=== PATIENT | male | born 1950 | race Caucasian/White ===

== ENCOUNTER 2018-02-10 17:05 | Emergency (ER) | payer OTHER ==
--- OUTSIDE RECORDS SUMMARY | 2018-02-10 17:08 | XMS REPORT | Clinical Summary ---
:1950 Author Organization [facility] Address [address] [place] [address] Care Team Providers Name Role Phone Asked, No Pcp Primary Care Provider Unavailable Allergies No Known Allergies Current Medications Prescription Sig. Disp. Refills Start Date End Date Status amlodipine-benazepr Take 1 capsule 07/19/2017 Discontinued il (LOTREL) 10-20 by mouth mg per capsule daily. aspirin 325 MG Take 325 mg by 07/19/2017 Discontinued tablet mouth daily. carvedilol (COREG) Take 6.25 mg 07/19/2017 Discontinued 6.25 MG tablet by mouth 2 (two) times a day. furosemide (LASIX) Take by mouth 07/19/2017 Discontinued 40 mg/4 mL solution 2 (two) times oral solution a day. atorvastatin Take 80 mg by 07/19/2017 Discontinued (LIPITOR) 80 MG mouth nightly. tablet sacubitril-valsarta Take 1 tablet 07/19/2017 Discontinued n (ENTRESTO) 24-26 by mouth 2 mg tablet per (two) times a tablet day. carvedilol (COREG) Take 1 tablet 60 tablet 1 07/18/2017 08/17/2017 12.5 MG tablet (12.5 mg total) by mouth 2 (two) times a day with meals for 30 days. amIODarone Take 1 tablet 30 tablet 1 07/18/2017 08/17/2017 (PACERONE) 400 MG (400 mg total) tablet by mouth daily for 30 days. furosemide (LASIX) Take 1 tablet 60 tablet 1 07/18/2017 08/17/2017 40 mg tablet (40 mg total) by mouth 2 (two) times a day for 30 days. aspirin (ECOTRIN) Take 1 tablet 30 tablet 0 07/18/2017 08/17/2017 81 MG enteric (81 mg total) coated tablet by mouth daily for 30 days. clopidogrel Take 1 tablet 30 tablet 1 07/18/2017 08/17/2017 (PLAVIX) 75 mg (75 mg total) tablet by mouth daily for 30 days. potassium chloride Take 1 tablet 30 tablet 1 07/18/2017 08/17/2017 (K-DUR) 20 MEQ CR (20 mEq total) tablet by mouth daily for 30 days. acetaminophen-codei Take 1 tablet 30 tablet 0 07/19/2017 08/19/2017 ne (TYLENOL WITH by mouth every CODEINE #3) 300-30 6 (six) hours mg per tablet as needed for moderate pain for up to 30 doses. Active Problems Problem Noted Date ANSHUL (acute kidney injury) 07/14/2017 Atrial fibrillation, currently in sinus rhythm 07/13/2017 Acute respiratory insufficiency 07/13/2017 Biventricular failure 07/13/2017 Pericardial effusion, acute 07/13/2017 S/P CABG x 4 (BONNER to LAD, SVG to OM, SVG TO Diag, SVG TO PDA) and SHAILESH 2016 ligation with clip SHERI (obstructive sleep apnea) 07/08/2017 Ischemic dilated cardiomyopathy, with reduced ejection fraction. 07/08/2017 Hypertensive cardiovascular disease 07/08/2017 Severe left internal carotid artery stenosis. (80-99%) 07/08/2017 Type 2 diabetes mellitus 07/08/2017 Obesity 07/08/2017 CAD (coronary artery disease) 07/07/2017 Coronary artery disease involving tanana coronary artery of tanana heart 07/07 without angina pectoris Overview: Added automatically from request for surgery [id number] Patient is Jainism GERD (gastroesophageal reflux disease) Resolved Problems Problem Noted Date Resolved Date Systolic heart failure 07/08/2017 07/08/2017 Encounters Date Type Specialty Care Team Description 10/28/2017 Telephone Quality Chandrika Gonsalves 07/11/2017 Anesthesia Event Cardiothoracic Surgery James Huynh 07/11/2017 Procedure Pass Cardiothoracic Surgery 07/11/2017 Surgery Cardiothoracic Surgery Autumn, CABG BONNER TO LAD, Nuno SVG TO DIAGONAL, MD Jack OM, PDA WITH EVH 07/10/2017 Orders Only Cardiovascular Richard, Coronary artery MAAME Brown disease involving tanana coronary artery of tanana heart without angina pectoris (Primary Dx) 07/10/2017 Procedure Pass Procedural Cardiology 07/10/2017 Surgery Procedural Cardiology Filippo Freeman Cv right heart MD Arvind cath [30764 (CPT)] 07/07/2017 - Hospital Encounter Cardiology Autumn, Coronary artery disease of tanana artery of tanana heart with stable angina pectoris (Primary Dx ); 07/19/2017 Nuno Ischemic dilated cardiomyopathy, with reduced ejection fraction. ; MD Jack Shortness of breath; S/P CABG x 4 (BONNER to LAD, SVG to OM, SVG TO Diag, SVG TO PDA) and SHAILESH ligation with clip after 02/09/2017 Family History Medical History Relation Name Comments Diabetes Mother Heart disease Mother Relation Name Status Comments Mother Social History Tobacco Use Types Packs/Day Years Used Date Never Smoker Smokeless Tobacco: Never Used Alcohol Use Drinks/Week oz/Week Comments No Sex Assigned at Date Recorded Not on file Last Filed Vital Signs Vital Sign Reading Time Taken Blood Pressure 113/65 07/19/2017 11:59 AM CDT Pulse 80 07/19/2017 2:01 PM CDT Temperature 36.9 C (98.4 F) 07/19/2017 11:59 AM CDT Respiratory Rate 14 07/19/2017 2:01 PM CDT Oxygen Saturation 95% 07/19/2017 1:47 PM CDT Inhaled Oxygen Concentration - - Weight 123 kg (272 lb 3.2 oz) 07/19/2017 5:00 AM CDT Height 182.9 cm (6') 07/11/2017 8:00 AM CDT Body Mass Index 36.92 07/19/2017 5:00 AM CDT Plan of Treatment Health Maintenance Due Date Last Done Comments FOOT EXAM 1960 OPHTHALMOLOGY EXAM 1960 URINE MICROALBUMIN 1960 COLONOSCOPY 2000 SHINGRIX VACCINE (#1) 2000 ZOSTER VACCINE 2010 PNEUMOCOCCAL POLYSACCHARIDE VACCINE AGE 65 AND OVER 2015 PNEUMOCOCCAL-13 2015 INFLUENZA VACCINE 05/06/2018 Implants Implanted Type Area Spring Maker Device Expiration Model / Identifier Date Serial / Lot Lead Pace Yazan Mycrdl Unipol Tmpry Streamline - [id number] Cardiovascular N/A : [employer] [facility] - 01/28/2019 [id number] / Implanted: Qty: 1 on 07/11/2017 by Nuno Lopez MD Implants N/A CARDIAC SRGRY / Lead Pace Yazan Mycrdl Unipol Tmpry Streamline - [id number] Cardiovascular N/A : [employer] [facility] - 01/28/2019 [id number] / Implanted: Qty: 1 on 07/11/2017 by Nuno Lopez MD Implants N/A CARDIAC SRGRY / Clip Ligtng Weck Hemoclip Plus W/ Tape Ti Med - [id number] Medical Clips for N /A: TELEFLEX 02/18/2022 [id number] / Implanted: Qty: 2 on 07/11/2017 by Nuno Lopez MD Internal Use N/A MEDICAL / Clip Ligtng Weck Hemoclip Plus W/ Tape Ti Sm Strngpnt - [id number] Medical Clips for N/A: WECK CLOSURE 03/25/2022 [id number] / Implanted: Qty: 3 on 07/11/2017 by Nuno Lopez MD Internal Use N/A SYSTEMS / Clip Ligtng Weck Hemoclip Plus W/ Tape Ti Med Lg - [id number] Medical Clips for N/A: WECK CLOSURE 03/25/2022 [id number] / Implanted: Qty: 1 on 07/11/2017 by Nuno Lopez MD Internal Use N/A SYSTEMS / Material Bone Hmsts Wtrsolbl 2.5g Ostene - [id number] Orthopedic Trauma N/A: CERA MED 08/05/2021 [id number] / Implanted: Qty: 1 on 07/11/2017 by Nuno Lopez MD Implants N/A / [id number] System Xclsn Lt Atrl Apndg 40mm - [id number] Surgical N/A: ATRICURE 2019 PRO 140 / Implanted: Qty: 1 on 07/11/2017 by Nuno Lopez MD Implants ; N/A / Expanders; [id number] Extenders; Surgical Wires [place] Perph Vasclr Ptfe 1.2x10cm 1.65mm - [id number] Vascular Graft N/A: BARD PERIPHERAL 05/02/2022 [id number] / Implanted: Qty: 1 on 07/11/2017 by Nuno Lopez MD N/A VASCULAR / [id number] Procedures Procedure Name Priority Date/Time Associated Comments Diagnosis ECHOCARDIOGRAM 2D Routine 07/15/2017 11:00 Results for this LIMITED AM CDT procedure are in the results section. ECHOCARDIOGRAM 2D Routine 07/13/2017 2:00 Results for this LIMITED PM CDT procedure are in the results section. LINE/DRAIN REMOVAL Routine 07/12/2017 12:49 S/P CABG x 4 (BONNER Results for this PM CDT to LAD, SVG to OM, procedure are in SVG TO Diag, SVG the results TO PDA) and SHAILESH section. ligation with clip ANESTHESIA DAYAMI Routine 07/11/2017 8:33 AM CDT Procedure Note - Rob Kenny MD - 07/11/2017 8:32 AM CDT Procedure Performed: DAYAMI Start Time: 07/11/2017 8:32 AM End Time: 07/11/2017 8:32 AM General Procedure Information Diagnostic Indications for Echo: assessment of surgical repair and hemodynamic monitoring Intubated Bite block placed Heart visualized Probe Insertion: Easy Probe Type: Multiplane Modalities: 2D only Echocardiographic and Doppler Measurements Ventricles Right Ventricle: Cavity size normal. Hypertrophy not present. Thrombus not present. Global function normal. Left Ventricle: Cavity size dilated. Hypertrophy present. Thrombus not present. Global Function moderately impaired. Ejection Fraction 30%. Valves Aortic Valve: Annulus normal. Stenosis not present. Regurgitation absent. Leaflets calcified. Leaflet motions normal. Mitral Valve: Annulus normal. Stenosis not present. Regurgitation +1. Leaflet motions normal. Tricuspid Valve: Annulus normal. Pulmonic Valve: Annulus normal. Atria Right Atrium: Size normal. Left Atrium: Size normal. Left atrial appendage normal. Septa Atrial Septum: Intra-atrial septal morphology normal. Ventricular Septum: Intra-ventricular septum morphology normal. Other Findings Pericardium: pericardial effusion Pleural Effusion: none Anesthesia Information Performed Personally Anesthesiologist: ROB KENNY PA CATHETER Routine 07/11/2017 8:04 AM CDT Procedure Note - Rob Kenny MD - 07/11/2017 8:04 AM CDT PA catheter Performed by: ROB KENNY Authorized by: ROB KENNY Patient Location: OR Start Time: 07/11/2017 8:04 AM End Time: 07/11/2017 8:04 AM Staff: Anesthesiologist: ROB KENNY Other Staff: JAMES HUYNH Performed by: Other staff MSBT: antiseptic used, all elements of maximal sterile barrier technique followed, hand hygiene performed, cap/gown used by other personnel and solutions labeled TIme Out Performed: 07/11/2017 8:04 AM Procedure details: PA Catheter Size: 8 PA Catheter Side: Right PA Catheter Site: Internal jugular PA Catheter secured at: 48 cm PA Catheter placed: PA Catheter placed without difficulty Waveform: PA Catheter wave confirmed Ports flushed: All ports flushed pre-procedure Balloon checked: Balloon checked prior to insertion Post-procedure: No arrhythmia: No arrhythmias noted Patient tolerance: Patient tolerated the procedure well with no immediate complications CENTRAL LINE Routine 07/11/2017 8:04 AM CDT Procedure Note - Rob Kenny MD - 07/11/2017 8:03 AM CDT Central line Performed by: ROB KENNY Authorized by: ROB KENNY Patient Location: OR Start Time: 07/11/2017 8:03 AM End Time: 07/11/2017 8:03 AM Staff: Anesthesiologist: ROB KENNY Other Staff: JAMES HUYNH Performed by: Other staff Preprocedure:patient identified, IV checked, site and side verified, risks and benefits discussed, procedure verified, surgical consent complete, patient position confirmed, monitors and equipment checked and pre-op evaluation complete MSBT: antiseptic used during central venous catheter insertion, all elements of maximal sterile barrier technique followed, hand hygiene performed prior to central venous catheter insertion, cap/gown used by other personnel during central venous catheter insertion, solutions labeled and all ports not used during insertion clamped TIme Out Performed: 07/11/2017 8:03 AM Indications: Indications: Central pressure monitoring and vascular access Anesthesia: Anesthesia: General Procedure details: Patient position: Trendelenburg Catheter Type: Double lumen Catheter Size: 9 Fr Catheter Site: internal jugular vein Catheter site laterality: Right Pre-procedure: Landmarks identified Ultrasound guidance used: Yes Ultrasound image saved: Yes Successful placement: Yes Guidewire removal: Guidewire removal is confirmed Guidewire removal witnessed by: ROB KENNY Post-procedure: Post-procedure: line sutured and ports flushed with saline Post-procedure: Blood cleaned with CHG and sterile caps on all hubs Assessment: Blood return through all ports and free fluid flow Patient tolerance: Patient tolerated the procedure well with no immediate complications WI AN ELECTIVE ENDOTRACHEAL AIRWAY Routine 07/11/2017 7:52 AM CDT Procedure Note - Rob Kenny MD - 07/11/2017 7:51 AM CDT Airway Date/Time: 07/11/2017 7:51 AM Performed by: ROB KENNY Authorized by: ROB KENNY Location: OR Urgency: Elective Difficult Airway: No Anesthesiologist: ROB KENNY Resident/PHD INTERN: ZION COOL Performed by: resident/PHD INTERN Preoxygenated with 100% O2: Yes C-spine Precautions Maintained Throughout: Yes Mask Ventilation: Easy mask Final Airway Type: Endotracheal airway Final Endotracheal Airway: ETT Technique Used: Direct laryngoscopy Insertion Site: Oral Blade Type: Hollis Laryngoscope Blade/Videolaryngoscope Blade Size: 2 ETT Size (mm): 8.5 Measured from: Lips ETT to Lips (cm): 21 Placement Verified by: CO2 detection, direct visualization and equal breath sounds Laryngoscopic view: Grade IIa - partial view of glottis Rapid Sequence Induction (RSI): No Modified RSI: No Number of Attempts at Approach: 1 ARTERIAL LINE Routine 07/11/2017 7:50 AM CDT CV RIGHT HEART CATH Routine 07/10/2017 3:47 PM CDT ECHOCARDIOGRAM 2D COMPLETE W Routine 07/08/2017 7:33 AM CDT Results for this MMODE SPECTRAL COLOR DOPPLER procedure are in the (37059) results section. after 02/09/2017 Results Hemochromatosis (HFE) 3 mutations (07/19/2017 2:45 PM) Component Value Ref Range HFE PCR specimen Whole Blood C282Y hemochromatosis mutation Heterozygous H63D hemochromatosis mutation Negative S65C hemochromatosis mutation Negative Hemochromatosis mutation See Note interpretation Comment: Indication for testing: Carrier screening or diagnostic testing for hereditary hemochromatosis. Hemochromatosis Interpretive Results: Heterozygous C282Y: C282Y: HeterozygousThe patient is heterozygous for the HFE C282Y mutation and the normal allele. H63D: NegativeThe patient is negative for the HFE H63D mutation. S65C: NegativeThe patient is negative for the HFE S65C mutation. Although this genotype may correlate with increased serum iron and transferrin saturation, it is rarely associated with symptoms of hereditary hemochromatosis. This result has been reviewed and approved by Shelby Linder M.D. BACKGROUND INFORMATION: Hemochromatosis (HFE) 3 Mutations CHARACTERISTICS: Disorder of iron metabolism resulting in excessive iron storage leading to increased skin pigmentation, arthritis, hypogonadism, diabetes mellitus, heart arrhythmias/failure, cirrhosis and liver carcinoma. INCIDENCE: One in 300 individuals of [place] descent; unknown in other ethnicities. INHERITANCE: Autosomal recessive. PENETRANCE: 5 percent of C282Y homozygotes, 1 percent of C282Y/H63D compound heterozygotes and rare H63D homozygotes develop clinical symptoms. CAUSE: Two pathogenic HFE gene mutations on opposite chromosomes. MUTATIONS TESTED: p.C282Y (c.845G>A), p.H63D (c.187C>G), and p.S65C (c.193A>T). CLINICAL SENSITIVITY: 85 percent of hereditary hemochromatosis in Northern Europeans is caused by C282Y homozygosity and 5 percent by C282Y/H63D compound heterozygosity. METHODOLOGY: PCR and fluorescence monitoring. ANALYTICAL SENSITIVTY AND SPECIFICITY: 99 percent. LIMITATIONS: HFE mutations, other than those targeted, will not be detected. Diagnostic errors can occur due to rare sequence variations. This test is performed pursuant to an agreement with[employer] Test developed and characteristics determined by [facility]. See Compliance Statement C: [employer]/ Performed by [facility], [address] [place] [id number] [email or web address], Leander Engel MD - Lab. Director Specimen Performing Laboratory [facility] [address] [place] [address] Blood culture, aerobic & anaerobic (07/19/2017 5:05 AM)Only the most recent of2 resultswithin the time period is included. Component Value Ref Range Blood culture isolate No growth after 5 days of incubation. Comment: Specimen Information Specimen Source: Blood Specimen Site: Peripheral Arm Right Specimen Performing Laboratory Blood [facility] DEPARTMENT OF PATHOLOGY AND GENOMIC MEDICINE [address] [place] [id number] Prothrombin time with INR (07/19/2017 5:05 AM)Only the most recent of6 resultswithin the time period is included. Component Value Ref Range Prothrombin time 16.6 (H) 12.0 - 15.0 sec INR 1.3 Comment: The International Normalized Ratio (INR) is a therapeutic monitoring tool for patients who are stable on oral anticoagulant therapy. An INR of 2.0-3.0 is suggested for deep vein thrombosis/pulmonary embolism. Specimen Performing Laboratory Blood [facility] DEPARTMENT OF PATHOLOGY AND [facility] [address] [place] [id number] Estimated GFR (07/19/2017 4:00 AM)Only the most recent of12 resultswithin the time period is included. Component Value Ref Range GFR Non Af Amer 43 (A) mL/min/1.73 m2 GFR Af Amer 53 (A) mL/min/1.73 m2 Comment: Chronic kidney disease: <60 mL/min/1.73m2 Kidney failure: <15 mL/min/1.73m2 The estimated GFR is calculated from the IDMS-traceable Modification of Diet in Renal Disease Equation. The accuracy of the calculation is poor when the creatinine is normal. Calculated values >90 mL/min/1.73m2 are not reported. This equation has not been validated in children (<18 years), women, the elderly (>70 years), or ethnic groups other than Caucasians and Americans. Specimen Performing Laboratory Plasma specimen [facility] DEPARTMENT OF PATHOLOGY AND [facility] [address] [place] [id number] Comprehensive metabolic panel (07/19/2017 4:00 AM)Only the most recent of4 resultswithin the time period is included. Component Value Ref Range Sodium 142 135 - 148 mEq/L Potassium 3.9 3.5 - 5.0 mEq/L Chloride 102 98 - 112 mEq/L CO2 23 (L) 24 - 31 mEq/L Anion gap 17 (H) 7 - 15 mEq/L Comment: Starting from January , anion gap calculation no longer incorporates potassium. Please note the change. BUN 31 (H) 8 - 23 mg/dL Creatinine 1.6 (H) 0.7 - 1.2 mg/dL Glucose 108 (H) 65 - 99 mg/dL Calcium 8.8 8.8 - 10.2 mg/dL Protein 6.3 6.3 - 8.3 g/dL Comment: 4.6-7.0 g/dL 1 week 4.4-7.6 g/dL 7 months-1year5.1-7.3 g/dL 1-2 years5.6-7.5 g/dL >3 years6.0-8.0 g/dL 18-150 6.3-8.3 g/dL Albumin 2.8 (L) 3.5 - 5.0 g/dL A/G ratio 0.8 0.7 - 3.8 Alkaline phosphatase 128 40 - 129 U/L AST 67 (H) 10 - 50 U/L ALT 209 (H) 5 - 50 U/L Total bilirubin 0.7 0.0 - 1.2 mg/dL Specimen Performing Laboratory Plasma specimen [facility] DEPARTMENT OF PATHOLOGY AND GENOMIC MEDICINE [address] [place] [id number] US Abdominal Doppler (07/18/2017 4:45 PM) Specimen Performing Laboratory [facility] [address] [place] [address] Narrative EXAMINATION:US ABDOMINAL DOPPLER CLINICAL HISTORY:Abnormal liver function test. COMPARISON:None available. TECHNIQUE: Ultrasound of the abdominal vessels with grayscale, color flow Doppler, spectral Doppler imaging obtained. IMPRESSION: 1.Main portal vein is normal in diameter measuring 0.8 cm and patent with normal hepatopetal flow and phasicity. Peak flow velocity measures 27 cm/s. 2.Left portal vein and anterior and posterior divisions of the right portal vein are patent with normal hepatopetal flow. 3.Middle, left, and right hepatic veins are patent with normal hepatofugal flow. 4.Hepatic arteries are patent with normal low resistance waveform morphologies and holodiastolic flow. 5.Splenic artery and vein are patent at the hilum and there are normal waveform morphologies and directional flow. Vessels could not be identified in the midline, obscured by shadowing. 6.IVC is patent. 7.SMV is obscured by shadowing. [facility]-[id number] Procedure Note Interface, Radiology Results Incoming - 07/18/2017 7:55 PM CDT EXAMINATION: US ABDOMINAL DOPPLER CLINICAL HISTORY: Abnormal liver function test. COMPARISON: None available. TECHNIQUE: Ultrasound of the abdominal vessels with grayscale, color flow Doppler, spectral Doppler imaging obtained. IMPRESSION: 1. Main portal vein is normal in diameter measuring 0.8 cm and patent with normal hepatopetal flow and phasicity. Peak flow velocity measures 27 cm/s. 2. Left portal vein and anterior and posterior divisions of the right portal vein are patent with normal hepatopetal flow. 3. Middle, left, and right hepatic veins are patent with normal hepatofugal flow. 4. Hepatic arteries are patent with normal low resistance waveform morphologies and holodiastolic flow. 5. Splenic artery and vein are patent at the hilum and there are normal waveform morphologies and directional flow. Vessels could not be identified in the midline, obscured by shadowing. 6. IVC is patent. 7. SMV is obscured by shadowing. [facility]-[id number] US Abdomen Complete (07/18/2017 4:12 PM) Specimen Performing Laboratory [facility] [address] [place] [address] Narrative EXAM: US ABDOMEN COMPLETE CLINICAL DATA:ABNORMAL LIVER FUNCTION TESTS COMPARISON: NONE. IMPRESSION: Mild fatty infiltration and enlargement of the liver. FINDINGS: LIVER:Mildly echogenic consistent with fatty infiltration. Mildly enlarged measuring 16.7 cm in length. No mass or ductal dilatation identified. GALLBLADDER:Normal without stones, sludge, wall thickening, or pericholecystic edema. COMMON DUCT:Normal within the shanna hepatis measuring, 3 mm. PANCREAS:Obscured by shadowing. SPLEEN: Normal in size measuring, 10.4 cm in length. KIDNEYS: Normal in position and echogenicity. Kidneys are mildly enlarged, the right measuring 14.3 cm in length, and the left measuring 13.2 cm in length. An 8 mm focus of cortical hyperechogenicity in the superior pole right kidney may represent an angiomyolipoma and is of doubtful significance. A similar 9 mm focus of cortical hyperechogenicity is located in the interpolar left kidney. 11 mm cyst also seen in the left kidney. No suspicious renal mass, calculus, or hydronephrosis identified. AORTA:Visualized aorta is nonaneurysmal. IVC:Visualized inferior vena cava is unremarkable. PORTAL VEIN: Normal in diameter measuring 8 mm and patent with normal hepatopetal flow. ASCITES: No free fluid or fluid collection. PLEURAL EFFUSION:No appreciable pleural effusion. Thank you for allowing us to participate in the care of your patient. [facility]-[id number] Procedure Note Hm Interface, Radiology Results Incoming - 07/18/2017 7:30 PM CDT EXAM: US ABDOMEN COMPLETE CLINICAL DATA: ABNORMAL LIVER FUNCTION TESTS COMPARISON: NONE. IMPRESSION: Mild fatty infiltration and enlargement of the liver. FINDINGS: LIVER: Mildly echogenic consistent with fatty infiltration. Mildly enlarged measuring 16.7 cm in length. No mass or ductal dilatation identified. GALLBLADDER: Normal without stones, sludge, wall thickening, or pericholecystic edema. COMMON DUCT: Normal within the shanna hepatis measuring, 3 mm. PANCREAS: Obscured by shadowing. SPLEEN: Normal in size measuring, 10.4 cm in length. KIDNEYS: Normal in position and echogenicity. Kidneys are mildly enlarged, the right measuring 14.3 cm in length, and the left measuring 13.2 cm in length. An 8 mm focus of cortical hyperechogenicity in the superior pole right kidney may represent an angiomyolipoma and is of doubtful significance. A similar 9 mm focus of cortical hyperechogenicity is located in the interpolar left kidney. 11 mm cyst also seen in the left kidney. No suspicious renal mass, calculus, or hydronephrosis identified. AORTA: Visualized aorta is nonaneurysmal. IVC: Visualized inferior vena cava is unremarkable. PORTAL VEIN: Normal in diameter measuring 8 mm and patent with normal hepatopetal flow. ASCITES: No free fluid or fluid collection. PLEURAL EFFUSION: No appreciable pleural effusion. Thank you for allowing us to participate in the care of your patient. [facility]-[id number] Urinalysis screen and microscopy, with reflex to culture (07/18/2017 1:59 PM) Only the most recent of2 resultswithin the time period is included. Component Value Ref Range Specimen site Clean catch Color, UA Yellow Appearance, UA Clear Specific gravity, UA 1.013 1.001 - 1.035 pH, UA 5.0 5.0 - 8.5 Protein, UA Negative Negative Glucose, UA Negative Negative Ketones, UA Negative Negative Bilirubin, UA Negative Negative Blood, UA Negative Negative Nitrite, UA Negative Negative Urobilinogen, UA <2.0 <2.0 Leukocyte esterase, UA Negative Negative Epithelial cells, UA <1 /HPF WBC, UA <1 0 - 1 /HPF RBC, UA 2 (H) 0 - 1 /HPF Bacteria, UA Few None seen Yeast, UA None seen Yeast with pseudohyphae, UA None seen Uric acid crystals, UA Few Hyaline casts, UA 1 /LPF Specimen Performing Laboratory Urine [facility] DEPARTMENT OF PATHOLOGY AND GENOMIC MEDICINE [address] [place] [address] Hepatitis E virus Ab, IgG by COLLIN (07/18/2017 1:59 PM) Component Value Ref Range Hepatitis E IgG Positive (A) Negative Comment: The positive anti-HEV IgG result is consistent with exposure to hepatitis E virus. INTERPRETIVE INFORMATION: Hepatitis E Virus Ab, IgG by COLLIN Refer to Statement D under Testing Information at [email or web address]. Performed by [facility], [address] [place] [address] www.[employer], Leander Engel MD - Lab. Director Specimen Performing Laboratory Serum [facility] [address] [place] [address] Anti smooth muscle Ab screen (07/18/2017 1:59 PM) Component Value Ref Range Anti smooth muscle Ab screen Not Detected Not-Detected Specimen Performing Laboratory Blood [facility] DEPARTMENT OF PATHOLOGY AND GENOMIC MEDICINE [address] [place] [address] Total iron binding capacity (07/18/2017 1:59 PM) Component Value Ref Range Iron level 43 (L) 59 - 158 ug/dL Iron binding capacity 171 (L) 200 - 400 ug/dL % Saturation 25.1 20.0 - 40.0 % Specimen Performing Laboratory Plasma specimen [facility] DEPARTMENT OF PATHOLOGY AND GENOMIC MEDICINE [address] [place] [address] Liver-kidney microsome Ab, IgG (07/18/2017 1:59 PM) Component Value Ref Range Liver-kidney microsome Ab, IgG <1:20 <1:20 Comment: INTERPRETIVE INFORMATION:Xvgyf-Luraff-Kydvepaxz Abs, IgG Liver-Kidney Microsome IgG antibody (anti-LKM), as detected by indirect immunofluorescent antibody (IFA) techniques, may be observed in patients with autoimmune hepatitis type 2 (AIH-2), AIH-2 associated with autoimmune svksyrsyoxcjeoczku-bhthavubjlo-mlfgjzgnmt dystrophy (APECED), viral hepatitis C or D, and some forms of drug-induced hepatitis. This IFA does not differentiate among the four types of LKM antibodies (LKM-1, LKM-2, LKM-3, and a fourth type that recognizes CY and CY antigens). Of these, anti-LKM-1 (cytochrome [id number]) IgG antibodies are considered specific for AIH-2. Test developed and characteristics determined by [facility]. See Compliance Statement D: [employer]/ Performed by [facility], [address] [place] [id number] www.[employer], Leander Engel MD - Lab. Director Specimen Performing Laboratory Serum [facility] [address] [place] [address] Hepatitis E virus Ab, IgM by COLLIN (07/18/2017 1:59 PM) Component Value Ref Range Hepatitis E IgM Negative Negative Comment: INTERPRETIVE INFORMATION: Hepatitis E Virus Ab, IgM by COLLIN Refer to Statement D under Testing Information at [email or web address]. Performed by [facility], [address] [place] [id number] www.[employer], Leander Engel MD - Lab. Director Specimen Performing Laboratory Serum [address] [address] Alpha-1 antitrypsin phenotype (07/18/2017 1:59 PM) Component Value Ref Range Alpha-1 antitrypsin 268 (H)Comment: To convert to umol/L, 90 - 200 mg/dL multiply mg/dL by 0.185 Alpha-1 antitrypsin phenotype M1M1 Comment: The patient appears to have a normal phenotype. All M alleles (including subtypes M1, M2, and M3) produce normal serum concentrations of owffk-7-xibpbkeu inhibitor and are not associated with clinical disease. Caution in interpretation is advised if the patient has been transfused within the previous 21 days. Performed by [facility], [address] [place] [id number] www.[employer], Leander Engel MD - Lab. Director Specimen Performing Laboratory Serum [facility] [address] [place] [address] Cancer antigen 19-9 (07/18/2017 1:59 PM) Component Value Ref Range CA 19-9 <1 0 - 35 U/mL Comment: The Cheri Kecia 8000 CA19-9 immunoassay was used. Results obtained with different assay methods or kits should not be used interchangeably and may be different. Specimen Performing Laboratory Plasma specimen [facility] DEPARTMENT OF PATHOLOGY AND GENOMIC MEDICINE [address] [place] [address] Anti mitochondria screen (07/18/2017 1:59 PM) Component Value Ref Range Anti mitochondria screen Not Detected Not-Detected Specimen Performing Laboratory Blood [facility] DEPARTMENT OF PATHOLOGY AND [address] [address] Ceruloplasmin level (07/18/2017 1:59 PM) Component Value Ref Range Ceruloplasmin 32 (H) 15 - 30 mg/dL Specimen Performing Laboratory Plasma specimen [facility] DEPARTMENT OF PATHOLOGY [address] [address] Alpha fetoprotein (07/18/2017 1:59 PM) Component Value Ref Range Alpha fetoprotein 0.9 0.0 - 8.3 ng/mL Comment: The Kecia 8000 AFP immunoassay was used. Results obtained with different assay methods or kits should not be used interchangeably and may be different. Specimen Performing Laboratory Serum [facility] [address] [address] Hepatitis acute panel (07/18/2017 1:59 PM) Component Value Ref Range Hepatitis A IgM Non-reactive Non-reactive Hepatitis B core IgM Non-reactive Non-reactive Hepatitis B surface Ag Non-reactive Non-reactive Hepatitis C Ab Non-reactive Non-reactive Specimen Performing Laboratory Serum [facility] DEPARTMENT OF PATHOLOGY [address] [address] Hepatitis C virus quantitative by PCR (07/18/2017 1:59 PM) Component Value Ref Range Hepatitis C quantitative, PCR Not-Detected Not-Detected IU/mL Hepatitis C quantitative, PCR See link below for PDF Lab ReportComment: Specimen Performing Laboratory Blood [facility] [address] [address] Urine culture (07/18/2017 1:59 PM)Only the most recent of2 resultswithin the time period is included. Component Value Ref Range Urine culture SEE COMMENTComment: Bacteriuria screen negative. Specimen Performing Laboratory [facility] DEPARTMENT OF PATHOLOGY AND [address] [address] RAUDEL (07/18/2017 1:59 PM) Component Value Ref Range RAUDEL screen Not Detected Not-Detected Specimen Performing Laboratory Blood [facility] [address] [address] Ferritin level (07/18/2017 1:59 PM) Component Value Ref Range Ferritin level 879 (H) 30 - 400 ng/mL Specimen Performing Laboratory Plasma specimen [facility] DEPARTMENT OF PATHOLOGY AND [address] [address] Carcinoembryonic antigen (CEA) (07/18/2017 1:59 PM) Component Value Ref Range CEA 1.7 0.0 - 3.8 ng/mL Comment: Reference range for heavy smokers:0.0 - 5.5 ng/mL The CHERI Kecia 8000 CEA immunoassay was used. Results obtained with different assay methods or kits should not be used interchangeably and may be different. Specimen Performing Laboratory Serum [facility] DEPARTMENT OF PATHOLOGY AND GENOMIC MEDICINE [address] [place], [place] [id number] POC glucose (07/17/2017 12:25 PM)Only the most recent of47 resultswithin the time period is included. Component Value Ref Range POC glucose 131 (H) 65 - 99 mg/dL Comment: [facility] Notified RN Meter ID: [id number] Pantograph Transferrer: Torrey Gandhi Specimen Performing Laboratory [facility] DEPARTMENT OF PATHOLOGY AND GENOMIC MEDICINE [address] [place] [address] XR Chest 1 Vw Portable (07/16/2017 11:45 AM)Only the most recent of11 resultswithin the time period is included. Specimen Performing Laboratory [facility] [address] [place] [address] Narrative Examination: XR CHEST 1 VW PORTABLE Clinical history: SHORTNESS OF BREATH Comparison: July 15 Impression: 1. The cardiac silhouette remains significantly enlarged. Consolidation within the left base is largely related to compressive atelectasis, though trace left pleural effusion is suspected. Underlying infiltrate cannot be excluded. 2. Pulmonary congestion is minimal and stable. 3. Appearance of the chest is otherwise unchanged. [facility]-[id number] Procedure Note Interface, Radiology Results Incoming - 07/16/2017 11:58 AM CDT Examination: XR CHEST 1 VW PORTABLE Clinical history: SHORTNESS OF BREATH Comparison: July 15 Impression: 1. The cardiac silhouette remains significantly enlarged. Consolidation within the left base is largely related to compressive atelectasis, though trace left pleural effusion is suspected. Underlying infiltrate cannot be excluded. 2. Pulmonary congestion is minimal and stable. 3. Appearance of the chest is otherwise unchanged. [facility]-[id number] Phosphorus level (07/16/2017 5:46 AM)Only the most recent of4 resultswithin the time period is included. Component Value Ref Range Phosphorus 3.7 2.4 - 4.5 mg/dL Specimen Performing Laboratory Plasma specimen [facility] DEPARTMENT OF PATHOLOGY AND GENOMIC MEDICINE [address] [place] [address] Magnesium level (07/16/2017 5:46 AM)Only the most recent of6 resultswithin the time period is included. Component Value Ref Range Magnesium 2.5 (H) 1.6 - 2.4 mg/dL Specimen Performing Laboratory Plasma specimen [facility] DEPARTMENT OF PATHOLOGY [address] [address] Ionized calcium (07/16/2017 5:46 AM)Only the most recent of2 resultswithin the time period is included. Component Value Ref Range pH 7.45 Ionized calcium 1.15 1.11 - 1.32 mmol/L Specimen Performing Laboratory Plasma specimen [facility] [address] [address] Basic metabolic panel (07/16/2017 5:46 AM)Only the most recent of8 resultswithin the time period is included. Component Value Ref Range Sodium 140 135 - 148 mEq/L Potassium 3.7 3.5 - 5.0 mEq/L Chloride 102 98 - 112 mEq/L CO2 24 24 - 31 mEq/L Anion gap 14 7 - 15 mEq/L Comment: Starting from January , anion gap calculation no longer incorporates potassium. Please note the change. BUN 50 (H) 8 - 23 mg/dL Creatinine 1.9 (H) 0.7 - 1.2 mg/dL Glucose 110 (H) 65 - 99 mg/dL Calcium 8.6 (L) 8.8 - 10.2 mg/dL Specimen Performing Laboratory Plasma specimen [facility] [address] [address] CBC hemogram (07/16/2017 5:10 AM)Only the most recent of2 resultswithin the time period is included. Component Value Ref Range WBC 14.35 (H) 4.50 - 11.00 k/uL RBC 3.41 (L) 4.40 - 6.00 m/uL HGB 10.5 (L) 14.0 - 18.0 g/dL HCT 31.5 (L) 41.0 - 51.0 % MCV 92.4 82.0 - 100.0 fL MCH 30.8 27.0 - 34.0 pg MCHC 33.3 31.0 - 37.0 g/dL RDW - SD 46.8 37.0 - 55.0 fL MPV 11.0 8.8 - 13.2 fL Platelet count 285 150 - 400 k/uL Nucleated RBC 0.00 /100 WBC Specimen Performing Laboratory Blood [facility] DEPARTMENT OF PATHOLOGY AND GENOMIC MEDICINE [address] [place] [address] Echocardiogram 2d limited (07/15/2017 11:00 AM) Specimen Performing Laboratory [facility] [address] [place] [address] Narrative Echocardiography Report [address] [facility] [address], [place] [address] Pat.Name:Kay GO.ID:[id number] .Date: 07/15/2017 Refer.MD:NUNO LOPEZ MD Exam Time: 10:25:00 AM Study Type:Routine Echo Height:70inWeight: 263lb BSA: 2.35 m2 DOBAge:1950,66Y Sex: MALEBP:135/74 HR:91 bpmSonogrphr: YAMILET Hanks Pat. Stat.:Inpatient Room:[facility] Study Status:Final Echo Event ID:[id number] Order ID:[id number] Reason for Study:Assessment of LV systolic function, patient in sinus rhythm History / Clinical:Congestive Heart Failure, Diabetes, Hypertension Procedures:2D Echo,Colorflow Doppler Limited Race:C SUMMARY: LV systolic function is severely depressed. RV systolic function is depressed. Small posterior pericardial effusion. FINDINGS: LV: LV size is moderately enlarged. There is severe eccentric LV hypertrophy.LV systolic function is severely depressed. Unableto assess regional wall motion. Estimated EF is 20-24%. RV: RV size is normal. RV systolic function is depressed. LA: LA volume is difficult to assess. RA: RA volume is difficult to assess. AO: Aortic root diameter is mildly enlarged. MARY: Small posterior pericardial effusion. AV: No structural AV abnormalities noted. MV: No structural MV abnormalities noted. PV: Pulmonic valve not well seen. TV: Tricuspid valve not well seen. MEASUREMENTS: 2D Parasternal Long Wallace LVOT 2.2 cmLA Ds4.3 cm LVIDd6.2 cmIndex 2.6 cm/m Ao Rtd 3.9 cm Index1.6 cm/m LVIDs4.9 cm LV Rlec581.3 g(122-174) LV%fs 20.7 % LVM Index 146.5 g/m2 IVSd 1.3 cmRWT0.4 LVPWd1.2 cm Signed 07/15/2017 03:14 PM Freddie Sanchez M.D. Procedure Note Interface, Radiology Results In - 07/15/2017 3:15 PM CDT Echocardiography Report [address]Name: ANDREA GO.ID: [id number] .Date: 07/15/2017 Refer.MD: NUNO LOPEZ MD Exam Time: 10:25:00 AM Study Type:Routine Echo Height: 70in Weight: 263lb BSA: 2.35 m2 Age: 11 1950,66Y Sex: MALE BP: 135/74 HR: 91 bpm Sonogrphr: YAMILET Hanks Pat. Stat.:Inpatient Room: [facility] Study Status:Final Echo Event ID:[id number] Order ID: [id number] Reason for Study:Assessment of LV systolic function, patient in sinus rhythm History / Clinical:Congestive Heart Failure, Diabetes, Hypertension Procedures:2D Echo,Colorflow Doppler Limited Race: C SUMMARY: LV systolic function is severely depressed. RV systolic function is depressed. Small posterior pericardial effusion. FINDINGS: LV: LV size is moderately enlarged. There is severe eccentric LV hypertrophy. LV systolic function is severely depressed. Unable to assess regional wall motion. Estimated EF is 20-24%. RV: RV size is normal. RV systolic function is depressed. LA: LA volume is difficult to assess. RA: RA volume is difficult to assess. AO: Aortic root diameter is mildly enlarged. MARY: Small posterior pericardial effusion. AV: No structural AV abnormalities noted. MV: No structural MV abnormalities noted. PV: Pulmonic valve not well seen. TV: Tricuspid valve not well seen. MEASUREMENTS: 2D Parasternal Long Wallace LVOT 2.2 cm LA Ds 4.3 cm LVIDd 6.2 cm Index 2.6 cm/m Ao Rtd 3.9 cm Index 1.6 cm/m LVIDs 4.9 cm LV Mass 344.3 g (122-174) LV%fs 20.7 % LVM Index 146.5 g/m2 IVSd 1.3 cm RWT 0.4 LVPWd 1.2 cm Signed 07/15/2017 03:14 PM Freddie Sanchez M.D. Hemoglobin & hematocrit (07/14/2017 12:05 PM) Component Value Ref Range HGB 10.4 (L) 14.0 - 18.0 g/dL HCT 31.8 (L) 41.0 - 51.0 % Specimen Performing Laboratory Blood [facility] DEPARTMENT OF PATHOLOGY AND GENOMIC MEDICINE [address] [place] [address] O2 saturation, venous (07/14/2017 12:05 PM) Component Value Ref Range Hemoglobin, venous, syringe 10.9 (L) 14.0 - 18.0 g/dL O2 saturation, venous 58 40 - 70 % Specimen Performing Laboratory Blood [facility] DEPARTMENT OF PATHOLOGY AND [facility]INE [address] [place] [address] Partial thromboplastin time, activated (07/14/2017 12:05 PM)Only the most recent of4 resultswithin the time period is included. Component Value Ref Range PTT 30.9 23.0 - 36.0 sec Comment: PTT therapeutic range for unfractionated heparin is 61.0-112.0 seconds which corresponds to Anti-Xa 0.3-0.7 U/ml. Specimen Performing Laboratory Blood [facility] DEPARTMENT OF PATHOLOGY AND [facility] MEDICINE [address] [place] [address] ECG 12 lead (07/14/2017 2:31 AM)Only the most recent of5 resultswithin the time period is included. Component Value Ref Range Ventricular rate 106 Atrial rate 107 QRSD interval 116 QT interval 322 QTC interval 427 QRS axis 1 -7 T wave axis 213 EKG impression Atrial fibrillation with rapid ventricular response-Left ventricular hypertrophy with QRS widening-Inferior infarct (cited on or before 08-JUL-2017)-Anterolateral injury pattern-^^ ^^ ACUTE [place] / STEMI ^ ^ ^^-Abnormal ECG- Specimen Performing Laboratory [facility] MUSE [address] [place] [address] Arterial blood gas (07/13/2017 5:03 PM)Only the most recent of3 resultswithin the time period is included. Component Value Ref Range pH, arterial 7.48 (H) 7.35 - 7.45 pCO2, arterial 29 (L) 35 - 45 mmHg pO2, arterial 58 (L) 80 - 90 mmHg Bicarbonate, arterial 21.3 21.0 - 28.0 mmol/L Base excess, arterial -1 -2 - 2 mEq/L O2 saturation, arterial 92 (L) 95 - 100 % Specimen Performing Laboratory Blood [facility] DEPARTMENT OF PATHOLOGY AND GENOMIC MEDICINE [address] [place] [address] US Renal (07/13/2017 4:51 PM) Specimen Performing Laboratory [facility] [address] [place] [address] Narrative EXAMINATION:US RENAL CLINICAL HISTORY:Elevated abnormal renal function tests COMPARISON:None. IMPRESSION: The right kidney zgzuaror90 cm in length. The left kidney jfeuppgo30.9 cm in length. A few small echogenic foci seen in the right kidney which may be related to small stones. This can be confirmed by CT scan. There is no mass, cyst, or hydronephrosis. Echogenicity is normal. [facility]-[id number] Procedure Note Interface, Radiology Results Incoming - 07/13/2017 5:58 PM CDT EXAMINATION: US RENAL CLINICAL HISTORY: Elevated abnormal renal function tests COMPARISON: None. IMPRESSION: The right kidney measures 14 cm in length. The left kidney measures 12.9 cm in length. A few small echogenic foci seen in the right kidney which may be related to small stones. This can be confirmed by CT scan. There is no mass, cyst, or hydronephrosis. Echogenicity is normal. [facility]-[id number] Protein, urine, random (07/13/2017 3:15 PM) Component Value Ref Range Protein, urine random 25 mg/dL Specimen Performing Laboratory Urine [facility] DEPARTMENT OF PATHOLOGY AND GENOMIC MEDICINE [address] [place] [address] Urinalysis, automated with microscopy (07/13/2017 3:15 PM) Component Value Ref Range Color, UA Yellow Appearance, UA Clear Specific gravity, UA 1.015 1.001 - 1.035 pH, UA 5.0 5.0 - 8.5 Protein, UA 1+ (A) Negative Glucose, UA Negative Negative Ketones, UA Negative Negative Bilirubin, UA Negative Negative Blood, UA Small (A) Negative Nitrite, UA Negative Negative Urobilinogen, UA <2.0 <2.0 Leukocyte esterase, UA Negative Negative Epithelial cells, UA <1 /HPF WBC, UA <1 0 - 1 /HPF RBC, UA 3 (H) 0 - 1 /HPF Bacteria, UA Few None seen Hyaline casts, UA 3 /LPF Yeast, UA None seen Yeast with pseudohyphae, UA None seen Specimen Performing Laboratory Urine [facility] DEPARTMENT OF PATHOLOGY AND GENOMIC MEDICINE [address] [place] [address] Echocardiogram 2d limited (07/13/2017 2:00 PM) Specimen Performing Laboratory [facility] [address] [place] [id number] Narrative Echocardiography Report [address] [facility], [place] [address] Pat.Name:Kay GO.ID:[id number] .Date: 07/13/2017 Refer.MD:NUNO LOPEZ MD Exam Time: 1:34:00 PMStudy Type:Routine Echo Height:70inWeight: 263lb BSA: 2.35 m2 DOBAge:1950,66Y Sex: MALEBP:123/63 HR:93 bpmSonogrphr: FELICIA García, RCS Pat. Stat.:Inpatient Room:[place] [address] Study Status:Final Echo Event ID:[id number] Order ID:[id number] Reason for Study:s/p CABG, Pericardial effusion Procedures:Portable, 2D Echo,Colorflow Doppler Limited Race:C SUMMARY: LV size is mildly enlarged. LV systolic function is severely depressed. Estimated EF is 20-24%. LA volume is moderately enlarged. Small to moderate posterolateral pericardial effusion. LV filling pressure is elevated. LV respiratory variation is consistent with high pericardial pressure. FINDINGS: LV: LV size is mildly enlarged. LV systolic function is severely depressed.Global hypokinesis. Estimated EF is 20-24%. RV: RV size is normal. RV systolic function is mild to moderatelydepressed. LA: LA volume is moderately enlarged. RA: RA size is normal. AO: Aortic root diameter is normal. MARY: Small to moderate posterolateral pericardial effusion. AV: No structural AV abnormalities noted. MV: No structural MV abnormalities noted. PV: No structural PV abnormalities noted. TV: No structural TV abnormalities noted. Amaral: LV filling pressure is elevated. LV respiratory variation is consistentwith high pericardial pressure. MEASUREMENTS: 2D Parasternal Long Wallace LA Ds4.1 cmLVPWd1.1 cm LVOT 2.6 cmAo An2.7 cm LVIDd6.3 cmIndex 2.7 cm/m Ao Rtd 3.5 cm Index1.5 cm/m LVIDs6 cm LV Pmoo189.7 g(122-174) LV%fs3.8 % LVM Vdfsp683.1 g/m2 IVSd 1.1 cmRWT0.4 LA Sng Plane LA Area 28 cm2(8.8-23.4) LA Vol 97.3 ml Index41.4 ml/m LA LngAx 6.9 cm Signed 07/13/2017 04:59 PM Chinmay Joshua M.D. Procedure Note Interface, Radiology Results In - 07/13/2017 4:59 PM CDT Echocardiography Report [address]Name: ANDREA GO.ID: [id number] .Date: 07/13/2017 Refer.MD: NUNO LOPEZ MD Exam Time: 1:34:00 PM Study Type:Routine Echo Height: 70in Weight: 263lb BSA: 2.35 m2 Age: 11 1950,66Y Sex: MALE BP: 123/63 HR: 93 bpm Sonogrphr: FELICIA García, [facility] Pat. Stat.:Inpatient Room: [place] [address] Study Status:Final Echo Event ID:[id number] Order ID: [id number] Reason for Study:s/p CABG, Pericardial effusion Procedures:Portable, 2D Echo,Colorflow Doppler Limited Race: C SUMMARY: LV size is mildly enlarged. LV systolic function is severely depressed. Estimated EF is 20-24%. LA volume is moderately enlarged. Small to moderate posterolateral pericardial effusion. LV filling pressure is elevated. LV respiratory variation is consistent with high pericardial pressure. FINDINGS: LV: LV size is mildly enlarged. LV systolic function is severely depressed. Global hypokinesis. Estimated EF is 20-24%. RV: RV size is normal. RV systolic function is mild to moderately depressed. LA: LA volume is moderately enlarged. RA: RA size is normal. AO: Aortic root diameter is normal. MARY: Small to moderate posterolateral pericardial effusion. AV: No structural AV abnormalities noted. MV: No structural MV abnormalities noted. PV: No structural PV abnormalities noted. TV: No structural TV abnormalities noted. Amaral: LV filling pressure is elevated. LV respiratory variation is consistent with high pericardial pressure. MEASUREMENTS: 2D Parasternal Long Wallace LA Ds 4.1 cm LVPWd 1.1 cm LVOT 2.6 cm Ao An 2.7 cm LVIDd 6.3 cm Index 2.7 cm/m Ao Rtd 3.5 cm Index 1.5 cm/m LVIDs 6 cm LV Mass 312.7 g (122-174) LV%fs 3.8 % LVM Index 133.1 g/m2 IVSd 1.1 cm RWT 0.4 LA Sng Plane LA Area 28 cm2 (8.8-23.4) LA Vol 97.3 ml Index 41.4 ml/m LA LngAx 6.9 cm Signed 07/13/2017 04:59 PM Chinmay Joshua M.D. CBC with platelet and differential (07/13/2017 5:00 AM)Only the most recent of3 resultswithin the time period is included. Component Value Ref Range WBC 20.57 (H) 4.50 - 11.00 k/uL RBC 3.28 (L) 4.40 - 6.00 m/uL HGB 10.0 (L) 14.0 - 18.0 g/dL HCT 30.4 (L) 41.0 - 51.0 % MCV 92.7 82.0 - 100.0 fL MCH 30.5 27.0 - 34.0 pg MCHC 32.9 31.0 - 37.0 g/dL RDW - SD 46.8 37.0 - 55.0 fL MPV 11.8 8.8 - 13.2 fL Platelet count 169 150 - 400 k/uL Nucleated RBC 0.00 /100 WBC Neutrophils 85.0 (H) 39.0 - 69.0 % Lymphocytes 4.6 (L) 25.0 - 45.0 % Monocytes 9.4 0.0 - 10.0 % Eosinophils 0.1 0.0 - 5.0 % Basophils 0.2 0.0 - 1.0 % Immature granulocytes 0.7Comment: "Immature granulocytes" 0.0 - 1.0 % (promyelocytes, myelocytes, metamyelocytes) Specimen Performing Laboratory [facility] DEPARTMENT OF PATHOLOGY AND GENOMIC MEDICINE [address] [place] [address] Line/Drain Removal (07/12/2017 12:49 PM) Elba Fields NP 07/12/2017 12:49 PM Line/Drain Removal Date/Time: 07/12/2017 12:48 PM Performed by: THOMAS FIELDS Authorized by: THMOAS FIELDS Pre-procedure details: Line or drain removed:Chest tube Chest Tube Removal: Chest tube removed from suction: Yes Sutures retied: Yes Removal procedure: Number of people performing procedure:1 Catheter intact?:Yes Insertion site:No redness Breath held: Yes Valsalva performed: not performed Pressure applied to site?: Yes Dressing applied::4x4 sterile gauze and occlusive Specimen(s):None Complications:Small right apical pneumothorax Attending physician:Dr Kendrick notified and repeat chest xray pending at 1600 Ionized calcium, arterial (07/11/2017 4:25 PM)Only the most recent of7 resultswithin the time period is included. Component Value Ref Range Ionized calcium, arterial 0.92 (L) 1.11 - 1.32 mmol/L Specimen Performing Laboratory Blood [facility] DEPARTMENT PATHOLOGY [address] [address] Fibrinogen (07/11/2017 4:25 PM)Only the most recent of2 resultswithin the time period is included. Component Value Ref Range Fibrinogen 338 200 - 450 mg/dL Specimen Performing Laboratory Blood [facility] DEPARTMENT PATHOLOGY [address] [address] Sodium level, syringe (07/11/2017 1:08 PM)Only the most recent of6 resultswithin the time period is included. Component Value Ref Range Sodium, syringe 137 135 - 148 mEq/L Specimen Performing Laboratory Blood [facility] PATHOLOGY [address] [address] Potassium, syringe (07/11/2017 1:08 PM)Only the most recent of6 resultswithin the time period is included. Component Value Ref Range Potassium, syringe 4.4 3.5 - 5.0 mEq/L Specimen Performing Laboratory Blood [facility] DEPARTMENT OF PATHOLOGY AND [address] [address] Hemoglobin, syringe (07/11/2017 1:08 PM)Only the most recent of6 resultswithin the time period is included. Component Value Ref Range Hemoglobin, syringe 10.9 (L) 14.0 - 18.0 g/dL Specimen Performing Laboratory Blood [facility] PATHOLOGY [address] [address] Glucose level, syringe (07/11/2017 1:08 PM)Only the most recent of6 resultswithin the time period is included. Component Value Ref Range Glucose, syringe 196 (H) 65 - 99 mg/dL Specimen Performing Laboratory Blood [facility] PATHOLOGY [address] [address] Arterial blood gas, corrected (07/11/2017 1:08 PM)Only the most recent of5 resultswithin the time period is included. Component Value Ref Range pH, arterial 7.37 7.35 - 7.45 pCO2, arterial 39 35 - 45 mmHg pO2, arterial 209 (H) 80 - 90 mmHg Temperature, Celsius 37.0 Degrees C O2 saturation, arterial 99 95 - 100 % pH, arterial corrected 7.37 pCO2, arterial corrected 39 mmHg pO2, arterial corrected 209 mmHg Base excess, arterial -2 -2 - 2 mEq/L Specimen Performing Laboratory Blood [facility] OF PATHOLOGY AND [address] [address] Platelet count (07/11/2017 12:30 PM) Component Value Ref Range Platelet count 207 150 - 400 k/uL Specimen Performing Laboratory [facility] OF PATHOLOGY AND [address] [address] Arterial line (07/11/2017 7:50 AM) Elba Cool MD 07/11/20177:13 AM Arterial line Performed by: ZION COOL Authorized by: ROB KENNY Patient Location:Pre-op Start Time:07/11/2017 7:06 AM End Time:07/11/2017 7:12 AM Staff: Anesthesiologist:ROB KENNY Resident/PHD INTERN:ZION COOL Performed by:Resident/PHD INTERN Pre-procedure: patient identified, IV checked, site and side verified, risks and benefits discussed, procedure verified, surgical consent complete, patient position confirmed, monitors and equipment checked and pre-op evaluation complete MSBT: antiseptic used, all elements of maximal sterile barrier technique followed, hand hygiene performed and solutions labeled TIme Out Performed:07/11/2017 7:00 AM Indications: Indications: multiple ABGs and hemodynamic monitoring Anesthesia: Anesthesia:General Procedure Details: Arterial Line placement:Placed pre-induction Line placement site:Radial Line placement side:Right Arterial line gauge:20 G Number of attempts:2 Ultrasound guidance used: Yes Post-procedure: Post-procedure:Sterile dressing applied Post procedure circulation, sensation, movement:Normal Patient tolerance:Patient tolerated the procedure well with no immediate complications 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 Pulmonary hypertension is absent. Wedge pressure is normal. Cardiac output is decreased. Normal filling pressures, cardiac output is decreased (BP 128/82). Cardiac mri function viability chf evaluation (07/09/2017 9:01 AM) Specimen Performing Laboratory [facility] [address] [place] [address] [facility] CMR Report Name: ANDREA GO :1950 Scan Date: 2017-07-09 07:55:38 Signed by Piotr Riojas M.D. (uid:203) 10:27:27. SUMMARY ====== 1.Moderate LV enlargement.Mild eccentric LVH.NO intracardiac thrombus or mass. 2.Severely depressed LV systolic function with regional wall motion abnormalities as described below (LVEF 28%).Normal RV systolic function (RVEF 65%). 3.All coronary territories have diffuse subendocardial AZ, but are all predominantly viable (<50% scar thickness).Total scar burden of 11%. 4.NO significant valvular abnormalities. 5.Dilated aortic root (SoV 4.3 cm) without effacement of the STJ.Mildly dilated ascending thoracic aorta (4.1 cm) and aortic arch (3.7 cm).The remainder of the thoracic aorta tapers to a normal caliber without stenosis, aneurysm, or dissection.Dilated PA (main PA 3.6 cm axial , right PA 2.6 cm axial, left PA 2.7 cm axial).Normal pulmonary venous anatomy. 6.Several bilateral non-enhancing renal cysts. FINAL IMPRESSION: ISCHEMIC CARDIOMYOPATHY WITH PREDOMINANTLY VIABLE MYOCARDIUM IN ALL CORONARY TERRITORIES CORE EXAM ====== MEASUREMENTS ------ ---- VOLUMETRIC ANALYSIS . . || | LV| Reference| RV| Reference | +------+-------+-------+ +-------+ + | EDV| ml| 296.1 |(144-228) | 130.1 |(134-242) | | ESV| ml| 213.5 |(33-86) |45 |(26-96) | | CO | L/min |7.02 ||7.23 || | MASS | g | 278.4 |(136-216) | | | | SV | ml|82.6 |(96-153)|85.1 |(88-165)| | EF | % |27.9 |(58-76) | 65.41 |(55-81) | '------+-------+-------+ +-------+ ' HEART RATE:85 LV DIMENSIONS WALL THICKNESS - ANTEROSEPTAL:1.3 cm WALL THICKNESS - INFEROLATERAL:1.1 cm LV TRAMAINE:6.1 cm LV ESD:5.1 cm LA DIMENSIONS (LV SYSTOLE) DIAMETER:3.1 cm AREA - 2 CHAMBER:22 cm^2 LENGTH - 2 CHAMBER:4.6 cm AREA - 4 CHAMBER:17 cm^2 LENGTH - 4 CHAMBER:4 cm VOLUME:79.47 ml AORTIC ROOT DIMENSIONS DIAMETER - ANNULUS:3 cm DIAMETER - SINUS OF VALSALVA:4.3 cm DIAMETER - SINOTUBULAR JUNCTION:3.3 cm AORTIC ROOT SIZE:MILDLY DILATED CONDENSED SUMMARY ------ ---- LV:MILD HYPERTROPHY. ECCENTRIC HYPERTROPHY. Cavity Size is Normal. No Mass/Thrombus. RV:Normal Wall Thickness. Contractility is Normal. Cavity Size is Normal. No Mass/Thrombus. No Pacemaker/Defibrillator Wire. IVS:Normal Interventricular Septum. LA:Cavity Size is Normal. No Mass/Thrombus. IAS:Normal Interatrial Septum. RA:Cavity Size is Normal. No Mass/Thrombus. No Additional Findings. No Pacemaker/Defibrillator Wire. PER:Normal Pericardium. No Effusion. No Diastolic Collapse. PE:No Pleural Effusion. AV:Trileaflet. No Aortic Regurgitation. No Aortic Stenosis. TV:Normal Leaflets. No Tricuspid Regurgitation. No Tricuspid Stenosis. MV:Normal Leaflets. No Mitral Regurgitation. No Mitral Stenosis. PV:Normal Leaflets. No Pulmonic Regurgitation. No Pulmonic Stenosis. 17 SEGMENT ------ ---- . ------ -------. | Segments | Wall Motion | Hyperenhancement | Stress Perfusion | Interpretation | + + + + +--- ------ -------+ | Base Anterior| Mild/Mod Hypo | None ||| | Base Anteroseptal| Mild/Mod Hypo | None ||| | Base Inferoseptal| Mild/Mod Hypo | 1-25%|| Sub-Endo AZ| | Base Inferior| Severe Hypo | 1-25%|| Sub-Endo AZ| | Base Inferolateral | Mild/Mod Hypo | 1-25%|| Sub-Endo AZ| | Base Anterolateral | Mild/Mod Hypo | 1-25%|| Sub-Endo [place]| | Mid Anterior | Severe Hypo | 1-25%|| Sub-Endo [place]| | Mid Anteroseptal | Severe Hypo | 1-25%|| Sub-Endo [place]| | Mid Inferoseptal | Mild/Mod Hypo | 1-25%|| Sub-Endo [place]| | Mid Inferior | Severe Hypo | 1-25%|| Sub-Endo [place]| | Mid Inferolateral| Severe Hypo | 1-25%|| Sub-Endo AZ| | Mid Anterolateral| Severe Hypo | 1-25%|| Sub-Endo AZ| | Apical Anterior| Severe Hypo | 1-25%|| Sub-Endo [place]| | Apical Septal| Severe Hypo | 1-25%|| Sub-Endo [place]| | Apical Inferior| Severe Hypo | 1-25%|| Sub-Endo [place]| | Apical Lateral | Severe Hypo | 1-25%|| Sub-Endo [place]| | [place] | Severe Hypo | 1-25%|| Sub-Endo [place]| + + + + +--- ------ -------+ | RV Segments| Wall Motion | Hyperenhancement | Stress Perfusion | Interpretation | + + + + +--- ------ -------+ | RV Basal Anterior| ||| | | RV Basal Inferior| ||| | | RV Mid | ||| | | RV Apical| ||| | ' + + + +--- ------ -------' FINDINGS INFARCT/SCAR SIZE:11 % VASCULAR ====== UPPER VASCULAR ------ ---- EVALUATION OF THE THORACIC AORTA COMMENTS (no comments) . ------ . | EVALUATION DETAILS (Thoracic Aorta) | | ------ | | ASCENDING AORTA | | Dimension A:4.1 cm | + ------ + | ARCH OF THE AORTA | | Dimension A:3.7 cm | + ------ + | ISTHMUS OF THE AORTA | | Dimension A:3.1 cm | + ------ + | MID-DESCENDING AORTA | | Dimension A:3 cm | + ------ + | DISTAL DESCENDING AORTA | | Dimension A:3 cm | . ------ . SCAN INFO ====== GENERAL ------ ---- SEDATION SEDATION USED?:No CONTRAST AGENT TYPE:Dotarem LOT NUMBER:[id number] EXPIRATION DATE:2019-03-06 00:00:00 VOLUME ADMINISTERED:37 ml DOSAGE FOR 0.5M:0.15 mmol/kg SERUM CREATININE:1.3 sCr GFR:58.7 ml/min/1.73m^2 FEMALE:No OR BLACK:No CREATININE DATE:2017-07-08 00:00:00 LAB RESULT HEMATOCRIT LEVEL:50.3 % HEMATOCRIT DATE:2017-07-08 00:00:00 VITALS HEIGHT:72 in HEIGHT:182.88 cm BODY WEIGHT:264 lbs BODY WEIGHT:119.75 kgs BSA::2.4 m^2 SYSTOLIC BP:149 mmHg DIASTOLIC BP:65 mmHg HEART RATE:81 BPM HEART RHYTHM:Sinus Rhythm PULSE SEQUENCE PULSE SEQUENCES:Single-Shot SSFP, IR GRE - Segmented, IR GRE - Single Shot, IR SSFP - Single Shot, Single Shot BB DIMITRIOS, SSFP Cine, Phase Contrast Velocity Mapping, 3D MRA w and w/o contrast SETUP TYPE:Clinical INPATIENT:Yes LOCATION:[facility] INCOMPLETE SCAN:No REASON(S) FOR SCAN:CHF, Pre-Op Evaluation, Viability Assessment REFERRING PHYSICIAN:Nuno Lopez MD ATTENDING PHYSICIAN:Piotr Riojas MD TECHNICIANS:Zayra WOODARD ASSISTANTS:1) Nando Kulkarni RN 2) Jose Manuel Mock 3) Tara Mcclellan ------ ---- Patient Account [id number] CPT Codes 75083, [ , ]67001, [ , ]33240 ICD10 Codes I25.5, [ , ]R93.1 Procedure Note Interface, Radiology Results In - 07/09/2017 10:27 AM CDT Patric Pascual CMR Report Name: ANDREA GO Ana Maria : 1950 Scan Date: 2017-07-09 07:55:38 Signed by Piotr Riojas M.D. (uid:203) 10:27:27. SUMMARY 1. Moderate LV enlargement. Mild eccentric LVH. NO intracardiac thrombus or mass. 2. Severely depressed LV systolic function with regional wall motion abnormalities as described below (LVEF 28%). Normal RV systolic function (RVEF 65%). 3. All coronary territories have diffuse subendocardial AZ, but are all predominantly viable (<50% scar thickness). Total scar burden of 11%. 4. NO significant valvular abnormalities. 5. Dilated aortic root (SoV 4.3 cm) without effacement of the STJ. Mildly dilated ascending thoracic aorta (4.1 cm) and aortic arch (3.7 cm). The remainder of the thoracic aorta tapers to a normal caliber without stenosis, aneurysm, or dissection. Dilated PA (main PA 3.6 cm axial, right PA 2.6 cm axial, left PA 2.7 cm axial). Normal pulmonary venous anatomy. 6. Several bilateral non-enhancing renal cysts. FINAL IMPRESSION: ISCHEMIC CARDIOMYOPATHY WITH PREDOMINANTLY VIABLE MYOCARDIUM IN ALL CORONARY TERRITORIES CORE EXAM MEASUREMENTS VOLUMETRIC ANALYSIS . . | | | LV | Reference | RV | Reference | +------+-------+-------+ +-------+ + | EDV | ml | 296.1 | (144-228) | 130.1 | (134-242) | | ESV | ml | 213.5 | (33-86) | 45 | (26-96) | | CO | L/min | 7.02 | | 7.23 | | | MASS | g | 278.4 | (136-216) | | | | SV | ml | 82.6 | (96-153) | 85.1 | (88-165) | | EF | % | 27.9 | (58-76) | 65.41 | (55-81) | '------+-------+-------+ +-------+ ' HEART RATE: 85 LV DIMENSIONS WALL THICKNESS - ANTEROSEPTAL: 1.3 cm WALL THICKNESS - INFEROLATERAL: 1.1 cm LV TRAMAINE: 6.1 cm LV ESD: 5.1 cm LA DIMENSIONS (LV SYSTOLE) DIAMETER: 3.1 cm AREA - 2 CHAMBER: 22 cm^2 LENGTH - 2 CHAMBER: 4.6 cm AREA - 4 CHAMBER: 17 cm^2 LENGTH - 4 CHAMBER: 4 cm VOLUME: 79.47 ml AORTIC ROOT DIMENSIONS DIAMETER - ANNULUS: 3 cm DIAMETER - SINUS OF VALSALVA: 4.3 cm DIAMETER - SINOTUBULAR JUNCTION: 3.3 cm AORTIC ROOT SIZE: MILDLY DILATED CONDENSED SUMMARY LV:MILD HYPERTROPHY. ECCENTRIC HYPERTROPHY. Cavity Size is Normal. No Mass/Thrombus. RV:Normal Wall Thickness. Contractility is Normal. Cavity Size is Normal. No Mass/Thrombus. No Pacemaker/Defibrillator Wire. IVS:Normal Interventricular Septum. LA:Cavity Size is Normal. No Mass/Thrombus. IAS:Normal Interatrial Septum. RA:Cavity Size is Normal. No Mass/Thrombus. No Additional Findings. No Pacemaker/Defibrillator Wire. PER:Normal Pericardium. No Effusion. No Diastolic Collapse. PE:No Pleural Effusion. AV:Trileaflet. No Aortic Regurgitation. No Aortic Stenosis. TV:Normal Leaflets. No Tricuspid Regurgitation. No Tricuspid Stenosis. MV:Normal Leaflets. No Mitral Regurgitation. No Mitral Stenosis. PV:Normal Leaflets. No Pulmonic Regurgitation. No Pulmonic Stenosis. 17 SEGMENT . . | Segments | Wall Motion | Hyperenhancement | Stress Perfusion | Interpretation | + + + + +--- + | Base Anterior | Mild/Mod Hypo | None | | | | Base Anteroseptal | Mild/Mod Hypo | None | | | | Base Inferoseptal | Mild/Mod Hypo | 1-25% | | Sub-Endo AZ | | Base Inferior | Severe Hypo | 1-25% | | Sub-Endo AZ | | Base Inferolateral | Mild/Mod Hypo | 1-25% | | Sub-Endo [place] | | Base Anterolateral | Mild/Mod Hypo | 1-25% | | Sub-Endo [place] | | Mid Anterior | Severe Hypo | 1-25% | | Sub-Endo [place] | | Mid Anteroseptal | Severe Hypo | 1-25% | | Sub-Endo [place] | | Mid Inferoseptal | Mild/Mod Hypo | 1-25% | | Sub-Endo [place] | | Mid Inferior | Severe Hypo | 1-25% | | Sub-Endo [place] | | Mid Inferolateral | Severe Hypo | 1-25% | | Sub-Endo [place] | | Mid Anterolateral | Severe Hypo | 1-25% | | Sub-Endo [place] | | Apical Anterior | Severe Hypo | 1-25% | | Sub-Endo [place] | | Apical Septal | Severe Hypo | 1-25% | | Sub-Endo [place] | | Apical Inferior | Severe Hypo | 1-25% | | Sub-Endo [place] | | Apical Lateral | Severe Hypo | 1-25% | | Sub-Endo [place] | | [place] | Severe Hypo | 1-25% | | Sub-Endo [place] | + + + + +--- + | RV Segments | Wall Motion | Hyperenhancement | Stress Perfusion | Interpretation | + + + + +--- + | RV Basal Anterior | | | | | | RV Basal Inferior | | | | | | RV Mid | | | | | | RV Apical | | | | | ' + + + +--- ' FINDINGS INFARCT/SCAR SIZE: 11 % VASCULAR UPPER VASCULAR EVALUATION OF THE THORACIC AORTA COMMENTS (no comments) . . | EVALUATION DETAILS (Thoracic Aorta) | | | | ASCENDING AORTA | | Dimension A: 4.1 cm | + + | ARCH OF THE AORTA | | Dimension A: 3.7 cm | + + | ISTHMUS OF THE AORTA | | Dimension A: 3.1 cm | + + | MID-DESCENDING AORTA | | Dimension A: 3 cm | + + | DISTAL DESCENDING AORTA | | Dimension A: 3 cm | . . SCAN INFO GENERAL SEDATION SEDATION USED?: No CONTRAST AGENT TYPE: Dotarem LOT NUMBER: [id number] EXPIRATION DATE: 2019-03-06 00:00:00 VOLUME ADMINISTERED: 37 ml DOSAGE FOR 0.5M: 0.15 mmol/kg SERUM CREATININE: 1.3 sCr GFR: 58.7 ml/min/1.73m^2 FEMALE: No OR BLACK: No CREATININE DATE: 2017-07-08 00:00:00 LAB RESULT HEMATOCRIT LEVEL: 50.3 % HEMATOCRIT DATE: 2017-07-08 00:00:00 VITALS HEIGHT: 72 in HEIGHT: 182.88 cm BODY WEIGHT: 264 lbs BODY WEIGHT: 119.75 kgs BSA:: 2.4 m^2 SYSTOLIC BP: 149 mmHg DIASTOLIC BP: 65 mmHg HEART RATE: 81 BPM HEART RHYTHM: Sinus Rhythm PULSE SEQUENCE PULSE SEQUENCES: Single-Shot SSFP, IR GRE - Segmented, IR GRE - Single Shot, IR SSFP - Single Shot, Single Shot BB DIMITRIOS, SSFP Cine, Phase Contrast Velocity Mapping, 3D MRA w and w/o contrast SETUP TYPE: Clinical INPATIENT: Yes [facility] INCOMPLETE SCAN: No REASON(S) FOR SCAN: CHF, Pre-Op Evaluation, Viability Assessment REFERRING PHYSICIAN: Nuno Lopez MD ATTENDING PHYSICIAN: Piotr Riojas MD TECHNICIANS: Zayra WOODARD ASSISTANTS: 1) Nando Kulkarni RN 2) Jose Manuel Mock 3) Tara Mcclellan Patient Account [id number] CPT Codes 99090, [ , ]25835, [ , ]53810 ICD10 Codes I25.5, [ , ]R93.1 Hemoglobin A1c (07/09/2017 4:30 AM) Component Value Ref Range Hemoglobin A1C 6.1 (H) 4.0 - 5.6 % Comment: HbA1c cutoffs for diagnosing diabetes: 4.0% - 5.6%=normal 5.7% - 6.4%=increased risk for diabetes (prediabetes) >=6.5%=diabetes Goals for glycemic control (ADA 2016) < 7.0%Target for non adults with diabetes. More or less stringent targets may be appropriate for individual patients. <7.5% Target for Children and adolescents with type 1 diabetes. Specimen Performing Laboratory Blood [facility] DEPARTMENT OF PATHOLOGY AND GENOMIC MEDICINE [address] [place] [address] Thyroid stimulating hormone (07/09/2017 4:00 AM) Component Value Ref Range TSH 1.72 0.27 - 4.20 uIU/mL Specimen Performing Laboratory Plasma specimen [facility] DEPARTMENT OF PATHOLOGY AND GENOMIC MEDICINE [address] [place] [id number] Pv carotid duplex (07/08/2017 3:30 PM) Specimen Performing Laboratory [facility] [address] [place] [address] Narrative Vascular Ultrasound Laboratory Carotid Artery Duplex Report [address] [place] [address] [address] [address] For corporate quality manager purposes, the categorization of the degree of the stenosis of this exam is based on criteria described in the IAC carotid stenosis grading white paper( www.intersocietal.org/Vascular) and Nida Katz, Gabi Nichole, et al. Carotid artery stenosis: jc-scale and Doppler US diagnosis--Society of Radiologists in Ultrasound Consensus Conference. Radiology. 2003 Aug; 229(2):340-6. Pat.Name:Kay GO.ID:[id number] .Date: 07/08/2017 Refer.MD:NUNO LOPEZ MD Exam Time: 2:47:00 PMStudy Type:Carotid Weight:264lb DOBAge:1950,66Y Sex: MALESonogrphr: Laura Meza RVT Pat. Stat.:Inpatient Room:[address] TapeVol: SD, CPT - 4: [address]484 Echo Event ID:[id number] Order ID:[id number] Reason for Study:Pre-operative CV exam for CABG, Hx of CAD, HTN, HLD. Race:C SUMMARY: PHYSICAL ASSESSMENT BloodPulsesCarotid Pressure Carotid TemporalBruit Right ___ ++0 Left 149/87 ++0 CAROTID ARTERY SCAN RIGHT:There is smooth intimal lining in the common carotid artery. There is hard and calcified plaque noted in the bulb extending into the proximal internal carotid artery.The external carotid artery is clear. Colorflow is normal. LEFT:There is smooth intimal lining in the common carotid artery. There is hard and calcified plaque noted in the bulb extending into the proximal internal carotid artery.The external carotid artery is clear. Colorflow is disturbed with elevated velocities noted.. PRELIMINARY FINDINGS 1. 80-99% stenosis in the left bulb/internal carotid artery. 2. <50% stenosis in the right bulb/internal carotid artery. PHYSICIAN INTERPRETATION 1.Right carotid artery examination demonstrates plaque in the bulb andinternal carotid artery without hemodynamically significant stenosis. (<50%) 2.Left carotid artery examination demonstrates plaque in the bulb and internal carotid artery with severe stenosis. (80-99%) Carotid Findings:RightLeft Verteb.Flw AntegradeAntegrade Subclavian TriphasicTriphasic MEASUREMENTS: DOPPLER Right CCA Dist CCA Dist PSV56.6 cm/sCCA Dist EDV13.7 cm/s Right CCA Mid CCA Mid PSV 70.5 cm/sCCA Mid EDV 15.4 cm/s Right CCA Prox CCA Prox PSV 101 cm/sCCA Prox EDV22.1 cm/s Right ECA ECA PSV 87.8 cm/sECA EDV 13.1 cm/s Right ICA Dist ICA Dist PSV65.8 cm/Adri Dist EDV26.3 cm/s Right ICA Mid ICA Mid PSV 56.4 cm/Adri Mid EDV 19.1 cm/s Right ICA Prox ICA Prox PSV64.7 cm/Adri Prox EDV24.1 cm/s Right Vertebral Vertebral PSV 22.6 cm/sVertebral EDV 6.69 cm/s Right Subclavian Subclavian PSV56.4 cm/s Left CCA Dist CCA Dist PSV60.6 cm/sCCA Dist EDV15.6 cm/s Left CCA Mid CCA Mid PSV 51.9 cm/sCCA Mid EDV 10.1 cm/s Left CCA Prox CCA Prox PSV58.1 cm/sCCA Prox EDV14.2 cm/s Left ECA ECA [id number] cm/sECA EDV 14.4 cm/s Left ICA Mid ICA Mid [id number] cm/Adri Mid EDV 70.7 cm /s Left Vertebral Vertebral PSV 37.8 cm/sVertebral EDV 15 cm/s Left Subclavian Subclavian PSV73.5 cm/s Left ICA Prox ICA Prox PSV 462 cm/Adri Prox EDV 202 cm/s Left ICA Dist ICA Dist PSV 110 cm/Adri Dist EDV65 cm /s Right ECA Prox ECA Prox PSV88 cm/sECA Prox EDV13 cm/s Left ECA Prox ECA Prox PSV 108 cm/sECA Prox EDV14 cm /s Right ICA/CCA Ratio ICA/CCA PSV0.918 Left ICA/CCA Ratio ICA/CCA PSV8.9 Signed 07/08/2017 04:36 PM Wilbert Myles MD Procedure Note Interface, Radiology Results In - 07/08/2017 4:38 PM CDT Vascular Ultrasound Laboratory Carotid Artery Duplex Report [address] [place] [address] For corporate quality manager purposes, the categorization of the degree of the stenosis of this exam is based on criteria described in the IAC carotid stenosis grading white paper( www.intersocietal.org/Vascular) and Giovana Katz., Marcelina Nichole., et al. Carotid artery stenosis: jc-scale and Doppler US diagnosis--Society of Radiologists in Ultrasound Consensus Conference. Radiology. 2003 Aug; 229(2):340-6. Pat.Name: ANDREA GO Pat.ID: [id number] .Date: 07/08/2017 Refer.MD: NUNO LOPEZ MD Exam Time: 2:47:00 PM Study Type:Carotid Weight: 264lb Age: 11 1950,66Y Sex: MALE Sonogrphr: Laura Meza RVT Pat. Stat.:Inpatient Room: [address] Tape Vol: SD, CPT - 4: 18799 Echo Event ID:[id number] Order ID: [id number] Reason for Study:Pre-operative CV exam for CABG, Hx of CAD, HTN, HLD. Race: C SUMMARY: PHYSICAL ASSESSMENT Blood Pulses Carotid Pressure Carotid Temporal Bruit Right ___ + + 0 Left 149/87 + + 0 CAROTID ARTERY SCAN RIGHT: There is smooth intimal lining in the common carotid artery. There is hard and calcified plaque noted in the bulb extending into the proximal internal carotid artery.The external carotid artery is clear. Colorflow is normal. LEFT: There is smooth intimal lining in the common carotid artery. There is hard and calcified plaque noted in the bulb extending into the proximal internal carotid artery.The external carotid artery is clear. Colorflow is disturbed with elevated velocities noted.. PRELIMINARY FINDINGS 1. 80-99% stenosis in the left bulb/internal carotid artery. 2. <50% stenosis in the right bulb/internal carotid artery. PHYSICIAN INTERPRETATION 1. Right carotid artery examination demonstrates plaque in the bulb and internal carotid artery without hemodynamically significant stenosis. (<50%) 2. Left carotid artery examination demonstrates plaque in the bulb and internal carotid artery with severe stenosis. (80-99%) Carotid Findings: Right Left Verteb.Flw Antegrade Antegrade Subclavian Triphasic Triphasic MEASUREMENTS: DOPPLER Right CCA Dist CCA Dist PSV 56.6 cm/s CCA Dist EDV 13.7 cm/s Right CCA Mid CCA Mid PSV 70.5 cm/s CCA Mid EDV 15.4 cm/s Right CCA Prox CCA Prox PSV 101 cm/s CCA Prox EDV 22.1 cm/s Right ECA ECA PSV 87.8 cm/s ECA EDV 13.1 cm/s Right ICA Dist ICA Dist PSV 65.8 cm/s ICA Dist EDV 26.3 cm/s Right ICA Mid ICA Mid PSV 56.4 cm/s ICA Mid EDV 19.1 cm/s Right ICA Prox ICA Prox PSV 64.7 cm/s ICA Prox EDV 24.1 cm/s Right Vertebral Vertebral PSV 22.6 cm/s Vertebral EDV 6.69 cm/s Right Subclavian Subclavian PSV 56.4 cm/s Left CCA Dist CCA Dist PSV 60.6 cm/s CCA Dist EDV 15.6 cm/s Left CCA Mid CCA Mid PSV 51.9 cm/s CCA Mid EDV 10.1 cm/s Left CCA Prox CCA Prox PSV 58.1 cm/s CCA Prox EDV 14.2 cm/s Left ECA ECA PSV 108 cm/s ECA EDV 14.4 cm/s Left ICA Mid ICA Mid PSV 135 cm/s ICA Mid EDV 70.7 cm/s Left Vertebral Vertebral PSV 37.8 cm/s Vertebral EDV 15 cm/s Left Subclavian Subclavian PSV 73.5 cm/s Left ICA Prox ICA Prox PSV 462 cm/s ICA Prox EDV 202 cm/s Left ICA Dist ICA Dist PSV 110 cm/s ICA Dist EDV 65 cm/s Right ECA Prox ECA Prox PSV 88 cm/s ECA Prox EDV 13 cm/s Left ECA Prox ECA Prox PSV 108 cm/s ECA Prox EDV 14 cm/s Right ICA/CCA Ratio ICA/CCA PSV 0.918 Left ICA/CCA Ratio ICA/CCA PSV 8.9 Signed 07/08/2017 04:36 PM Wilbert Myles MD Echocardiogram complete w contrast and 3D if needed (07/08/2017 7:33 AM) Specimen [facility] [address] [place] [address] Narrative Echocardiography Report [address] [place] [address] Pat.Name:Kay GO.ID:[id number] .Date: 07/08/2017 Refer.:NUNO LOPEZ MD Exam Time: 6:52:00 AMStudy Type:Routine Echo Height:72inWeight: 264lb BSA: 2.4 b2PVLVge:1950,66Y Sex: MALEBP:131/81 Sonogrphr: YAMILET Spence, QUINCY, FASE Pat. Stat.:Inpatient Room:[id number] Status:Final Echo Event ID:[id number] Order ID:[id number] Reason for Study:PRE OP EVALUATION Procedures:2D Echo, Colorflow Doppler, Intravenous Definity Contrast Race:C FINDINGS: LV: LV size is [id number] enlarged. There is severe eccentricLV hypertrophy. LV systolic function is moderatelyto severely depressed. Global hypokinesis. Distalseptum and mid and distal inferior wall appear akinetic. Septal motion is paradoxical secondary to LBBB orconduction abnormality. Estimated EF is 30-34%. RV: RV size is normal. RV systolic function is normal. LA: LA size is normal. RA: RA size is normal. AO: Aortic root diameter is normal. MARY: No pericardial effusion. IAS:Interatrial septum is thickened consistent with lipomatous hypertrophy. AV: No structural AV abnormalities noted. MV: No structural MV abnormalities noted. PV: No structural PV abnormalities noted. TV: No structural TV abnormalities noted. Amaral: Diastolic dysfunction Grade I (Mild): Impaired relaxation withnormal LV filling pressures. Other:Insufficient TR jet to estimate PA systolic pressure. MEASUREMENTS: 2D Parasternal Long Wallace LVOT 2 cmLVPWd0.9 cm Ao An2.2 cmLA Ds4.4 cm LVIDd6.9 cmIndex 2.9 cm/m Ao Rtd 3.7 cm Index1.5 cm/m LVIDs5.6 cm LV Ceni986.2 g(122-174) LV%fs 18.9 % LVM Index 147.2 g/m2 IVSd 1.4 cmRWT0.2 LA Sng Plane LA Area 17.7 cm2(8.8-23.4) LA Vol53.2 ml Index22.2 ml/m LA LngAx 4.9 cm Signed 07/08/2017 09:52 AM Freddie Sanchez M.D. Procedure Note Interface, Radiology Results In - 07/08/2017 9:53 AM CDT Echocardiography Report [id number] [place] [address] Pat.Name: ANDREA GO.ID: [id number] .Date: 07/08/2017 Refer.MD: NUNO LOPEZ MD Exam Time: 6:52:00 AM Study Type:Routine Echo Height: 72in Weight: 264lb BSA: 2.4 m2 Age: 11 1950,66Y Sex: MALE BP: 131/81 Sonogrphr: YAMILET Spence, GLENYS MATHEW. Stat.:Inpatient Room: [facility], [facility] Study Status:Final Echo Event ID:[id number] Order ID: [id number] Reason for Study:PRE OP EVALUATION Procedures:2D Echo, Colorflow Doppler, Intravenous Definity Contrast Race: C FINDINGS: LV: LV size is uutjylso-zy-bzdsfdnt enlarged. There is severe eccentric LV hypertrophy. LV systolic function is moderately to severely depressed. Global hypokinesis. Distal septum and mid and distal inferior wall appear akinetic. Septal motion is paradoxical secondary to LBBB or conduction abnormality. Estimated EF is 30-34%. RV: RV size is normal. RV systolic function is normal. LA: LA size is normal. RA: RA size is normal. AO: Aortic root diameter is normal. MARY: No pericardial effusion. IAS: Interatrial septum is thickened consistent with lipomatous hypertrophy. AV: No structural AV abnormalities noted. MV: No structural MV abnormalities noted. PV: No structural PV abnormalities noted. TV: No structural TV abnormalities noted. Amaral: Diastolic dysfunction Grade I (Mild): Impaired relaxation with normal LV filling pressures. Other: Insufficient TR jet to estimate PA systolic pressure. MEASUREMENTS: 2D Parasternal Long Wallace LVOT 2 cm LVPWd 0.9 cm Ao An 2.2 cm LA Ds 4.4 cm LVIDd 6.9 cm Index 2.9 cm/m Ao Rtd 3.7 cm Index 1.5 cm/m LVIDs 5.6 cm LV Mass 353.2 g (122-174) LV%fs 18.9 % LVM Index 147.2 g/m2 IVSd 1.4 cm RWT 0.2 LA Sng Plane LA Area 17.7 cm2 (8.8-23.4) LA Vol 53.2 ml Index 22.2 ml/m LA LngAx 4.9 cm Signed 07/08/2017 09:52 AM Freddie Sanchez M.D. B natriuretic peptide (07/08/2017 5:00 AM) Component Value Ref Range BNP 717 (H) 0 - 100 pg/mL Specimen Performing Laboratory Blood [facility] DEPARTMENT OF PATHOLOGY AND GENOMIC MEDICINE [address] [place] [id number] Gram stain (07/07/2017 11:10 PM) Component Value Ref Range Gram stain result Rare WBC's No organisms seen Comment: Specimen Information Specimen Source: Urine Specimen Site: See UA Specimen Performing Laboratory Urine [facility] DEPARTMENT OF PATHOLOGY AND GENOMIC MEDICINE [address] [place] [id number] after 02/09/2017 Insurance Payer Benefit Plan / Group Subscriber ID Type Phone Address AETNA AETNA HMO,POS,EPO, MC/EC xxxxxxxxx HMO MEDICARE MEDICARE PART A AND B xxxxxxxxxx Medicare [place], [place] Home: [id number] [phone] [place], [place] [address]
--- NOTE | 2018-02-10 18:56 | EDPHYS ---
Physician Documentation [facility] Name: Zeferino Nunez Age: 67 yrs Sex: Male : 1950 Arrival Date: 02/10/2018 Time: 17:06 Bed 24 Private MD: ED Physician Gulshan Kamara HPI: 02/10 18:49 This 67 yrs old Male presents to ER via Ambulatory with complaints of Blood gs Pressure Problem. 18:49 Onset: The symptoms/episode began/occurred this morning. Severity of symptoms: At their gs worst the symptoms were had low bp no reason to take bp just something he does noted in upper 70's systolic. completely asymptomatic. The patient has not experienced similar symptoms in the past. Historical: - Allergies: 17:13 NKA; hj - Home Meds: 17:13 aspirin 81 mg Oral chew 1 tab once daily [Active]; Coreg 25 mg oral tab 1 tab 2 times hj per day [Active]; Pacerone 200 mg Oral tab 1 tab once daily [Active]; - PMHx: 17:13 CHF; Hypertension; hj - PSHx: 17:13 CABG; hj - Immunization history:: Adult Immunizations up to date. - Social history:: The patient lives at home. ROS: 18:49 Cardiovascular: Negative for chest pain, orthopnea, palpitations, paroxysmal nocturnal gs dyspnea. 18:49 Respiratory: Negative for shortness of breath. 18:49 Neuro: Negative for dizziness, numbness, tingling. 18:49 All other systems are negative. Exam: 18:49 Head/Face: Normocephalic, atraumatic. Eyes: Pupils equal round and reactive to light, gs extra-ocular motions intact. Lids and lashes normal. Conjunctiva and sclera are non-icteric and not injected. Cornea within normal limits. Periorbital areas with no swelling, redness, or edema. ENT: Nares patent. No nasal discharge, no septal abnormalities noted. Tympanic membranes are normal and external auditory canals are clear. Oropharynx with no redness, swelling, or masses, exudates, or evidence of obstruction, uvula midline. Mucous membranes moist. Neck: Trachea midline, no thyromegaly or masses palpated, and no cervical lymphadenopathy. Supple, full range of motion without nuchal rigidity, or vertebral point tenderness. No Meningismus. Chest/axilla: Normal chest wall appearance and motion. Nontender with no deformity. No lesions are appreciated. Cardiovascular: Regular rate and rhythm with a normal S1 and S2. No gallops, murmurs, or rubs. Normal PMI, no JVD. No pulse deficits. Respiratory: Lungs have equal breath sounds bilaterally, clear to auscultation and percussion. No rales, rhonchi or wheezes noted. No increased work of breathing, no retractions or nasal flaring. Abdomen/GI: Soft, non-tender, with normal bowel sounds. No distension or tympany. No guarding or rebound. No evidence of tenderness throughout. Back: No spinal tenderness. No costovertebral tenderness. Full range of motion. Skin: Warm, dry with normal turgor. Normal color with no rashes, no lesions, and no evidence of cellulitis. MS/ Extremity: Pulses equal, no cyanosis. Neurovascular intact. Full, normal range of motion. Neuro: Awake and alert, GCS 15, oriented to person, place, time, and situation. Cranial nerves II-XII grossly intact. Motor strength 5/5 in all extremities. Sensory grossly intact. Cerebellar exam normal. Normal gait. 18:49 Constitutional: The patient appears alert, awake. Vital Signs: 17:13 BP 106 / 71; Pulse 66; Resp 18; Temp 98.9(TE); Pulse Ox 98% on R/A; Weight 97.52 kg; hj Height 5 ft. 11 in. (180.34 cm); Pain 0/10; 17:22 BP 119 / 75; Pulse 79; Resp 18; Pulse Ox 97% ; aj1 17:45 BP 117 / 70; Pulse 61; Resp 18; Pulse Ox 97% ; aj1 18:00 BP 113 / 70; Pulse 62; Resp 18; Pulse Ox 96% on R/A; aj1 18:45 BP 115 / 70; Pulse 91; Resp 18; Pulse Ox 95% on R/A; aj1 17:13 Body Mass Index 29.99 (97.52 kg, 180.34 cm) hj MDM: 17:36 Patient medically screened. gs 18:49 Data reviewed: vital signs, nurses notes. Response to treatment: the patient's symptoms gs have resolved after treatment, pt doesn't want anyblood work to evaluate kidneys, blood counts explained what we were looking for possible renal insufficiency, high white count says no thanks you. Administered Medications: No medications were administered Disposition: 02/10/18 18:55 Discharged to Home. Impression: Hypotension. - Condition is Stable. - Discharge Instructions: Hypotension. - Medication Reconciliation Form, Thank You Letter, Antibiotic Education, Prescription Opioid Use form. - Follow up: Private Physician; When: 1 - 2 days; Reason: Re-evaluation by your physician. Signatures: Dispatcher [employer] EDCinthya Sandoval RN RN aj1 Vince Abel RN RN Gulshan Kamara MD MD Corrections: (The following items were deleted from the chart) 19:13 18:55 02/10/2018 18:55 Discharged to Home. Impression: Hypotension. Condition is aj1 Stable. Forms are Medication Reconciliation Form, Thank You Letter, Antibiotic Education, Prescription Opioid Use. Follow up: Private Physician; When: 1 - 2 days; Reason: Re-evaluation by your physician. gs
--- NOTE | 2018-02-10 18:56 | ER ---
Nurse's Notes [facility] Name: Zeferino Nunez Age: 67 yrs Sex: Male : 1950 Arrival Date: 02/10/2018 Time: 17:06 Bed 24 Private MD: Diagnosis: Hypotension Presentation: 02/10 17:10 Presenting complaint: Patient states: my BP today, 80/50; denies dizziness and hj weakness; denies SOB; denies; chest pain;. Transition of care: patient was not received from another setting of care. Onset of symptoms was February 10, 2018. Initial Sepsis Screen: Does the patient meet any 2 criteria? No. Patient's initial sepsis screen is negative. Does the patient have a suspected source of infection? No. Patient's initial sepsis screen is negative. Care prior to arrival: None. 17:10 Method Of Arrival: Ambulatory hj 17:10 Acuity: VIBHA 3 hj Triage Assessment: 17:13 General: Appears in no apparent distress. uncomfortable, Behavior is calm, cooperative, hj appropriate for age. Pain: Denies pain. Historical: - Allergies: 17:13 NKA; hj - Home Meds: 17:13 aspirin 81 mg Oral chew 1 tab once daily [Active]; Coreg 25 mg oral tab 1 tab 2 times hj per day [Active]; Pacerone 200 mg Oral tab 1 tab once daily [Active]; - PMHx: 17:13 CHF; Hypertension; hj - PSHx: 17:13 CABG; hj - Immunization history:: Adult Immunizations up to date. - Social history:: The patient lives at home. Screenin:00 Abuse screen: Denies threats or abuse. Denies injuries from another. Nutritional aj1 screening: No deficits noted. Tuberculosis screening: No symptoms or risk factors identified. 19:12 Fall Risk None identified. aj1 Assessment: 18:00 General: Appears in no apparent distress. comfortable, Behavior is calm, cooperative, aj1 appropriate for age. Pain: Denies pain. Neuro: Level of Consciousness is awake, alert, obeys commands, Oriented to person, place, time, situation, Speech is normal, Facial symmetry appears normal. Cardiovascular: Denies chest pain, lightheadedness, palpitations, shortness of breath, Patient's skin is warm and dry. Respiratory: Airway is patent Respiratory effort is even, unlabored, Respiratory pattern is regular, symmetrical. GI: No signs and/or symptoms were reported involving the gastrointestinal system. : No signs and/or symptoms were reported regarding the genitourinary system. EENT: No signs and/or symptoms were reported regarding the EENT system. Derm: No signs and/or symptoms reported regarding the dermatologic system. Skin is pink, warm \T\ dry. normal. Musculoskeletal: No signs and/or symptoms reported regarding the musculoskeletal system. Circulation, motion, and sensation intact. 18:15 Reassessment: Patient states that he has been watching his blood pressure on the aj1 monitor since he arrived and it has been normal. States that he believes that his BP machine at home is inaccurate and since he isn't feeling dizzy or any other symptoms he would like to go home without having labs drawn. Notified Dr. Kamara of patient request, who will discharge the patient. Vital Signs: 17:13 BP 106 / 71; Pulse 66; Resp 18; Temp 98.9(TE); Pulse Ox 98% on R/A; Weight 97.52 kg; Height 5 ft. 11 in. (180.34 cm); Pain 0/10; 17:22 BP 119 / 75; Pulse 79; Resp 18; Pulse Ox 97% ; aj1 17:45 BP 117 / 70; Pulse 61; Resp 18; Pulse Ox 97% ; aj1 18:00 BP 113 / 70; Pulse 62; Resp 18; Pulse Ox 96% on R/A; aj1 18:45 BP 115 / 70; Pulse 91; Resp 18; Pulse Ox 95% on R/A; aj1 17:13 Body Mass Index 29.99 (97.52 kg, 180.34 cm) ED Course: 17:06 Patient arrived in ED. sb2 17:12 Triage completed. 17:13 Arm band placed on right wrist. 17:20 Gulshan Kamara MD is Attending Physician. 17:55 Cinthya Guerra, RN is Primary Nurse. aj1 18:00 Patient has correct armband on for positive identification. Bed in low position. Call aj1 light in reach. Side rails up X 1. 18:00 No provider procedures requiring assistance completed. aj1 19:12 Patient did not have IV access during this emergency room visit. aj1 Administered Medications: No medications were administered Outcome: 18:55 Discharge ordered by . gs 19:12 Discharged to home ambulatory. aj1 19:12 Condition: good 19:12 Discharge instructions given to patient, Instructed on discharge instructions, follow up and referral plans. Demonstrated understanding of instructions, follow-up care, Instructions were given by dr. Kamara and patient was told that they could leave at that time. Patient left prior to receiving or signing discharge paperwork 19:13 Patient left the ED. aj1 Signatures: Cinthya Guerra RN RN aj1 Vince Abel RN JENNIFER Gulshan Kamara MD MD gs Billeau, Sheri sb2 Corrections: (The following items were deleted from the chart) 17:16 17:13 Pulse 66bpm; Resp 18bpm; Pulse Ox 98% RA; Temp 98.9F Temporal; 97.52 kg; Height 5 hj ft. 11 in.; BMI: 29.9; Pain 0/10; hj
== END 2018-02-10 19:13 | disposition home or self-care (01) ==
LOC: ER 17:05
DX: I95.9 Hypotension, unspecified (principal); I50.9 Heart failure, unspecified; I10 Essential (primary) hypertension; Z95.1 Presence of aortocoronary bypass graft; Z79.82 Long term (current) use of aspirin
CPT/HCPCS: 99282

== ENCOUNTER 2019-01-04 16:28 | Emergency (ER) | payer OTHER ==
--- OUTSIDE RECORDS SUMMARY | 2019-01-04 16:30 | XMS REPORT | Clinical Summary ---
:1950 Author Organization [facility] Address [address] [place] [address] Care Team Providers Name Role Phone Asked, No Pcp Primary Care Provider Unavailable Allergies No Known Allergies Medications No known medications Active Problems Problem Noted Date ANSHUL (acute [...] artery disease) 07/07/2017 Coronary artery disease involving ione coronary artery of ione heart 07/07 without angina pectoris Overview: Added automatically from request for surgery [id number] Patient is [employer] GERD (gastroesophageal reflux disease) Family History Medical History Relation Name Comments Diabetes Mother Heart disease Mother Relation Name Status Comments Mother Social History Tobacco Use Types Packs/Day Years Used Date Never Smoker Smokeless Tobacco: Never Used Alcohol Use Drinks/Week oz/Week Comments No Sex Assigned at Date Recorded Not on file Job Start Date Occupation Industry Not on file Not on file Not on file Travel History Travel Start Travel End No recent travel history available. Last Filed Vital Signs Not on file Plan of Treatment Health Maintenance Due Date Last Done Comments DIABETIC RETINAL EYE EXAM 1950 DIABETIC FOOT EXAM 1960 URINE MICROALBUMIN 1960 COLON CANCER SCREENING 2000 SHINGLES VACCINES (#1) 2000 65+ PNEUMOCOCCAL VACCINE (1 of 2 - PCV13) 2015 PNEUMOCOCCAL POLYSACCHARIDE VACCINE AGE 65 AND OVER 2015 INFLUENZA VACCINE 05/06/2018 Implants Implanted Type Area Shear Grinder Operator Device Shelf Model / Identifier Expiration Serial / Date Lot Lead Pace Yazan Mycrdl Unipol Tmpry Streamline - [id number] Cardiovascular N/A : [employer] [facility] - 01/28/2019 [id number] / Implanted: Qty: 1 on 07/11/2017 by Nuno Leyva MD Implants N/A CARDIAC SRGRY / Lead Pace Yazan Mycrdl Unipol Tmpry Streamline - [id number] Cardiovascular N/A : [employer] [facility] - 01/28/2019 [id number] / Implanted: Qty: 1 on 07/11/2017 by Nuno Leyva MD Implants N/A CARDIAC SRGRY / Clip Ligtng Weck Hemoclip Plus W/ Tape Ti Med - [id number] Medical Clips for N /A: TELEFLEX 02/18/2022 [id number] / Implanted: Qty: 2 on 07/11/2017 by Nuno Leyva MD Internal Use N/A MEDICAL / Clip Ligtng Weck Hemoclip Plus W/ Tape Ti Sm Strngpnt - [id number] Medical Clips for N/A: WECK CLOSURE 03/25/2022 [id number] / Implanted: Qty: 3 on 07/11/2017 by Nuno Leyva MD Internal Use N/A SYSTEMS / Clip Ligtng Weck Hemoclip Plus W/ Tape Ti Med Lg - [id number] Medical Clips for N/A: WECK CLOSURE 03/25/2022 [id number] / Implanted: Qty: 1 on 07/11/2017 by Nuno Leyva MD Internal Use N/A SYSTEMS / Material Bone Hmsts Wtrsolbl 2.5g Ostene - [id number] Orthopedic Trauma N/A: CERA MED 08/05/2021 [id number] / Implanted: Qty: 1 on 07/11/2017 by Nuno Leyva MD Implants N/A / [id number] System Xclsn Lt Atrl Apndg 40mm - [id number] Surgical N/A: ATRICURE 2019 PRO 140 / Implanted: Qty: 1 on 07/11/2017 by Nuno Leyva MD Implants ; N/A / Expanders; [id number] Extenders; Surgical Wires Lincoln Perph Vasclr Ptfe 1.2x10cm 1.65mm - [id number] Vascular Graft N/A: BARD PERIPHERAL 05/02/2022 [id number] / Implanted: Qty: 1 on 07/11/2017 by Nuno Leyva MD N/A VASCULAR / [id number] Results Not on fileafter 01/03/2018 Insurance Payer Benefit Plan / Group Subscriber ID Type Phone Address AETNA AETNA HMO,POS,EPO, MC/EC xxxxxxxxx HMO MEDICARE MEDICARE PART A AND B xxxxxxxxxx Medicare [place], [place] Advance Directives Patient has advance care planning documents on file. For more information, please contact:Patric Pascual[address] [place] [address]
[2019-01-04 17:13] LABS: Absolute Lymphocytes (CBC) 0.9 K/uL (0.7-4.9); Absolute Monocytes 1.1 K/uL (0.1-1.3); Basophils % 0.5 % (0-1.3); Eosinophils % 0.5 % (0-4.4); Hematocrit 46.4 % (39.6-49.0); Lymphocytes % 5.9 % (15.3-44.8); MPV 9.1 fL (7.6-11.3); Monocytes % 7.2 % (3.3-12.3); RBC Red Blood Cell Count 5.37 M/uL (4.33-5.43)
[2019-01-04 17:15] LABS: Protime INR 1.15
[2019-01-04] MEDS ORDERED: NA CHLORIDE 0.9% 500 ML ONE (17:19)
[2019-01-04] MEDS ORDERED: NA CHLORIDE 0.9% 1,000 ML ONE (17:19)
--- NOTE | 2019-01-04 17:26 | RAD REPORT ---
EXAM DESCRIPTION: RAD - Chest Single View - 01/04/2019 5:09 pm CLINICAL HISTORY: ABDOMINAL DISTENTION Chest pain. COMPARISON: Chest Pa And Lat (2 Views) dated 09/18/2017; Chest Single View dated 09/17/2017; Chest S christiano View dated 08/07/2017; Chest Single View dated 08/06/2017 FINDINGS: Portable technique limits examination quality. Mild interstitial pulmonary edema. The heart is moderately enlarged in size. No displaced fractures.S ternotomy wires.
[2019-01-04 17:28] LABS: Albumin 3.4 g/dL (3.4-5.0); Bilirubin Direct 0.3 mg/dL (0-0.2); Bilirubin Total 0.8 mg/dL (0.2-1.0); Magnesium 2.6 mg/dL (1.8-2.4); Potassium 3.4 mmol/L (3.5-5.1); Protein, Total 8.1 g/dL (6.4-8.2); Troponin (Emerg Dept Use Only) 0.02 ng/mL (0.0-0.045)
[2019-01-04] MEDS ORDERED: CIPROFLOXACIN 400mg IV 400 MG/200 ML BAG IV ONE (17:51)
[2019-01-04] MEDS ORDERED: METRONIDAZOLE 500mg IVPB 500 MG/100 ML BAG IV ONE (17:51)
[2019-01-04] MEDS ORDERED: FUROSEMIDE 20 MG/ 2ML VIAL ONE (18:34)
[2019-01-04] MEDS ORDERED: NS KCL 20MEQ 1,000 ML IV ONE (18:47)
--- NOTE | 2019-01-04 18:51 | RAD REPORT ---
EXAM DESCRIPTION: CTAbdomen Pelvis W Contrast - 01/04/2019 6:34 pm CLINICAL HISTORY: Abdominal pain. ABD PAIN COMPARISON: No comparisons TECHNIQUE: Biphasic CT imaging of the abdomen and pelvis was performed with 100 ml non-ionic IV cont rast. All CT scans are performed using dose optimization technique as appropriate and may include automated exposure control or mA/KV adjustment according to patient size. FINDINGS: The lung bases are clear. No focal liver lesion or biliary dilatation. Cholelithiasis. The spleen and pancreas are normal. Nodu larity involving both adrenal glands noted. Multiple cortical cysts are present involving the cortice s of both kidneys. No hydronephrosis or aggressive renal mass. Large bowel obstruction is present. There is a prominent caliber change of the colon noted involving the distal descending colon (image 59/110). Diverticulosis is present in this region with mild inflam matory changes in the surrounding fat. The appendix contains an appendicolith but is otherwise not i nflamed. No evidence of significant lymphadenopathy. No suspicious bony findings. Fat containing right inguinal hernia is seen. IMPRESSION: Large bowel obstruction is noted within the abrupt caliber change seen in the distal luis cending colon. This may be due to a mass or diverticulitis. Advise followup colonoscopy assessment. Cholelithiasis.
--- NOTE | 2019-01-04 19:15 | EDPHYS ---
Physician Documentation [facility] Name: Zeferino Nunez Age: 68 yrs Sex: Male : 1950 Arrival Date: 01/04/2019 Time: 16:31 Bed 27 Private MD: Gautam Hardwick ED Physician Jairo Saab HPI: 01/04 17:16 This 68 yrs old Male presents to ER via Ambulatory with complaints of zuhair Abdominal Pain. 17:16 The patient presents with abdominal pain in the left upper quadrant, in the left lower zuhair quadrant, abdominal distention in the upper abdomen, in the lower abdomen. Onset: The symptoms/episode began/occurred 2 week(s) ago. The patient presents to the emergency department with nausea, vomiting, abdominal pain, of the left upper quadrant and left lower quadrant. Onset: The symptoms/episode began/occurred 2 day(s) ago. Possible causes: unknown. The symptoms are aggravated by. Associated signs and symptoms: The patient has no apparent associated signs or symptoms. The symptoms do not radiate. 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 - Social history:: Smoking status: Patient/guardian denies using tobacco. - Ebola Screening: : No symptoms or risks identified at this time. ROS: 17:16 Constitutional: Negative for fever, chills, and weight loss, Eyes: Negative for injury, zuhair pain, redness, and discharge, ENT: Negative for injury, pain, and discharge, Neck: Negative for injury, pain, and swelling, Cardiovascular: Negative for chest pain, palpitations, and edema, Respiratory: Negative for shortness of breath, cough, wheezing, and pleuritic chest pain, Back: Negative for injury and pain, : Negative for injury, bleeding, discharge, and swelling, MS/Extremity: Negative for injury and deformity, Skin: Negative for injury, rash, and discoloration, Neuro: Negative for headache, weakness, numbness, tingling, and seizure, Psych: Negative for depression, anxiety, suicide ideation, homicidal ideation, and hallucinations, Allergy/Immunology: Negative for hives, rash, and allergies, Endocrine: Negative for neck swelling, polydipsia, polyuria, polyphagia, and marked weight changes, Hematologic/Lymphatic: Negative for swollen nodes, abnormal bleeding, and unusual bruising. 17:16 Abdomen/GI: Positive for abdominal pain, of the left upper quadrant and left lower quadrant. Exam: 17:16 Constitutional: This is a well developed, well nourished patient who is awake, alert, zuhair and in no acute distress. Head/Face: Normocephalic, atraumatic. Eyes: Pupils equal round and reactive to light, extra-ocular motions intact. Lids and lashes normal. Conjunctiva and sclera are non-icteric and not injected. Cornea within normal limits. Periorbital areas with no swelling, redness, or edema. ENT: Nares patent. No nasal discharge, no septal abnormalities noted. Tympanic membranes are normal and external auditory canals are clear. Oropharynx with no redness, swelling, or masses, exudates, or evidence of obstruction, uvula midline. Mucous membranes moist. Neck: Trachea midline, no thyromegaly or masses palpated, and no cervical lymphadenopathy. Supple, full range of motion without nuchal rigidity, or vertebral point tenderness. No Meningismus. Chest/axilla: Normal chest wall appearance and motion. Nontender with no deformity. No lesions are appreciated. Cardiovascular: Regular rate and rhythm with a normal S1 and S2. No gallops, murmurs, or rubs. Normal PMI, no JVD. No pulse deficits. Respiratory: Lungs have equal breath sounds bilaterally, clear to auscultation and percussion. No rales, rhonchi or wheezes noted. No increased work of breathing, no retractions or nasal flaring. Back: No spinal tenderness. No costovertebral tenderness. Full range of motion. Male : Normal genitalia with no discharge or lesions. Skin: Warm, dry with normal turgor. Normal color with no rashes, no lesions, and no evidence of cellulitis. MS/ Extremity: Pulses equal, no cyanosis. Neurovascular intact. Full, normal range of motion. Neuro: Awake and alert, GCS 15, oriented to person, place, time, and situation. Cranial nerves II-XII grossly intact. Motor strength 5/5 in all extremities. Sensory grossly intact. Cerebellar exam normal. Normal gait. Psych: Awake, alert, with orientation to person, place and time. Behavior, mood, and affect are within normal limits. 17:16 Abdomen/GI: Inspection: abdomen appears normal, Bowel sounds: normal, Palpation: abdomen is soft and non-tender. Vital Signs: 16:34 BP 156 / 106; Pulse 83; Resp 20; Temp 98.9; Pulse Ox 98% ; Weight 116.57 kg; Height 6 sv ft. 0 in. (182.88 cm); Pain 2/10; 17:36 BP 153 / 93; Pulse 85; Resp 19; Pulse Ox 96% on R/A; ca1 18:40 BP 170 / 107; Pulse 94; Resp 19; Pulse Ox 96% on R/A; ca1 19:09 BP 165 / 97; Pulse 85; Resp 19; Pulse Ox 96% on R/A; ca1 19:54 BP 162 / 92; Pulse 78; Resp 19; Pulse Ox 96% on R/A; ca1 20:45 BP 149 / 98; Pulse 81; Resp 19; Pulse Ox 95% on R/A; ca1 21:14 BP 157 / 100; Pulse 81; Resp 19; Pulse Ox 95% on R/A; ca1 21:35 BP 154 / 93; Pulse 82; Resp 19; Pulse Ox 99% on R/A; ca1 16:34 Body Mass Index 34.85 (116.57 kg, 182.88 cm) sv MDM: 16:36 Patient medically screened. [facility] 17:18 Data reviewed: vital signs, nurses notes, lab test result(s), EKG, radiologic studies, [facility] CT scan, plain films. 01/04 16:38 Order name: Basic Metabolic Panel; Complete Time: 17:57 [facility] 01/04 16:38 Order name: CBC with Diff; Complete Time: 17:57 [facility] 01/04 16:38 Order name: LFT's; Complete Time: 17:57 [facility] 01/04 16:38 Order name: Magnesium; Complete Time: 17:57 [facility] 01/04 16:38 Order name: NT PRO-BNP; Complete Time: 17:57 [facility] 01/04 16:38 Order name: PT-INR; Complete Time: 17:57 [facility] 01/04 16:38 Order name: Troponin (emerg Dept Use Only); Complete Time: 17:57 [facility] 01/04 16:38 Order name: XRAY Chest (1 view); Complete Time: 17:57 [facility] 01/04 16:38 Order name: CT Abd/Pelvis - W/Contrast; Complete Time: 18:52 zuhair 01/04 16:38 Order name: Lipase; Complete Time: 17:57 zuhair 01/04 16:38 Order name: Urine Culture [facility] 01/04 17:15 Order name: Urine Dipstick--Ancillary (enter results); Complete Time: 20:20 01/04 16:38 Order name: EKG; Complete Time: 16:38 zuhair 01/04 16:38 Order name: Cardiac monitoring; Complete Time: 18:13 zuhair 01/04 16:38 Order name: EKG - Nurse/Tech; Complete Time: 17:07 zuhair 01/04 16:38 Order name: IV Saline Lock; Complete Time: 18:28 zuhair 01/04 16:38 Order name: Labs collected and sent; Complete Time: 18:28 [facility] 01/04 16:38 Order name: O2 Per Protocol; Complete Time: 18:28 [facility] 01/04 16:38 Order name: O2 Sat Monitoring; Complete Time: 18:28 [facility] 01/04 16:38 Order name: Urine Dipstick-Ancillary (obtain specimen); Complete Time: 17:07 [facility] Administered Medications: 17:23 Drug: Flagyl 500 mg Volume: 100 ml; Route: IVPB; Rate: 200 ml/hr; Infused Over: 30 ca1 mins; Site: right antecubital; 19:02 Follow up: Response: No adverse reaction; IV Status: Completed infusion ca1 17:58 Not Given (Duplicate Order): NS 0.9% 500 ml IV at bolus once zuhair 17:58 Not Given (Duplicate Order): NS 0.9% 1000 ml IV at 125 ml/hr continuous zuhair 18:25 Drug: Lasix 20 mg Route: IVP; Site: right antecubital; ca1 19:03 Follow up: Urine output 800 ml; Response: No adverse reaction ca1 18:50 Drug: NS 0.9% with KCl 20 mEq/L 1000 ml Route: IV; Rate: 75 ml/hr; Site: right ca1 antecubital; 21:40 Follow up: IV Status: AMA signed. DC IV ca1 22:41 Follow up: IV Status: AMA. DC IV ca1 18:52 Drug: Cipro 400 mg Volume: 200 ml; Route: IVPB; Infused Over: 60 mins; Site: right ca1 antecubital; 20:00 Follow up: Response: No adverse reaction; IV Status: Completed infusion ca1 Disposition: 01/04/19 21:40 Patient has left against medical advice. Impression: intestinal obstrutction. - Patients states they are going to Home. - Condition is Stable. - Discharge Instructions: Small Bowel Obstruction, Small Bowel Obstruction, [id number]. Follow up: Gautam Hardwick MD; When: Upon discharge from the Emergency Department; Reason: Recheck today's complaints, Continuance of care. - Problem is new. - Symptoms have improved. Signatures: Dispatcher [employer] EDKymberly Potter, RN RN Jairo Jc MD MD cha Starr, Gregory, MD MD gs Wadley, Terrence, MD MD tw4 Thoa Roman RN RN ca1 Corrections: (The following items were deleted from the chart) 21:39 19:14 01/04/2019 19:14 Transfer ordered to [facility]. Diagnosis is tw4 Abdominal tenderness; Other intestinal obstruction - MASS, DIVERTICULITIS; Unspecified combined systolic (congestive) and diastolic (congestive) heart failure; Hypokalemia. Reason for transfer: Higher level of care. Accepting physician is to [facility], surgery, LBO , CHF. Condition is Fair. Problem is new. Symptoms have improved. [facility] 21:48 21:40 01/04/2019 21:40 Patients has left against medical advice. Impression: intestinal ca1 obstrutction. Patient states they are going to Home. Condition is Stable. Follow up: Gautam Hardwick; When: Upon discharge from the Emergency Department; Reason: Recheck today's complaints, Continuance of care. Problem is new. Symptoms have improved. tw4
--- NOTE | 2019-01-04 19:15 | ER ---
Nurse's Notes [facility] Name: Zeferino Nunez Age: 68 yrs Sex: Male : 1950 Arrival Date: 01/04/2019 Time: 16:31 Bed 27 Private MD: Gautam Hardwick Diagnosis: intestinal obstrutction Presentation: 01/04 16:32 Presenting complaint: Patient states: abd pain/bloating/cramping started Friday. c/o sv nausea/diarrhea. Denies vomiting. Sent by Dr Hardwick to r/o bowel obstruction. Transition of care: patient was not received from another setting of care. Onset of symptoms was January 02, 2019. Care prior to arrival: None. 16:32 Method Of Arrival: Ambulatory sv 16:32 Acuity: VIBHA 2 sv 16:40 Risk Assessment: Do you want to hurt yourself or someone else? Patient reports no ca1 desire to harm self or others. Initial Sepsis Screen: Does the patient meet any 2 criteria? No. Patient's initial sepsis screen is negative. Does the patient have a suspected source of infection? No. Patient's initial sepsis screen is negative. Triage Assessment: 16:35 General: Appears in no apparent distress. uncomfortable, Behavior is calm, cooperative, sv appropriate for age. Pain: Complains of pain in left lower quadrant Pain currently is 3 out of 10 on a pain scale. Neuro: Level of Consciousness is awake, alert, obeys commands, Oriented to person, place, time, situation, Gait is steady. Respiratory: Respiratory effort is even, unlabored, Respiratory pattern is regular, symmetrical. GI: Reports bloating, diarrhea, nausea. 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 - Social history:: Smoking status: Patient/guardian denies using tobacco. - Ebola Screening: : No symptoms or risks identified at this time. Screenin:40 Abuse screen: Denies threats or abuse. Denies injuries from another. Nutritional ca1 screening: No deficits noted. Tuberculosis screening: No symptoms or risk factors identified. Fall Risk None identified. Assessment: 16:40 General: Appears in no apparent distress. comfortable, Behavior is calm, cooperative, ca1 appropriate for age. Pain: Denies pain. Complains of pain in abdomen Pain does not radiate. Pain at worst was 5 out of 10 on a pain scale. Quality of pain is described as crampy, Pain began right now there is no pain, but pain began last night. Is intermittent. Neuro: Level of Consciousness is awake, alert, obeys commands, Oriented to person, place, time, situation. Cardiovascular: Heart tones S1 S2 present Capillary refill < 3 seconds Patient's skin is warm and dry. Respiratory: Airway is patent Respiratory effort is even, unlabored, Respiratory pattern is regular, symmetrical, Breath sounds are clear bilaterally. GI: Abdomen is round non-distended, Bowel sounds present X 4 quads. Abd is soft and non tender X 4 quads. Reports diarrhea. : No deficits noted. No signs and/or symptoms were reported regarding the genitourinary system. EENT: No deficits noted. No signs and/or symptoms were reported regarding the EENT system. Derm: Skin is intact, is healthy with good turgor, Skin is pink, warm \T\ dry. Musculoskeletal: Circulation, motion, and sensation intact. Capillary refill < 3 seconds. 17:38 Reassessment: Patient appears in no apparent distress at this time. Patient and/or ca1 family updated on plan of care and expected duration. Pain level reassessed. Patient is alert, oriented x 3, equal unlabored respirations, skin warm/dry/pink. 18:40 Reassessment: Patient appears in no apparent distress at this time. Patient and/or ca1 family updated on plan of care and expected duration. Pain level reassessed. Patient is alert, oriented x 3, equal unlabored respirations, skin warm/dry/pink. Pt from CT scan. 19:35 Reassessment: Patient appears in no apparent distress at this time. Patient and/or ca1 family updated on plan of care and expected duration. Pain level reassessed. Patient is alert, oriented x 3, equal unlabored respirations, skin warm/dry/pink. 20:45 Reassessment: Patient appears in no apparent distress at this time. Patient is alert, ca1 oriented x 3, equal unlabored respirations, skin warm/dry/pink. Awaiting transfer. 21:14 Reassessment: Dr. Kamara at bedside explaining to pt and family that [place] [id number] does not have a bed. Family and pt requested to be sent to [facility] only. 21:40 Reassessment: Patient appears in no apparent distress at this time. Patient is alert, ca1 oriented x 3, equal unlabored respirations, skin warm/dry/pink. Pt refused to be transferred to [facility]. Decided to go on their own in the morning. Informed MELISA Goodrich signed. Pt A\T\Ox4, ambulatory. Vital Signs: 16:34 BP 156 / 106; Pulse 83; Resp 20; Temp 98.9; Pulse Ox 98% ; Weight 116.57 kg; Height 6 sv ft. 0 in. (182.88 cm); Pain 2/10; 17:36 BP 153 / 93; Pulse 85; Resp 19; Pulse Ox 96% on R/A; ca1 18:40 BP 170 / 107; Pulse 94; Resp 19; Pulse Ox 96% on R/A; ca1 19:09 BP 165 / 97; Pulse 85; Resp 19; Pulse Ox 96% on R/A; ca1 19:54 BP 162 / 92; Pulse 78; Resp 19; Pulse Ox 96% on R/A; ca1 20:45 BP 149 / 98; Pulse 81; Resp 19; Pulse Ox 95% on R/A; ca1 21:14 BP 157 / 100; Pulse 81; Resp 19; Pulse Ox 95% on R/A; ca1 21:35 BP 154 / 93; Pulse 82; Resp 19; Pulse Ox 99% on R/A; ca1 16:34 Body Mass Index 34.85 (116.57 kg, 182.88 cm) sv ED Course: 16:31 Patient arrived in ED. mr 16:31 Gautam Hardwick MD is Private Physician. mr 16:33 Triage completed. sv 16:35 Arm band placed on. sv 16:36 Jairo Saab MD is Attending Physician. zuhair 16:40 Patient has correct armband on for positive identification. Placed in gown. Bed in low ca1 position. Call light in reach. Side rails up X 1. patient monitor on. Pulse ox on. NIBP on. Warm blanket given. 16:46 Thao Roman, JENNIFER is Primary Nurse. ca1 16:55 Oral contrast given. vm2 16:58 No provider procedures requiring assistance completed. Inserted saline lock: 20 gauge ca1 in right antecubital area, using aseptic technique. Blood collected. 16:58 Urine collected: clean catch specimen, clear, Amount Voided: 260mL. ca1 17:08 X-ray completed. Portable x-ray completed in exam room. Patient tolerated procedure mh1 well. 17:11 XRAY Chest (1 view) In Process Unspecified. EDMS 18:[address] nj 18:33 CT completed. Patient tolerated procedure well. Patient moved back from CT. nj 18:34 CT Abd/Pelvis - W/Contrast In Process Unspecified. EDMS 21:39 Gautam Hardwick MD is Referral Physician. tw4 21:46 IV discontinued, intact, bleeding controlled, No redness/swelling at site. Pressure ca1 dressing applied. Administered Medications: 17:23 Drug: Flagyl 500 mg Volume: 100 ml; Route: IVPB; Rate: 200 ml/hr; Infused Over: 30 ca1 mins; Site: right antecubital; 19:02 Follow up: Response: No adverse reaction; IV Status: Completed infusion ca1 17:58 Not Given (Duplicate Order): NS 0.9% 500 ml IV at bolus once zuhair 17:58 Not Given (Duplicate Order): NS 0.9% 1000 ml IV at 125 ml/hr continuous zuahir 18:25 Drug: Lasix 20 mg Route: IVP; Site: right antecubital; ca1 19:03 Follow up: Urine output 800 ml; Response: No adverse reaction ca1 18:50 Drug: NS 0.9% with KCl 20 mEq/L 1000 ml Route: IV; Rate: 75 ml/hr; Site: right ca1 antecubital; 21:40 Follow up: IV Status: AMA signed. DC IV ca1 22:41 Follow up: IV Status: AMA. DC IV ca1 18:52 Drug: Cipro 400 mg Volume: 200 ml; Route: IVPB; Infused Over: 60 mins; Site: right ca1 antecubital; 20:00 Follow up: Response: No adverse reaction; IV Status: Completed infusion ca1 Output: 19:03 Urine: 800ml; Total: 800ml. ca1 Outcome: 19:14 ER care complete, transfer ordered by . zuhair 21:46 AMA AMA form signed ca1 21:46 Condition: stable 21:46 Discharge instructions given to patient, significant other, Instructed on the risk of going home and going to [facility] on their own and not in an ambulance with medical personnel and equipment Demonstrated understanding of instructions. 21:48 Patient left the ED. ca1 Signatures: Dispatcher [employer] Kymberly Matthews RN RN Jairo Saab MD MD cha Rivera, Mary Dickson [place] 1 Jonathan Pardo [place] 2 Woody Cassidy MD MD tw4 Thao Roman RN RN ca1 Corrections: (The following items were deleted from the chart) 16:36 16:32 Acuity: VIBHA 3 sv sv 16:36 16:34 Pulse 83bpm; Resp 20bpm; Pulse Ox 98%; Temp 98.9F; 116.57 kg; Height 6 ft. 0 in.; sv BMI: 34.8; Pain 2/10; sv 17:38 16:40 GI: Abdomen is round non-distended, Bowel sounds present X 4 quads. Abd is soft ca1 and non tender X 4 quads. ca1
[2019-01-04 20:17] LABS: Urine Blood NEGATIVE (NEG); Urine Glucose NEGATIVE (NEG); Urine Protein 2+ (NEG); Urine Specific Gravity 1.015 (1.005-1.030); Urine pH 6.5 (5.0-7.0)
== END 2019-01-04 21:48 | disposition left against medical advice (07) ==
LOC: ER 16:28
DX: K56.609 Unspecified intestinal obstruction, unspecified as to partial versus complete obstruction (principal); I10 Essential (primary) hypertension
CPT/HCPCS: 96365; 96361; 93005; 87088; 85025; 87086; 80048; 36415; 83735; 85610; 80076; 81003; 84484; 83690; 83880; 74177; 71045; 96375; 99285; 96366; Q9967; J1940; J7030; J0744

== ENCOUNTER 2019-10-20 12:16 | Emergency (ER) | payer OTHER ==
--- OUTSIDE RECORDS SUMMARY | 2019-10-20 12:22 | XMS REPORT ---
:1950 [facility] Deny Eric [address] [place] [id number] Care Team Providers Name Role Phone TREE RIZO Unavailable Unavailable LUTHER MONTEIRO Unavailable Unavailable Problems This patient has no known problems. Allergies, Adverse Reactions, Alerts This patient has no known allergies or adverse reactions. Medications This patient has no known medications. Results Test Description Test Time Test Comments Text Results Atomic Results Result Comments BASIC METABOLIC PANEL 2019-03-03 06:50:00 Test Item Value Reference Range Comments SODIUM (BEAKER) (test 137 meq/L 136-145 qfqi=094) POTASSIUM (BEAKER) (test 4.1 meq/L 3.5-5.1 Specimen slightly hemolyzed pfaw=170) CHLORIDE (BEAKER) (test 115 meq/L 98-107 lqou=333) CO2 (BEAKER) (test blnh=906) 15 meq/L 22-29 BLOOD UREA NITROGEN (BEAKER) 17 mg/dL 7-21 (test gvgn=433) CREATININE (BEAKER) (test 1.09 mg/dL 0.57-1.25 Specimen slightly hemolyzed fdhj=480) GLUCOSE RANDOM (BEAKER) 92 mg/dL 70-105 (test toxg=420) CALCIUM (BEAKER) (test 8.8 mg/dL 8.4-10.2 upng=759) EGFR (BEAKER) (test 67 mL/min/1.73 sq m ESTIMATED GFR IS NOT tenv=4936) ACCURATE CREATININE CLEARANCE IN PREDICTING GLOMERULAR FILTRATION RATE. ESTIMATED GFR IS NOT APPLICABLE FOR DIALYSIS PATIENTS. CBC (HEMOGRAM ONLY)2019-03-03 06:18:00 Test Item Value Reference Range Comments WHITE BLOOD CELL COUNT (BEAKER) (test ugjy=581) 11.0 K/ L 3.5-10.5 RED BLOOD CELL COUNT (BEAKER) (test nwpj=121) 5.04 M/ L 4.63-6.08 HEMOGLOBIN (BEAKER) (test dckn=929) 14.4 GM/DL 13.7-17.5 HEMATOCRIT (BEAKER) (test byew=917) 45.7 % 40.1-51.0 MEAN CORPUSCULAR VOLUME (BEAKER) (test ozmy=225) 90.7 fL 79.0-92.2 MEAN CORPUSCULAR HEMOGLOBIN (BEAKER) (test 28.6 pg 25.7-32.2 tvex=079) MEAN CORPUSCULAR HEMOGLOBIN CONC (BEAKER) (test 31.5 GM/DL 32.3-36.5 fhdi=603) RED CELL DISTRIBUTION WIDTH (BEAKER) (test 16.6 % 11.6-14.4 rdkd=723) PLATELET COUNT (BEAKER) (test vcxy=697) 176 K/CU MM 150-450 MEAN PLATELET VOLUME (BEAKER) (test mxhg=955) 11.0 fL 9.4-12.4 NUCLEATED RED BLOOD CELLS (BEAKER) (test 0 /100 WBC 0-0 uxhz=589) PLATELET AGGREGATION: FUNCTION [id number] 15:28:00 Test Item Value Reference Range Comments WEAK ADP RESULT(BEAKER) (test < % 60-91 vnqr=0604) PLATELET FUNCTION SCREEN 0-39% indicates marked platelet INTERP (BEAKER) (test dysfunction axhk=8741) [id number] Rosy Styles MD (electronic (BEAKER) (test lptl=5325) signature) PLATELET COUNT AGG (BEAKER) 180 K/CU MM 150-450 (test pavb=6192) Platelet Function Screen results may be falsely low with platelet counts<100, 000/cu mm.HEMOGLOBIN AND [id number] 14:07:00 Test Item Value Reference Range Comments HEMOGLOBIN (BEAKER) (test unex=280) 14.9 GM/DL 13.7-17.5 HEMATOCRIT (BEAKER) (test rkkk=091) 46.4 % 40.1-51.0 [id number] 11:05:00 Test Item Value Reference Range Comments ACTIVATED CLOTTING TIME 263 sec TESTED AT [facility] [address] (BEAKER) (test mijb=937) [facility] [address] [id number] 10:11:00 Test Item Value Reference Range Comments ACTIVATED CLOTTING TIME 373 sec TESTED AT [facility] [address] (BEAKER) (test strq=861) [place] [address] CBC W/PLT COUNT & AUTO [id number] 07:26:00 Test Item Value Reference Range Comments WHITE BLOOD CELL COUNT (BEAKER) (test oaaw=123) 10.3 K/ L 3.5-10.5 RED BLOOD CELL COUNT (BEAKER) (test adnx=304) 4.64 M/ L 4.63-6.08 HEMOGLOBIN (BEAKER) (test slys=543) 13.2 GM/DL 13.7-17.5 HEMATOCRIT (BEAKER) (test znuq=557) 42.2 % 40.1-51.0 MEAN CORPUSCULAR VOLUME (BEAKER) (test xqah=897) 90.9 fL 79.0-92.2 MEAN CORPUSCULAR HEMOGLOBIN (BEAKER) (test 28.4 pg 25.7-32.2 hszk=552) MEAN CORPUSCULAR HEMOGLOBIN CONC (BEAKER) (test 31.3 GM/DL 32.3-36.5 lkay=110) RED CELL DISTRIBUTION WIDTH (BEAKER) (test 15.8 % 11.6-14.4 njys=797) PLATELET COUNT (BEAKER) (test wnqu=731) 245 K/CU MM 150-450 MEAN PLATELET VOLUME (BEAKER) (test kmxf=055) 11.1 fL 9.4-12.4 NUCLEATED RED BLOOD CELLS (BEAKER) (test 0 /100 WBC 0-0 poaf=477) NEUTROPHILS RELATIVE PERCENT (BEAKER) (test 74 % ldfc=741) LYMPHOCYTES RELATIVE PERCENT (BEAKER) (test 10 % pxnu=816) MONOCYTES RELATIVE PERCENT (BEAKER) (test 10 % suel=155) EOSINOPHILS RELATIVE PERCENT (BEAKER) (test 4 % qpng=004) BASOPHILS RELATIVE PERCENT (BEAKER) (test 0 % jhya=970) NEUTROPHILS ABSOLUTE COUNT (BEAKER) (test 7.64 K/ L 1.78-5.38 pbty=269) LYMPHOCYTES ABSOLUTE COUNT (BEAKER) (test 1.02 K/ L 1.32-3.57 updp=599) MONOCYTES ABSOLUTE COUNT (BEAKER) (test 1.06 K/ L 0.30-0.82 eqkx=965) EOSINOPHILS ABSOLUTE COUNT (BEAKER) (test 0.40 K/ L 0.04-0.54 dblk=810) BASOPHILS ABSOLUTE COUNT (BEAKER) (test 0.04 K/ L 0.01-0.08 ygzz=310) IMMATURE GRANULOCYTES-RELATIVE PERCENT (BEAKER) 1 % 0-1 (test kloj=1968) [id number] 06:55:00 Test Item Value Reference Range Comments PHOSPHORUS (BEAKER) (test kwng=973) 2.6 mg/dL 2.3-4.7 [id number] 06:55:00 Test Item Value Reference Range Comments MAGNESIUM (BEAKER) (test yzyx=027) 1.9 mg/dL 1.6-2.6 BASIC METABOLIC [id number] 06:55:00 Test Item Value Reference Range Comments SODIUM (BEAKER) (test 138 meq/L 136-145 xnca=186) POTASSIUM (BEAKER) (test 4.3 meq/L 3.5-5.1 xpvs=752) CHLORIDE (BEAKER) (test 111 meq/L 98-107 hxpw=731) CO2 (BEAKER) (test 20 meq/L 22-29 tlcg=439) BLOOD UREA NITROGEN 11 mg/dL 7-21 (BEAKER) (test xacc=744) CREATININE (BEAKER) (test 1.12 mg/dL 0.57-1.25 mmdh=307) GLUCOSE RANDOM (BEAKER) 141 mg/dL 70-105 (test uuqv=688) CALCIUM (BEAKER) (test 8.7 mg/dL 8.4-10.2 gknd=096) EGFR (BEAKER) (test 65 mL/min/1.73 sq m ESTIMATED GFR IS NOT ygxy=4188) ACCURATE CREATININE CLEARANCE IN PREDICTING GLOMERULAR FILTRATION RATE. ESTIMATED GFR IS NOT APPLICABLE FOR DIALYSIS PATIENTS. LIPID [id number] 13:02:00 Test Item Value Reference Range Comments TRIGLYCERIDES (BEAKER) (test hvcz=948) 106 mg/dL CHOLESTEROL (BEAKER) (test chej=386) 151 mg/dL HDL CHOLESTEROL (BEAKER) (test xrjx=450) 27 mg/dL LDL CHOLESTEROL CALCULATED (BEAKER) (test 103 mg/dL tqzk=139) Triglyceride Reference Range: Low Risk <150 Borderline 150- 199 High Risk 200-499 Very High Risk >=500Cholesterol Reference Range: Low Risk <200 Borderline 200-239 High Risk > 240HDL Cholesterol Reference Range: Low Risk >=60 High Risk <40LDL Cholesterol Reference Range: Optimal <100 Near Optimal 100-129 Borderline 130-159 High 160-189 Very High >=190VITAMIN B12 AND [id number] 09:57:00 Test Item Value Reference Range Comments VITAMIN B12 (BEAKER) (test hzrw=915) 1522 pg/mL 213-816 FOLATE (BEAKER) (test gawp=854) 17.6 ng/mL >=7.0 [id number] 07:32:00 Test Item Value Reference Range Comments PHOSPHORUS (BEAKER) (test qprs=510) 2.9 mg/dL 2.3-4.7 [id number] 07:32:00 Test Item Value Reference Range Comments MAGNESIUM (BEAKER) (test cslf=747) 1.7 mg/dL 1.6-2.6 BASIC METABOLIC [id number] 07:32:00 Test Item Value Reference Range Comments SODIUM (BEAKER) (test 138 meq/L 136-145 kqbw=716) POTASSIUM (BEAKER) (test 3.8 meq/L 3.5-5.1 xdbt=102) CHLORIDE (BEAKER) (test 109 meq/L 98-107 spqu=741) CO2 (BEAKER) (test 23 meq/L 22-29 xsqn=744) BLOOD UREA NITROGEN 11 mg/dL 7-21 (BEAKER) (test buzx=115) CREATININE (BEAKER) (test 1.11 mg/dL 0.57-1.25 eqyq=831) GLUCOSE RANDOM (BEAKER) 107 mg/dL 70-105 (test hbbh=552) CALCIUM (BEAKER) (test 8.7 mg/dL 8.4-10.2 vgav=770) EGFR (BEAKER) (test 66 mL/min/1.73 sq m ESTIMATED GFR IS NOT zaxd=7263) ACCURATE CREATININE CLEARANCE IN PREDICTING GLOMERULAR FILTRATION RATE. ESTIMATED GFR IS NOT APPLICABLE FOR DIALYSIS PATIENTS. CBC W/PLT COUNT & AUTO [id number] 06:48:00 Test Item Value Reference Range Comments WHITE BLOOD CELL COUNT (BEAKER) (test vaoo=436) 8.3 K/ L 3.5-10.5 RED BLOOD CELL COUNT (BEAKER) (test opwg=496) 4.55 M/ L 4.63-6.08 HEMOGLOBIN (BEAKER) (test siak=149) 13.1 GM/DL 13.7-17.5 HEMATOCRIT (BEAKER) (test rymj=077) 40.6 % 40.1-51.0 MEAN CORPUSCULAR VOLUME (BEAKER) (test qtgq=894) 89.2 fL 79.0-92.2 MEAN CORPUSCULAR HEMOGLOBIN (BEAKER) (test 28.8 pg 25.7-32.2 bwwe=873) MEAN CORPUSCULAR HEMOGLOBIN CONC (BEAKER) (test 32.3 GM/DL 32.3-36.5 nxnv=851) RED CELL DISTRIBUTION WIDTH (BEAKER) (test 15.8 % 11.6-14.4 pyif=343) PLATELET COUNT (BEAKER) (test ldvu=245) 243 K/CU MM 150-450 MEAN PLATELET VOLUME (BEAKER) (test xwsc=745) 11.2 fL 9.4-12.4 NUCLEATED RED BLOOD CELLS (BEAKER) (test 0 /100 WBC 0-0 zwkf=448) NEUTROPHILS RELATIVE PERCENT (BEAKER) (test 70 % tujj=414) LYMPHOCYTES RELATIVE PERCENT (BEAKER) (test 12 % hcnz=723) MONOCYTES RELATIVE PERCENT (BEAKER) (test 12 % ilso=108) EOSINOPHILS RELATIVE PERCENT (BEAKER) (test 4 % cnjv=749) BASOPHILS RELATIVE PERCENT (BEAKER) (test 0 % pbnu=648) NEUTROPHILS ABSOLUTE COUNT (BEAKER) (test 5.84 K/ L 1.78-5.38 ialj=378) LYMPHOCYTES ABSOLUTE COUNT (BEAKER) (test 0.96 K/ L 1.32-3.57 omfn=762) MONOCYTES ABSOLUTE COUNT (BEAKER) (test 1.01 K/ L 0.30-0.82 icfn=231) EOSINOPHILS ABSOLUTE COUNT (BEAKER) (test 0.35 K/ L 0.04-0.54 eauy=852) BASOPHILS ABSOLUTE COUNT (BEAKER) (test 0.03 K/ L 0.01-0.08 fukd=329) IMMATURE GRANULOCYTES-RELATIVE PERCENT (BEAKER) 1 % 0-1 (test jgne=9653) MR, MRA, BRAIN, WITHOUT [id number] 04:47:00Reason for exam:-> Ischemic Stroke EvaluationFINAL REPORT MR, MRA, BRAIN, WITHOUT CONTRAST, MR, BRAIN, WITHOUT CONTRAST, MR, MRA, NECK, WITHOUT IV CONTRAST INDICATION: Ischemic Stroke EvaluationRight arm dysmetria and driftTECHNIQUE: Multiplanar, multisequence MR images of the brain. 3-D time of flight MRA of the cranialand cervical circulation. 2-D time of flight MRA of the neck. 3D MIP angiographic post-processing was performed. Stenosis evaluation utilized NASCET criteria. COMPARISON: Noncontrast brain CT of the same date FINDINGS: MRI BRAIN: Multiple acute infarcts throughout the left supratentorial parenchyma,the majority of which are subcentimeter. No significant mass effect. No hemorrhagic conversion. Brain parenchyma is normal in morphology. Midline structures are normally developed. Scattered T2/ FLAIRhyperintense foci within the periventricular and subcortical white matter are nonspecific, however, statistically represent chronic microvascular ischemic changes. No hydrocephalus. Orbits are within normal limits. No obstructive paranasal sinus disease. Calvarium and skull base demonstrate marrow signal within normal limits for age without focal lesion. Additional findings: None. MRA BRAIN:Internal carotid arteries: Normal flow related enhancement . No flow-limiting stenosis of the right intracranial internal carotid artery. There is focal severe stenosis of the left vertical petrous ICAMiddle cerebral arteries: Normal flow related enhancement within the bilateral MCA M1-M2 segments without flow limiting stenosis Anterior cerebral arteries: Normal flow-related enhancement within the bilateral MIKE A1-A2 segments. A1 and proximal A2 segments are poorly evaluated due to noncontrast technique. There is apparent stenosis of the left A1 segment with poststenotic dilatation of the proximal left A2 segment. It is unclear if this is artifactual.Basilar system: Normal flow-related enhancement within the bilateral V4 segments and the basilar artery without flow-limiting stenosis Left vertebral artery is dominant. Right vertebral artery terminates as PICA. There is left vertebral dolichoectasia and the left vertebral artery contours the brain stem.Posterior cerebral arteries: Normal flow-related enhancement within the bilateral ONLINE FACILITATOR P1-P2 segments without flow-limiting stenosis. Functional -type left PCAAdditional findings: None. MRA NECK:Common carotid arteries: Unremarkable. Bifurcations: Noflow-limiting stenosis. Cervical internal carotid arteries: Focal severe stenosis of the proximal left ICA, difficult to further quantify due to noncontrast technique.Vertebral arteries: Left vertebralartery is dominant. Right vertebral artery terminates as PICA. There is left vertebral dolichoectasia and the left vertebral artery contours the brain stem. IMPRESSION: Multiple acute infarcts, majority of which are subcentimeter, throughout the left supratentorial parenchyma Severe focal stenosis ofthe left proximal cervical ICA and left vertical petrous ICA, difficult to further quantify due to noncontrast technique. When clinically feasible, CT angiogram head and neck with contrast is recommended. Dolichoectasia of the left vertebral artery, which contours the brain stem Signed: Chanda Casas MDReport Verified Date/Time: 01/15/2019 04:47:07 Reading Location: [address] Neuro Reading Room MR, MRA, NECK, WITHOUT IV [id number] 04:47:00Reason for exam:->Ischemic Stroke EvaluationFINAL REPORT MR, MRA, BRAIN, WITHOUT CONTRAST, MR, BRAIN, WITHOUT CONTRAST, MR, MRA, NECK, WITHOUT IV CONTRAST INDICATION: Ischemic Stroke EvaluationRight arm dysmetria and driftTECHNIQUE: Multiplanar, multisequence MR images of the brain. 3-D time of flight MRA of the cranialand cervical circulation. 2-D time of flight MRA of the neck. 3D MIP angiographic post-processing was performed. Stenosis evaluation utilized NASCET criteria. COMPARISON: Noncontrast brain CT of the same date FINDINGS: MRI BRAIN: Multiple acute infarcts throughout the left supratentorial parenchyma,the majority of which are subcentimeter. No significant mass effect. No hemorrhagic conversion. Brain parenchyma is normal in morphology. Midline structures are normally developed. Scattered T2/FLAIRhyperintense foci within the periventricular and subcortical white matter are nonspecific, however, statistically represent chronic microvascular ischemic changes. No hydrocephalus. Orbits are within normal limits. No obstructive paranasal sinus disease. Calvarium and skull base demonstrate marrow signal within normal limits for age without focal lesion. Additional findings: None. MRA BRAIN: Internal carotid arteries: Normal flow related enhancement . No flow-limiting stenosis of the right intracranial internal carotid artery. There is focal severe stenosis of the left vertical petrous ICAMiddle cerebral arteries: Normal flow related enhancement within the bilateral MCA M1-M2 segments without flow limiting stenosis Anterior cerebral arteries: Normal flow-related enhancement within the bilateral MIKE A1-A2 segments. A1 and proximal A2 segments are poorly evaluated due to noncontrast technique. There is apparent stenosis of the left A1 segment with poststenotic dilatation of the proximal left A2 segment. It is unclear if this is artifactual.Basilar system: Normal flow-related enhancement within the bilateral V4 segments and the basilar artery without flow-limiting stenosis Left vertebral artery is dominant. Right vertebral artery terminates as PICA. There is left vertebral dolichoectasia and the left vertebral artery contours the brain stem.Posterior cerebral arteries: Normal flow-related enhancement within the bilateral ONLINE FACILITATOR P1-P2 segments without flow-limiting stenosis. Functional -type left PCAAdditional findings: None. MRA NECK:Common carotid arteries: Unremarkable. Bifurcations: Noflow-limiting stenosis. Cervical internal carotid arteries: Focal severe stenosis of the proximal left ICA, difficult to further quantify due to noncontrast technique.Vertebral arteries: Left vertebralartery is dominant. Right vertebral artery terminates as PICA. There is left vertebral dolichoectasia and the left vertebral artery contours the brain stem. IMPRESSION: Multiple acute infarcts, majority of which are subcentimeter, throughout the left supratentorial parenchyma Severe focal stenosis ofthe left proximal cervical ICA and left vertical petrous ICA, difficult to further quantify due to noncontrast technique. When clinically feasible, CT angiogram head and neck with contrast is recommended. Dolichoectasia of the left vertebral artery, which contours the brain stem Signed: Chanda Casas MDReport Verified Date/Time: 01/15/2019 04:47:07 Reading Location: [address] Neuro Reading Room MR, BRAIN, WITHOUT [id number] 04:47:00Reason for exam:->Ischemic Stroke EvaluationFINAL REPORT MR, MRA , BRAIN, WITHOUT CONTRAST, MR, BRAIN, WITHOUT CONTRAST, MR, MRA, NECK, WITHOUT IV CONTRAST INDICATION: Ischemic Stroke EvaluationRight arm dysmetria and driftTECHNIQUE: Multiplanar, multisequence MR images of the brain. 3-D time of flight MRA of the cranialand cervical circulation. 2-D time of flight MRA of the neck. 3D MIP angiographic post-processing was performed. Stenosis evaluation utilized NASCET criteria. COMPARISON: Noncontrast brain CT of the same date FINDINGS: MRI BRAIN: Multiple acute infarcts throughout the left supratentorial parenchyma,the majority of which are subcentimeter. No significant mass effect. No hemorrhagic conversion. Brain parenchyma is normal in morphology. Midline structures are normally developed. Scattered T2/ FLAIRhyperintense foci within the periventricular and subcortical white matter are nonspecific, however, statistically represent chronic microvascular ischemic changes. No hydrocephalus. Orbits are within normal limits. No obstructive paranasal sinus disease. Calvarium and skull base demonstrate marrow signal within normal limits for age without focal lesion. Additional findings: None. MRA BRAIN:Internal carotid arteries: Normal flow related enhancement . No flow-limiting stenosis of the right intracranial internal carotid artery. There is focal severe stenosis of the left vertical petrous ICAMiddle cerebral arteries: Normal flow related enhancement within the bilateral MCA M1-M2 segments without flow limiting stenosis Anterior cerebral arteries: Normal flow-related enhancement within the bilateral MIKE A1-A2 segments. A1 and proximal A2 segments are poorly evaluated due to noncontrast technique. There is apparent stenosis of the left A1 segment with poststenotic dilatation of the proximal left A2 segment. It is unclear if this is artifactual.Basilar system: Normal flow-related enhancement within the bilateral V4 segments and the basilar artery without flow-limiting stenosis Left vertebral artery is dominant. Right vertebral artery terminates as PICA. There is left vertebral dolichoectasia and the left vertebral artery contours the brain stem.Posterior cerebral arteries: Normal flow-related enhancement within the bilateral ONLINE FACILITATOR P1-P2 segments without flow-limiting stenosis. Functional -type left PCAAdditional findings: None. MRA NECK:Common carotid arteries: Unremarkable. Bifurcations: Noflow-limiting stenosis. Cervical internal carotid arteries: Focal severe stenosis of the proximal left ICA, difficult to further quantify due to noncontrast technique.Vertebral arteries: Left vertebralartery is dominant. Right vertebral artery terminates as PICA. There is left vertebral dolichoectasia and the left vertebral artery contours the brain stem. IMPRESSION: Multiple acute infarcts, majority of which are subcentimeter, throughout the left supratentorial parenchyma Severe focal stenosis ofthe left proximal cervical ICA and left vertical petrous ICA, difficult to further quantify due to noncontrast technique. When clinically feasible, CT angiogram head and neck with contrast is recommended. Dolichoectasia of the left vertebral artery, which contours the brain stem Signed: Chanda Casas Verified Date/Time: 01/15/2019 04:47:07 Reading Location: [address] Neuro Reading Room CT, BRAIN, WITHOUT [id number] 12:46:00Reason for exam:->dysmetria, RUE weaknessWhat is the patient's sedation requirement?->No SedationFINAL REPORT CT, BRAIN, WITHOUT CONTRAST INDICATION: Focal neuro deficit, new, fixed or worsening, >6 hoursdysmetria, RUE weakness TECHNIQUE: Noncontrast axial imaging was obtained from the vertex to the skull base. Axial images were reconstructed using a bone algorithm. DOSEREDUCTION: Dose modulation, iterative reconstruction, and/or weight-based adjustment of the mA/kV was utilized to reduce the radiation dose to as low as reasonably achievable. COMPARISON: None. FINDINGS: Cerebral parenchyma: Diffuse parenchymal volume loss. Appearance of the white matter suggests chronic microvascular disease.Midline structures: Normally positioned.Cerebellum and brainstem: Commensurate volume loss.Ventricles: Normal volume.Extra-axial spaces: Unremarkable. Calvarium and skull base:Intact.Paranasal sinuses and mastoid air cells: Visible chambers are clear.Orbital contents: Included portions unremarkable. Additional findings: None. IMPRESSION: Chronic involutional changes without acute intracranial abnormality. If there is persistent clinical concern for intracranial pathology, MR examination is recommended for further characterization. Signed: JR Saez Robert MDReport Verified Date/Time: 01/14/2019 12:46:11 Reading Location : [address] Neuro Reading Room [id number] 06:40:00 Test Item Value Reference Range Comments MAGNESIUM (BEAKER) (test obiv=755) 2.0 mg/dL 1.6-2.6 [id number] 06:40:00 Test Item Value Reference Range Comments PHOSPHORUS (BEAKER) (test omqz=008) 3.1 mg/dL 2.3-4.7 BASIC METABOLIC [id number] 06:39:00 Test Item Value Reference Range Comments SODIUM (BEAKER) (test 137 meq/L 136-145 jthf=976) POTASSIUM (BEAKER) (test 3.6 meq/L 3.5-5.1 azrw=428) CHLORIDE (BEAKER) (test 106 meq/L 98-107 mwga=903) CO2 (BEAKER) (test 22 meq/L 22-29 vdfb=975) BLOOD UREA NITROGEN 15 mg/dL 7-21 (BEAKER) (test adkf=295) CREATININE (BEAKER) (test 1.06 mg/dL 0.57-1.25 xpcr=348) GLUCOSE RANDOM (BEAKER) 112 mg/dL 70-105 (test gwgk=454) CALCIUM (BEAKER) (test 8.7 mg/dL 8.4-10.2 hpdk=376) EGFR (BEAKER) (test 69 mL/min/1.73 sq m ESTIMATED GFR IS NOT jokm=3479) ACCURATE CREATININE CLEARANCE IN PREDICTING GLOMERULAR FILTRATION RATE. ESTIMATED GFR IS NOT APPLICABLE FOR DIALYSIS PATIENTS. CBC W/PLT COUNT & AUTO [id number] 05:17:00 Test Item Value Reference Range Comments WHITE BLOOD CELL COUNT (BEAKER) (test htky=517) 8.4 K/ L 3.5-10.5 RED BLOOD CELL COUNT (BEAKER) (test hpqp=049) 4.68 M/ L 4.63-6.08 HEMOGLOBIN (BEAKER) (test cfgz=409) 13.3 GM/DL 13.7-17.5 HEMATOCRIT (BEAKER) (test gesn=630) 42.0 % 40.1-51.0 MEAN CORPUSCULAR VOLUME (BEAKER) (test ehuy=835) 89.7 fL 79.0-92.2 MEAN CORPUSCULAR HEMOGLOBIN (BEAKER) (test 28.4 pg 25.7-32.2 hses=767) MEAN CORPUSCULAR HEMOGLOBIN CONC (BEAKER) (test 31.7 GM/DL 32.3-36.5 lqso=847) RED CELL DISTRIBUTION WIDTH (BEAKER) (test 15.6 % 11.6-14.4 vvjr=000) PLATELET COUNT (BEAKER) (test ktwg=497) 246 K/CU MM 150-450 MEAN PLATELET VOLUME (BEAKER) (test muad=247) 11.3 fL 9.4-12.4 NUCLEATED RED BLOOD CELLS (BEAKER) (test 0 /100 WBC 0-0 yebn=895) NEUTROPHILS RELATIVE PERCENT (BEAKER) (test 70 % ijed=708) LYMPHOCYTES RELATIVE PERCENT (BEAKER) (test 11 % sdgt=235) MONOCYTES RELATIVE PERCENT (BEAKER) (test 13 % xjna=065) EOSINOPHILS RELATIVE PERCENT (BEAKER) (test 4 % bubt=464) BASOPHILS RELATIVE PERCENT (BEAKER) (test 0 % dgxb=089) NEUTROPHILS ABSOLUTE COUNT (BEAKER) (test 5.91 K/ L 1.78-5.38 bbnf=641) LYMPHOCYTES ABSOLUTE COUNT (BEAKER) (test 0.95 K/ L 1.32-3.57 ulfc=340) MONOCYTES ABSOLUTE COUNT (BEAKER) (test 1.10 K/ L 0.30-0.82 gxsw=845) EOSINOPHILS ABSOLUTE COUNT (BEAKER) (test 0.35 K/ L 0.04-0.54 cagu=139) BASOPHILS ABSOLUTE COUNT (BEAKER) (test 0.02 K/ L 0.01-0.08 pqxr=242) IMMATURE GRANULOCYTES-RELATIVE PERCENT (BEAKER) 1 % 0-1 (test jhfs=0183) [id number] 06:13:00 Test Item Value Reference Range Comments MAGNESIUM (BEAKER) (test 2.0 mg/dL 1.6-2.6 Specimen slightly hemolyzed wuai=938) [id number] 06:13:00 Test Item Value Reference Range Comments PHOSPHORUS (BEAKER) (test 2.9 mg/dL 2.3-4.7 Specimen slightly hemolyzed zdok=024) BASIC METABOLIC [id number] 06:13:00 Test Item Value Reference Range Comments SODIUM (BEAKER) (test 140 meq/L 136-145 gtbv=622) POTASSIUM (BEAKER) (test 3.9 meq/L 3.5-5.1 Specimen slightly hteb=555) hemolyzed CHLORIDE (BEAKER) (test 107 meq/L 98-107 tjll=538) CO2 (BEAKER) (test 23 meq/L 22-29 zlou=969) BLOOD UREA NITROGEN 16 mg/dL 7-21 (BEAKER) (test rgms=667) CREATININE (BEAKER) (test 1.08 mg/dL 0.57-1.25 Specimen slightly kwrv=183) hemolyzed GLUCOSE RANDOM (BEAKER) 99 mg/dL 70-105 (test sbfc=568) CALCIUM (BEAKER) (test 9.1 mg/dL 8.4-10.2 mmhr=905) EGFR (BEAKER) (test 68 mL/min/1.73 sq m ESTIMATED GFR IS NOT mojk=0203) ACCURATE CREATININE CLEARANCE IN PREDICTING GLOMERULAR FILTRATION RATE. ESTIMATED GFR IS NOT APPLICABLE FOR DIALYSIS PATIENTS. CBC W/PLT COUNT & AUTO [id number] 06:05:00 Test Item Value Reference Range Comments WHITE BLOOD CELL COUNT (BEAKER) (test uald=439) 10.8 K/ L 3.5-10.5 RED BLOOD CELL COUNT (BEAKER) (test vjba=085) 4.61 M/ L 4.63-6.08 HEMOGLOBIN (BEAKER) (test svld=165) 13.1 GM/DL 13.7-17.5 HEMATOCRIT (BEAKER) (test fuhl=621) 41.1 % 40.1-51.0 MEAN CORPUSCULAR VOLUME (BEAKER) (test kvem=603) 89.2 fL 79.0-92.2 MEAN CORPUSCULAR HEMOGLOBIN (BEAKER) (test 28.4 pg 25.7-32.2 ckth=440) MEAN CORPUSCULAR HEMOGLOBIN CONC (BEAKER) (test 31.9 GM/DL 32.3-36.5 odia=445) RED CELL DISTRIBUTION WIDTH (BEAKER) (test 15.6 % 11.6-14.4 moho=924) PLATELET COUNT (BEAKER) (test dsay=187) 254 K/CU MM 150-450 MEAN PLATELET VOLUME (BEAKER) (test yumf=614) 11.6 fL 9.4-12.4 NUCLEATED RED BLOOD CELLS (BEAKER) (test 0 /100 WBC 0-0 mmbf=478) NEUTROPHILS RELATIVE PERCENT (BEAKER) (test 76 % pcsh=408) LYMPHOCYTES RELATIVE PERCENT (BEAKER) (test 8 % bqqb=434) MONOCYTES RELATIVE PERCENT (BEAKER) (test 11 % nhbz=275) EOSINOPHILS RELATIVE PERCENT (BEAKER) (test 4 % ovnd=926) BASOPHILS RELATIVE PERCENT (BEAKER) (test 0 % qmzm=457) NEUTROPHILS ABSOLUTE COUNT (BEAKER) (test 8.19 K/ L 1.78-5.38 epdf=768) LYMPHOCYTES ABSOLUTE COUNT (BEAKER) (test 0.88 K/ L 1.32-3.57 kznl=736) MONOCYTES ABSOLUTE COUNT (BEAKER) (test 1.23 K/ L 0.30-0.82 pjud=117) EOSINOPHILS ABSOLUTE COUNT (BEAKER) (test 0.46 K/ L 0.04-0.54 reei=308) BASOPHILS ABSOLUTE COUNT (BEAKER) (test 0.03 K/ L 0.01-0.08 ohxr=956) IMMATURE GRANULOCYTES-RELATIVE PERCENT (BEAKER) 1 % 0-1 (test hbju=5627) TISSUE [id number] 14:46:00Surgical Pathology Report Case: [id number] Authorizing Provider: Luther Monteiro, Collected: 01/08/20192026 [facility]ing[facility] Received: 2018 1010 SERVICES Pathologist: Idalmis David MD Specimen: Large Intestine, Colon - Rectosigmoid, LEFT RECTOSIGMOID COLON, PERFORATED DIVERTICULITIS COLON, RECTOSIGMOID, RESECTION - DIVERTICULOSIS WITH ACUTE AND CHRONIC DIVERTICULITIS - WITH AN AREA OF ACUTE INFLAMMATION, ABSCESS, FOREIGN BODY GIANT CELLS - CONSISTENT WITH PERFORATION - ACUTE AND CHRONIC SEROSITIS - UNREMARKABLE COLONIC DONUTS - THREE BENIGN LYMPH NODES (0/3) Signing Pathologist Direct Phone Line: [phone] signed by Idalmis David MD on 01/12/2019 at 2:46 [id number] X 1Mass of colon Left rectosigmoid colon perforated diverticulitis The specimen is received in a formalin-filled container labeled with the patient's information and labeled "left rectosigmoid colon perforated diverticulitis" consists of a colon in several fragments consisting of a distinct segment of colon that measures 15 cm inlength x 1 cm in diameter. There are multiple fragments of colon ranging in length from 1 to 7 cm. There are two distinct sandoval hemorrhagic colon donuts measuring 1 and 1.8 cm. There are numerous fragments of adipose tissue in the container measuring 15 x 15 x 6 cm in aggregate. The longest segment of colon is sectioned showing multiple diverticula and an area of abscess centrally located measuring 0.5cm located at least 5.5 cm from its nearest resection margin. The smaller ragged fragments of colon also have diverticula and subserosal abscess formation, the largest measuring up to 2 cm in greatest dimension. The adipose tissue yields three sandoval-pink lymph nodes measuring up to 0.5 cm.Section code: A1, A2, resection margins of longer distinct segment of colon en face resection; A3-A7, diverticula of colon; A9-A10, diverticula of fragmented pieces of colon and abscess; A11, A12, colon donuts small to large; A13, three lymph nodes. CG/ew Performed.[facility], Department of Pathology, [address] [place] [address], [place] [address], Tel TSH/FREE T4 IF [id number] 06:20:00 Test Item Value Reference Range Comments THYROID STIMULATING HORMONE (BEAKER) (test 1.23 uIU/mL 0.35-4.94 loju=237) [id number] 06:09:00 Test Item Value Reference Range Comments PHOSPHORUS (BEAKER) (test jkmx=276) 2.7 mg/dL 2.3-4.7 [id number] 06:09:00 Test Item Value Reference Range Comments MAGNESIUM (BEAKER) (test grvu=279) 1.7 mg/dL 1.6-2.6 BASIC METABOLIC [id number] 06:09:00 Test Item Value Reference Range Comments SODIUM (BEAKER) (test 140 meq/L 136-145 iozs=593) POTASSIUM (BEAKER) (test 3.6 meq/L 3.5-5.1 jcgk=412) CHLORIDE (BEAKER) (test 106 meq/L 98-107 kftr=605) CO2 (BEAKER) (test 24 meq/L 22-29 nyyd=259) BLOOD UREA NITROGEN 19 mg/dL 7-21 (BEAKER) (test rxhp=174) CREATININE (BEAKER) (test 1.04 mg/dL 0.57-1.25 huiv=200) GLUCOSE RANDOM (BEAKER) 114 mg/dL 70-105 (test jrji=795) CALCIUM (BEAKER) (test 9.0 mg/dL 8.4-10.2 fgdy=760) EGFR (BEAKER) (test 71 mL/min/1.73 sq m ESTIMATED GFR IS NOT qmiq=7201) ACCURATE CREATININE CLEARANCE IN PREDICTING GLOMERULAR FILTRATION RATE. ESTIMATED GFR IS NOT APPLICABLE FOR DIALYSIS PATIENTS. CBC W/PLT COUNT & AUTO [id number] 05:36:00 Test Item Value Reference Range Comments WHITE BLOOD CELL COUNT (BEAKER) (test qxzg=543) 12.9 K/ L 3.5-10.5 RED BLOOD CELL COUNT (BEAKER) (test jwmu=596) 4.54 M/ L 4.63-6.08 HEMOGLOBIN (BEAKER) (test xvsq=970) 13.1 GM/DL 13.7-17.5 HEMATOCRIT (BEAKER) (test xfma=632) 40.5 % 40.1-51.0 MEAN CORPUSCULAR VOLUME (BEAKER) (test kubz=743) 89.2 fL 79.0-92.2 MEAN CORPUSCULAR HEMOGLOBIN (BEAKER) (test 28.9 pg 25.7-32.2 rzuc=704) MEAN CORPUSCULAR HEMOGLOBIN CONC (BEAKER) (test 32.3 GM/DL 32.3-36.5 ceob=696) RED CELL DISTRIBUTION WIDTH (BEAKER) (test 15.6 % 11.6-14.4 tivz=749) PLATELET COUNT (BEAKER) (test dofd=157) 244 K/CU MM 150-450 MEAN PLATELET VOLUME (BEAKER) (test djkn=156) 11.2 fL 9.4-12.4 NUCLEATED RED BLOOD CELLS (BEAKER) (test 0 /100 WBC 0-0 bsxn=818) NEUTROPHILS RELATIVE PERCENT (BEAKER) (test 77 % tydu=153) LYMPHOCYTES RELATIVE PERCENT (BEAKER) (test 8 % zczb=143) MONOCYTES RELATIVE PERCENT (BEAKER) (test 10 % kqlr=314) EOSINOPHILS RELATIVE PERCENT (BEAKER) (test 4 % ojwg=189) BASOPHILS RELATIVE PERCENT (BEAKER) (test 0 % ttsk=466) NEUTROPHILS ABSOLUTE COUNT (BEAKER) (test 9.93 K/ L 1.78-5.38 ofic=818) LYMPHOCYTES ABSOLUTE COUNT (BEAKER) (test 1.03 K/ L 1.32-3.57 hwwp=084) MONOCYTES ABSOLUTE COUNT (BEAKER) (test 1.26 K/ L 0.30-0.82 hrvt=673) EOSINOPHILS ABSOLUTE COUNT (BEAKER) (test 0.57 K/ L 0.04-0.54 hoxf=146) BASOPHILS ABSOLUTE COUNT (BEAKER) (test 0.03 K/ L 0.01-0.08 kulv=654) IMMATURE GRANULOCYTES-RELATIVE PERCENT (BEAKER) 1 % 0-1 (test xmwt=4990) [id number] 05:51:00 Test Item Value Reference Range Comments PHOSPHORUS (BEAKER) (test iqil=167) 2.3 mg/dL 2.3-4.7 [id number] 05:51:00 Test Item Value Reference Range Comments MAGNESIUM (BEAKER) (test zael=872) 1.8 mg/dL 1.6-2.6 BASIC METABOLIC [id number] 05:51:00 Test Item Value Reference Range Comments SODIUM (BEAKER) (test 139 meq/L 136-145 ofms=769) POTASSIUM (BEAKER) (test 3.5 meq/L 3.5-5.1 ymtn=243) CHLORIDE (BEAKER) (test 104 meq/L 98-107 fqzh=226) CO2 (BEAKER) (test 23 meq/L 22-29 zuhl=986) BLOOD UREA NITROGEN 18 mg/dL 7-21 (BEAKER) (test hfap=934) CREATININE (BEAKER) (test 1.17 mg/dL 0.57-1.25 htzv=521) GLUCOSE RANDOM (BEAKER) 134 mg/dL 70-105 (test owkm=120) CALCIUM (BEAKER) (test 9.7 mg/dL 8.4-10.2 lvki=032) EGFR (BEAKER) (test 62 mL/min/1.73 sq m ESTIMATED GFR IS NOT nouj=0174) ACCURATE CREATININE CLEARANCE IN PREDICTING GLOMERULAR FILTRATION RATE. ESTIMATED GFR IS NOT APPLICABLE FOR DIALYSIS PATIENTS. CBC W/PLT COUNT & AUTO [id number] 05:32:00 Test Item Value Reference Range Comments WHITE BLOOD CELL COUNT (BEAKER) (test qllt=329) 16.7 K/ L 3.5-10.5 RED BLOOD CELL COUNT (BEAKER) (test vndu=230) 4.87 M/ L 4.63-6.08 HEMOGLOBIN (BEAKER) (test rioy=827) 14.0 GM/DL 13.7-17.5 HEMATOCRIT (BEAKER) (test qaht=840) 43.0 % 40.1-51.0 MEAN CORPUSCULAR VOLUME (BEAKER) (test xnpn=432) 88.3 fL 79.0-92.2 MEAN CORPUSCULAR HEMOGLOBIN (BEAKER) (test 28.7 pg 25.7-32.2 wwzd=117) MEAN CORPUSCULAR HEMOGLOBIN CONC (BEAKER) (test 32.6 GM/DL 32.3-36.5 ekve=085) RED CELL DISTRIBUTION WIDTH (BEAKER) (test 15.7 % 11.6-14.4 jbym=394) PLATELET COUNT (BEAKER) (test hkub=228) 239 K/CU MM 150-450 MEAN PLATELET VOLUME (BEAKER) (test etvr=157) 10.8 fL 9.4-12.4 NUCLEATED RED BLOOD CELLS (BEAKER) (test 0 /100 WBC 0-0 vtfm=110) NEUTROPHILS RELATIVE PERCENT (BEAKER) (test 85 % bmjo=692) LYMPHOCYTES RELATIVE PERCENT (BEAKER) (test 4 % thcn=141) MONOCYTES RELATIVE PERCENT (BEAKER) (test 9 % zhqz=905) EOSINOPHILS RELATIVE PERCENT (BEAKER) (test 2 % csda=253) BASOPHILS RELATIVE PERCENT (BEAKER) (test 0 % pfhp=498) NEUTROPHILS ABSOLUTE COUNT (BEAKER) (test 14.15 K/ L 1.78-5.38 uhwj=772) LYMPHOCYTES ABSOLUTE COUNT (BEAKER) (test 0.68 K/ L 1.32-3.57 twnx=492) MONOCYTES ABSOLUTE COUNT (BEAKER) (test 1.46 K/ L 0.30-0.82 rwng=600) EOSINOPHILS ABSOLUTE COUNT (BEAKER) (test 0.26 K/ L 0.04-0.54 aabh=600) BASOPHILS ABSOLUTE COUNT (BEAKER) (test 0.04 K/ L 0.01-0.08 pkpl=191) IMMATURE GRANULOCYTES-RELATIVE PERCENT (BEAKER) 1 % 0-1 (test wgyp=1570) [id number] 07:44:00 Test Item Value Reference Range Comments PHOSPHORUS (BEAKER) (test nbql=506) 2.6 mg/dL 2.3-4.7 [id number] 07:44:00 Test Item Value Reference Range Comments MAGNESIUM (BEAKER) (test xwte=534) 1.8 mg/dL 1.6-2.6 BASIC METABOLIC [id number] 07:44:00 Test Item Value Reference Range Comments SODIUM (BEAKER) (test 138 meq/L 136-145 pqqx=622) POTASSIUM (BEAKER) (test 3.8 meq/L 3.5-5.1 lrag=232) CHLORIDE (BEAKER) (test 105 meq/L 98-107 ngma=516) CO2 (BEAKER) (test 24 meq/L 22-29 lhvu=565) BLOOD UREA NITROGEN 20 mg/dL 7-21 (BEAKER) (test udvb=002) CREATININE (BEAKER) (test 1.38 mg/dL 0.57-1.25 zxur=677) GLUCOSE RANDOM (BEAKER) 114 mg/dL 70-105 (test asay=755) CALCIUM (BEAKER) (test 9.1 mg/dL 8.4-10.2 cqnc=805) EGFR (BEAKER) (test 51 mL/min/1.73 sq m ESTIMATED GFR IS NOT abiy=5152) ACCURATE CREATININE CLEARANCE IN PREDICTING GLOMERULAR FILTRATION RATE. ESTIMATED GFR IS NOT APPLICABLE FOR DIALYSIS PATIENTS. CBC W/PLT COUNT & AUTO [id number] 04:32:00 Test Item Value Reference Range Comments WHITE BLOOD CELL COUNT (BEAKER) (test yolj=816) 20.9 K/ L 3.5-10.5 RED BLOOD CELL COUNT (BEAKER) (test cnik=579) 4.65 M/ L 4.63-6.08 HEMOGLOBIN (BEAKER) (test zjhu=838) 13.3 GM/DL 13.7-17.5 HEMATOCRIT (BEAKER) (test flrf=819) 42.1 % 40.1-51.0 MEAN CORPUSCULAR VOLUME (BEAKER) (test gjoc=018) 90.5 fL 79.0-92.2 MEAN CORPUSCULAR HEMOGLOBIN (BEAKER) (test 28.6 pg 25.7-32.2 rrgl=575) MEAN CORPUSCULAR HEMOGLOBIN CONC (BEAKER) (test 31.6 GM/DL 32.3-36.5 clii=504) RED CELL DISTRIBUTION WIDTH (BEAKER) (test 15.9 % 11.6-14.4 klty=130) PLATELET COUNT (BEAKER) (test ktuw=312) 247 K/CU MM 150-450 MEAN PLATELET VOLUME (BEAKER) (test ullj=973) 11.0 fL 9.4-12.4 NUCLEATED RED BLOOD CELLS (BEAKER) (test 0 /100 WBC 0-0 lodw=422) NEUTROPHILS RELATIVE PERCENT (BEAKER) (test 88 % ncft=460) LYMPHOCYTES RELATIVE PERCENT (BEAKER) (test 5 % lucv=522) MONOCYTES RELATIVE PERCENT (BEAKER) (test 6 % ufcr=925) EOSINOPHILS RELATIVE PERCENT (BEAKER) (test 0 % bpmo=019) BASOPHILS RELATIVE PERCENT (BEAKER) (test 0 % yiko=300) NEUTROPHILS ABSOLUTE COUNT (BEAKER) (test 18.29 K/ L 1.78-5.38 oesf=580) LYMPHOCYTES ABSOLUTE COUNT (BEAKER) (test 1.06 K/ L 1.32-3.57 jgzr=472) MONOCYTES ABSOLUTE COUNT (BEAKER) (test 1.32 K/ L 0.30-0.82 bzto=868) EOSINOPHILS ABSOLUTE COUNT (BEAKER) (test 0.05 K/ L 0.04-0.54 huzf=896) BASOPHILS ABSOLUTE COUNT (BEAKER) (test 0.04 K/ L 0.01-0.08 hmkj=833) IMMATURE GRANULOCYTES-RELATIVE PERCENT (BEAKER) 1 % 0-1 (test yjaq=4759) [id number] 09:38:00 Test Item Value Reference Range Comments MAGNESIUM (BEAKER) (test ocpz=333) 2.0 mg/dL 1.6-2.6 BASIC METABOLIC [id number] 09:38:00 Test Item Value Reference Range Comments SODIUM (BEAKER) (test 140 meq/L 136-145 ahar=126) POTASSIUM (BEAKER) (test 3.9 meq/L 3.5-5.1 nvoe=438) CHLORIDE (BEAKER) (test 110 meq/L 98-107 uhwo=635) CO2 (BEAKER) (test 22 meq/L 22-29 uvpb=116) BLOOD UREA NITROGEN 21 mg/dL 7-21 (BEAKER) (test vbgn=871) CREATININE (BEAKER) (test 1.18 mg/dL 0.57-1.25 dzqu=324) GLUCOSE RANDOM (BEAKER) 134 mg/dL 70-105 (test pjle=347) CALCIUM (BEAKER) (test 8.8 mg/dL 8.4-10.2 rgjs=283) EGFR (BEAKER) (test 61 mL/min/1.73 sq m ESTIMATED GFR IS NOT twck=6711) ACCURATE CREATININE CLEARANCE IN PREDICTING GLOMERULAR FILTRATION RATE. ESTIMATED GFR IS NOT APPLICABLE FOR DIALYSIS PATIENTS. [id number] 09:37:00 Test Item Value Reference Range Comments PHOSPHORUS (BEAKER) (test bjeq=792) 4.1 mg/dL 2.3-4.7 CBC W/PLT COUNT & AUTO [id number] 07:10:00 Test Item Value Reference Range Comments WHITE BLOOD CELL COUNT (BEAKER) (test hbqh=810) 22.8 K/ L 3.5-10.5 RED BLOOD CELL COUNT (BEAKER) (test txax=487) 4.81 M/ L 4.63-6.08 HEMOGLOBIN (BEAKER) (test mydq=665) 13.9 GM/DL 13.7-17.5 HEMATOCRIT (BEAKER) (test nwor=805) 44.6 % 40.1-51.0 MEAN CORPUSCULAR VOLUME (BEAKER) (test algp=782) 92.7 fL 79.0-92.2 MEAN CORPUSCULAR HEMOGLOBIN (BEAKER) (test 28.9 pg 25.7-32.2 ahsi=659) MEAN CORPUSCULAR HEMOGLOBIN CONC (BEAKER) (test 31.2 GM/DL 32.3-36.5 lzhu=788) RED CELL DISTRIBUTION WIDTH (BEAKER) (test 15.6 % 11.6-14.4 etsh=982) PLATELET COUNT (BEAKER) (test kqvp=212) 216 K/CU MM 150-450 MEAN PLATELET VOLUME (BEAKER) (test awgl=409) 10.9 fL 9.4-12.4 NUCLEATED RED BLOOD CELLS (BEAKER) (test 0 /100 WBC 0-0 intp=953) NEUTROPHILS RELATIVE PERCENT (BEAKER) (test 90 % pilz=697) LYMPHOCYTES RELATIVE PERCENT (BEAKER) (test 3 % vdfy=034) MONOCYTES RELATIVE PERCENT (BEAKER) (test 6 % sess=573) EOSINOPHILS RELATIVE PERCENT (BEAKER) (test 0 % pvbp=164) BASOPHILS RELATIVE PERCENT (BEAKER) (test 0 % nqaj=684) NEUTROPHILS ABSOLUTE COUNT (BEAKER) (test 20.52 K/ L 1.78-5.38 wqon=620) LYMPHOCYTES ABSOLUTE COUNT (BEAKER) (test 0.63 K/ L 1.32-3.57 uhit=857) MONOCYTES ABSOLUTE COUNT (BEAKER) (test 1.45 K/ L 0.30-0.82 ieka=142) EOSINOPHILS ABSOLUTE COUNT (BEAKER) (test 0.00 K/ L 0.04-0.54 rzdh=408) BASOPHILS ABSOLUTE COUNT (BEAKER) (test 0.03 K/ L 0.01-0.08 hvme=112) IMMATURE GRANULOCYTES-RELATIVE PERCENT (BEAKER) 1 % 0-1 (test owrg=6438) B-TYPE NATRIURETIC FACTOR (BNP)2019-01-09 05:42:00 Test Item Value Reference Range Comments B-TYPE NATRIURETIC PEPTIDE (BEAKER) (test 1952 pg/mL 0-100 xxfr=918) BLOOD GAS, [id number] 20:17:00 Test Item Value Reference Range Comments PH ARTERIAL (BEAKER) (test hrom=260) 7.40 7.35-7.45 PCO2 ARTERIAL (BEAKER) (test xisv=774) 36 mmHg 35-45 PO2 ARTERIAL (BEAKER) (test hwyw=335) 86 mmHg 80-90 O2 SATURATION ARTERIAL (BEAKER) (test rqug=284) 97.1 % 96.0-97.0 HCO3 ARTERIAL (BEAKER) (test oznf=721) 22 mmol/L 21-29 BASE EXCESS ARTERIAL (BEAKER) (test ripi=661) -2.6 mmol/L -2.0-3.0 PATIENT TEMPERATURE (BEAKER) (test wuby=1693) 35.5 C FIO2 (BEAKER) (test tjkv=4275) 90.0 % T- 35.5BLOOD GAS, [id number] 17:24:00 Test Item Value Reference Range Comments PH ARTERIAL (BEAKER) (test unsu=766) 7.33 7.35-7.45 PCO2 ARTERIAL (BEAKER) (test fims=556) 47 mmHg 35-45 PO2 ARTERIAL (BEAKER) (test fizu=780) 94 mmHg 80-90 O2 SATURATION ARTERIAL (BEAKER) (test eczo=360) 96.6 % 96.0-97.0 HCO3 ARTERIAL (BEAKER) (test wdjw=031) 24 mmol/L 21-29 BASE EXCESS ARTERIAL (BEAKER) (test zjkh=428) -2.0 mmol/L -2.0-3.0 PATIENT TEMPERATURE (BEAKER) (test aixz=1634) 37.0 C GLUCOSE-STAT [id number] 17:24:00 Test Item Value Reference Range Comments GLUCOSE RANDOM (BEAKER) (test jwhx=172) 142 mg/dL 70-110 CALCIUM, [id number] 17:24:00 Test Item Value Reference Range Comments CALCIUM IONIZED (BEAKER) (test gxgg=441) 1.06 mmol/L 1.12-1.27 PH, BLOOD (BEAKER) (test tvym=0075) 7.33 SODIUM NA-STAT [id number] 17:23:00 Test Item Value Reference Range Comments SODIUM (BEAKER) (test sitx=286) 139 meq/L 135-148 POTASSIUM-STAT [id number] 17:23:00 Test Item Value Reference Range Comments POTASSIUM (BEAKER) (test ellm=892) 3.8 meq/L 3.6-5.5 HGB/HCT (H&H) - STAT [id number] 17:23:00 Test Item Value Reference Range Comments HEMOGLOBIN (BEAKER) (test jxus=633) 14.1 g/dL 13.0-16.8 HEMATOCRIT (BEAKER) (test eujn=438) 41.0 % 40.0-50.0 BASIC METABOLIC [id number] 11:48:00 Test Item Value Reference Range Comments SODIUM (BEAKER) (test 140 meq/L 136-145 iezw=865) POTASSIUM (BEAKER) (test 4.2 meq/L 3.5-5.1 Specimen slightly qcfd=006) hemolyzed CHLORIDE (BEAKER) (test 107 meq/L 98-107 chgy=058) CO2 (BEAKER) (test 21 meq/L 22-29 qbxa=839) BLOOD UREA NITROGEN 18 mg/dL 7-21 (BEAKER) (test bbnz=293) CREATININE (BEAKER) (test 1.32 mg/dL 0.57-1.25 Specimen slightly dnmi=767) hemolyzed GLUCOSE RANDOM (BEAKER) 138 mg/dL 70-105 (test vazu=396) CALCIUM (BEAKER) (test 9.6 mg/dL 8.4-10.2 gxar=418) EGFR (BEAKER) (test 54 mL/min/1.73 sq m ESTIMATED GFR IS NOT tcpu=7145) ACCURATE CREATININE CLEARANCE IN PREDICTING GLOMERULAR FILTRATION RATE. ESTIMATED GFR IS NOT APPLICABLE FOR DIALYSIS PATIENTS. Specimen slightly ictericCBC (HEMOGRAM ONLY)2019-01-08 11:32:00 Test Item Value Reference Range Comments WHITE BLOOD CELL COUNT (BEAKER) (test ulyx=297) 11.8 K/ L 3.5-10.5 RED BLOOD CELL COUNT (BEAKER) (test srha=037) 5.00 M/ L 4.63-6.08 HEMOGLOBIN (BEAKER) (test rjlw=087) 14.3 GM/DL 13.7-17.5 HEMATOCRIT (BEAKER) (test prlh=840) 44.4 % 40.1-51.0 MEAN CORPUSCULAR VOLUME (BEAKER) (test qujn=952) 88.8 fL 79.0-92.2 MEAN CORPUSCULAR HEMOGLOBIN (BEAKER) (test 28.6 pg 25.7-32.2 zrec=576) MEAN CORPUSCULAR HEMOGLOBIN CONC (BEAKER) (test 32.2 GM/DL 32.3-36.5 logd=246) RED CELL DISTRIBUTION WIDTH (BEAKER) (test 15.4 % 11.6-14.4 ivwm=719) PLATELET COUNT (BEAKER) (test oyor=754) 273 K/CU MM 150-450 MEAN PLATELET VOLUME (BEAKER) (test cotc=557) 10.9 fL 9.4-12.4 NUCLEATED RED BLOOD CELLS (BEAKER) (test 0 /100 WBC 0-0 zwhz=296) POCT-GLUCOSE [id number] 11:22:00 Test Item Value Reference Range Comments POC-GLUCOSE METER (BEAKER) 164 mg/dL 70-110 [facility] [address] [facility] (test idpo=1247[facility] [address]
--- OUTSIDE RECORDS SUMMARY | 2019-10-20 12:22 | XMS REPORT | Summary of Care ---
:1950 Author Organization [facility] [place] [address] Care Team Providers Name Role Phone Gautam Hardwick MD Primary Care Provider Reason for Visit Reason Comments Congestive Heart Failure surgical clearance Encounter Details Date Type Department Care Team Description 05/13/2019 Office Visit Rodrigue Cameron Cardiology Michael Fenton [facility] MD Eldon Failure ([facility] [address] LORE clearance) [address] [facility] [address] [place] [address] [phone] Allergies No Known Allergiesdocumented as of this encounter (statuses as of 05/14/2019) Medications Medication Sig Dispensed Refills Start Date End Date Status carvedilol (COREG) 25 Take 25 mg by 0 Active MG tablet mouth 2 times daily (with meals). Sacubitril-Valsartan Take by mouth 0 Active (ENTRESTO) 49-51 MG two times daily. TABS POTASSIUM OR Take by mouth 0 Active two times daily. aspirin 81 MG tablet Take 81 mg by 0 Active mouth daily. VITAMIN E OR Take by mouth. 0 Active Take every other day Ascorbic Acid (VITAMIN Take by mouth 0 Active C OR) daily. clopidogrel (PLAVIX) 75 Take 1 Tab by 30 Tab 3 02/22/2019 Active MG tablet mouth daily. documented as of this encounter (statuses as of 05/14/2019) Active Problems Problem Noted Date Coronary artery disease involving chalkyitsik coronary artery 02/20/2019 Cardiomyopathy, ischemic 02/20/2019 Colonic mass 02/18/2019 TIA (transient ischemic attack)-left brain 02/18/2019 LICA stent 03/02/19 02/18/2019 Chronic combined systolic and diastolic CHF, NYHA class 2 and MIKE/AHA 2018 stage C Colostomy care 02/18/2019 S/P left atrial appendage ligation 02/18/2019 Patient is Hinduism 02/18/2019 documented as of this encounter (statuses as of 05/14/2019) Social History Tobacco Use Types Packs/Day Years Used Date Never Smoker Smokeless Tobacco: Never Used Alcohol Use Drinks/Week oz/Week Comments Not Currently Sex Assigned at Date Recorded Not on file Job Start Date Occupation Industry Not on file Not on file Not on file Travel History Travel Start Travel End No recent travel history available. documented as of this encounter Last Filed Vital Signs Vital Sign Reading Time Taken Comments Blood Pressure 150/100 05/13/2019 2:49 PM CDT Pulse 60 05/13/2019 2:38 PM CDT Temperature - - Respiratory Rate - - Oxygen Saturation - - Inhaled Oxygen Concentration - - Weight 109.8 kg (242 lb) 05/13/2019 2:38 PM CDT Height 182.9 cm (6') 05/13/2019 2:38 PM CDT Body Mass Index 32.82 05/13/2019 2:38 PM CDT documented in this encounter Progress Notes Michael Fenton MD - 05/13/2019 2:00 PM CDT Michael Fenton MD Office HP/Followup Today's Date: 05/13/2019 3:27 PM Zeferino Nunez is a 68 y.o. male patient. Date of : 1950 Referring MD: Richard Gordillo MD Address: [address] [place] [address] Emmanuel Barbour MD [address] [place] [address] [address] [address] [facility]- Estimated body mass index is 32.82 kg/m as calculated from the following: Height as of this encounter: 6' (1.829 m). Weight as of this encounter: 242 lb (109.8 kg). Body surface area is 2.36 meters squared. Chief Complaint Patient presents with Congestive Heart Failure surgical clearance Present HPI including all pertinent facts: 05/13/2019 SInce Last Visit the following is noted: 03/02/19 JHONATAN 10x31 Zoila Has regained full use of his right side Less numbness as well Planning for re hook-up of his ileostomy on 05/26/19 Only took plavix for a month No defibrillator with known Low LVEF No statin OPV 02/18/19 SInce Last Visit the following is noted: During [facility] admit for colostomy ( Descending colon mass / sigmoid infection ) he suffered post opLeft hemispheric event. Dr Gordillo was consulted-> critical LICA stensosis. Pt is JHW and S/P CABG x 4 (BONNER to LAD, SVG to OM, SVG TO Diag, SVG TO PDA) and SHAILESH ligation with clip at [facility] ([facility]) His symptoms were clearly related to left hemisphere ischemia including word finding and parasthesia. These have all abated Patient had a rash with Plavix (never took effient) IPV dated: 01/15/19 Reason for Consult-HPI Mr. Nunez is a 68 y/o man with CAD s/p ACB in 2017 with unknown grafts, HFrEF 45 % (by report), Lt carotid stenosis, HTN, HLD, admitted with diverticulitis who suffered an acute Lt cerebral stroke.He reports that he did not have significant issues with heart disease until presenting to [facility], and being told that he required bypass surgery. Since surgical specialty center, his heart has recovered EF from 20-25% to 45% by his report. He denies having issues with dyspnea on exertion, orthopnea, PND chest painor pressure prior to admission. He sought care for diverticulitis 1 week ago and underwent surgery with colon resection. Yesterday, after surgery, he experienced difficulty pushing the call button on his hospital bed with his Rt hand due to poor coordination and weakness. Neurology was consulted and found dysmetria and Rt arm drift. CTH was negative and MRI brain positive for Lt cerebral hemisphere ischemic stroke. Plavix was started. Cardiac Risk assessment: Hypertension- Yes Hypercholesterol- Yes Obesity- Yes Postive Family History- Yes Diabetes Mellitus- No RECURRENT DATABASE ANGIOGRAMS- DATES: [place] 07/07/17 ECHO TTE-DATE Jul 2017 outside 02/22/19 LVEF 20-24 25-29 DI CAROTID DOPPLERs SUPERVISOR MIXING-DATE Jul 2017 outside 01/15/19 05/13/19 Right <50% 61/23 60/14 Left 80-99% 317/166 84/16 Cardiac MRI Jul 2017 OSH: SUMMARY 1.Moderate LV enlargement.Mild eccentric LVH.NO intracardiac thrombus or mass. 2.Severely depressed LV systolic function with regional wall motion abnormalities as described below (LVEF 28%).Normal RV systolic function (RVEF 65%). 3.All coronary territories have diffuse subendocardial VA, but are all predominantly viable (<50% scar thickness).Total scar burden of 11%. 4.NO significant valvular abnormalities. 5.Dilated aortic root (SoV 4.3 cm) without effacement of the STJ.Mildly dilated ascending thoracic aorta (4.1 cm) and aortic arch (3.7 cm).The remainder of the thoracic aorta tapers to a normal caliber without stenosis, aneurysm, or dissection.Dilated PA (main PA 3.6 cm axial, right PA 2.6 cm axial, left PA 2.7 cm axial).Normal pulmonary venous anatomy. 6.Several bilateral non-enhancing renal cysts. FINAL IMPRESSION: ISCHEMIC CARDIOMYOPATHY WITH PREDOMINANTLY VIABLE MYOCARDIUM IN ALL CORONARY TERRITORIES CORE EXAM MRI/MRA 01/15/19 Head & Neck Multiple acute infarcts, majority of which are subcentimeter, throughout the left supratentorial parenchyma Severe focal stenosis of the left proximal cervical ICA and left vertical petrous ICA, difficult to further quantify due to noncontrast technique. When clinically feasible, CT angiogram head and neck with contrast is recommended.Dolichoectasia of the left vertebral artery, which contours the brain stem Signed: Chanda Casas MD Report Verified Date/Time: 01/15/2019 04:47:07 Allergies: No Known Allergies Past Medical History Past Medical History: Diagnosis Date Cardiomyopathy, ischemic 02/20/2019 Chronic combined systolic and diastolic CHF, NYHA class 2 and MIKE/AHA stage C 02/18/2019 Colonic mass 02/18/2019 Colostomy care 02/18/2019 Congestive heart failure Coronary artery disease involving chalkyitsik coronary artery 02/20/2019 S/P CABG x 4 02/18/2019 Stenosis of left internal carotid artery 02/18/2019 TIA (transient ischemic attack)-left brain 02/18/2019 Past Medical History Past Medical History: Diagnosis Date Carotid artery stenosis, asymptomatic, left medical management Carotid artery stenosis, asymptomatic, right 01/15/2019 Carotid artery stenosis, symptomatic, left 01/15/2019 CHF (congestive heart failure) ([facility]) echo 07/28/2018 EF 30-35% Chronic combined systolic and diastolic CHF, NYHA class 3 ([facility]) 01/15/2019 Coronary artery disease Dyspnea Hx of CABG 01/15/2019 Hypertension SHERI on CPAP Stroke due to stenosis of left carotid artery ([facility]) 01/15/2019 Surgical History: Past Surgical History: Procedure Laterality Date HX COLON SURGERY HX CORONARY ARTERY BYPASS HX HERNIA REPAIR Social History: Social History Socioeconomic History Marital status: Spouse name: Not on file Number of children: Not on file Years of education: Not on file Highest education level: Not on file Occupational History Not on file Social Needs Financial resource strain: Not on file Food insecurity: Worry: Not on file Inability: Not on file Transportation needs: Medical: Not on file Non-medical: Not on file Tobacco Use Smoking status: Never Smoker Smokeless tobacco: Never Used Substance and Sexual Activity Alcohol use: Not Currently Drug use: Never Sexual activity: Not on file Lifestyle Physical activity: Days per week: Not on file Minutes per session: Not on file Stress: Not on file Relationships Social connections: Talks on phone: Not on file Gets together: Not on file Attends jewish service: Not on file Active member of club or organization: Not on file Attends meetings of clubs or organizations: Not on file Relationship status: Not on file Intimate partner violence: Fear of current or ex partner: Not on file Emotionally abused: Not on file Physically abused: Not on file Forced sexual activity: Not on file Other Topics Concerns: Not on file Social History Narrative Not on file Family History: No family history on file. Medications: Prior to Encounter Medication List (as reviewed in [facility]) Medications ascorbic acid, vitamin C, (VITAMIN C) 1000 MG tablet Sig: Take 1,000 mg by mouth daily. b complex vitamins tablet Sig: Take 1 tablet by mouth daily. calcium carbonate (OS-JESS) 600 mg calcium (1,500 mg) Tab Sig: Take 600 mg by mouth 2 (two) times daily with breakfast and dinner. carvedilol (COREG) 25 MG tablet Sig: Take 25 mg by mouth 2 (two) times daily with breakfast and dinner. furosemide (LASIX) 40 MG tablet Sig: Take 40 mg by mouth 2 (two) times daily. potassium chloride (KLOR-CON) 20 mEq packet Sig: Take 20 mEq by mouth 2 (two) times daily. Medications: Ascorbic Acid (VITAMIN C OR) Take by mouth daily. aspirin 81 MG tablet Take 81 mg by mouth daily. carvedilol (COREG) 25 MG tablet Take 25 mg by mouth 2 times daily (with meals). POTASSIUM OR Take by mouth two times daily. Sacubitril-Valsartan (ENTRESTO) 49-51 MG TABS Take by mouth two times daily. VITAMIN E OR Take by mouth. Take every other day 12 Point ROS: all others are negative-2 ROS: ENT: hoarseness Musculoskeletal: arthritis I have reviewed: ALLERGIES, PMH, PSH, SOC HX FHX,MEDS, 12 PT- ROS, As well as having updated the computerized patient record appropriately. LAB RESULTS: Recent Labs Lab(s) Units 01/15/19 1227 01/15/19 0606 01/14/19 0409 01/13/19 0511 01/09/19 0443 WBC K/L -- 8.3 8.4 10.8* < > 22.8* HGB GM/DL -- 13.1* 13.3* 13.1* < > 13.9 HCT % -- 40.6 42.0 41.1 < > 44.6 PLT K/CU MM -- 243 246 254 < > 216 MG mg/dL -- 1.7 2.0 2.0 < > 2.0 NA meq/L -- 138 137 140 < > 140 K meq/L -- 3.8 3.6 3.9 < > 3.9 CL meq/L -- 109* 106 107 < > 110* CO2 meq/L -- 23 22 23 < > 22 BUN mg/dL -- 11 15 16 < > 21 CREATININE mg/dL -- 1.11 1.06 1.08 < > 1.18 EGFR mL/min/1.73 sq m -- 66 69 68 < > 61 GLUCOSE mg/dL -- 107* 112* 99 < > 134* BNP pg/mL -- -- -- -- -- 1,952* CALCIUM mg/dL -- 8.7 8.7 9.1 < > 8.8 PHOS mg/dL -- 2.9 3.1 2.9 < > 4.1 CHOL mg/dL 151 -- -- -- -- -- HDL mg/dL 27 -- -- -- -- -- < >=values in this interval not displayed. Lab Results Component Value Date CHOL 151 01/15/2019 Lab Results Component Value Date HDL 27 01/15/2019 Lab Results Component Value Date LDLCALC 103 01/15/2019 Lab Results Component Value Date TRIG 106 01/15/2019 Physical Exam HG CARDI VITALS 05/13/2019 05/13/2019 Height 6' 0" - Weight 242 lb - BP 150/100 150/100 BP Location right arm left arm Patient Position Sitting Sitting Pulse 60 - General Appearance: Alert, cooperative, no distress, appears stated age Head: Normocephalic, without obvious abnormality, atraumatic Eyes: Conjunctivae anicteric, without injection Ears: Normal pinnae Nose: Nares normal, septum midline, mucosa normal, no drainage or sinus tenderness Throat: Lips, mucosa, and tongue normal; teeth and gums normal Neck: Supple, symmetrical, trachea midline no carotid bruit or JVD Lungs: Clear to auscultation bilaterally, respirations unlabored Chest wall: No tenderness or deformity Heart: Regular rate and rhythm, S1 S2 Murmur: none Abdomen: Soft, non-tender, bowel sounds active all four quadrants, no masses, no organomegaly Extremities: Extremities normal, atraumatic, no cyanosis or edema Skin: Skin color, texture, turgor normal, no rashes or lesions Pulses: all normal by examination; No carotid bruits Vascular Physical Examination- all pulses were normal EK05/13/2019 ASSESSMENT & CARDIOVASCULAR PLAN:Medical Decision Making Patient Active Problem List Diagnosis Colonic mass TIA (transient ischemic attack)-left brain LICA stent 03/02/19 Chronic combined systolic and diastolic CHF, NYHA class 2 and MIKE/AHA stage C Colostomy care S/P left atrial appendage ligation Patient is Hinduism Coronary artery disease involving chalkyitsik coronary artery Cardiomyopathy, ischemic TODAY'S PLAN-all old records reviewed today 1-Fax appropriate records to LMD and Referring Physicians 2-FC1, OK for colon surgery 3- will need to add Statin after colon repair 4- need to address primary VF prevention (ICD) LVEF < 30% Michael Fenton MD FACC FACP [facility] INTEGRATED LOGISTICS SUPPORT MANAGER and Chief of Peripheral Vascular [employer] Full Clinical Professor at [facility] Strap Buckler of Endovascular PV Department at the [facility] /[place], [place] [address] Office: [email or web address] documented in this encounter Plan of Treatment Health Maintenance Due Date Last Done Comments COLON CANCER SCREENING: COLONOSCOPY 1950 MEDICARE AWV 1950 TETANUS SHOT (ADULT) 1965 BMI FOLLOW UP PLAN 1968 HEPATITIS C SCREENING 1968 FALL SCREEN 2015 PNEUMOVAX >=65 (PPSV23) 2015 PREVNAR >=65 (PCV13) 2015 FLU VACCINE > 6 MONTHS 05/06/2019 documented as of this encounter Procedures Procedure Name Priority Date/Time Associated Comments Diagnosis ELECTROCARDIOGRAM Routine 05/13/2019 3:14 Cardiomyopathy, Results for this COMPLETE PM CDT ischemic procedure are in the results section. documented in this encounter Results ELECTROCARDIOGRAM COMPLETE (05/13/2019 3:14 PM CDT) Narrative Performed At Result approved by Michael Fenton MD on 05/13/19 documented in this encounter Visit Diagnoses Diagnosis Cardiomyopathy, ischemic - Primary Other specified forms of chronic ischemic heart disease documented in this encounter Insurance Payer Benefit Plan / Subscriber ID Effective Dates Phone Address Type Group MEDICARE MEDICARE PART A xxxxxxxxxxx 2015-Presen [address] Medicare & [place] [address] [employer] INDEMNITY/TRADIT xxxxxxxxx 2015-Cookie [address] Indemnity IONAL CHOICE - t [place], [place] [id number] ([place]) [place] [address] documented as of this encounter
[2019-10-20] MEDS ORDERED: COLCHICINE 0.6 MG TAB ONE (13:29)
--- NOTE | 2019-10-20 13:29 | RAD REPORT ---
EXAM DESCRIPTION: RAD - Ankle Left 3 View - 10/20/2019 1:19 pm CLINICAL HISTORY: PAIN Pain and swelling COMPARISON: None FINDINGS: Left ankle and left foot- multiple projections are submitted Soft tissue swelling is present along the dorsum of the foot. No acute fracture or dislocation seen. Small calcaneal spurs are evident.
--- NOTE | 2019-10-20 14:14 | EDPHYS ---
Physician Documentation [facility] Name: Zeferino Nunez Age: 69 yrs Sex: Male : 1950 Arrival Date: 10/20/2019 Time: 12:20 Bed 19 Private MD: ED Physician Jairo Saab HPI: 10/20 14:00 This 69 yrs old Male presents to ER via Wheelchair with complaints of Foot la1 Pain. 14:00 The patient presents with pain, that is acute. The complaints affect the left medial la1 ankle and dorsum of left foot. Context: the patient can partially bear weight, must have assistance. Onset: The symptoms/episode began/occurred 3 day(s) ago. Modifying factors: The symptoms are alleviated by nothing. the symptoms are aggravated by movement, weight bearing. Associated signs and symptoms: Pertinent positives: swelling, Pertinent negatives fever, nausea, numbness, rash, tingling, vomiting. Treatment prior to arrival includes: no previous treatment. Severity of symptoms: At their worst the symptoms were moderate, in the emergency department the symptoms have improved. The patient has not experienced similar symptoms in the past. Pt states he has had left foot/ankle pain that is worsening since Friday. Mild swelling noted. No known mechanism. . 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 - Social history:: Smoking status: Patient/guardian denies using tobacco. - Ebola Screening: : Patient negative for fever greater than or equal to 101.5 degrees Fahrenheit, and additional compatible Ebola Virus Disease symptoms Patient denies exposure to infectious person Patient denies travel to an Ebola-affected area in the 21 days before illness onset No symptoms or risks identified at this time. ROS: 14:01 Constitutional: Negative for fever, chills, and weight loss, Eyes: Negative for injury, la1 pain, redness, and discharge, ENT: Negative for injury, pain, and discharge, Neck: Negative for injury, pain, and swelling, Cardiovascular: Negative for chest pain, palpitations, and edema, Respiratory: Negative for shortness of breath, cough, wheezing, and pleuritic chest pain, Abdomen/GI: Negative for abdominal pain, nausea, vomiting, diarrhea, and constipation, Back: Negative for injury and pain, : Negative for injury, bleeding, discharge, and swelling. 14:01 Skin: Negative for injury, rash, and discoloration, Psych: Negative for depression, anxiety, suicide ideation, homicidal ideation, and hallucinations. 14:01 MS/extremity: Positive for pain, swelling, of the dorsum of left foot and left medial ankle and left ankle and left foot. Exam: 14:02 Constitutional: This is a well developed, well nourished patient who is awake, alert, la1 and in no acute distress. Head/Face: Normocephalic, atraumatic. Eyes: Pupils equal round and reactive to light, extra-ocular motions intact. Periorbital areas with no swelling, redness, or edema. ENT: Mucous membranes moist. Neck: Trachea midline, no thyromegaly or masses palpated, and no cervical lymphadenopathy. Supple, full range of motion without nuchal rigidity, or vertebral point tenderness. No Meningismus. Chest/axilla: Normal chest wall appearance and motion. Nontender with no deformity. No lesions are appreciated. Cardiovascular: Regular rate and rhythm with a normal S1 and S2. No gallops, murmurs, or rubs. Normal PMI, no JVD. No pulse deficits. Respiratory: Lungs have equal breath sounds bilaterally, clear to auscultation No rales, rhonchi or wheezes noted. No increased work of breathing, no retractions or nasal flaring. Abdomen/GI: Soft, non-tender, with normal bowel sounds. No distension or tympany. No guarding or rebound. No evidence of tenderness throughout. Back: No spinal tenderness. No costovertebral tenderness. Full range of motion. 14:02 Neuro: Awake and alert, GCS 15, oriented to person, place, time, and situation. 14:02 Musculoskeletal/extremity: ROM: limited active range of motion due to pain, limited passive range of motion due to pain, in the left lateral malleolus and left medial malleolus, Pulses: noted to be 3+ in the right posterior tibial artery, right dorsalis pedis artery, left posterior tibial artery and left dorsalis pedis artery, Sensation intact. Joints: the left ankle displays painful range of motion, swelling, Weight bearing: can bear weight with assistance only. Vital Signs: 12:25 BP 140 / 81; Pulse 78; Resp 16; Pulse Ox 98% ; Weight 116.12 kg; Height 6 ft. 0 in. sv (182.88 cm); 14:25 BP 149 / 92; Pulse 81; Resp 17 S; Pulse Ox 99% on R/A; ca1 12:25 Body Mass Index 34.72 (116.12 kg, 182.88 cm) sv MDM: 12:28 Patient medically screened. la1 14:11 Differential diagnosis: septic arthritis, gout, fracture. Data reviewed: vital signs, la1 nurses notes, radiologic studies, and as a result, I will discharge patient. Data interpreted: Pulse oximetry: on room air is 98 %. Interpretation: normal. Test interpretation: by ED physician or midlevel provider: plain radiologic studies. Counseling: I had a detailed discussion with the patient and/or guardian regarding: the historical points, exam findings, and any diagnostic results supporting the discharge/admit diagnosis, radiology results, the need for outpatient follow up, a orthopedic surgeon, to return to the emergency department if symptoms worsen or persist or if there are any questions or concerns that arise at home. Medication response: colchicine. Response to treatment: the patient's symptoms have mildly improved after treatment. Special discussion: Based on the history and exam findings, there is no indication for further emergent testing or inpatient evaluation. I discussed with the patient/guardian the need to see the orthopedic surgeon for further evaluation of the symptoms. ED course: No signs of septic joint, site without overlying cellulitis, no fever, no systemic signs of illness. Will have pt fu with ortho and PCP, strict return precautions given. 10/20 12:51 Order name: Ankle Left 3 View XRAY; Complete Time: 13:54 la1 10/20 12:51 Order name: Foot Left 3 View XRAY la1 Administered Medications: 13:33 Drug: Colcrys 1.2 mg Route: PO; ca1 Disposition: 16:43 Co-signature as Attending Physician, Jairo Saab MD I agree with the assessment and zuhair plan of care. Disposition: 10/20/19 14:14 Discharged to Home. Impression: Gout, Pain in ankle and joints of foot. - Condition is Stable. - Discharge Instructions: Gout, Gout, [id number], Ankle Pain. - Prescriptions for Medrol (Rickie) 4 mg Oral Tablets, Dose Pack - take 1 tablet by ORAL route as directed - follow package instructions; 1 packet. Tylenol- Codeine #3 300-30 mg Oral Tablet - take 2 tablets by ORAL route every 6 hours As needed; 20 tablet. - Medication Reconciliation Form, Thank You Letter form. - Follow up: Private Physician; When: 2 - 3 days; Reason: Recheck today's complaints, Re-evaluation by your physician. Follow up: Emergency Department; When: As needed; Reason: Worsening of condition, fever, new rash/cellulitis. Signatures: Dispatcher [employer] Kymberly Matthews, RN RN Jairo Jc MD MD cha Attema, Lee, ENVIRONMENTAL TEST TECHNICIAN-C ENVIRONMENTAL TEST TECHNICIAN-Cla1 Thao Roman RN RN ca1 Corrections: (The following items were deleted from the chart) 14:26 14:14 10/20/2019 14:14 Discharged to Home. Impression: Gout; Pain in ankle and joints ca1 of foot. Condition is Stable. Forms are Medication Reconciliation Form, Thank You Letter, Antibiotic Education, Prescription Opioid Use. Follow up: Private Physician; When: 2 - 3 days; Reason: Recheck today's complaints, Re-evaluation by your physician. Follow up: Emergency Department; When: As needed; Reason: Worsening of condition, fever, new rash/cellulitis. la1
--- NOTE | 2019-10-20 14:14 | ER ---
Nurse's Notes [facility] Name: Zeferino Nunez Age: 69 yrs Sex: Male : 1950 Arrival Date: 10/20/2019 Time: 12:20 Bed 19 Private MD: Diagnosis: Gout;Pain in ankle and joints of foot Presentation: 10/20 12:25 Presenting complaint: Patient states: left foot pain since Friday, reports he may have sv injured it. Transition of care: patient was not received from another setting of care. Onset of symptoms was October 18, 2019. Risk Assessment: Do you want to hurt yourself or someone else? Patient reports no desire to harm self or others. Care prior to arrival: None. 12:25 Method Of Arrival: Wheelchair sv 12:25 Acuity: VIBHA 4 sv 13:36 Initial Sepsis Screen: Does the patient meet any 2 criteria? No. Patient's initial ca1 sepsis screen is negative. Does the patient have a suspected source of infection? No. Patient's initial sepsis screen is negative. 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 - Social history:: Smoking status: Patient/guardian denies using tobacco. - Ebola Screening: : Patient negative for fever greater than or equal to 101.5 degrees Fahrenheit, and additional compatible Ebola Virus Disease symptoms Patient denies exposure to infectious person Patient denies travel to an Ebola-affected area in the 21 days before illness onset No symptoms or risks identified at this time. Screenin:45 Abuse screen: Denies threats or abuse. Denies injuries from another. Nutritional ca1 screening: No deficits noted. Tuberculosis screening: No symptoms or risk factors identified. Fall Risk Ambulatory Aid- Crutches/Cane/Walker (15 pts). Assessment: 12:45 General: Appears in no apparent distress. comfortable, Behavior is calm, cooperative, ca1 appropriate for age. Pain: Complains of pain in left foot Pain currently is 8 out of 10 on a pain scale. Pain began 2-3 days ago. Pain: Aggravated by weight bearing. Neuro: Level of Consciousness is awake, alert, obeys commands, Oriented to person, place, time, situation, Appropriate for age. Cardiovascular: Heart tones S1 S2 present Capillary refill < 3 seconds Patient's skin is warm and dry. Respiratory: Airway is patent Respiratory effort is even, unlabored, Respiratory pattern is regular, symmetrical, Breath sounds are clear bilaterally. GI: Abdomen is round non-distended, Bowel sounds present X 4 quads. Abd is soft and non tender X 4 quads. : No signs and/or symptoms were reported regarding the genitourinary system. EENT: No signs and/or symptoms were reported regarding the EENT system. Derm: Skin is intact, is healthy with good turgor, Skin is pink, warm \T\ dry. Musculoskeletal: Circulation, motion, and sensation intact. Capillary refill < 3 seconds, Range of motion: limited in left ankle Swelling present in left foot. 14:25 Reassessment: Patient appears in no apparent distress at this time. Patient and/or ca1 family updated on plan of care and expected duration. Pain level reassessed. Patient is alert, oriented x 3, equal unlabored respirations, skin warm/dry/pink. Vital Signs: 12:25 BP 140 / 81; Pulse 78; Resp 16; Pulse Ox 98% ; Weight 116.12 kg; Height 6 ft. 0 in. sv (182.88 cm); 14:25 BP 149 / 92; Pulse 81; Resp 17 S; Pulse Ox 99% on R/A; ca1 12:25 Body Mass Index 34.72 (116.12 kg, 182.88 cm) sv ED Course: 12:20 Patient arrived in ED. as 12:25 Triage completed. sv 12:28 [facility] la1 12:28 Jairo Saab MD is Attending Physician. la1 12:28 Arm band placed on. sv 12:45 Thao Roman, JENNIFER is Primary Nurse. ca1 12:45 Patient has correct armband on for positive identification. Bed in low position. Call ca1 light in reach. Side rails up X 1. Pulse ox on. NIBP on. 12:45 No provider procedures requiring assistance completed. Patient did not have IV access ca1 during this emergency room visit. 13:19 Ankle Left 3 View XRAY In Process Unspecified. EDMS 13:19 Foot Left 3 View XRAY In Process Unspecified. EDMS Administered Medications: 13:33 Drug: Colcrys 1.2 mg Route: PO; ca1 Outcome: 14:14 Discharge ordered by MD. avendaño 14:26 Discharged to home ambulatory, with significant other. ca1 14:26 Condition: stable 14:26 Discharge instructions given to patient, Instructed on discharge instructions, follow up and referral plans. no drinking with medication, no driving heavy equipment, Demonstrated understanding of instructions, follow-up care, medications, Prescriptions given X 2. 14:26 Patient left the ED. ca1 Signatures: Dispatcher [employer] Kymberly Matthews RN RN sv Martinez, Amelia as Attema, Lee, [employer] ATTENDANT-C [employer] ATTENDANT-Cla1 Thao Roman RN RN ca1 Corrections: (The following items were deleted from the chart) 12:28 12:25 Pulse 78bpm; Resp 16bpm; Pulse Ox 98%; 116.12 kg; Height 6 ft. 0 in.; BMI: 34.7; sv sv
[2019-10-20 15:08] VITALS: BP 149/92; O2SAT 99
== END 2019-10-20 14:26 | disposition home or self-care (01) ==
LOC: ER 12:16
DX: M25.572 Pain in left ankle and joints of left foot (principal); M10.9 Gout, unspecified
CPT/HCPCS: 99284

== ENCOUNTER 2022-08-31 00:35 | Inpatient (IN) | payer OTHER ==
[2022-08-31 00:53] LABS: Absolute Lymphocytes (CBC) 2.4 K/uL (0.7-4.9); Hematocrit 53.9 % (39.6-49.0); Lymphocytes % 20.6 % (15.3-44.8); MPV 9.1 fL (7.6-11.3); RBC Red Blood Cell Count 5.92 M/uL (4.33-5.43)
[2022-08-31 00:56] LABS: Blood O2 Saturation 96.1 % (92-98.5)
[2022-08-31 00:57] LABS: Arterial Blood Carboxyhemoglob 0.4 % (0-1.5); Blood Gas Oxyhemoglobin 94.7 % (94-97)
[2022-08-31] MEDS ORDERED: MAGNESIUM SULFATE 1 gm IVPB 1 GM/100 ML BAG IV ONE (00:57)
[2022-08-31] MEDS ORDERED: NITROGLYCERIN 1 GM PKT TD ONE (00:57)
[2022-08-31 01:00] LABS: Protime INR 1.09
--- OUTSIDE RECORDS SUMMARY | 2022-08-31 01:00 | XMS REPORT | Continuity of Care Document ---
:1950 Author Organization [facility] t Address [address] [place] [address] Care Team Providers Name Role Phone Gautam Hardwick MD Primary Care Physician Sergio Cook Attending Clinician Unavailable UNKNOWN Attending Clinician Unavailable SERGIO COOK Attending Clinician Unavailable Tree Fenton MD Attending Clinician TREE FENTON Attending Clinician Unavailable BRYAN COOK Attending Clinician Unavailable Sergio Cook Admitting Clinician Unavailable TREE FENTON Admitting Clinician Unavailable BRYAN COOK Admitting Clinician Unavailable Payers Payer Name Policy Type Policy Number Effective Date Expiration Date S ource Problems Condition Condition Condition Status Onset Resolution Last Treating Co mments Source Name Details Category Date Date Treatment Clinician Date Diverticul Diverticul Disease Active M ethodi itis of itis of 8-[facility] large large 00:00: Hospita intestine intestine 00 l with with abscess abscess without without bleeding bleeding LBBB (left LBBB (left Disease Active [facility] bundle bundle 5-24 [facility] branch 00:00: Medical block) block) Center Coronary Coronary Disease Active [facility] artery artery 5-18 [place] disease disease 00:00: of involving involving 00 [facility] cortney [place] e coronary coronary artery artery Cardiomyop Cardiomyop Disease Active B [facility] athy, athy, 18 [place] ischemic ischemic 00:00: of 00 Medicin e S/P left S/P left Disease Active [facility] r atrial atrial 16 [place] appendage appendage 00:00: of ligation ligation 00 Medici n e Colonic Colonic Disease Active [facility] mass mass 16 College 00:00: of 00 Medicin e TIA TIA Disease Active [facility] (transient (transient 16 Co llege ischemic ischemic 00:00: of attack)-le attack)-le 00 Me dicin ft brain ft brain e LICA stent LICA stent [facility] 03[facility]19 03/02/19-16 [place] 00:00: of 00 Medicin e 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 combined -16 Colleg e systolic systolic 00:00: of and and 00 Medicin diastolic diastolic e CHF, NYHA CHF, NYHA class 2 class 2 and and MKIE/AHA MIKE/AHA stage C stage C Colostomy Colostomy Disease Active [facility] care care 16 [place] 00:00: of 00 Medicin e Hx of CABG Hx of CABG Disease [facility] Center Carotid Carotid Disease Active [facility] artery artery 4-12 [facility] stenosis, stenosis, 00:00: [facility] jess asymptomat asymptomat 00 Ce nter ic, right ic, right Carotid Carotid Disease Active Overview: [facility] artery artery 4-12 [facility] stenosis, stenosis, 00:00: g of this M edical symptomati symptomati 00 note Ce nter c, left c, left might be different from the original. 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 4-12 [facility] systolic systolic 00:00: Medica l and and 00 Center diastolic diastolic CHF, NYHA CHF, NYHA class 3 class 3 Stroke due Stroke due Disease Active [facility] to to 4-12 [facility] stenosis stenosis 00:00: Medica l of left of left 00 Center carotid carotid artery artery Mass of Mass of Disease Active [facility] colon colon 4-05 [facility] 00:[facility] Medical 00 Center ANSHUL (acute ANSHUL (acute Disease Active 2016-10 M ethodi kidney kidney 0-09 st injury) injury) 00:00: Hospita 00 l Atrial Atrial Disease Active 2016-10 [facility] fibrillati fibrillati 0-08 st on, on, 00:00: Hospita currently currently 00 l in sinus in sinus rhythm rhythm Acute Acute Disease Active 2016-10 [facility] respirator respirator 0-08 st y y 00:00: Hospita insufficie insufficie 00 l ncy ncy 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 fraction. Hypertensi Hypertensi Disease Active 2016-10 M ethodi ve ve 0-03 st cardiovasc cardiovasc 00:00: Ho spita ular ular 00 l disease disease Severe Severe Disease Active 2016-10 [facility] left left 0-03 st internal internal 00:00: Hospit a carotid carotid 00 l artery artery stenosis. stenosis. (80-99%) (80-99%) Type 2 Type 2 Disease Active 2016-10 [facility] diabetes diabetes 0-03 st mellitus mellitus 00:00: Hospit a 00 l Obesity Obesity Disease Active 2016-10 [facility] 0-03 st 00:00: Hospita 00 l SHERI SHERI Disease Active 2016-10 [facility] (obstructi (obstructi 0-03 st ve sleep ve sleep 00:00: Hospit a apnea) apnea) 00 l Coronary Coronary Disease Active 2016-10 Overview: Me thodi artery artery 0-[address] disease disease 00:00: g of this Hospi ta involving involving 00 note l [place] might be coronary coronary different artery of artery of from the [place] original. heart heart Added without without automatic angina angina ally from pectoris pectoris request for surgery [id number] CAD CAD Disease Active 2016-10 [facility] (coronary (coronary 0-02 st artery artery 00:00: Hospita disease) disease) 00 l Patient is Patient is Disease Active M ethodi Jehovah's Jehovah's [facility] Witness Witness Hospita l GERD GERD Disease Active [facility] (gastroeso (gastroeso st phageal phageal Hospita reflux reflux l disease) disease) Allergies, Adverse Reactions, Alerts Allergy Allergy Status Severity Reaction(s) Onset Inactive Treating Comm ents Source Name Type Date Date Clinician No Known DA Active [facility]ie 04-10 [facility] 00:00: [facility] 00 are [facility] No Known DA Active [facility] Allergie 04-10 [facility] 00:00: Health 00 are [facility] Family History Family Member Diagnosis Comments Start Date Stop Date Source Natural mother Diabetes [facility] Natural mother Heart disease [facility] Social History Social Habit Start Date Stop Date Quantity Comments Source History SDOH [facility] Alcohol Std Drinks Medica l Center History SDOH [facility] Alcohol Binge Medical [facility] History SDOH [facility] Alcohol Comment Medical C enter Alcohol intake 2019-05-28 2019-05-28 Current [place] 00:00:00 00:00:00 non-drinker of Hospital alcohol (finding) Tobacco use and 2019-01-05 2019-01-[address] [facility] Natalie kes exposure 00:00:00 00:00:00 Medical Center History SDOH 2019-01-05 2019-01-[address] [facility] Alcohol Frequency 00:00:00 00:00:00 Medical Center Sex Ass[birth year] At [birth year] [place] 00:00:00 00:00:00 Hospital Smoking Status Start Date Stop Date Source Never smoker [facility] o Medicine Medications Ordered Filled Start Stop Current Ordering Indication Dosage Frequency Signature Comments Components Source Medication Medication Date Date Medication? Clinician (SIG) Name Name carvedilol Yes 25mg Q.5D Take 25 mg M ethodi (COREG) 25 8-[address] MG tablet 15:24: (two) Hospita 31 times a l day with meals. sacubitril- 2019-0 Yes 1{tbl} Q.5D Take 1 Me thodi valsartan 8-[address] (ENTRESTO) 15:24: mouth 2 [facility]osp [facility] 49-51 mg 31 (two) l tablet per times a tablet day. aspirin 2019-0 Yes 81mg QD Take 81 mg Meth asmita (ECOTRIN) 8-[address] 81 MG 15:24: daily. Hospita enteric 31 l coated tablet potassium 2019-0 Yes 20meq Q.5D Take 20 Meth asmita chloride 8-[address] (KLOR-CON) 15:24: mouth 2 Hosp harmony 10 MEQ CR 31 (two) l tablet times a day. ascorbic 2019-0 Yes Take by Method i acid 8-[address] (VITAMIN C 15:24: Hospita ORAL) 31 l CALCIUM-MAG 2019-0 Yes 1{tbl} Q.5D Take 1 Me thodi NESIUM ORAL 8-[address] 15:24: mouth 2 Hospita 31 (two) l times a day. ALPRAZolam 2019-0 Yes .25mg QD Take 0.25 M ethodi (XANAX) 8-[address] 0.25 MG 15:24: mouth Hospita tablet 31 nightly as l needed for anxiety. carvedilol 2019-0 Yes 25mg Take 25 mg B aylor (COREG) 25 8-08 by mouth 2 Col lege MG tablet 19:40: times of 53 daily Medicin (with e meals). Sacubitril- 2019-0 Yes Take by Coh[place] rio Valsartan 8-08 mouth two Colle ge (ENTRESTO) 19:40: times of 49-51 MG 53 daily. Medicin TABS e POTASSIUM 2019-0 Yes Take by [facility] OR 8-08 mouth two College 19:40: times of 53 daily. Medicin e aspirin 81 2019-0 Yes 81mg Take 81 mg B aylor MG tablet 8-08 by mouth Colleg e 19:40: daily. of 53 Medicin e VITAMIN E 2019-0 Yes Take by [facility] OR 8-08 mouth. College 19:40: Take every of 53 other day Medicin e Ascorbic 2019-0 Yes Take by Alcides Acid 8-08 mouth College (VITAMIN C 19:40: daily. of OR) 53 Medicin e carvedilol 2018-0 Yes 25mg Take [address] (COREG) 25 5-29 by mouth 2 Gurdeep es MG tablet 10:57: (two) Medical 16 times Center daily with breakfast and dinner. potassium 2019-0 Yes 20meq Q.5D Take [address] chloride 5-29 mEq by [employer] (KLOR-CON) 10:57: mouth 2 Medi jess 20 mEq 16 (two) Center packet times daily. calcium 2019-0 Yes 600mg Take [address] [facility] carbonate 5-29 mg by [facility] (OS-JESS) 10:57: mouth 2 Medica l 600 mg 16 (two) Center calcium times (1,500 mg) daily with Tab breakfast and dinner. ascorbic 2019-0 Yes 1000mg QD Take 1,[address] acid, 5-29 mg by [employer] vitamin C, 10:57: mouth Medica l (VITAMIN C) 16 daily. Center 1000 MG tablet b complex 2018-0 Yes 1{tbl} QD Take [address] vitamins 5-29 tablet by [employer] tablet 10:57: mouth Medical 16 daily. Center sacubitril- 2019-0 Yes 1{tbl} Q.5D Take [address] valsartan 5-29 tablet by [employer] (ENTRESTO) 10:57: mouth 2 Medi jess 49-51 mg 16 (two) Center Tab times daily. furosemide 2019-[address] (LASIX) 40 5-29 recommende Gurdeep es MG tablet 00:00: d by your Med ical [address] clopidogrel 2019-0 Yes 75mg Take 1 Tab [facility] (PLAVIX) 75 5-20 by mouth Tim ege MG tablet 00:00: daily. of 00 Medicin e aspirin 81 2019-0 Yes 81mg QD Take 1 [facility] MG EC 4-14 tablet (81 [facility] tablet 00:00: mg total) Medica l 00 by mouth Center daily. atorvastati 2018-0 Yes 80mg QD Take [address] n (LIPITOR) 4-14 tablet (80 Natalie kes 80 MG 00:00: mg total) Medical tablet 00 by mouth Center daily. clopidogrel 2019-0 Yes 75mg QD Take [address] (PLAVIX) 75 4-14 tablet (75 Natalie kes mg tablet 00:00: mg total) Med ical 00 by mouth Center daily. Vital Signs Vital Name Observation Time Observation Value Comments Source Systolic blood 2019-05-13 19:49:00 150 mm[Hg] [facility] Medicine Diastolic blood 2019-05-13 19:49:00 100 mm[Hg] [facility] Heart rate 2019-05-13 19:38:00 60 /min [facility] ollege [facility] Body height 2019-05-13 19:38:00 182.9 cm [facility] Body weight 2019-05-13 19:38:00 109.77 kg [facility] BMI 2019-05-13 19:38:00 32.82 kg/m2 [facility] Systolic blood 2019-05-13 19:49:00 150 mm[Hg] [facility] Diastolic blood 2019-05-13 19:49:00 100 mm[Hg] [facility] Heart rate 2019-05-13 19:38:00 60 /min [facility] Body height 2019-05-13 19:38:00 182.9 cm [facility] Body weight 2019-05-13 19:38:00 109.77 kg [facility] BMI 2019-05-13 19:38:00 32.82 kg/m2 [facility] Procedures Procedure Date / Time Performing Clinician Source Performed [id number] 2020-04-25 00:00:[address] [facility] [id number] 2020-04-25 00:00:[address] [facility] [id number] 2020-04-25 00:00:[address] [facility] ELECTROCARDIOGRAM COMPLETE 2019-05-13 20:14:41 Tree Fenton [facility] Plan of Care Planned Activity Planned Date Details Comments Source Future Scheduled 2022-08-08 HEPATITIS B VACCINES [facility] Test 14:32:56 (1 of 3 - 3-dose series) [code = HEPATITIS B VACCINES (1 of 3 - 3-dose series)] Future Scheduled 2022-08-08 COVID-19 [facility] (#[facility] 14:32:56 [code = COVID-19 VACCINE (#1)] Future Scheduled 2022-08-08 65+ P[facility]UMOCOCCAL [facility] Test 14:32:56 VACCINE (1 - PCV) [code = 65+ PNEUMOCOCCAL VACCINE (1 - PCV)] Future Scheduled 2022-08-08 DIABETES: RETINAL EYE [facility] Test 14:32:56 EXAM [code = DIABETES: RETINAL EYE EXAM] Future Scheduled 2022-08-08 [facility]ABETIC [facility]OT [facility] Test 14:32:56 [code = DIABETIC FOOT EXAM] Future Scheduled 2022-08-08 URINE MICROALBUMIN [facility] Hospital Test 14:32:56 [code = URINE MICROALBUMIN] Future Scheduled 2022-08-08 COLONOSCOPY SCREENING [facility] Test 14:32:56 [code = COLONOSCOPY SCREENING] Future Scheduled 2022-08-08 SHINGLES VACCINES (1 [facility] Test 14:32:56 of 2) [code = SHINGLES VACCINES (1 of 2)] Future Scheduled 2022-08-08 INFLUENZA VACCINE [facility] Hospital Test 14:32:56 [code = INFLUENZA VACCINE] Future Scheduled COLON CANCER [facility] ege of Test SCREENING: COLONOSCOPY Medic ine [code = COLON CANCER SCREENING: COLONOSCOPY] Future Scheduled MEDICARE AWV [code = [facility] College of Test MEDICARE AWV] Medicine Future Scheduled TETANUS SHOT (ADULT) [facility] of Test [code = TETANUS SHOT Medicin e (ADULT)] Future Scheduled BMI FOLLOW UP PLAN [facility] of Test [code = BMI FOLLOW UP Medici ne PLAN] Future Scheduled HEPATITIS C SCREENING [facility] of Test [code = HEPATITIS C Medicine SCREENING] Future Scheduled FALL SCREEN [code = [facility] of Test FALL SCREEN] Medicine Future Scheduled PNEUMOVAX >=65 [facility] llege of Test (PPSV23) [code = Medicine PNEUMOVAX >=65 (PPSV23)] Future Scheduled PREVNAR >= 65 (PCV13) Ba [facility] of Test [code = PREVNAR >= 65 Medici ne (PCV13)] Future Scheduled FLU VACCINE > 6 MONTHS B [facility] of Test [code = FLU VACCINE > Medici ne 6 MONTHS] Encounters Start End Encounter Admission Attending Care Care Encounter Source Date/Time Date/Time Type Type Clinicians Facility Department ID 2020-04-13 Inpatient Rosalba, [facility] ENDO [id number] [facility] 09:30:00 Sergio 36 [facility] are [facility] 2020-04-25 2020-04-26 Outpatient EL Rosalba, [facility] DAYS [id number] [facility] 04:28:00 09:00:00 Sergio 80 [facility] 2020-04-25 2020-04-25 Outpatient Rosalba, HCANW REF [id number] [facility] 14:02:00 14:02:00 Sergio 21 [facility] 2020-04-10 2020-04-10 Outpatient UNKNOWN HCACL LABO [id number] [facility] 18:10:00 18:10:00 64 [facility] 2020-04-10 2020-04-10 Outpatient ESTEPHANIA Cook, [facility] 3DAY [id number] [facility] 09:00:00 09:00:00 Sergio 92 [facility] 2020-01-05 2020-01-05 Outpatient ROSALBA, [facility] [id number] [place] 00:00:00 00:00:00 SERGIO [address] 2019-05-13 2019-05-13 Office HOWIE Fenton [id number] [facility] 12:56:01 15:22:30 Visit Tree E AMBULATOR 350.1.13.21 College Y 0.2.7.2.686 [id number] [facility] 700 e 2019-05-13 2019-05-13 Office HOWIE Fenton [id number] 12:56:01 15:22:30 Visit Tree E AMBULATOR 350.1.13.21 Y 0.2.7.2.686 [id number] Results Test Description Test Time Test Comments Results Result Comments Source SURGICAL SPECIMENS 2020-04-26 13:49:00 RUN DATE: 04/26/20 [facility] - LAB PAGE 1 RUN TIME: 1350 Specimen Inquiry RUN USER: INTERFACE PATIENT: ANDREA GO LOC: PErin5N POD B U #: [id number] AGE/SX: 69/M ROOM: [facility] RE04/25/20[facility] DR: Sergio Cook MD : 50 BED: 1 DIS: STATUS: ADM IN TLOC: SPEC #: [id number] RECD: 04/25/20 STATUS: SHAKILA LINDA #: [id number] TIM: 04/25/20-6 [facility] DR: Sergio Cook MD ENTERED: 04/25/20-114 SP TYPE: SURG OTHR DR: ORDERED: LEVEL II, PATH SPEC, H E STAIN HISTOLOGY: TISSUE ID BLK PCS DAYNA LEV / PROCEDURE DISPOSITION ____ ___ ___ ___ ___ HERNIA SAC A 1 1 TISSUES: A. HERNIA SAC - Incisional Hernia Sac CLINICAL HISTORY Incisional Hernia Sac FINAL DIAGNOSIS HERNIA SAC, REPAIR: - BENIGN FIBROVASCULAR ADIPOSE TISSUE CPT 75225 GROSS DESCRIPTION Specimen is received in formalin labeled with patient's name, medical record number and designated "incisional hernia sac" and consists of a 0.9 x 1.1 x 0.3 cm fragment of sandoval-yellow fibroadipose tissue. The specimen is sectioned and submitted in one cassette. / Signed SIGNATURE ON FILE Merced Aparicio MD 04/26/20 [id number] END OF REPORT BASIC METABOLIC PANEL 2020-04-26 06:20:00 Test Item Value Reference Range Interpretation Comme nts SODIUM (test code = NA) 144 MMOL/L 136-143 H POTASSIUM (test code = K) 4.0 MMOL/L 3.5-5.1 N CHLORIDE (test code = CL) 106 MMOL/L 98-107 N CARBON DIOXIDE (test code = 23 mmol/L 24-31 L CO2) GLUCOSE (test code = GLU) 142 mg/dL 70-104 H BLOOD UREA NITROGEN (test code 20.5 MG/DL 7.0-21.0 N = BUN) GLOMERULAR FILTRATION RATE 53 >60 L T he estimated glomerular (test code = GFR) filtration rate is computed usingpatient ra ce, age (>18), sex, and serum creatinine. If anyof the neede d data elements are missing the Laboratory cannot compute an estimation of the glomerular filtration rate. CREATININE (test code = CREAT) 1.4 mg/dL 0.8-1.5 N CALCIUM (test code = CA) 8.4 mg/dL 8.8-10.2 L [id number] 06:20:00 Test Item Value Reference Range Interpretation Comments MAGNESIUM (test code = MAG) 1.8 mg/dL 1.4-2.6 N CBC W/AUTO [id number] 05:46:00 Test Item Value Reference Range Interpretation Comments WHITE BLOOD CELL (test code = 13.6 x10 3/uL 4.8-10.8 H WBC) RED BLOOD CELL (test code = 5.59 x10 6/uL 4.70-6.10 N RBC) HEMOGLOBIN (test code = HGB) 17.3 g/dL 14.5-20 N HEMATOCRIT (test code = HCT) 51.4 % 42.0-52.0 N MEAN CELL VOLUME (test code = 91.9 fL 80.0-94.0 N MCV) MEAN CELL HGB (test code = 30.9 pg 27-31 N MCH) MEAN CELL HGB CONCENTRATION 33.7 G/DL 33-36.5 N (test code = MCHC) RED CELL DISTRIBUTION WIDTH 14.5 % 12.9-16.9 N (test code = RDW) PLATELET COUNT (test code = 179 150-440 N PLT) MEAN PLATELET VOLUME (test 10.6 fL 8.9-12.4 N code = MPV) NEUTROPHIL % (test code = NT%) 80.3 % 42.2-75.2 H LYMPHOCYTE % (test code = LY%) 8.5 % 20.5-51.1 L MONOCYTE % (test code = MO%) 9.3 % 1.7-9.3 N EOSINOPHIL % (test code = EO%) 1.3 % 0.0-7.0 N BASOPHIL % (test code = BA%) 0.2 % 0-2.5 N NEUTROPHIL # (test code = NT#) 10.93 x10 3/uL 1.80-7.70 H LYMPHOCYTE # (test code = LY#) 1.16 x10 3/uL 1.00-4.80 N MONOCYTE # (test code = MO#) 1.27 x10 3/uL 0.00-0.80 H EOSINOPHIL # (test code = EO#) 0.18 x10 3/uL 0.00-0.45 N BASOPHIL # (test code = BA#) 0.03 x10 3/uL 0.0-0.20 N [id number] 15:42:00 Test Item Value Reference Range Interpretation Comments GLUBED (test code = GLUBED) 159 MG/DL 70-105 H - XR CHEST 1 [id number] 12:33:00Patient Name: ANDREA GO Unit No: [id number] EXAMS: CPT CODE: [id number] XR CHEST 1 V 90650 EXAM: - XR CHEST 1 V Location code: W1 HISTORY: Shortness of breath COMPARISON: None available time of interpretation. FINDINGS: Frontal view of the chest is submitted. Enlarged cardiomediastinal silhouette with post median sternotomy changes noted and left atrial appendage occlusion device demonstrated. Mild pulmonary vascular congestive changes are seen. There are bilateral interstitial opacities noted throughout both lung sanders. No large effusion or appreciable pneumothorax. No acute osseous pathology. IMPRESSION Nonspecific bilateral interstitial opacities are noted throughout both lung sanders.The differential diagnosis includes mild interstitial pulmonary edema or atypical viral pneumonia. No effusion. Cardiomegaly and post median sternotomy changes are present. at 1233 Reported and signed by: KHADIJAH BARTON M.D. CC: Sergio Cook MD Technologist: Weston Mejia Time: DAP (Gy m2): Air Kerma (mGy): Trscr Dt/Tm: 04/25/2020 (1233) by:[email or web address] Printed Date/Time: 04/25/2020 (1236) Name: ANDREA GO [facility] Phys: Sergio Zarate MD [address] : 1950 Age: 69[place]: [place] [address] Loc: P.SRG Exam Date: 04/25/2020 Status: REG [facility] PH:FAX: PAGE 1 Signed ReportCOVID 19 INHOUSE [id number] 07:44:00 Test Item Value Reference Range Interpretation Comments COVID 19 INHOUSE AG (test code = NEGATIVE NEGATIVE [id number]) SURGICAL [id number] 13:29:00 RUN DATE: 04/17/20 [facility] - LAB PAGE 1 RUN TIME: 1330 Specimen Inquiry RUN USER: INTERFACE ------- -----PATIENT: ANDREA GO LOC: LANNY U #: [id number] AGE/SX: 69/M ROOM: RE04/13/20[facility] DR: Sergio Cook MD : 50 BED: DIS: STATUS: DEP [facility] TLOC: SPEC #: [id number] RECD: 04/13/20 STATUS: SHAKILA REQ #: [id number] TIM: 04/13/20 [facility] DR: Sergio Cook MD ENTERED: 04/13/20-1219 SP TYPE: SURG OTHR DR: ORDERED: PATHGM4/3, PATH SPEC, H E STAIN/3 HISTOLOGY: TISSUE ID BLK PCS DAYNA LEV/ PROCEDURE DISPOSITION ____ ___ ___ ___ ___ CECUM POLYP A 1 3 1 DESCEND COLON P B 1 3 1 RECTAL BX C 1 3 1 TISSUES: A. CECUM POLYP - Cecal Polyps B. DESCENDING COLON POLYP - Descending Colon Polyp C. RECTAL BX - Rectal Polyps CLINICAL HISTORY Colon Scr een FINAL DIAGNOSIS CECAL POLYPS: - TUBULAR ADENOMA, MULTIPLE PIECES DESCENDING COLON POLYP: - COLONIC MUCOSA WITH CHRONIC ACTIVE COLITIS, SEE COMMENT RECTAL POLYP: - TUBULAR ADENOMA Comment: The biopsy designated descending colon polyp shows colonic mucosa with chronic active colitis including a small granuloma and pieces of gastric mucosa. AFB and GMS stains are negative for mycobacteria and fungus, respectively. A procedure-related contaminant is favored. Clinical correlation is suggested. The findings are discussed with Dr. Cook on 04/17/20. CPT 61638 X 3, 69693 X 2 GROSS DESCRIPTION The specimen is received in three containers each labeled with patient's name and medical record number. Specimen A "cecal polyps". Three sandoval-white tissue fragments, 0.2 cm each, submitted entirely in cassette A. CONTINUED ON NEXT PAGE RUN DATE: 04/17/20 [facility] - LAB PAGE 2 RUN TIME: 1330 Specimen Inquiry RUN USER: INTERFACE SPEC #: [id number] PATIENT: ANDREA GO #[id number] (Continued) GROSS DESCRIPTION (Continued) Specimen B "descending colon polyp". Four sandoval- white tissue fragments, 0.2 cm each, submitted entirely in B. Specimen C "rectal polyps". Five sandoval-white tissue fragments, 0.2 to 0.3 cm, submitted entirely in cassette C. CM/ Signed SIGNATURE ON FILE Merced Aparicio MD 04/17/20 1329 END OF REPORT Novel Coronavirus 2018 [id number] 20:03:00 Test Item Value Reference Range Interpretation Comments Novel Coronavirus 2018 Inhouse (test Negative Negative code = COVNONPUI) Testing Criteria: Preprocedure ScreeningNovel Coronavirus 2019 [id number] 20:02:00 Test Item Value Reference Range Interpretation Comments Novel Coronavirus 2018 Inhouse (test Negative Negative code = COVNONPUI) Testing Criteria: Preprocedure ScreeningPROTHROMBIN [id number] 18:50:00 Test Item Value Reference Range Interpretation Comments PROTHROMBIN TIME 11.9 SECONDS 10.3-12.9 N PATIENT (test code = PTP) INTERNATIONAL 1.05 INR UNIT 0.9-1.11 N The INR is us eful only NORMAL RATIO (test for monit oring code = INR) anticoagulant therapy.It may be unreliable in t he initial phase o f antigoagulation and in unstable patien ts. Indication for Anticoagulation Recommended INR 1. Prevention of v enous thomboembolism 2.0-3.0in high- risk patients; treat ment of venousthrombosi s and pulmonary embol ism aftera course o f heparin; preven tion of systemicembolis m in a variety of cond itions, including atria l fibrillation an d prothetic tissu e heart valves, 2. Pros thetic mechanical hear t valves; 2.5-3.5recurren t systemic emboli sm. THROMBOPLASTIN TIME [id number] 18:50:00 Test Item Value Reference Range Interpretation Comments THROMBOPLASTIN TIME 28.3 SECONDS 23.8-34.8 N INTERPRE TATIVE PARTIAL (test code = DATA: erapeutic PTT) range: Unfractionated heparin:55 - 80 seconds Argatroban:1.5 to 3 times the basel ine PTT COMPREHENSIVE METABOLIC [id number] 18:46:00 Test Item Value Reference Range Interpretation Comments SODIUM (test code = 142 MMOL/L 136-143 N NA) POTASSIUM (test 4.1 MMOL/L 3.5-5.1 N code = K) CHLORIDE (test code 105 MMOL/L 98-107 N = CL) CARBON DIOXIDE 25 mmol/L 24-31 N (test code = CO2) GLUCOSE (test code 178 mg/dL 70-104 H = GLU) BLOOD UREA NITROGEN 15.0 MG/DL 7.0-21.0 N (test code = BUN) GLOMERULAR >=60 max >60 The estimated FILTRATION RATE estimate glomerular (test code = GFR) filtration rate is computed usingpatient ra ce, age (>18), sex, and serum creatinin e. If anyof the ne eded data elements a re missing the Laboratory greg ot compute an estimation of t he glomerular filtration rate . CREATININE (test 1.0 mg/dL 0.8-1.5 N code = CREAT) TOTAL PROTEIN (test 7.2 g/dL 6.3-8.3 N code = PROT) ALBUMIN (test code 4.1 G/DL 3.5-5.0 N = ALB) CALCIUM (test code 9.4 mg/dL 8.8-10.2 N = CA) BILIRUBIN TOTAL 0.7 mg/dL 0.2-1.0 N (test code = BILT) SGOT/AST (test code 18 IU/L 10-34 N = AST) SGPT/ALT (test code 21 U/L 10-44 N = ALT) ALKALINE 73 U/L 45-120 N PHOSPHATASE (test code = ALKP) CBC W/AUTO [id number] 18:18:00 Test Item Value Reference Range Interpretation Comments WHITE BLOOD CELL (test code = 8.9 x10 3/uL 4.8-10.8 N WBC) RED BLOOD CELL (test code = 6.01 x10 6/uL 4.70-6.10 N RBC) HEMOGLOBIN (test code = HGB) 18.1 g/dL 14.5-20 N HEMATOCRIT (test code = HCT) 52.9 % 42.0-52.0 H MEAN CELL VOLUME (test code = 88.0 fL 80.0-94.0 N MCV) MEAN CELL HGB (test code = MCH) 30.1 pg 27-31 N MEAN CELL HGB CONCENTRATION 34.2 G/DL 33-36.5 N (test code = MCHC) RED CELL DISTRIBUTION WIDTH 13.5 % 12.9-16.9 N (test code = RDW) PLATELET COUNT (test code = 198 150-440 N PLT) MEAN PLATELET VOLUME (test code 11.1 fL 8.9-12.4 N = MPV) NEUTROPHIL % (test code = NT%) 69.7 % 42.2-75.2 N LYMPHOCYTE % (test code = LY%) 16.7 % 20.5-51.1 L MONOCYTE % (test code = MO%) 10.0 % 1.7-9.3 H EOSINOPHIL % (test code = EO%) 2.9 % 0.0-7.0 N BASOPHIL % (test code = BA%) 0.4 % 0-2.5 N NEUTROPHIL # (test code = NT#) 6.19 x10 3/uL 1.80-7.70 N LYMPHOCYTE # (test code = LY#) 1.49 x10 3/uL 1.00-4.80 N MONOCYTE # (test code = MO#) 0.89 x10 3/uL 0.00-0.80 H EOSINOPHIL # (test code = EO#) 0.26 x10 3/uL 0.00-0.45 N BASOPHIL # (test code = BA#) 0.04 x10 3/uL 0.0-0.20 N ELECTROCARDIOGRAM [id number] 20:14:41Result approved by Tree Fenton MD on 05/13/19[facility] METABOLIC [id number] 06:50:00 Test Item Value Reference Range Interpretation Comments SODIUM (BEAKER) 137 meq/L 136-145 (test code = 381) POTASSIUM (BEAKER) 4.1 meq/L 3.5-5.1 Specimen slightly (test code = 379) hemolyzed CHLORIDE (BEAKER) 115 meq/L 98-107 H (test code = 382) CO2 (BEAKER) (test 15 meq/L 22-29 L code = 355) BLOOD UREA NITROGEN 17 mg/dL 7-21 (BEAKER) (test code = 354) CREATININE (BEAKER) 1.09 mg/dL 0.57-1.25 Specimen slightly (test code = 358) hemolyzed GLUCOSE RANDOM 92 mg/dL 70-105 (BEAKER) (test code = 652) CALCIUM (BEAKER) 8.8 mg/dL 8.4-10.2 (test code = 697) EGFR (BEAKER) (test 67 mL/min/1.73 ESTIMA RUDY GFR IS code = 1092) sq m NOT ACCURATE CREATININE CLEARANCE IN PREDICTING GLOMERULAR FILTRATION RATE . ESTIMATED GFR I S NOT APPLICABLE FOR DIALYSIS PATIEN TS. CBC (HEMOGRAM ONLY)2019-03-03 06:18:00 Test Item Value Reference Range Interpretation Comments WHITE BLOOD CELL COUNT (BEAKER) 11.0 K/ L 3.5-10.5 H (test code = 775) RED BLOOD CELL COUNT (BEAKER) 5.04 M/ L 4.63-6.08 (test code = 761) HEMOGLOBIN (BEAKER) (test code = 14.4 GM/DL 13.7-17.5 410) HEMATOCRIT (BEAKER) (test code = 45.7 % 40.1-51.0 411) MEAN CORPUSCULAR VOLUME (BEAKER) 90.7 fL 79.0-92.2 (test code = 753) MEAN CORPUSCULAR HEMOGLOBIN 28.6 pg 25.7-32.2 (BEAKER) (test code = 751) MEAN CORPUSCULAR HEMOGLOBIN CONC 31.5 GM/DL 32.3-36.5 L (BEAKER) (test code = 752) RED CELL DISTRIBUTION WIDTH 16.6 % 11.6-14.4 H (BEAKER) (test code = 412) PLATELET COUNT (BEAKER) (test 176 K/CU MM 150-450 code = 756) MEAN PLATELET VOLUME (BEAKER) 11.0 fL 9.4-12.4 (test code = 754) NUCLEATED RED BLOOD CELLS 0 /100 WBC 0-0 (BEAKER) (test code = 413) PLATELET AGGREGATION: FUNCTION [id number] 15:28:00 Test Item Value Reference Range Interpretation Comments WEAK ADP < % 60-91 L RESULT(BEAKER) (test code = 2135) PLATELET FUNCTION 0-39% indicates marked SCREEN INTERP platelet dysfunction (BEAKER) (test code = 2173) [id number] Rosy Styles MD (BEAKER) (test code = (electronic signature) 6663) PLATELET COUNT AGG 180 K/CU MM 150-450 (BEAKER) (test code = 2656) Platelet Function Screen results may be falsely low with platelet counts<100,000/cu mm.HEMOGLOBIN AND [id number] 14:07:00 Test Item Value Reference Range Interpretation Comments HEMOGLOBIN (BEAKER) (test code = 14.9 GM/DL 13.7-17.5 410) HEMATOCRIT (BEAKER) (test code = 46.4 % 40.1-51.0 411) [id number] 11:05:00 Test Item Value Reference Range Interpretation Comments ACTIVATED CLOTTING TIME 263 sec TEST ED AT [place] [address] [facility] (test code = [facility] [address] [place] [address]) [id number] 10:11:00 Test Item Value Reference Range Interpretation Comments ACTIVATED CLOTTING TIME 373 sec TEST ED AT [place] [address] ([facility]) (test code = [place] [address]) [id number] CBC W/PLT COUNT & AUTO [id number] 07:26:00 Test Item Value Reference Range Interpretation Comments WHITE BLOOD CELL COUNT (BEAKER) 10.3 K/ L 3.5-10.5 (test code = 775) RED BLOOD CELL COUNT (BEAKER) 4.64 M/ L 4.63-6.08 (test code = 761) HEMOGLOBIN (BEAKER) (test code = 13.2 GM/DL 13.7-17.5 L 410) HEMATOCRIT (BEAKER) (test code = 42.2 % 40.1-51.0 411) MEAN CORPUSCULAR VOLUME (BEAKER) 90.9 fL 79.0-92.2 (test code = 753) MEAN CORPUSCULAR HEMOGLOBIN 28.4 pg 25.7-32.2 (BEAKER) (test code = 751) MEAN CORPUSCULAR HEMOGLOBIN CONC 31.3 GM/DL 32.3-36.5 L (BEAKER) (test code = 752) RED CELL DISTRIBUTION WIDTH 15.8 % 11.6-14.4 H (BEAKER) (test code = 412) PLATELET COUNT (BEAKER) (test 245 K/CU MM 150-450 code = 756) MEAN PLATELET VOLUME (BEAKER) 11.1 fL 9.4-12.4 (test code = 754) NUCLEATED RED BLOOD CELLS 0 /100 WBC 0-0 (BEAKER) (test code = 413) NEUTROPHILS RELATIVE PERCENT 74 % (BEAKER) (test code = 429) LYMPHOCYTES RELATIVE PERCENT 10 % (BEAKER) (test code = 430) MONOCYTES RELATIVE PERCENT 10 % (BEAKER) (test code = 431) EOSINOPHILS RELATIVE PERCENT 4 % (BEAKER) (test code = 432) BASOPHILS RELATIVE PERCENT 0 % (BEAKER) (test code = 437) NEUTROPHILS ABSOLUTE COUNT 7.64 K/ L 1.78-5.38 H (BEAKER) (test code = 670) LYMPHOCYTES ABSOLUTE COUNT 1.02 K/ L 1.32-3.57 L (BEAKER) (test code = 414) MONOCYTES ABSOLUTE COUNT (BEAKER) 1.06 K/ L 0.30-0.82 H (test code = 415) EOSINOPHILS ABSOLUTE COUNT 0.40 K/ L 0.04-0.54 (BEAKER) (test code = 416) BASOPHILS ABSOLUTE COUNT (BEAKER) 0.04 K/ L 0.01-0.08 (test code = 417) IMMATURE GRANULOCYTES-RELATIVE 1 % 0-1 PERCENT (BEAKER) (test code = 2801) [id number] 06:55:00 Test Item Value Reference Range Interpretation Comments PHOSPHORUS (BEAKER) (test code = 2.6 mg/dL 2.3-4.7 604) [id number] 06:55:00 Test Item Value Reference Range Interpretation Comments MAGNESIUM (BEAKER) (test code = 1.9 mg/dL 1.6-2.6 627) BASIC METABOLIC [id number] 06:55:00 Test Item Value Reference Range Interpretation Comments SODIUM (BEAKER) 138 meq/L 136-145 (test code = 381) POTASSIUM (BEAKER) 4.3 meq/L 3.5-5.1 (test code = 379) CHLORIDE (BEAKER) 111 meq/L 98-107 H (test code = 382) CO2 (BEAKER) (test 20 meq/L 22-29 L code = 355) BLOOD UREA NITROGEN 11 mg/dL 7-21 (BEAKER) (test code = 354) CREATININE (BEAKER) 1.12 mg/dL 0.57-1.25 (test code = 358) GLUCOSE RANDOM 141 mg/dL 70-105 H (BEAKER) (test code = 652) CALCIUM (BEAKER) 8.7 mg/dL 8.4-10.2 (test code = 697) EGFR (BEAKER) (test 65 mL/min/1.73 ESTIMA RUDY GFR IS code = 1092) sq m NOT ACCURATE CREATININE CLEARANCE IN PREDICTING GLOMERULAR FILTRATION RATE . ESTIMATED GFR I S NOT APPLICABLE FOR DIALYSIS PATIEN TS. LIPID [id number] 13:02:00 Test Item Value Reference Range Interpretation Comments TRIGLYCERIDES (BEAKER) (test code = 106 mg/dL 540) CHOLESTEROL (BEAKER) (test code = 151 mg/dL 631) HDL CHOLESTEROL (BEAKER) (test code 27 mg/dL = 976) LDL CHOLESTEROL CALCULATED (BEAKER) 103 mg/dL (test code = 633) Triglyceride Reference Range: Low Risk <150 Borderline 150-199 High Risk 200- 499 Very High Risk >=500Cholesterol Reference Range: Low Risk <200 Borderline 200-239 High Risk >240HDL Cholesterol Reference Range: Low Risk >=60 High Risk <40LDL Cholesterol Reference Range: Optimal <100 Near Optimal 100-129 Borderline 130-159 High 160-189 Very High >=190VITAMIN B12 AND [id number] 09:57:00 Test Item Value Reference Range Interpretation Comments VITAMIN B12 (BEAKER) (test code = 1522 pg/mL 213-816 H 774) FOLATE (BEAKER) (test code = 362) 17.6 ng/mL >=7.0 [id number] 07:32:00 Test Item Value Reference Range Interpretation Comments PHOSPHORUS (BEAKER) (test code = 2.9 mg/dL 2.3-4.7 604) [id number] 07:32:00 Test Item Value Reference Range Interpretation Comments MAGNESIUM (BEAKER) (test code = 1.7 mg/dL 1.6-2.6 627) BASIC METABOLIC [id number] 07:32:00 Test Item Value Reference Range Interpretation Comments SODIUM (BEAKER) 138 meq/L 136-145 (test code = 381) POTASSIUM (BEAKER) 3.8 meq/L 3.5-5.1 (test code = 379) CHLORIDE (BEAKER) 109 meq/L 98-107 H (test code = 382) CO2 (BEAKER) (test 23 meq/L 22-29 code = 355) BLOOD UREA NITROGEN 11 mg/dL 7-21 (BEAKER) (test code = 354) CREATININE (BEAKER) 1.11 mg/dL 0.57-1.25 (test code = 358) GLUCOSE RANDOM 107 mg/dL 70-105 H (BEAKER) (test code = 652) CALCIUM (BEAKER) 8.7 mg/dL 8.4-10.2 (test code = 697) EGFR (BEAKER) (test 66 mL/min/1.73 ESTIMA RUDY GFR IS code = 1092) sq m NOT ACCURATE CREATININE CLEARANCE IN PREDICTING GLOMERULAR FILTRATION RATE . ESTIMATED GFR I S NOT APPLICABLE FOR DIALYSIS PATIEN TS. CBC W/PLT COUNT & AUTO [id number] 06:48:00 Test Item Value Reference Range Interpretation Comments WHITE BLOOD CELL COUNT (BEAKER) 8.3 K/ L 3.5-10.5 (test code = 775) RED BLOOD CELL COUNT (BEAKER) 4.55 M/ L 4.63-6.08 L (test code = 761) HEMOGLOBIN (BEAKER) (test code = 13.1 GM/DL 13.7-17.5 L 410) HEMATOCRIT (BEAKER) (test code = 40.6 % 40.1-51.0 411) MEAN CORPUSCULAR VOLUME (BEAKER) 89.2 fL 79.0-92.2 (test code = 753) MEAN CORPUSCULAR HEMOGLOBIN 28.8 pg 25.7-32.2 (BEAKER) (test code = 751) MEAN CORPUSCULAR HEMOGLOBIN CONC 32.3 GM/DL 32.3-36.5 (BEAKER) (test code = 752) RED CELL DISTRIBUTION WIDTH 15.8 % 11.6-14.4 H (BEAKER) (test code = 412) PLATELET COUNT (BEAKER) (test 243 K/CU MM 150-450 code = 756) MEAN PLATELET VOLUME (BEAKER) 11.2 fL 9.4-12.4 (test code = 754) NUCLEATED RED BLOOD CELLS 0 /100 WBC 0-0 (BEAKER) (test code = 413) NEUTROPHILS RELATIVE PERCENT 70 % (BEAKER) (test code = 429) LYMPHOCYTES RELATIVE PERCENT 12 % (BEAKER) (test code = 430) MONOCYTES RELATIVE PERCENT 12 % (BEAKER) (test code = 431) EOSINOPHILS RELATIVE PERCENT 4 % (BEAKER) (test code = 432) BASOPHILS RELATIVE PERCENT 0 % (BEAKER) (test code = 437) NEUTROPHILS ABSOLUTE COUNT 5.84 K/ L 1.78-5.38 H (BEAKER) (test code = 670) LYMPHOCYTES ABSOLUTE COUNT 0.96 K/ L 1.32-3.57 L (BEAKER) (test code = 414) MONOCYTES ABSOLUTE COUNT (BEAKER) 1.01 K/ L 0.30-0.82 H (test code = 415) EOSINOPHILS ABSOLUTE COUNT 0.35 K/ L 0.04-0.54 (BEAKER) (test code = 416) BASOPHILS ABSOLUTE COUNT (BEAKER) 0.03 K/ L 0.01-0.08 (test code = 417) IMMATURE GRANULOCYTES-RELATIVE 1 % 0-1 PERCENT (BEAKER) (test code = 2801) MR, MRA, BRAIN, WITHOUT [id number] 04:47:00Reason for exam:->Ischemic Stroke EvaluationFINAL REPORT MR, MRA, BRAIN, WITHOUT CONTRAST, MR, BRAIN, WITHOUT CONTRAST, MR,MRA, NECK, WITHOUT IV CONTRAST INDICATION: Ischemic Stroke EvaluationRight arm dysmetria and drift TECHNIQUE: Multiplanar, multisequence MR images of the brain. 3-D time of flight MRA of the cranial and cervical circulation. 2-D time of flight MRA of the neck. 3D MIP angiographic post-processing was performed. Stenosis evaluation utilized NASCET criteria. COMPARISON: Noncontrast brain CT of the same date FINDINGS: MRI BRAIN: Multiple acute infarcts throughout the left supratentorial parenchyma, the m ajority of which are subcentimeter. No significant mass effect. No hemorrhagic conversion. Brain parenchyma is normal in morphology. Midline structures are normally developed. Scattered T2/FLAIR hyperintense foci within the periventricular and subcortical white matter are nonspecific, however, statisti wendy represent chronic microvascular ischemic changes. No hydrocephalus. Orbits are within normal limits. No obstructive paranasal sinus disease. Calvarium and skull base demonstrate marrow signal within normal limits for age without focal lesion. Additional findings: None. MRA BRAIN:Internal carotidarteries: Normal flow related enhancement . No flow-limiting stenosis of the right intracranial internal carotid artery. There is focal severe stenosis of the left vertical petrous ICAMiddle cerebral arteries: Normal flow related enhancement within the bilateral MCA M1-M2 segments without flow limiting stenosis Anterior cerebral arteries: Normal flow-related enhancement within the bilateral MKIE A1-A2 segments. A1 and proximal A2 segments [...] arteries: Normal flow-related enhancement within the bilateral TYPING SECRETARY P1-P2 segments without flow-limiting stenosis. Functional - type left PCAAdditional findings: None. MRA NECK:Common carotid arteries: Unremarkable. Bifurcations: No flow-limiting stenosis. Cervical internal carotid arteries: Focal severe stenosis of the proximal left ICA, difficult to further quantify due to noncontrast technique.Vertebral arteries: Left vertebral artery is dominant. Right vertebral artery terminates as PICA. There is left vertebral dolichoectasia and theleft vertebral artery contours the brain stem. IMPRESSION: Multiple acute infarcts, majority of which are subcentimeter, throughout the left supratentorial parenchyma Severe focal stenosis of the left proximal cervical ICA and left vertical petrous ICA, difficult to further quantify due to noncontrasttechnique. When clinically feasible, CT angiogram head and neck with contrast is recommended. Dolichoectasia of the left vertebral artery, which contours the brain stem Signed: Didier Prasad MDReportVerified Date/Time: 01/15/2019 04:47:07 Reading Location: [address] Neuro Reading Room MR, MRA, NECK, WITHOUT IV [id number] 04:47:00Reason for exam:->Ischemic Stroke EvaluationFINAL REPORT MR, MRA, BRAIN, WITHOUT CONTRAST, MR, BRAIN, WITHOUT CONTRAST, MR,MRA, NECK, WITHOUT IV CONTRAST INDICATION: Ischemic Stroke EvaluationRight arm dysmetria and drift TECHNIQUE: Multiplanar, multisequence MR images of the brain. 3-D time of flight MRA of the cranial and cervical circulation. 2-D time of flight MRA of the neck. 3D MIP angiographic post-processing was performed. Stenosis evaluation utilized NASCET criteria. COMPARISON: Noncontrast brain CT of the same date FINDINGS: MRI BRAIN: Multiple acute infarcts throughout the left supratentorial parenchyma, the m ajority of which are subcentimeter. No significant mass effect. No hemorrhagic conversion. Brain parenchyma is normal in morphology. Midline structures are normally developed. Scattered T2/FLAIR hyperintense foci within the periventricular and subcortical white matter are nonspecific, however, statisti wendy represent chronic microvascular ischemic changes. No hydrocephalus. Orbits are within normal limits. No obstructive paranasal sinus disease. Calvarium and skull base demonstrate marrow signal within normal limits for age without focal lesion. Additional findings: None. MRA BRAIN:Internal carotidarteries: Normal flow related enhancement . No flow-limiting [...] arteries: Normal flow-related enhancement within the bilateral TYPING SECRETARY P1-P2 segments without flow-limiting stenosis. Functional - type left PCAAdditional findings: None. MRA NECK:Common carotid arteries: Unremarkable. Bifurcations: No flow-limiting stenosis. Cervical internal carotid arteries: Focal severe stenosis of the proximal left ICA, difficult to further quantify due to noncontrast technique.Vertebral arteries: Left vertebral artery is dominant. Right vertebral artery terminates as PICA. There is left vertebral dolichoectasia and theleft vertebral artery contours the brain stem. IMPRESSION: Multiple acute infarcts, majority of which are subcentimeter, throughout the left supratentorial parenchyma Severe focal stenosis of the left proximal cervical ICA and left vertical petrous ICA, difficult to further quantify due to noncontrasttechnique. When clinically feasible, CT angiogram head and neck with contrast is recommended. Dolichoectasia of the left vertebral artery, which contours the brain stem Signed: Didier Prasad MDReportVerified Date/Time: 01/15/2019 04:47:07 Reading Location: [address] Neuro Reading Room MR, BRAIN, WITHOUT [id number] 04:47:00Reason for exam:->Ischemic Stroke EvaluationFINAL REPORT MR, MRA, BRAIN, WITHOUT CONTRAST, MR, BRAIN, WITHOUT CONTRAST, MR,MRA, NECK, WITHOUT IV CONTRAST INDICATION: Ischemic Stroke EvaluationRight arm dysmetria and drift TECHNIQUE: Multiplanar, multisequence MR images of the brain. 3-D time of flight MRA of the cranial and cervical circulation. 2-D time of flight MRA of the neck. 3D MIP angiographic post-processing was performed. Stenosis evaluation utilized NASCET criteria. COMPARISON: Noncontrast brain CT of the same date FINDINGS: MRI BRAIN: Multiple acute infarcts throughout the left supratentorial parenchyma, the majority of which are subcentimeter. No significant mass effect. No hemorrhagic conversion. Brain parenchyma is normal in morphology. Midline structures are normally developed. Scattered T2/FLAIR hyperintense foci within the periventricular and subcortical white matter are nonspecific, however, statistically represent chronic microvascular ischemic changes. No hydrocephalus. Orbits are within normal limits. No obstructive paranasal sinus disease. Calvarium and skull base demonstrate marrow signal within normal limits for age without focal lesion. Additional findings: None. MRA BRAIN:Internal carotidarteries: Normal flow related enhancement . No flow-limiting stenosis of the right intracranial inter nal carotid artery. There is focal severe stenosis [...] arteries: Normal flow-related enhancement within the bilateral TYPING SECRETARY P1-P2 segments without flow-limiting stenosis. Functional - type left PCAAdditional findings: None. MRA NECK:Common carotid arteries: Unremarkable. Bifurcations: No flow-limiting stenosis. Cervical internal carotid arteries: Focal severe stenosis of the proximal left ICA, difficult to further quantify due to noncontrast technique.Vertebral arteries: Left vertebral artery is dominant. Right vertebral artery terminates as PICA. There is left vertebral dolichoectasia and theleft vertebral artery contours the brain stem. IMPRESSION: Multiple acute infarcts, majority of which are subcentimeter, throughout the left supratentorial parenchyma Severe focal stenosis of the left proximal cervical ICA and left vertical petrous ICA, difficult to further quantify due to noncontrasttechnique. When clinically feasible, CT angiogram head and neck with contrast is recommended. Dolichoectasia of the left vertebral artery, which contours the brain stem Signed: Didier Prasad MDReportVerified Date/Time: 01/15/2019 04:47:07 Reading Location: [address] Neuro Reading Room CT, BRAIN, WITHOUT [id number] 12:46:00Reason for exam:->dysmetria, RUE weaknessWhat is the patient's sedation requirement?->No SedationFINAL REPORT CT, BRAIN, WITHOUT CONTRAST INDICATION: Focal neuro deficit, new, fixed or worsening, >6 hoursdysmetria, RUE weakness TECHNIQUE: Noncontrast axial imaging was obtained from the vertex to the skull base. Axial images were reconstructed using a bone algorithm. DOSE REDUCTION: Dose modulation, iterative reconstruction, and/or weight-based adjustment of the mA/kV was utilized to reduce the radiation dose to as low as reasonably achievable. COMPARISON: None. FINDINGS:Cerebral parenchyma: Diffuse parenchymal volume loss. Appearance of the white matter suggests chronic microvascular disease.Midline structures: Normally positioned.Cerebellum and brainstem: Commensurate volume loss.Ventricles: Normal volume.Extra-axial spaces: Unremarkable. Calvarium and skull base: Intact.Paranasal sinuses and mastoid air cells: Visible chambers are clear.Orbital contents: Included portions unremarkable. Additional findings: None. IMPRESSION: Chronic involutional changes without acute intracranial abnormality. If there is persistent clinical concern for intracranial pathology, MR examination is recommended for further characterization. Signed: JR Se, Gus Ellis Verified Date/Time: 01/14/2019 12:46:11 Reading Location: [address] Neuro Reading Room [id number] 06:40:00 Test Item Value Reference Range Interpretation Comments PHOSPHORUS (BEAKER) (test code = 3.1 mg/dL 2.3-4.7 604) [id number] 06:40:00 Test Item Value Reference Range Interpretation Comments MAGNESIUM (BEAKER) (test code = 2.0 mg/dL 1.6-2.6 627) BASIC METABOLIC [id number] 06:39:00 Test Item Value Reference Range Interpretation Comments SODIUM (BEAKER) 137 meq/L 136-145 (test code = 381) POTASSIUM (BEAKER) 3.6 meq/L 3.5-5.1 (test code = 379) CHLORIDE (BEAKER) 106 meq/L 98-107 (test code = 382) CO2 (BEAKER) (test 22 meq/L 22-29 code = 355) BLOOD UREA NITROGEN 15 mg/dL 7-21 (BEAKER) (test code = 354) CREATININE (BEAKER) 1.06 mg/dL 0.57-1.25 (test code = 358) GLUCOSE RANDOM 112 mg/dL 70-105 H (BEAKER) (test code = 652) CALCIUM (BEAKER) 8.7 mg/dL 8.4-10.2 (test code = 697) EGFR (BEAKER) (test 69 mL/min/1.73 ESTIMA RUDY GFR IS code = 1092) sq m NOT ACCURATE CREATININE CLEARANCE IN PREDICTING GLOMERULAR FILTRATION RATE . ESTIMATED GFR I S NOT APPLICABLE FOR DIALYSIS PATIEN TS. CBC W/PLT COUNT & AUTO [id number] 05:17:00 Test Item Value Reference Range Interpretation Comments WHITE BLOOD CELL COUNT (BEAKER) 8.4 K/ L 3.5-10.5 (test code = 775) RED BLOOD CELL COUNT (BEAKER) 4.68 M/ L 4.63-6.08 (test code = 761) HEMOGLOBIN (BEAKER) (test code = 13.3 GM/DL 13.7-17.5 L 410) HEMATOCRIT (BEAKER) (test code = 42.0 % 40.1-51.0 411) MEAN CORPUSCULAR VOLUME (BEAKER) 89.7 fL 79.0-92.2 (test code = 753) MEAN CORPUSCULAR HEMOGLOBIN 28.4 pg 25.7-32.2 (BEAKER) (test code = 751) MEAN CORPUSCULAR HEMOGLOBIN CONC 31.7 GM/DL 32.3-36.5 L (BEAKER) (test code = 752) RED CELL DISTRIBUTION WIDTH 15.6 % 11.6-14.4 H (BEAKER) (test code = 412) PLATELET COUNT (BEAKER) (test 246 K/CU MM 150-450 code = 756) MEAN PLATELET VOLUME (BEAKER) 11.3 fL 9.4-12.4 (test code = 754) NUCLEATED RED BLOOD CELLS 0 /100 WBC 0-0 (BEAKER) (test code = 413) NEUTROPHILS RELATIVE PERCENT 70 % (BEAKER) (test code = 429) LYMPHOCYTES RELATIVE PERCENT 11 % (BEAKER) (test code = 430) MONOCYTES RELATIVE PERCENT 13 % (BEAKER) (test code = 431) EOSINOPHILS RELATIVE PERCENT 4 % (BEAKER) (test code = 432) BASOPHILS RELATIVE PERCENT 0 % (BEAKER) (test code = 437) NEUTROPHILS ABSOLUTE COUNT 5.91 K/ L 1.78-5.38 H (BEAKER) (test code = 670) LYMPHOCYTES ABSOLUTE COUNT 0.95 K/ L 1.32-3.57 L (BEAKER) (test code = 414) MONOCYTES ABSOLUTE COUNT (BEAKER) 1.10 K/ L 0.30-0.82 H (test code = 415) EOSINOPHILS ABSOLUTE COUNT 0.35 K/ L 0.04-0.54 (BEAKER) (test code = 416) BASOPHILS ABSOLUTE COUNT (BEAKER) 0.02 K/ L 0.01-0.08 (test code = 417) IMMATURE GRANULOCYTES-RELATIVE 1 % 0-1 PERCENT (BEAKER) (test code = 2801) [id number] 06:13:00 Test Item Value Reference Range Interpretation Comments MAGNESIUM (BEAKER) 2.0 mg/dL 1.6-2.6 Specimen slightly (test code = 627) hemolyzed [id number] 06:13:00 Test Item Value Reference Range Interpretation Comments PHOSPHORUS (BEAKER) 2.9 mg/dL 2.3-4.7 Specimen slightly (test code = 604) hemolyzed BASIC METABOLIC [id number] 06:13:00 Test Item Value Reference Range Interpretation Comments SODIUM (BEAKER) 140 meq/L 136-145 (test code = 381) POTASSIUM (BEAKER) 3.9 meq/L 3.5-5.1 Specimen slightly (test code = 379) hemolyzed CHLORIDE (BEAKER) 107 meq/L 98-107 (test code = 382) CO2 (BEAKER) (test 23 meq/L 22-29 code = 355) BLOOD UREA NITROGEN 16 mg/dL 7-21 (BEAKER) (test code = 354) CREATININE (BEAKER) 1.08 mg/dL 0.57-1.25 Specimen slightly (test code = 358) hemolyzed GLUCOSE RANDOM 99 mg/dL 70-105 (BEAKER) (test code = 652) CALCIUM (BEAKER) 9.1 mg/dL 8.4-10.2 (test code = 697) EGFR (BEAKER) (test 68 mL/min/1.73 ESTIMA RUDY GFR IS code = 1092) sq m NOT ACCURATE CREATININE CLEARANCE IN PREDICTING GLOMERULAR FILTRATION RATE . ESTIMATED GFR I S NOT APPLICABLE FOR DIALYSIS PATIEN TS. CBC W/PLT COUNT & AUTO [id number] 06:05:00 Test Item Value Reference Range Interpretation Comments WHITE BLOOD CELL COUNT (BEAKER) 10.8 K/ L 3.5-10.5 H (test code = 775) RED BLOOD CELL COUNT (BEAKER) 4.61 M/ L 4.63-6.08 L (test code = 761) HEMOGLOBIN (BEAKER) (test code = 13.1 GM/DL 13.7-17.5 L 410) HEMATOCRIT (BEAKER) (test code = 41.1 % 40.1-51.0 411) MEAN CORPUSCULAR VOLUME (BEAKER) 89.2 fL 79.0-92.2 (test code = 753) MEAN CORPUSCULAR HEMOGLOBIN 28.4 pg 25.7-32.2 (BEAKER) (test code = 751) MEAN CORPUSCULAR HEMOGLOBIN CONC 31.9 GM/DL 32.3-36.5 L (BEAKER) (test code = 752) RED CELL DISTRIBUTION WIDTH 15.6 % 11.6-14.4 H (BEAKER) (test code = 412) PLATELET COUNT (BEAKER) (test 254 K/CU MM 150-450 code = 756) MEAN PLATELET VOLUME (BEAKER) 11.6 fL 9.4-12.4 (test code = 754) NUCLEATED RED BLOOD CELLS 0 /100 WBC 0-0 (BEAKER) (test code = 413) NEUTROPHILS RELATIVE PERCENT 76 % (BEAKER) (test code = 429) LYMPHOCYTES RELATIVE PERCENT 8 % (BEAKER) (test code = 430) MONOCYTES RELATIVE PERCENT 11 % (BEAKER) (test code = 431) EOSINOPHILS RELATIVE PERCENT 4 % (BEAKER) (test code = 432) BASOPHILS RELATIVE PERCENT 0 % (BEAKER) (test code = 437) NEUTROPHILS ABSOLUTE COUNT 8.19 K/ L 1.78-5.38 H (BEAKER) (test code = 670) LYMPHOCYTES ABSOLUTE COUNT 0.88 K/ L 1.32-3.57 L (BEAKER) (test code = 414) MONOCYTES ABSOLUTE COUNT (BEAKER) 1.23 K/ L 0.30-0.82 H (test code = 415) EOSINOPHILS ABSOLUTE COUNT 0.46 K/ L 0.04-0.54 (BEAKER) (test code = 416) BASOPHILS ABSOLUTE COUNT (BEAKER) 0.03 K/ L 0.01-0.08 (test code = 417) IMMATURE GRANULOCYTES-RELATIVE 1 % 0-1 PERCENT (BEAKER) (test code = 2801) TISSUE [id number] 14:46:00Surgical Pathology Report Case: [id number] Authorizing Provider: Bryan Cook, Collected:01/08/20192026 Ordering Location: [facility] PERI[facility] Received: 01/11/2019 1010 SERVICES Pathologist: Idalmis David MD Specimen: Large Intestine, Colon - Rectosigmoid, LEFT RECTOSIGMOID COLON, PERFORATED DIVERTICULITIS COLON, RECTOSIGMOID, RESECTION - DIVERTICULOSIS WITH ACUTE AND CHRONIC DIVERTICULITIS - WITH AN AREA OF ACUTE INFLAMMATION, ABSCESS, FOREIGN BODY GIANT CELLS - CONSIST ENT WITH PERFORATION - ACUTE AND CHRONIC SEROSITIS - UNREMARKABLE COLONIC DONUTS - THREE BENIGN LYMPH NODES (0/3) Signing Pathologist Direct Phone Line: [phone] signed by Idalmis David MD on 01/12/2019 at 2:46 [id number] X 1Mass of colon Left rectosigmoid colon perforated diverticulitis The specimen is received in a formalin-filled container labeled with the patient's information and labeled "left rectosigmoid colon perforated diverticulitis" consists of a colon in several fragments consisting of a distinct segment of colon that measures 15 cm in length x 1 cm in diameter. T here are multiple fragments of colon ranging in length from 1 to 7 cm. There are two distinct sandoval hemorrhagic colon donuts measuring 1 and 1.8 cm. There are numerous fragments of adipose tissue in the container measuring 15 x 15 x 6 cm in aggregate. The longest segment of colon is sectioned showing multiple diverticula and an area of abscess centrally located measuring 0.5 cm located at least 5.5 cm from its nearest resection margin. The smaller ragged fragments of colon also have diverticula and subserosal abscess formation, the largest measuring up to 2 cm in greatest dimension. The adipose tissue yields three sandoval- pink lymph nodes measuring up to 0.5 cm.Section code: A1, A2, resection margins oflonger distinct segment of colon en face resection; A3-A7, diverticula of colon; A9-A10, diverticulaof fragmented pieces of colon and abscess; A11, A12, colon donuts small to large; A13, three lymph nodes. CG/ew Performed.[facility], Department of Pathology, [address] [place] [address] [place] [address], BLW/FREE T4 IF [id number] 06:20:00 Test Item Value Reference Range Interpretation Comments THYROID STIMULATING HORMONE 1.23 uIU/mL 0.35-4.94 (BEAKER) (test code = 772) [id number] 06:09:00 Test Item Value Reference Range Interpretation Comments PHOSPHORUS (BEAKER) (test code = 2.7 mg/dL 2.3-4.7 604) [id number] 06:09:00 Test Item Value Reference Range Interpretation Comments MAGNESIUM (BEAKER) (test code = 1.7 mg/dL 1.6-2.6 627) BASIC METABOLIC [id number] 06:09:00 Test Item Value Reference Range Interpretation Comments SODIUM (BEAKER) 140 meq/L 136-145 (test code = 381) POTASSIUM (BEAKER) 3.6 meq/L 3.5-5.1 (test code = 379) CHLORIDE (BEAKER) 106 meq/L 98-107 (test code = 382) CO2 (BEAKER) (test 24 meq/L 22-29 code = 355) BLOOD UREA NITROGEN 19 mg/dL 7-21 (BEAKER) (test code = 354) CREATININE (BEAKER) 1.04 mg/dL 0.57-1.25 (test code = 358) GLUCOSE RANDOM 114 mg/dL 70-105 H (BEAKER) (test code = 652) CALCIUM (BEAKER) 9.0 mg/dL 8.4-10.2 (test code = 697) EGFR (BEAKER) (test 71 mL/min/1.73 ESTIMA RUDY GFR IS code = 1092) sq m NOT ACCURATE CREATININE CLEARANCE IN PREDICTING GLOMERULAR FILTRATION RATE . ESTIMATED GFR I S NOT APPLICABLE FOR DIALYSIS PATIEN TS. CBC W/PLT COUNT & AUTO [id number] 05:36:00 Test Item Value Reference Range Interpretation Comments WHITE BLOOD CELL COUNT (BEAKER) 12.9 K/ L 3.5-10.5 H (test code = 775) RED BLOOD CELL COUNT (BEAKER) 4.54 M/ L 4.63-6.08 L (test code = 761) HEMOGLOBIN (BEAKER) (test code = 13.1 GM/DL 13.7-17.5 L 410) HEMATOCRIT (BEAKER) (test code = 40.5 % 40.1-51.0 411) MEAN CORPUSCULAR VOLUME (BEAKER) 89.2 fL 79.0-92.2 (test code = 753) MEAN CORPUSCULAR HEMOGLOBIN 28.9 pg 25.7-32.2 (BEAKER) (test code = 751) MEAN CORPUSCULAR HEMOGLOBIN CONC 32.3 GM/DL 32.3-36.5 (BEAKER) (test code = 752) RED CELL DISTRIBUTION WIDTH 15.6 % 11.6-14.4 H (BEAKER) (test code = 412) PLATELET COUNT (BEAKER) (test 244 K/CU MM 150-450 code = 756) MEAN PLATELET VOLUME (BEAKER) 11.2 fL 9.4-12.4 (test code = 754) NUCLEATED RED BLOOD CELLS 0 /100 WBC 0-0 (BEAKER) (test code = 413) NEUTROPHILS RELATIVE PERCENT 77 % (BEAKER) (test code = 429) LYMPHOCYTES RELATIVE PERCENT 8 % (BEAKER) (test code = 430) MONOCYTES RELATIVE PERCENT 10 % (BEAKER) (test code = 431) EOSINOPHILS RELATIVE PERCENT 4 % (BEAKER) (test code = 432) BASOPHILS RELATIVE PERCENT 0 % (BEAKER) (test code = 437) NEUTROPHILS ABSOLUTE COUNT 9.93 K/ L 1.78-5.38 H (BEAKER) (test code = 670) LYMPHOCYTES ABSOLUTE COUNT 1.03 K/ L 1.32-3.57 L (BEAKER) (test code = 414) MONOCYTES ABSOLUTE COUNT (BEAKER) 1.26 K/ L 0.30-0.82 H (test code = 415) EOSINOPHILS ABSOLUTE COUNT 0.57 K/ L 0.04-0.54 H (BEAKER) (test code = 416) BASOPHILS ABSOLUTE COUNT (BEAKER) 0.03 K/ L 0.01-0.08 (test code = 417) IMMATURE GRANULOCYTES-RELATIVE 1 % 0-1 PERCENT (BEAKER) (test code = 2801) [id number] 05:51:00 Test Item Value Reference Range Interpretation Comments PHOSPHORUS (BEAKER) (test code = 2.3 mg/dL 2.3-4.7 604) [id number] 05:51:00 Test Item Value Reference Range Interpretation Comments MAGNESIUM (BEAKER) (test code = 1.8 mg/dL 1.6-2.6 627) BASIC METABOLIC [id number] 05:51:00 Test Item Value Reference Range Interpretation Comments SODIUM (BEAKER) 139 meq/L 136-145 (test code = 381) POTASSIUM (BEAKER) 3.5 meq/L 3.5-5.1 (test code = 379) CHLORIDE (BEAKER) 104 meq/L 98-107 (test code = 382) CO2 (BEAKER) (test 23 meq/L 22-29 code = 355) BLOOD UREA NITROGEN 18 mg/dL 7-21 (BEAKER) (test code = 354) CREATININE (BEAKER) 1.17 mg/dL 0.57-1.25 (test code = 358) GLUCOSE RANDOM 134 mg/dL 70-105 H (BEAKER) (test code = 652) CALCIUM (BEAKER) 9.7 mg/dL 8.4-10.2 (test code = 697) EGFR (BEAKER) (test 62 mL/min/1.73 ESTIMA RUDY GFR IS code = 1092) sq m NOT ACCURATE CREATININE CLEARANCE IN PREDICTING GLOMERULAR FILTRATION RATE . ESTIMATED GFR I S NOT APPLICABLE FOR DIALYSIS PATIEN TS. CBC W/PLT COUNT & AUTO [id number] 05:32:00 Test Item Value Reference Range Interpretation Comments WHITE BLOOD CELL COUNT (BEAKER) 16.7 K/ L 3.5-10.5 H (test code = 775) RED BLOOD CELL COUNT (BEAKER) 4.87 M/ L 4.63-6.08 (test code = 761) HEMOGLOBIN (BEAKER) (test code = 14.0 GM/DL 13.7-17.5 410) HEMATOCRIT (BEAKER) (test code = 43.0 % 40.1-51.0 411) MEAN CORPUSCULAR VOLUME (BEAKER) 88.3 fL 79.0-92.2 (test code = 753) MEAN CORPUSCULAR HEMOGLOBIN 28.7 pg 25.7-32.2 (BEAKER) (test code = 751) MEAN CORPUSCULAR HEMOGLOBIN CONC 32.6 GM/DL 32.3-36.5 (BEAKER) (test code = 752) RED CELL DISTRIBUTION WIDTH 15.7 % 11.6-14.4 H (BEAKER) (test code = 412) PLATELET COUNT (BEAKER) (test 239 K/CU MM 150-450 code = 756) MEAN PLATELET VOLUME (BEAKER) 10.8 fL 9.4-12.4 (test code = 754) NUCLEATED RED BLOOD CELLS 0 /100 WBC 0-0 (BEAKER) (test code = 413) NEUTROPHILS RELATIVE PERCENT 85 % (BEAKER) (test code = 429) LYMPHOCYTES RELATIVE PERCENT 4 % (BEAKER) (test code = 430) MONOCYTES RELATIVE PERCENT 9 % (BEAKER) (test code = 431) EOSINOPHILS RELATIVE PERCENT 2 % (BEAKER) (test code = 432) BASOPHILS RELATIVE PERCENT 0 % (BEAKER) (test code = 437) NEUTROPHILS ABSOLUTE COUNT 14.15 K/ L 1.78-5.38 H (BEAKER) (test code = 670) LYMPHOCYTES ABSOLUTE COUNT 0.68 K/ L 1.32-3.57 L (BEAKER) (test code = 414) MONOCYTES ABSOLUTE COUNT (BEAKER) 1.46 K/ L 0.30-0.82 H (test code = 415) EOSINOPHILS ABSOLUTE COUNT 0.26 K/ L 0.04-0.54 (BEAKER) (test code = 416) BASOPHILS ABSOLUTE COUNT (BEAKER) 0.04 K/ L 0.01-0.08 (test code = 417) IMMATURE GRANULOCYTES-RELATIVE 1 % 0-1 PERCENT (BEAKER) (test code = 2801) [id number] 07:44:00 Test Item Value Reference Range Interpretation Comments PHOSPHORUS (BEAKER) (test code = 2.6 mg/dL 2.3-4.7 604) [id number] 07:44:00 Test Item Value Reference Range Interpretation Comments MAGNESIUM (BEAKER) (test code = 1.8 mg/dL 1.6-2.6 627) BASIC METABOLIC [id number] 07:44:00 Test Item Value Reference Range Interpretation Comments SODIUM (BEAKER) 138 meq/L 136-145 (test code = 381) POTASSIUM (BEAKER) 3.8 meq/L 3.5-5.1 (test code = 379) CHLORIDE (BEAKER) 105 meq/L 98-107 (test code = 382) CO2 (BEAKER) (test 24 meq/L 22-29 code = 355) BLOOD UREA NITROGEN 20 mg/dL 7-21 (BEAKER) (test code = 354) CREATININE (BEAKER) 1.38 mg/dL 0.57-1.25 H (test code = 358) GLUCOSE RANDOM 114 mg/dL 70-105 H (BEAKER) (test code = 652) CALCIUM (BEAKER) 9.1 mg/dL 8.4-10.2 (test code = 697) EGFR (BEAKER) (test 51 mL/min/1.73 ESTIMA RUDY GFR IS code = 1092) sq m NOT ACCURATE CREATININE CLEARANCE IN PREDICTING GLOMERULAR FILTRATION RATE . ESTIMATED GFR I S NOT APPLICABLE FOR DIALYSIS PATIEN TS. CBC W/PLT COUNT & AUTO [id number] 04:32:00 Test Item Value Reference Range Interpretation Comments WHITE BLOOD CELL COUNT (BEAKER) 20.9 K/ L 3.5-10.5 H (test code = 775) RED BLOOD CELL COUNT (BEAKER) 4.65 M/ L 4.63-6.08 (test code = 761) HEMOGLOBIN (BEAKER) (test code = 13.3 GM/DL 13.7-17.5 L 410) HEMATOCRIT (BEAKER) (test code = 42.1 % 40.1-51.0 411) MEAN CORPUSCULAR VOLUME (BEAKER) 90.5 fL 79.0-92.2 (test code = 753) MEAN CORPUSCULAR HEMOGLOBIN 28.6 pg 25.7-32.2 (BEAKER) (test code = 751) MEAN CORPUSCULAR HEMOGLOBIN CONC 31.6 GM/DL 32.3-36.5 L (BEAKER) (test code = 752) RED CELL DISTRIBUTION WIDTH 15.9 % 11.6-14.4 H (BEAKER) (test code = 412) PLATELET COUNT (BEAKER) (test 247 K/CU MM 150-450 code = 756) MEAN PLATELET VOLUME (BEAKER) 11.0 fL 9.4-12.4 (test code = 754) NUCLEATED RED BLOOD CELLS 0 /100 WBC 0-0 (BEAKER) (test code = 413) NEUTROPHILS RELATIVE PERCENT 88 % (BEAKER) (test code = 429) LYMPHOCYTES RELATIVE PERCENT 5 % (BEAKER) (test code = 430) MONOCYTES RELATIVE PERCENT 6 % (BEAKER) (test code = 431) EOSINOPHILS RELATIVE PERCENT 0 % (BEAKER) (test code = 432) BASOPHILS RELATIVE PERCENT 0 % (BEAKER) (test code = 437) NEUTROPHILS ABSOLUTE COUNT 18.29 K/ L 1.78-5.38 H (BEAKER) (test code = 670) LYMPHOCYTES ABSOLUTE COUNT 1.06 K/ L 1.32-3.57 L (BEAKER) (test code = 414) MONOCYTES ABSOLUTE COUNT (BEAKER) 1.32 K/ L 0.30-0.82 H (test code = 415) EOSINOPHILS ABSOLUTE COUNT 0.05 K/ L 0.04-0.54 (BEAKER) (test code = 416) BASOPHILS ABSOLUTE COUNT (BEAKER) 0.04 K/ L 0.01-0.08 (test code = 417) IMMATURE GRANULOCYTES-RELATIVE 1 % 0-1 PERCENT (BEAKER) (test code = 2801) [id number] 09:38:00 Test Item Value Reference Range Interpretation Comments MAGNESIUM (BEAKER) (test code = 2.0 mg/dL 1.6-2.6 627) BASIC METABOLIC [id number] 09:38:00 Test Item Value Reference Range Interpretation Comments SODIUM (BEAKER) 140 meq/L 136-145 (test code = 381) POTASSIUM (BEAKER) 3.9 meq/L 3.5-5.1 (test code = 379) CHLORIDE (BEAKER) 110 meq/L 98-107 H (test code = 382) CO2 (BEAKER) (test 22 meq/L 22-29 code = 355) BLOOD UREA NITROGEN 21 mg/dL 7-21 (BEAKER) (test code = 354) CREATININE (BEAKER) 1.18 mg/dL 0.57-1.25 (test code = 358) GLUCOSE RANDOM 134 mg/dL 70-105 H (BEAKER) (test code = 652) CALCIUM (BEAKER) 8.8 mg/dL 8.4-10.2 (test code = 697) EGFR (BEAKER) (test 61 mL/min/1.73 ESTIMA RUDY GFR IS code = 1092) sq m NOT ACCURATE CREATININE CLEARANCE IN PREDICTING GLOMERULAR FILTRATION RATE . ESTIMATED GFR I S NOT APPLICABLE FOR DIALYSIS PATIEN TS. [id number] 09:37:00 Test Item Value Reference Range Interpretation Comments PHOSPHORUS (BEAKER) (test code = 4.1 mg/dL 2.3-4.7 604) CBC W/PLT COUNT & AUTO [id number] 07:10:00 Test Item Value Reference Range Interpretation Comments WHITE BLOOD CELL COUNT (BEAKER) 22.8 K/ L 3.5-10.5 H (test code = 775) RED BLOOD CELL COUNT (BEAKER) 4.81 M/ L 4.63-6.08 (test code = 761) HEMOGLOBIN (BEAKER) (test code = 13.9 GM/DL 13.7-17.5 410) HEMATOCRIT (BEAKER) (test code = 44.6 % 40.1-51.0 411) MEAN CORPUSCULAR VOLUME (BEAKER) 92.7 fL 79.0-92.2 H (test code = 753) MEAN CORPUSCULAR HEMOGLOBIN 28.9 pg 25.7-32.2 (BEAKER) (test code = 751) MEAN CORPUSCULAR HEMOGLOBIN CONC 31.2 GM/DL 32.3-36.5 L (BEAKER) (test code = 752) RED CELL DISTRIBUTION WIDTH 15.6 % 11.6-14.4 H (BEAKER) (test code = 412) PLATELET COUNT (BEAKER) (test 216 K/CU MM 150-450 code = 756) MEAN PLATELET VOLUME (BEAKER) 10.9 fL 9.4-12.4 (test code = 754) NUCLEATED RED BLOOD CELLS 0 /100 WBC 0-0 (BEAKER) (test code = 413) NEUTROPHILS RELATIVE PERCENT 90 % (BEAKER) (test code = 429) LYMPHOCYTES RELATIVE PERCENT 3 % (BEAKER) (test code = 430) MONOCYTES RELATIVE PERCENT 6 % (BEAKER) (test code = 431) EOSINOPHILS RELATIVE PERCENT 0 % (BEAKER) (test code = 432) BASOPHILS RELATIVE PERCENT 0 % (BEAKER) (test code = 437) NEUTROPHILS ABSOLUTE COUNT 20.52 K/ L 1.78-5.38 H (BEAKER) (test code = 670) LYMPHOCYTES ABSOLUTE COUNT 0.63 K/ L 1.32-3.57 L (BEAKER) (test code = 414) MONOCYTES ABSOLUTE COUNT (BEAKER) 1.45 K/ L 0.30-0.82 H (test code = 415) EOSINOPHILS ABSOLUTE COUNT 0.00 K/ L 0.04-0.54 L (BEAKER) (test code = 416) BASOPHILS ABSOLUTE COUNT (BEAKER) 0.03 K/ L 0.01-0.08 (test code = 417) IMMATURE GRANULOCYTES-RELATIVE 1 % 0-1 PERCENT (BEAKER) (test code = 2801) B-TYPE NATRIURETIC FACTOR (BNP)2019-01-09 05:42:00 Test Item Value Reference Range Interpretation Comments B-TYPE NATRIURETIC PEPTIDE 1952 pg/mL 0-100 H (BEAKER) (test code = 700) BLOOD GAS, [id number] 20:17:00 Test Item Value Reference Range Interpretation Comments PH ARTERIAL (BEAKER) (test code = 7.40 7.35-7.45 383) PCO2 ARTERIAL (BEAKER) (test code 36 mmHg 35-45 = 384) PO2 ARTERIAL (BEAKER) (test code 86 mmHg 80-90 = 385) O2 SATURATION ARTERIAL (BEAKER) 97.1 % 96.0-97.0 H (test code = 386) HCO3 ARTERIAL (BEAKER) (test code 22 mmol/L 21-29 = 388) BASE EXCESS ARTERIAL (BEAKER) -2.6 mmol/L -2.0-3.0 L (test code = 387) PATIENT TEMPERATURE (BEAKER) 35.5 C (test code = 1818) FIO2 (BEAKER) (test code = 1819) 90.0 % T- 35.5BLOOD GAS, [id number] 17:24:00 Test Item Value Reference Range Interpretation Comments PH ARTERIAL (BEAKER) (test code = 7.33 7.35-7.45 L 383) PCO2 ARTERIAL (BEAKER) (test code 47 mmHg 35-45 H = 384) PO2 ARTERIAL (BEAKER) (test code 94 mmHg 80-90 H = 385) O2 SATURATION ARTERIAL (BEAKER) 96.6 % 96.0-97.0 (test code = 386) HCO3 ARTERIAL (BEAKER) (test code 24 mmol/L 21-29 = 388) BASE EXCESS ARTERIAL (BEAKER) -2.0 mmol/L -2.0-3.0 (test code = 387) PATIENT TEMPERATURE (BEAKER) 37.0 C (test code = 1818) GLUCOSE-STAT [id number] 17:24:00 Test Item Value Reference Range Interpretation Comments GLUCOSE RANDOM (BEAKER) (test code 142 mg/dL 70-110 H = 652) CALCIUM, [id number] 17:24:00 Test Item Value Reference Range Interpretation Comments CALCIUM IONIZED (BEAKER) (test 1.06 mmol/L 1.12-1.27 L code = 698) PH, BLOOD (BEAKER) (test code = 7.33 1810) SODIUM NA-STAT [id number] 17:23:00 Test Item Value Reference Range Interpretation Comments SODIUM (BEAKER) (test code = 381) 139 meq/L 135-148 POTASSIUM-STAT [id number] 17:23:00 Test Item Value Reference Range Interpretation Comments POTASSIUM (BEAKER) (test code = 3.8 meq/L 3.6-5.5 379) HGB/HCT (H&H) - STAT [id number] 17:23:00 Test Item Value Reference Range Interpretation Comments HEMOGLOBIN (BEAKER) (test code = 14.1 g/dL 13.0-16.8 410) HEMATOCRIT (BEAKER) (test code = 41.0 % 40.0-50.0 411) BASIC METABOLIC [id number] 11:48:00 Test Item Value Reference Range Interpretation Comments SODIUM (BEAKER) 140 meq/L 136-145 (test code = 381) POTASSIUM (BEAKER) 4.2 meq/L 3.5-5.1 Specimen slightly (test code = 379) hemolyzed CHLORIDE (BEAKER) 107 meq/L 98-107 (test code = 382) CO2 (BEAKER) (test 21 meq/L 22-29 L code = 355) BLOOD UREA NITROGEN 18 mg/dL 7-21 (BEAKER) (test code = 354) CREATININE (BEAKER) 1.32 mg/dL 0.57-1.25 H Specimen slightly (test code = 358) hemolyzed GLUCOSE RANDOM 138 mg/dL 70-105 H (BEAKER) (test code = 652) CALCIUM (BEAKER) 9.6 mg/dL 8.4-10.2 (test code = 697) EGFR (BEAKER) (test 54 mL/min/1.73 ESTIMA RUDY GFR IS code = 1092) sq m NOT ACCURATE CREATININE CLEARANCE IN PREDICTING GLOMERULAR FILTRATION RATE . ESTIMATED GFR I S NOT APPLICABLE FOR DIALYSIS PATIEN TS. Specimen slightly ictericCBC (HEMOGRAM ONLY)2019-01-08 11:32:00 Test Item Value Reference Range Interpretation Comments WHITE BLOOD CELL COUNT (BEAKER) 11.8 K/ L 3.5-10.5 H (test code = 775) RED BLOOD CELL COUNT (BEAKER) 5.00 M/ L 4.63-6.08 (test code = 761) HEMOGLOBIN (BEAKER) (test code = 14.3 GM/DL 13.7-17.5 410) HEMATOCRIT (BEAKER) (test code = 44.4 % 40.1-51.0 411) MEAN CORPUSCULAR VOLUME (BEAKER) 88.8 fL 79.0-92.2 (test code = 753) MEAN CORPUSCULAR HEMOGLOBIN 28.6 pg 25.7-32.2 (BEAKER) (test code = 751) MEAN CORPUSCULAR HEMOGLOBIN CONC 32.2 GM/DL 32.3-36.5 L (BEAKER) (test code = 752) RED CELL DISTRIBUTION WIDTH 15.4 % 11.6-14.4 H (BEAKER) (test code = 412) PLATELET COUNT (BEAKER) (test 273 K/CU MM 150-450 code = 756) MEAN PLATELET VOLUME (BEAKER) 10.9 fL 9.4-12.4 (test code = 754) NUCLEATED RED BLOOD CELLS 0 /100 WBC 0-0 (BEAKER) (test code = 413) POCT-GLUCOSE [id number] 11:22:00 Test Item Value Reference Range Interpretation Comments POC-GLUCOSE METER 164 mg/dL 70-110 H TESTED AT [facility] 6720 (BEAKER) (test code = MARLY [place] 1538) [address]
[2022-08-31 01:14] LABS: Albumin 3.3 g/dL (3.4-5.0); Bilirubin Total 0.5 mg/dL (0.2-1.0); Potassium 4.1 mmol/L (3.5-5.1); Protein, Total 7.9 g/dL (6.4-8.2); Troponin High Sensitivity 43.5 pg/mL (<58.9)
[2022-08-31 01:30] LABS: SARS-COV-2 RT PCR NEGATIVE (NEGATIVE)
--- NOTE | 2022-08-31 01:50 | ER ---
Nurse's Notes [facility] Name: Zeferino Nunez Age: 72 yrs Sex: Male : 1950 Arrival Date: 08/31/2022 Time: 00:36 Bed 2 Private MD: Diagnosis: Unspecified combined systolic (congestive) and diastolic (congestive) heart failure;Acute pulmonary edema;Hypoxemia Presentation: 08/31 00:34 Chief complaint: EMS states: Pt's called with a chief complaint of shortness of kd3 breath during rest. On arrival patient was a\T\o x 2 and progressively got worse in route. Pt BP elevated and pt is tachy. Pt arrived to ed on non rebreather with O2 of 91. 00:34 Coronavirus screen: Vaccine status: unknown. Ebola Screen: No symptoms or risks kd3 identified at this time. Initial Sepsis Screen: Does the patient meet any 2 criteria? RR > 20 per min. Altered Mental Status. HR > 90 bpm. Yes Does the patient have a suspected source of infection? No. Patient's initial sepsis screen is negative. Risk Assessment: Do you want to hurt yourself or someone else? Patient reports no desire to harm self or others. Onset of symptoms was August 31, 2022. 00:34 Method Of Arrival: EMS: [facility] kd3 00:34 Acuity: VIBHA 2 jb4 Triage Assessment: 00:35 General: Appears obese, Behavior is unresponsive. Pain: Unable to use pain scale. kd3 Patient is unresponsive. Respiratory: Airway is patent Trachea midline Respiratory effort is labored, Respiratory pattern is tachypnea. 00:35 Neuro: Level of Consciousness is unresponsive, Oriented to. kd3 Historical: - Allergies: 00:51 NKA; kd3 - Home Meds: 00:51 aspirin 81 mg Oral chew 1 tab once daily [Active]; Coreg 25 mg Oral tab 1 tab 2 times kd3 per day [Active]; Pacerone 200 mg Oral tab 1 tab once daily [Active]; - PMHx: 00:51 CHF; Hypertension; kd3 - Immunization history:: Adult Immunizations up to date. - Social history:: Smoking status: unknown. - History obtained from: EMS. - Unable to obtain history due to: patient distress. Screenin:53 Abuse screen: Denies threats or abuse. Denies injuries from another. Nutritional kd3 screening: No deficits noted. Tuberculosis screening: No symptoms or risk factors identified. Fall Risk IV access (20 points). Assessment: 00:40 General: Appears distressed, uncomfortable, ill, obese, Behavior is unresponsive. Pain: jb4 Unable to use pain scale. FLACC scale score is 0 out of 10. Neuro: Level of Consciousness is unresponsive, Oriented to none. Cardiovascular: Skin is cool and clammy. Respiratory: Airway is patent Respiratory effort is labored, gasping, weak, Respiratory pattern is symmetrical, tachypnea Breath sounds are coarse bilaterally. GI: Abdomen is round distended, obese. : No signs and/or symptoms were reported regarding the genitourinary system. EENT: No signs and/or symptoms were reported regarding the EENT system. Derm: Skin is intact, Skin is clammy, Skin is mottled, Skin temperature is cool. 01:30 Reassessment: Pt is no longer gasping, color has improved, is now able to talk. jb4 Crackles remain SAJI. Is A\T\Ox4. 02:30 Reassessment: Patient appears in no apparent distress at this time. Patient and/or jb4 family updated on plan of care and expected duration. Pain level reassessed. Patient is alert, oriented x 3, equal unlabored respirations, skin warm/dry/pink. 04:00 Reassessment: Patient appears in no apparent distress at this time. Patient and/or jb4 family updated on plan of care and expected duration. Pain level reassessed. Patient is alert, oriented x 3, equal unlabored respirations, skin warm/dry/pink. Pt ambulated to bedside chair. Vital Signs: 00:34 BP 153 / 96; Pulse 114; Resp 38; Pulse Ox 100% on BiPAP; kd3 00:56 Weight 117.93 kg; kd3 01:30 BP 147 / 88; Pulse 92; Resp 26; Pulse Ox 100% on 100% BiPAP; jb4 01:37 BP 147 / 88; Pulse 93; Pulse Ox 100% ; rn 02:15 BP 166 / 103; Pulse 88; Resp 24; Pulse Ox 100% on 100% BiPAP; jb4 03:00 BP 146 / 95; Pulse 80; Resp 19; Pulse Ox 99% on 100% BiPAP; jb4 05:13 BP 152 / 96; Pulse 76; Resp 20; Pulse Ox 100% on R/A; kd3 05:54 BP 161 / 98; Pulse 81; Resp 19; Pulse Ox 100% on BiPAP; kd3 ED Course: 00:35 Arm band placed on right wrist. kd3 00:36 Patient arrived in ED. rn 00:36 Parth Loza MD is Attending Physician. rn 00:48 Tabitha Abraham, JENNIFER is Primary Nurse. kd3 00:51 Triage completed. kd3 00:53 Patient has correct armband on for positive identification. kd3 00:53 No provider procedures requiring assistance completed. Inserted saline lock: 18 gauge kd3 in right antecubital area, using aseptic technique. Blood collected. Maintain EMS IV. Dressing intact. Good blood return noted. Site clean \T\ dry. 01:02 Chest Single View XRAY In Process Unspecified. EDMS 01:48 Dustin Loza MD is Hospitalizing Provider. rn 01:54 Oksana Hardwick MD is Hospitalizing Provider. rn 05:14 Patient admitted, IV remains in place. kd3 Administered Medications: 01:06 Drug: Nitro-Bid (nitroglycerin) Ointment 2 % 1 inches Route: Transdermal; Site: jb4 anterior chest wall; 01:06 Drug: Magnesium Sulfate 1 grams Route: IVPB; Infused Over: 1 hrs; Site: right jb4 antecubital; 05:15 Follow up: Response: No adverse reaction; IV Status: Completed infusion kd3 03:12 Drug: Lasix (furosemide) 60 mg Route: IVP; Site: left forearm; jb4 05:15 Follow up: Response: No adverse reaction kd3 Medication: 00:54 VIS not applicable for this client. kd3 Outcome: 01:49 Decision to Hospitalize by Provider. rn 05:14 Admitted to Med/surg room 416. kd3 05:14 Condition: stable 05:14 Discharge instructions given to patient, Instructed on the need for admit, Demonstrated understanding of instructions. 05:54 Patient left the ED. kd3 Signatures: Dispatcher [employer] EDMS Parth Loza MD MD rn Bryson, James, RN RN jb4 Tabitha Abraham, JENNIFER RN kd3 Corrections: (The following items were deleted from the chart) 01:06 00:34 Acuity: VIBHA 4 kd3 jb4 02:54 02:43 General: Appears distressed, uncomfortable, ill, obese, Behavior is calm, jb4 cooperative, appropriate for age, jb4
--- NOTE | 2022-08-31 01:50 | EDPHYS ---
Physician Documentation [facility] Name: Zeferino Nunez Age: 72 yrs Sex: Male : 1950 Arrival Date: 08/31/2022 Time: 00:36 Bed 2 Private MD: ED Physician Parth Loza HPI: 08/31 00:48 This 72 yrs old Male presents to ER via Unassigned with complaints of sob. rn 00:48 Unable to obtain HPI due to patient distress. EMS reports called out for SOB, unclear rn onset, was 82% on RA, packed him up and brought him here, + CHF, unknown if COPD. Given solumedrol by EMS. . Historical: - Allergies: 00:51 NKA; kd3 - Home Meds: 00:51 aspirin 81 mg Oral chew 1 tab once daily [Active]; Coreg 25 mg Oral tab 1 tab 2 times kd3 per day [Active]; Pacerone 200 mg Oral tab 1 tab once daily [Active]; - PMHx: 00:51 CHF; Hypertension; kd3 - Immunization history:: Adult Immunizations up to date. - Social history:: Smoking status: unknown. - History obtained from: EMS. - Unable to obtain history due to: patient distress. ROS: 00:48 Unable to obtain ROS due to patient distress. rn Exam: 00:48 Constitutional: Overweight male, + respiratory distress, mottled centrally Head/Face: rn Normocephalic, atraumatic. Eyes: Periorbital areas with no swelling, redness, or edema. Cardiovascular: Tachycardic, regular. No pulse deficits. Respiratory: + moderate tachypnea, with coarse bilateral breath sounds and diminished at bases, faint wheezing. Abdomen/GI: soft, non-tender, mottled abdominal wall Skin: Cool extremities, mottled, no cyanosis MS/ Extremity: Pulses equal, no cyanosis. Neuro: Respiratory distress, AMS, shakes head no when asked if has chest pain. 01:37 ECG was reviewed by the Attending Physician. rn Vital Signs: 00:34 BP 153 / 96; Pulse 114; Resp 38; Pulse Ox 100% on BiPAP; kd3 00:56 Weight 117.93 kg; kd3 01:30 BP 147 / 88; Pulse 92; Resp 26; Pulse Ox 100% on 100% BiPAP; jb4 01:37 BP 147 / 88; Pulse 93; Pulse Ox 100% ; rn 02:15 BP 166 / 103; Pulse 88; Resp 24; Pulse Ox 100% on 100% BiPAP; jb4 03:00 BP 146 / 95; Pulse 80; Resp 19; Pulse Ox 99% on 100% BiPAP; jb4 05:13 BP 152 / 96; Pulse 76; Resp 20; Pulse Ox 100% on R/A; kd3 05:54 BP 161 / 98; Pulse 81; Resp 19; Pulse Ox 100% on BiPAP; kd3 MDM: 00:36 Patient medically screened. rn 00:56 ED course: Pt placed on bipap when arrived immediately, + marked improvement, now rn speaking, sitting upright, pink skin and no longer mottled, feels better. . 01:46 Differential diagnosis: CHF exacerbation, Myocardial Infarction pneumonia, Pneumothorax rn pulmonary edema. Data reviewed: vital signs, nurses notes, lab test result(s), EKG, radiologic studies, plain films, and as a result, I will admit patient. Counseling: I had a detailed discussion with the patient and/or guardian regarding: the historical points, exam findings, and any diagnostic results supporting the discharge/admit diagnosis, lab results, radiology results, the need for further work-up and treatment in the hospital. Response to treatment: the patient's symptoms have markedly improved after treatment, and as a result, I will admit patient. ED course: Pt improved markedly, talking and feels much better, improvement of vitals. CXR shows CHF with pulmonary edema, elevated BNP. Elevated lactate but does not appear to be from sepsis, more likely hypoxemia and contracted state. Afebrile, patient denies feeling ill, no source of infection. . 05:07 ED course: Pt with improvement of lactate, now normal. Was likely 2/2 hypoxemia. . rn 08/31 00:37 Order name: Blood Culture Adult (2) rn 08/31 00:37 Order name: CBC with Diff; Complete Time: :09 rn 08/31 00:37 Order name: CMP; Complete Time: 01:19 rn 08/31 00:37 Order name: Lactate w/ 2H reflex if indic.; Complete Time: 01:31 rn 08/31 00:37 Order name: Protime (+inr); Complete Time: : rn 08/31 00:37 Order name: Ptt, Activated; Complete Time: 01:09 rn 08/31 00:37 Order name: Chest Single View XRAY rn 08/31 00:37 Order name: Troponin High Sensitivity; Complete Time: 01:19 rn 08/31 00:37 Order name: BNP; Complete Time: 01:19 rn 08/31 00:37 Order name: COVID-19/FLU A+B; Complete Time: 01:31 rn 08/31 00:38 Order name: BIPAP rn 08/31 00:38 Order name: ABG; Complete Time: 01:09 rn 08/31 05:05 Order name: Lactate Sepsis 2 HR Follow-up; Complete Time: 05:07 EDMS 08/31 00:37 Order name: EKG; Complete Time: 00:38 rn 08/31 00:37 Order name: Accucheck; Complete Time: 01:32 rn 08/31 00:37 Order name: Cardiac monitoring; Complete Time: 00:59 rn 08/31 00:37 Order name: EKG - Nurse/Tech; Complete Time: 00:59 rn 08/31 00:37 Order name: IV Saline Lock - Large Bore; Complete Time: 00:59 rn 08/31 00:37 Order name: Labs collected and sent; Complete Time: 00:59 rn 08/31 00:37 Order name: O2 Per Protocol; Complete Time: 00:59 rn 08/31 00:37 Order name: O2 Sat Monitoring; Complete Time: 00:59 rn 08/31 00:37 Order name: Vital Signs; Complete Time: 00:59 rn Administered Medications: 01:06 Drug: Nitro-Bid (nitroglycerin) Ointment 2 % 1 inches Route: Transdermal; Site: jb4 anterior chest wall; 01:06 Drug: Magnesium Sulfate 1 grams Route: IVPB; Infused Over: 1 hrs; Site: right jb4 antecubital; 05:15 Follow up: Response: No adverse reaction; IV Status: Completed infusion kd3 03:12 Drug: Lasix (furosemide) 60 mg Route: IVP; Site: left forearm; jb4 05:15 Follow up: Response: No adverse reaction kd3 Disposition: 01:46 Critical Care:. rn Disposition Summary: 08/31/22 01:49 Hospitalization Ordered Hospitalization Status: Inpatient Admission rn Condition: Fair rn Problem: an acute exacerbation rn Symptoms: have improved rn Bed/Room Type: Standard rn Provider: Oksana Hardwick(08/31/22 01:55) rn Location: Telemetry/MedSurg (Inpatient)(08/31/22 05:06) cg Room Assignment: [facility] [place](08/31/22 05:06) Diagnosis - Unspecified combined systolic (congestive) and diastolic (congestive) heart failure rn - Acute pulmonary edema rn - Hypoxemia rn Forms: - Medication Reconciliation Form rn - SBAR form chemistry intern time excluding procedures: 01:46 Critical care time: Bedside Care: 35 minutes. Total time: 35 minutes rn Signatures: Dispatcher [employer] EDMS Parth Loza MD MD rn Garcia, Cindy RN RN Aden Deras RN RN Tabitha Thapa RN RN kd3 Corrections: (The following items were deleted from the chart) 01:55 01:49 Dustin Loza rn rn 02:44 01:49 Telemetry/MedSurg (Inpatient) rn cg 02:44 01:49 rn cg 05:06 02:44 [facility] ER HOLD cg cg 05:06 02:44 ERHOLD- cg cg
[2022-08-31] MEDS ORDERED: FUROSEMIDE 20 MG/ 2ML VIAL ONE (03:02)
[2022-08-31] MEDS ORDERED: FUROSEMIDE 40 MG/4 ML VIAL ONE (03:03)
[2022-08-31] MEDS ORDERED: ONDANSETRON 4 MG/2 ML VIAL IV PRN (05:26)
[2022-08-31 06:16] VITALS: BMI 35.2
[2022-08-31] MEDS: FUROSEMIDE 40 MG/4 ML VIAL IV SCH ×2 (09:19→16:18)
[2022-08-31] MEDS ORDERED: carvediloL 25 MG TAB PO ONE (11:00)
[2022-08-31] MEDS ORDERED: PNEUMOCOCCAL VACCINE 0.5 ML IMVAC ONE (11:00)
[2022-08-31] MEDS: ENOXAPARIN 40 MG/0.4 ML SQ SCH (16:18)
[2022-08-31] MEDS: carvediloL 25 MG TAB PO SCH (17:41)
[2022-08-31] MEDS: ATORVASTATIN 40 MG TAB PO SCH (21:00)
[2022-08-31] MEDS: SACUBITRIL/VALSARTAN 49/51 MG TAB PO SCH (21:35)
--- NOTE | 2022-09-01 01:54 | HP ---
Date of Admission: 08/31/2022 Chief Complaint: Shortness of breath. History Of Present Illness: This is a 72-year-old pleasant male patient, came into emergency room wi complaints of shortness of breath for last 2-3 days. The patient came into ER with increasing tro uble with breathing, and after he was evaluated, he was admitted to the hospital with acute exacerbat ion of chronic systolic heart failure and acute respiratory failure with hypoxia. The patient was in respiratory distress. In the emergency room, he was given supplemental oxygen and BiPAP therapy, an d his condition has improved. He has not been compliant with his medications and has not taken his d iuretic medication which is furosemide as prescribed and says either he takes it once a day or someti me does not take it at all instead of taking it 2 times a day as prescribed. Denies any chest pain. No vomiting, diarrhea. No cough, congestion. No fever. No chills. Review of Systems: Cardiovascular: As mentioned above. Respiratory: As mentioned above. All other systems reviewed and negative. Allergies: NO KNOWN ALLERGIES. Medications: List reviewed. Past Medical History: Significant for chronic systolic heart failure, hypertension, hyperlipidemia. Past Surgical History: Reviewed. Family History: Reviewed. Social History: Negative for smoking and alcohol use. Physical Examination: Vital Signs: Height 6 feet, weight 259 pounds, temperature 97.4, pulse 82, respiratory rate 20, bloo d pressure 142/78, oxygen saturation 98% on BiPAP. General: Awake, alert, oriented, not in distress. HEENT: Head atraumatic, normocephalic. Conjunctivae nonerythematous. Sclerae white. Mouth, no thr ush or edema noted. Ears/Nose, no mass, lesion, discharge noted. Neck: Supple. No JVD, lymph nodes, bruit, thyromegaly noted. Lungs: Presence of diminished air entry with some rales in lower lung snaders. Not using any accesso ry muscles of respiration. Heart: Normal heart sounds, no murmur or gallop. Abdomen: Soft, bowel sounds normal. No guarding, rigidity, tenderness, mass, hepatosplenomegaly, dis tention, or bruit noted. Extremities: No leg edema. No calf tenderness. Skin: No rash, ulcer, cellulitis. Lymphatics: No lymph node enlargement in neck, supraclavicular, infraclavicular region. Neuro: No focal neurological deficit. Chest: Unremarkable. External Genitalia: Deferred. Rectal: Deferred. Laboratory Data: White count 11.5, hemoglobin 18, platelets 258. Blood gas; pH 7.17, PCO2 66, PO2 1 13, oxygen saturation 96% on 100% FiO2. Sodium 141, potassium 4.1, chloride 107, bicarb 25, BUN 27, creatinine 1.71, estimated GFR 42, glucose 190. Initial lactic acid 4.4, second lactic acid 1.3. Li kj function tests unremarkable. ProBNP 1687. Troponin 43.5. Influenza A, B; and COVID-19 test neg ative. Chest x-ray shows changes of congestive heart failure. Impression: 1.Congestive heart failure, chronic, systolic, with acute exacerbation. 2.Acute respiratory failure with hypoxia. 3.Hypertension. 4.Hyperlipidemia. 5.Chronic kidney disease, stage 3B. Plan: We will admit the patient to hospital for further evaluation and management of this problem. The patient is appropriate for inpatient and is expected to spend 2 midnights in hospital. We will g o ahead and give Lasix 40 mg IV every 12 hours. Monitor intake, output, daily weight, electrolyte an d renal function per order. We will continue antihypertensive medication and medication for his leela estive heart failure which will be also Entresto. Continue statin therapy for hyperlipidemia. Deep venous thrombosis prophylaxis will be given using Lovenox per order. Consult Cardiology and we will see him tomorrow for followup. Details and plan of treatment discussed with the patient. MIKE/MODL Voice ID: [id number]
--- NOTE | 2022-09-01 02:18 | CON ---
Date of Consultation: 08/31/2022 Reason For Consultation: Congestive heart failure exacerbation. History Of Present Illness: This is a 72-year-old male with past medical history of congestive heart failure, hypertension, presented with worsening shortness of breath for 3 days prior to the admissio n and to the point that he felt that he is drowning, came in, is on fluids, could not catch his breat h and he was in distress, presented to the emergency room. After diuresis and BiPAP, he did very wel l and now he is speaking full sentences. He denies having any chest pain. No nausea, vomiting, diar marybel. No dysuria, polyuria, or urinary urgency. Past Medical History: Congestive heart failure, hypertension. Medications: Refer to reconciliation sheet for detailed list. Allergies: NO KNOWN DRUG ALLERGIES. Family History: No premature coronary artery disease or cancer. Social History: Does not smoke or drink. Does not use any drugs. Review of Systems: All systems reviewed and they were negative except what mentioned in HPI. Physical Examination: Vital Signs: Reviewed. Head and Neck: Pupils are equal, reactive to light. Intact eye movements. Positive JVD. No cervic al lymphadenopathy. Neck is supple. Thyroid is not enlarged. Lungs: Crackles in both lung half the way up. No accessory muscle use or muscle retraction. Heart: Regular rate and rhythm with S3. Abdomen: Soft, nontender. Bowel sounds positive. No organomegaly. No masses or hernia. No rigidi ty or rebound. Extremities: No edema, clubbing, or cyanosis. Intact pulses. Skin: No rash. Neurologic: Alert, awake, oriented x3. No acute focal deficits appreciated. Investigations: BUN 27, creatinine 1.7, and his hemoglobin is 18.0. Assessment And Recommendations: 1.Acute on chronic congestive heart failure exacerbation. His ejection fraction as per his report i s in the mid 40s, so this is systolic heart failure exacerbation. Agree with Lasix 40 mg q.12 hours. Monitor BUN, creatinine, electrolytes. Strict low-salt diet and daily body weight. 2.Hypertension. Blood pressure is controlled. Continue current medications. 3.Dyslipidemia. Continue statin. SR/MODL Voice ID: [id number] Report ID: [id number]
[2022-09-01] MEDS: carvediloL 25 MG TAB PO SCH ×2 (06:26→16:05)
[2022-09-01 06:33] LABS: Absolute Lymphocytes (CBC) 1.1 K/uL (0.7-4.9); Hematocrit 43.2 % (39.6-49.0); Lymphocytes % 6.9 % (15.3-44.8); MPV 8.7 fL (7.6-11.3); RBC Red Blood Cell Count 4.91 M/uL (4.33-5.43)
[2022-09-01 07:00] LABS: Magnesium 2.4 mg/dL (1.8-2.4)
[2022-09-01] MEDS: PANTOPRAZOLE 40MG TABLET PO SCH (08:59)
[2022-09-01] MEDS: FUROSEMIDE 40 MG/4 ML VIAL IV SCH ×2 (08:59→16:03)
[2022-09-01] MEDS: SACUBITRIL/VALSARTAN 49/51 MG TAB PO SCH ×2 (09:00→21:28)
[2022-09-01] MEDS: ASPIRIN 81 MG CHEWABLE TABLET PO SCH (09:00)
[2022-09-01] MEDS ORDERED: POTASSIUM CL SA 10 MEQ TAB PO ONE (10:00)
[2022-09-01 11:16] LABS: Specific Gravity 1.011 (1.005-1.030); Urine Bilirubin NEGATIVE (Negative); Urine Blood Negative (Negative); Urine Clarity Clear (Clear); Urine Color Light-Yellow (Yellow); Urine Glucose NEGATIVE (Negative); Urine Mucus Slight /HPF (None Seen); Urine Protein 1+ (Negative); Urine Urobilinogen Normal (Normal); Urine pH 5.5 (5.0-7.0)
--- NOTE | 2022-09-01 12:34 | RAD REPORT ---
EXAM DESCRIPTION: RAD - Chest Single View - 08/31/2022 1:00 am CLINICAL HISTORY: 72 years, Male, DYSPNEA COMPARISON: None. FINDINGS: Single view of the chest was obtained portable. No prior films are available for compariso n. The lung volume is slightly decreased. There is cardiomegaly. Sternotomy wire and clamping along t he most likely atrial appendage corresponding to previous cardiothoracic surgery. Increased interstit ial pulmonary markings corresponding to interstitial pulmonary edema. No significant pleural effusion s. The rest of the soft tissue and bony structures demonstrate to be unremarkable. IMPRESSION: Cardiomegaly with interstitial pulmonary edema. Status post cardiothoracic surgery. Electronically signed by: Benjamin Winchester MD 08/31/2022 1:42 AM WEB MARKETING STRATEGIST Due to temporary technical issues with the PACS/Fluency reporting system, reports are being signed by the in house radiologists without review as a courtesy to insure prompt reporting. The interpreting radiologist is fully responsible for the content of the report.
[2022-09-01] MEDS: ENOXAPARIN 40 MG/0.4 ML SQ SCH (16:04)
[2022-09-01] MEDS: ATORVASTATIN 40 MG TAB PO SCH (21:00)
--- NOTE | 2022-09-01 23:21 | PN ---
Date of Progress Note: 09/01/2022 Subjective: Patient was seen this morning for followup. Overall, he was feeling better, compared to yesterday. No shortness of breath. No chest pain. Objective: Vital Signs: Reviewed. HEENT: Unremarkable. Lungs: Bilateral good equal air entry. Presence of rales noted in both lower lung region, overall b aysha today than yesterday. Not using any accessory muscles of respiration. Heart: Sounds normal. Abdomen: Soft. Bowel sounds normal. No guarding, rigidity, tenderness, or distention. Extremities: No leg edema. Laboratory Data: White count 15.8, hemoglobin 14.8, platelets 188. Sodium 141, potassium 3, chlorid e 105, bicarb 29, BUN 50, creatinine 2.05, glucose 144. ProBNP 9768. Impression: 1.Congestive heart failure, chronic, systolic, with acute exacerbation. 2.Chronic kidney disease, stage 3B. 3.Hypertension. 4.Hyperlipidemia. Plan: We will go ahead and continue current medications. Continue current diuretic therapy. We ada l get echo with Doppler tomorrow. I will see him tomorrow for followup. We will repeat blood work tomorrow morning. Continue current DVT prophylaxis. Possible discharge to go home tomorrow dependin g on his condition. MIKE/MODL Voice ID: [id number] Report ID: [id number]
[2022-09-02 04:30] LABS: Absolute Lymphocytes (CBC) 1.8 K/uL (0.7-4.9); Hematocrit 46.2 % (39.6-49.0); Lymphocytes % 15.2 % (15.3-44.8); MCV 88.4 fL (80-100); MPV 9.1 fL (7.6-11.3); RBC Red Blood Cell Count 5.23 M/uL (4.33-5.43)
[2022-09-02 04:45] LABS: Magnesium 2.3 mg/dL (1.8-2.4)
[2022-09-02 04:47] LABS: Potassium 2.8 mmol/L (3.5-5.1)
[2022-09-02] MEDS ORDERED: KCL 20 MEQ/100 mL IVPB 20 MEQ/100 ML BAG IV SCH (06:00)
[2022-09-02] MEDS ORDERED: NA CHLORIDE 0.9% 1,000 ML ONE (06:13)
[2022-09-02] MEDS: carvediloL 25 MG TAB PO SCH (06:15)
[2022-09-02] MEDS: KCL 20 MEQ/100 mL IVPB 20 MEQ/100 ML BAG IV SCH ×3 (06:16→10:47)
[2022-09-02] MEDS: SACUBITRIL/VALSARTAN 49/51 MG TAB PO SCH (07:45)
[2022-09-02] MEDS: PANTOPRAZOLE 40MG TABLET PO SCH (07:46)
[2022-09-02] MEDS: ASPIRIN 81 MG CHEWABLE TABLET PO SCH (07:46)
[2022-09-02] MEDS: FUROSEMIDE 40 MG/4 ML VIAL IV SCH (07:47)
[2022-09-02 08:49] VITALS: TEMP 97.7
[2022-09-02] MEDS ORDERED: FUROSEMIDE 40 MG TABLET PO SCH (09:00)
[2022-09-02] MEDS ORDERED: POTASSIUM CL SA 10 MEQ TAB PO SCH (09:00)
[2022-09-02 10:13] VITALS: O2SAT 97
--- NOTE | 2022-09-02 12:54 | EKG ---
Test Date: 2022-08-31 Test Time: 00:36:29 Rn Chemical Dependency: JYOTHI MEASUREMENT RESULTS: Intervals: Rate: 117 FL: 180 QRSD: 124 QT: 364 QTc: 507 [place]: P: 53 FL: 180 QRS: -8 T: 109 INTERPRETIVE STATEMENTS: Sinus tachycardia Possible Left atrial enlargement Left bundle branch block Abnormal ECG Compared to ECG 01/04/2019 16:47:35 Left bundle-branch block now present Sinus rhythm no longer present Left ventricular hypertrophy no longer present Early repolarization no longer present Myocardial infarct finding no longer present Electronically Signed On 09-02-22 12:50:38 GENOMICS SCIENTIST by Eliezer Corado
[2022-09-02 13:04] VITALS: BP 161/93
--- NOTE | 2022-09-02 13:45 | ECHO ---
HEIGHT: 6 ft 0 in WEIGHT: 259 lb 3.2 oz DATE OF STUDY: 09/02/[address]: Gautam Hardwick MD 2-DIMENSIONAL: YES M.MODE: YES DOPPLER: YES COLOR FLOW: YES TDS: YES PORTABLE: YES DEFINITY: BUBBLE STUDY: DIAGNOSIS: CONGESTIVE HEART FAILURE CARDIAC HISTORY: CATHERIZATION: YES SURGERY: YES PROSTHETIC VALVE: NO PACEMAKER: NO MEASUREMENTS (cm) DIASTOLIC (NORMALS) SYSTOLIC (NORMALS) IVSd 1.4 (0.6-1.2) LA Diam 4.4 (1.9-4.0) LVEF 42% LVIDd 5.3 (3.5-5.7) LVIDs 4.2 (2.0-3.5) %FS 21% LVPWd 1.4 (0.6-1.2) Ao Diam 3.3 (2.0-3.7) 2 DIMENSIONAL ASSESSMENT: RIGHT ATRIUM: NOT WELL SEEN LEFT ATRIUM: ENLARGED RIGHT VENTRICLE: NOT WELL SEEN LEFT VENTRICLE: LEFT VENTRICULAR HYPERTROPHY TRICUSPID VALVE: NOT WELL SEEN MITRAL VALVE: MILD TO MODERATE MITRAL REGURGITATION PULMONIC VALVE: NOT WELL SEEN AORTIC VALVE: MILD AORTIC INSUFFICIENCY PERICARDIAL EFFUSION: NONE AORTIC ROOT: LEFT VENTRICULAR WALL MOTION: UNABLE TO EVALUATE (POOR ECHOCARDIOGRAM) DOPPLER/COLOR FLOW: SEE BELOW COMMENTS: 1. POOR WINDOWS AND LIMITED EXAM 2. LEFT VENTRICULAR EJECTION FRACTION APPEARS MILDLY DEPRESSED 3. MILD TO MODERATE MITRAL REGURGITATION 4. MILD AORTIC INSUFFICIENCY 5. UNABLE TO SEE THE RIGHT SIDE (POOR WINDOWS) TECHNOLOGIST: MARIA DEL CARMEN YOUSIF
[2022-09-02] MEDS ORDERED: POTASSIUM CL SA 10 MEQ TAB PO ONE (16:00)
--- NOTE | 2022-09-02 20:05 | PN ---
Date of Progress Note: 09/02/2022 Subjective: Seen by bedside, appears to be euvolemic. Review of Systems: No chest pain, shortness of breath, orthopnea, cough, or nausea. No diarrhea. No dysuria, polyuria, or urinary urgency. All other systems reviewed are negative. Physical Examination: Vital Signs: Reviewed. Head and Neck: Pupils are equal, reactive to light. Intact eye movements. No JVD. No cervical lym phadenopathy. Neck: Supple. Thyroid is not enlarged. Lungs: Clear to auscultation bilaterally. No rhonchi, wheezing, or crackles. No accessory muscle u se. Heart: Regular. No extra sounds. Abdomen: Soft, nontender. Bowel sounds positive. No organomegaly. No masses or hernia. No rigidi ty or rebound. Extremities: No edema, clubbing, or cyanosis. Intact pulses. Skin: No rash. Neurologic: Alert, awake, oriented x3. No acute focal deficits appreciated. Investigations: BUN 59, creatinine 2.47. Potassium is 2.8. Assessment And Recommendations: 1.Acute on chronic systolic heart failure exacerbation, was getting IV diuretics. I will discontinu e Lasix today due to the fact of a significant rise in his creatinine and re-assess tomorrow morning. Strict low-salt diet is encouraged and recommended. 2.Acute on chronic renal failure. Significant rise of creatinine. I will hold off on the Lasix and re-assess electrolytes, BUN, creatinine tomorrow and consult Nephrolog y. SR/MODL Voice ID: [id number] Report ID: [id number]
--- NOTE | 2022-09-02 20:05 | PN ---
Date of Progress Note: 09/01/2022 Subjective: Seen at bedside. Continues to improve. Review of Systems: No chest pain. Has shortness of breath and orthopnea. No nausea, vomiting, or diarrhea. No abdomin al pain. No dysuria, polyuria, or urinary urgency. All other systems reviewed and they were negativ e. Physical Examination: Vital Signs: Reviewed. Head And Neck: Pupils are equal and reactive to light. Intact eye movements. No JVD. No cervical lymphadenopathy. Neck is supple. Thyroid is not enlarged. Lungs: Clear to auscultation bilaterally. No rhonchi, wheezing, or crackles. No accessory muscle u se. Heart: Regular rate and rhythm. No extra sounds. Abdomen: Soft, nontender. Bowel sounds positive. No organomegaly. No masses or hernia. No rigidi ty or rebound. Extremities: No clubbing or cyanosis. Intact pulses. No edema. Skin: No rash. Neurologic: Alert, awake, and oriented x3. No acute focal deficits appreciated. Investigations: BUN 50 and creatinine is 2.05. Assessment And Recommendation: 1.Upokc-np-oibutnq systolic heart failure exacerbation with ejection fraction in the 45% range, impr andrew with diuresis. However, BUN and creatinine are going up. Recommend to hold the Lasix and monit or BUN, creatinine, and electrolytes. 2.Acute renal failure. This is in part probably due to cardiorenal syndrome and of course, the diuresis has worsened it. Reassess labs tomorrow morning and re-dose Las ix as needed. SR/MODL Voice ID: [id number] Report ID: [id number]
--- NOTE | 2022-09-03 07:06 | DS ---
Date of Discharge: 09/02/2022 Disposition: Discharged to go home. Physical Examination: HEENT: Unremarkable. Lungs: Clear to auscultation. No wheezing. No rales. Not using any accessory muscles of respirati on. Heart: Sounds normal. Abdomen: Soft. Bowel sounds normal. No guarding, rigidity, tenderness, distention. Extremities: No leg edema. Laboratory Data: White count today 11.8, hemoglobin 15.5, platelets 201. Sodium 142, potassium 2.8, chloride 104, bicarb 30, BUN 59, creatinine 2.47, glucose 121. Discharge Medications And Instructions: Continue all prior home medication and patient was advised t o make sure to take his furosemide 40 mg 2 times a day and potassium chloride 20 mEq 2 times a day an d not to take metolazone. Follow up at office next week. Final Diagnoses: 1.Congestive heart failure, chronic, systolic, with acute exacerbation. 2.Hypokalemia. 3.Chronic kidney disease, stage 3B. 4.Acute kidney injury. 5.Hypertension. 6.Hyperlipidemia. Hospital Course: This is a 72-year-old male patient, who came into emergency room with complaints of shortness of breath. Please see dictated H and P for more information. The patient has chronic sys tolic congestive heart failure and is not compliant with his diuretic therapy. He was prescribed fur osemide 40 mg 2 times a day and he takes it only once a day on some days and other days, he just does not take it at all. The patient says that he was also prescribed metolazone by Dr. Barbour and he t akes it about once a week or so. After he came into emergency room, he was admitted to the hospital with pulmonary edema and acute exacerbation of congestive heart failure problem. He was treated with IV Lasix. Overall, his shortness of breath problem improved. We monitored his electrolyte and shakeel l function. Potassium was low, which was handled with electrolyte replacement protocol. Today, repe at potassium was 3.1. At that time, he received 40 mEq of potassium chloride by mouth and then we di scharged him to go home in stable condition. Echocardiogram had shown ejection fraction of around 41 % and this was done today. The patient was discharged to go home in stable and improved condition an d I will see him at office next week for followup. MIKE/MODL Voice ID: [id number] Report ID: [id number]
== END 2022-09-02 16:34 | disposition home or self-care (01) | DRG 291 ==
LOC: ER 00:35 → ERHOLD 02:13 → 2ND 05:20
PROVIDERS: ADMIT Internal Medicine; ATTEND Internal Medicine
PROC: 5A09357 Assistance with Respiratory Ventilation, Less than 24 Consecutive Hours, Continuous Positive Airway Pressure (ICD-10-PCS; principal; 2022-08-31)
DX: I13.0 Hypertensive heart and chronic kidney disease with heart failure and stage 1 through stage 4 chronic kidney disease, or unspecified chronic kidney disease (principal); I50.23 Acute on chronic systolic (congestive) heart failure; J96.01 Acute respiratory failure with hypoxia; N17.9 Acute kidney failure, unspecified; N18.32 Chronic kidney disease, stage 3b; E78.5 Hyperlipidemia, unspecified; I34.0 Nonrheumatic mitral (valve) insufficiency; I35.1 Nonrheumatic aortic (valve) insufficiency; Z91.14 Patient's other noncompliance with medication regimen; Z20.822 Contact with and (suspected) exposure to COVID-19
CPT/HCPCS: 0240U; 36415; 71045; 80048; 80053; 81001; 82805; 83605; 83735; 83880; 84132; 84484; 85025; 85610; 85730; 87040; 87086; 87088; 93005; 93306; 94660; 94760; 96365; 96366; 96375; 99285; J1650; J1940; J3475; J3480; J7030

== ENCOUNTER 2022-10-20 20:41 | Inpatient (IN) | payer OTHER ==
--- OUTSIDE RECORDS SUMMARY | 2022-10-20 20:46 | XMS REPORT | Continuity of Care Document ---
:1950 Author Organization [facility] t Address [address] [place] [address] Care Team Providers Name Role Phone Asked, No Pcp Primary Care Physician Unavailable Sergio Cook Attending Clinician Unavailable UNKNOWN Attending [...] [facility] branch 00:00: Medical block) block) 00 Center Coronary Coronary Disease Active [facility] artery artery 5-18 College disease disease 00:00: of involving involving 00 Medi [place] standing [place] standing rock e coronary coronary artery artery Cardiomyop Cardiomyop Disease Active [facility] athy, athy, 5-18 College ischemic ischemic 00:00: of 00 Medicin e S/P left S/P left Disease Active [facility] r atrial atrial 02-18 College appendage appendage 00:00: of ligation ligation 00 Medici n e Colonic Colonic Disease Active [facility] mass mass 16 College 00:00: of 00 Medicin e TIA TIA Disease Active [facility] (transient (transient 16 Co llege ischemic ischemic 00:00: of attack)-le attack)-le 00 Me dicin ft brain ft brain e LICA stent LICA stent Disease Active [facility] 03/02/19 03/02/1916 College 00:00: of 00 Medicin e 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 -16 Colleg e systolic systolic 00:00: of and and 00 Medicin diastolic diastolic e CHF, NYHA CHF, NYHA class 2 class 2 and and MIKE/AHA MIKE/AHA stage C stage C Colostomy Colostomy Disease Active [facility] care 16 [place] 00:00: of 00 Medicin e Hx of CABG Hx of CABG Disease Active [facility] 00:[facility]: Medical 00 [place] Carotid Carotid Disease Active [facility] artery artery 4-12 [facility] stenosis, stenosis, 00:00: Medi jess asymptomat asymptomat 00 Ce nter ic, [...] Medica l of left of left 00 [place] carotid carotid artery artery [place] of [place] of Disease Active [facility] colon colon 4-05 [facility] 00:[facility]: Medical 00 [place] ANSHUL (acute ANSHUL (acute Disease Active 2016-10 [...] Hospi ta involving involving 00 note l standing rock standing rock might be coronary coronary different artery of artery of from the standing rock standing rock original. heart heart Added without without automatic angina angina ally from pectoris pectoris request for surgery [id number] CAD CAD Disease Active 2016-10 [facility] (coronary (coronary 0-02 st artery artery 00:00: Hospita disease) disease) 00 l Patient is Patient is Disease Active [facility] Tobinhovasabrina's Jehovah's [facility] Witness Witness Hospita l GERD GERD Disease Active [facility] (gastroeso (gastroeso st phageal phageal Hospita reflux reflux l disease) disease) Allergies, Adverse Reactions, Alerts Allergy Allergy Status Severity Reaction(s) Onset Inactive Treating Comm ents Source Name Type Date Date Clinician No Known DA Active [facility]10 [facility] 00:[facility]: [facility] 00 [facility] No Known DA Active [facility] Allergie 04-10 [facility] 00:00: [facility] 00 are [facility] Family History Family Member Diagnosis Comments Start Date Stop Date Source Natural mother Diabetes [facility] Natural mother Heart disease [facility] Social History Social Habit Start Date Stop Date Quantity Comments Source History SDOH [facility] Alcohol Std Drinks Medica l Center History SDOH [facility] Alcohol Binge Medical Joseph [facility] History SDOH [facility] Alcohol Comment Medical C enter Alcohol intake 2019-05-28 2019-05-28 Current Nondenominational 00:00:00 00:00:00 non-drinker of Hospital alcohol (finding) Tobacco use and 2019-01-05 2019-01-[address] [facility] [address] [facility] kes exposure 00:00:00 00:00:00 Medical Center History SDOH 2019-01-05 2019-01-[address] [facility] Alcohol Frequency 00:00:00 00:00:00 Medical Center Sex Ass[birth year] At [birth year] Nondenominational 00:00:00 00:00:00 Hospital Smoking Status Start Date Stop Date Source Never smoker [facility] o Medicine Medications Ordered Filled Start Stop Current Ordering Indication Dosage Frequency Signature Comments Components Source Medication Medication Date Date Medication? Clinician (SIG) Name Name aspirin Yes 81mg QD Take 81 mg Meth asmita (ECOTRIN) 8-[address] 81 MG 15:24: daily. Hospita enteric 31 l coated tablet potassium Yes 20meq Q.5D Take 20 Meth asmita [...] needed for anxiety. carvedilol 2019-0 Yes 25mg Q.5D Take 25 mg M [...] needed for anxiety. carvedilol 2019-0 Yes 25mg Q.5D Take 25 mg M ethodi (COREG) 25 8-[address] MG tablet 15:24: (two) Hospita 31 times a l day with meals. sacubitril- 2019-0 Yes 1{tbl} Q.5D Take 1 Me thodi valsartan 8-[address] (ENTRESTO) 15:24: mouth 2 Hosp harmony 49-51 mg 31 (two) l tablet per times a tablet day. carvedilol 2019-0 Yes 25mg Take 25 mg [facility] (COREG) 25 8-08 by mouth 2 Col lege MG tablet 19:40: times of 53 daily Medicin (with e meals). Sacubitril- 2019-0 Yes Take by Bibb rio Valsartan 8-08 mouth two Colle ge (ENTRESTO) 19:40: times of 49-51 MG 53 daily. Medicin TABS e POTASSIUM 2018-0 Yes Take by [facility] OR 8-08 mouth two College 19:40: times of 53 daily. Medicin e aspirin 81 2018-0 Yes 81mg Take 81 mg [facility] MG tablet 05-13 by mouth Colleg e 19:40: daily. of 53 Medicin e VITAMIN E 2019-0 Yes Take by [facility] OR 8-08 mouth. College 19:40: Take every of 53 other day Medicin e Ascorbic 2018-0 Yes Take by [facility] Acid 8-08 mouth [place] (VITAMIN C 19:40: daily. of OR) 53 Medicin e carvedilol 2018-0 Yes 25mg Take [address] (COREG) 25 5-29 by mouth 2 Gurdeep es MG tablet 10:57: (two) Medical 16 times Center daily with breakfast and dinner. potassium 2019-0 Yes 20meq Q.5D Take [address] chloride 5-29 mEq by [facility] (KLOR-CON) 10:57: mouth 2 Medi jess 20 mEq 16 (two) Center packet times daily. calcium 2019-0 Yes 600mg Take 600 [facility] carbonate 5-29 mg by [facility] (OS-JESS) 10:57: mouth 2 Medica l 600 mg 16 (two) Center calcium times (1,500 mg) daily with Tab breakfast and dinner. ascorbic 2019-0 Yes 1000mg QD Take 1,[address] acid, 5-29 mg by [facility] vitamin C, 10:57: mouth Medica l (VITAMIN C) 16 daily. Center 1000 MG tablet b complex 2018- Yes 1{tbl} QD Take [address] vitamins 5-29 tablet by [facility] tablet 10:57: mouth Medical 16 daily. Center sacubitril- 0 Yes 1{tbl} Q.5D Take [address] valsartan 5-29 tablet by [facility] (ENTRESTO) 10:57: mouth 2 Medi jess 49-51 mg 16 (two) Center Tab times daily. carvedilol 2019-0 Yes 25mg Take [address] (COREG) 25 5-29 by mouth 2 Gurdeep es MG tablet 10:57: (two) Medical 16 times Center daily with breakfast and dinner. potassium 2018- Yes 20meq Q.5D Take [address] chloride 5-29 mEq by [facility] (KLOR-CON) 10:57: mouth 2 Medi jess 20 mEq 16 (two) Center packet times daily. calcium 2018- Yes 600mg Take 600 [facility] carbonate 5-29 mg by [facility] (OS-JESS) 10:57: mouth 2 Medica l 600 mg 16 (two) Center calcium times (1,500 mg) daily with Tab breakfast and dinner. ascorbic 2018- Yes 1000mg QD Take 1,[address] acid, 5-29 mg by [facility] vitamin C, 10:57: mouth Medica l (VITAMIN C) 16 daily. Center 1000 MG tablet b complex 2018-0 Yes 1{tbl} QD Take [address] vitamins 5-29 tablet by [facility] tablet 10:57: mouth Medical 16 daily. Center sacubitril- Yes 1{tbl} Q.5D Take [address] valsartan 5-29 tablet by [facility] (ENTRESTO) 10:57: mouth 2 Medi jess 49-51 mg 16 (two) Center Tab times daily. furosemide 2019-[address] [facility] (LASIX) 40 5-29 recommende Gurdeep es MG tablet 00:00: d by your Med ical [address] furosemide 2019-[address] (LASIX) 40 5-29 recommende Gurdeep es MG tablet 00:00: d by your Med ical [address] clopidogrel 2019-0 Yes 75mg Take 1 Tab [facility] (PLAVIX) 75 5-20 by mouth Tim ege MG tablet 00:00: daily. of 00 Medicin e aspirin 81 2019-0 Yes 81mg QD Take 1 [facility] t MG EC 4-14 tablet (81 [facility] tablet 00:00: mg total) Medica l 00 by mouth Center daily. atorvastati 2019-0 Yes 80mg QD Take [address] n (LIPITOR) 4-14 tablet (80 Natalie kes 80 MG 00:00: mg total) Medical tablet 00 by mouth Center daily. clopidogrel 2019-0 Yes 75mg QD Take [address] (PLAVIX) 75 4-14 tablet (75 Natalie kes mg tablet 00:00: mg total) Med ical 00 by mouth Center daily. aspirin 81 2019-0 Yes 81mg QD Take 1 [facility] t MG EC 4-14 tablet (81 [facility] tablet 00:00: mg total) Medica l 00 by mouth Center daily. atorvastati 2019-0 Yes 80mg QD Take [address] [...] Source Systolic blood 2019-05-13 19:49:00 150 mm[Hg] [facility] pressure Medicine Diastolic blood 2019-05-13 19:49:00 100 mm[Hg] [facility] Medicine Heart rate 2019-05-13 19:38:00 60 /min [facility] Body height 2019-05-13 19:38:00 182.9 cm [facility] Body weight 2019-05-13 19:38:00 109.77 kg [facility] BMI 2019-05-13 19:38:00 32.82 kg/m2 [facility] Systolic blood 2019-05-13 19:49:00 150 mm[Hg] [facility] pressure Medicine Diastolic blood 2019-05-13 19:49:00 100 mm[Hg] [facility] Medicine Heart rate 2019-05-13 19:38:00 60 /min [facility] Body height 2019-05-13 19:38:00 182.9 cm [facility] Body weight 2019-05-13 19:38:00 109.77 kg [facility] BMI 2019-05-13 19:38:00 32.82 kg/m2 [facility] Procedures Procedure Date / Time Performing Clinician Source Performed [id number] 2020-04-25 00:00:00 FAROOQ [facility] al Center [id number] 2020-04-25 00:00:00 FAROOQ [facility] al Center [id number] 2020-04-25 00:00:00 FAROOQ [facility] al Center ELECTROCARDIOGRAM COMPLETE 2019-05-13 20:14:41 Tree Fenton [facility] Plan of Care Planned Activity Planned Date Details Comments Source Future Scheduled 2022-09-19 COVID-19 VACCINE (#1) [facility] Test 08:16:04 [code = COVID-19 VACCINE (#1)] Future Scheduled 2022-09-19 65+ [facility]OCOCCAL [facility] Test 08:16:04 VACCINE (1 - PCV) [code = 65+ PNEUMOCOCCAL VACCINE (1 - PCV)] Future Scheduled 2022-09-19 DIABETES: RETINAL EYE [facility] Test 08:16:04 EXAM [code = DIABETES: RETINAL EYE EXAM] Future Scheduled 2022-09-19 DIABETIC FOOT EXAM [facility] Test 08:16:04 [code = DIABETIC FOOT EXAM] Future Scheduled 2022-09-19 URINE MICROALBUMIN [facility] Test 08:16:04 [code = URINE MICROALBUMIN] Future Scheduled 2022-09-19 COLONOSCOPY SCREENING [facility] Test 08:16:04 [code = COLONOSCOPY SCREENING] Future Scheduled 2022-09-19 SHINGLES VACCINES ([address] [facility] Test 08:16:04 of 2) [code = SHINGLES VACCINES (1 of 2)] Future Scheduled 2022-09-19 INFLUENZA VACCINE [facility] Test 08:16:04 [code = INFLUENZA VACCINE] Future Scheduled 2022-08-08 HEPATITIS B VACCINES Met [facility] Test 14:32:56 (1 of 3 - 3-dose series) [code = HEPATITIS B VACCINES (1 of 3 - 3-dose series)] Future Scheduled 2022-08-08 COVID-19 VACCINE (#1) Me [facility] Test 14:32:56 [code = COVID-19 VACCINE (#1)] Future Scheduled 2022-08-08 65+ [facility]OCOCCAL [facility] Test 14:32:56 VACCINE (1 - PCV) [code = 65+ PNEUMOCOCCAL VACCINE (1 - PCV)] Future Scheduled 2022-08-08 DIABETES: RETINAL EYE Me [facility] Test 14:32:56 EXAM [code = DIABETES: RETINAL EYE EXAM] Future Scheduled 2022-08-[address] [facility] Test 14:32:56 [code = DIABETIC FOOT EXAM] Future Scheduled 2022-08-[address] Test 14:32:56 [code = URINE MICROALBUMIN] Future Scheduled 2022-08-08 COLONOSCOPY SCREENING [facility] Test 14:32:56 [code = COLONOSCOPY SCREENING] Future Scheduled 2022-08-08 SHINGLES VACCINES (1 Met [facility] Test 14:32:56 of 2) [code = SHINGLES VACCINES (1 of 2)] Future Scheduled 2022-08-08 INFLUENZA VACCINE [facility] Test 14:32:56 [code = INFLUENZA VACCINE] Future Scheduled COLON CANCER [facility] ege of Test SCREENING: COLONOSCOPY Medic ine [code = COLON CANCER SCREENING: COLONOSCOPY] Future Scheduled MEDICARE AWV [code = [facility] of Test MEDICARE AWV] Medicine Future Scheduled TETANUS SHOT (ADULT) [facility] of Test [code = TETANUS SHOT Medicin e (ADULT)] Future Scheduled BMI FOLLOW UP PLAN [facility] of Test [code = BMI FOLLOW UP Medici ne PLAN] Future Scheduled HEPATITIS C SCREENING [facility] of Test [code = HEPATITIS C Medicine SCREENING] Future Scheduled FALL SCREEN [code = [facility] or [facility] of Test FALL SCREEN] Medicine Future Scheduled PNEUMOVAX >=65 [facility] l[facility] of Test (PPSV23) [code = Medicine PNEUMOVAX >=65 (PPSV23)] Future Scheduled PREVNAR >= 65 (PCV13) [facility] [place] of Test [code = PREVNAR >= 65 Medici ne (PCV13)] Future Scheduled FLU VACCINE > 6 MONTHS B [facility] of Test [code = FLU VACCINE > Medici ne 6 MONTHS] Encounters Start End Encounter Admission Attending Care Care Encounter Source Date/Time Date/Time Type Type Clinicians Facility Department ID 2020-04-13 Inpatient Rosalba, [facility] ENDO [id number] [facility] 09:30:00 Sergio 36 [facility] are [facility] 2020-04-25 2020-04-26 Outpatient EL Rosalba, [facility] DAYS [id number] [facility] 04:28:00 09:00:00 Sergio 80 [facility] 2020-04-25 2020-04-25 [facility] [id number] [facility] 14:02:00 14:02:00 Sergio 21 [facility] are [facility] 2020-04-10 2020-04-10 Outpatient UNKNOWN [facility] LABO [id number] [facility] 18:10:00 18:10:00 64 [facility] 2020-04-10 2020-04-10 Outpatient EL Rosalba, [facility] 3DAY [id number] [facility] 09:00:00 09:00:00 Sergio 92 [facility] 2020-01-05 2020-01-05 Outpatient ROSALBA, [facility] [id number] [address] [place] [address] 00:00:00 00:00:00 SER[address] 2019-05-13 2019-05-13 Office HOWIE Fenton [id number] [facility] 12:56:01 15:22:30 Visit Tree E AMBULATOR 350.1.13.21 College Y 0.2.7.2.686 of [id number] [facility] cortney 700 e 2019-05-13 2019-05-13 Office HOWIE Fenton [id number] 12:56:01 15:22:30 Visit Tree E AMBULATOR 350.1.13.21 Y 0.2.7.2.686 [id number] 700 Results Test Description Test Time Test Comments Results Result Comments Source SURGICAL SPECIMENS 2020-04-26 13:49:00 RUN DATE: 04/26/20 [facility] - LAB PAGE 1 RUN TIME: 1350 Specimen Inquiry RUN USER: INTERFACE PATIENT: ANDREA GO LOC: PErinN POD B U #: [id number] AGE/SX: 69/M ROOM: [facility] RE04/25/20REG DR: Sergio Cook MD : 50 BED: 1 DIS: STATUS: ADM IN TLOC: SPEC #: [id number] RECD: 04/25/20 STATUS: SHAKILA MCKEON #: [id number] TIM: 04/25/[address] [facility] [address]: Sergio Cook MD ENTERED: 04/25/206043 SP TYPE: SURG OTHR DR: ORDERED: LEVEL II, PATH SPEC, H E STAIN HISTOLOGY: TISSUE ID BLK PCS DAYNA LEV / PROCEDURE DISPOSITION ____ ___ ___ ___ ___ HERNIA SAC A 1 1 TISSUES: A. HERNIA SAC - Incisional Hernia Sac CLINICAL HISTORY Incisional Hernia Sac FINAL DIAGNOSIS HERNIA SAC, REPAIR: - BENIGN FIBROVASCULAR ADIPOSE TISSUE CPT 84602 GROSS DESCRIPTION Specimen is received in formalin labeled with patient's name, medical record number and designated "incisional hernia sac" and consists of a 0.9 x 1.1 x 0.3 cm fragment of sandoval-yellow fibroadipose tissue. The specimen is sectioned and submitted in one cassette. /th Signed SIGNATURE ON FILE Merced Aparicio MD 04/26/20 1349 END OF REPORT BASIC METABOLIC PANEL 2020-04-26 [...] code = CA) 8.4 mg/dL 8.8-10.2 L [id number] 06:20:00 Test Item Value Reference Range Interpretation Comments MAGNESIUM (test code = MAG) 1.8 mg/dL 1.4-2.6 N CBC W/AUTO [id number] 05:46:00 Test Item Value Reference Range Interpretation [...] = BA#) 0.03 x10 3/uL 0.0-0.20 N [id number] 15:42:00 Test Item Value Reference Range Interpretation Comments GLUBED (test code = GLUBED) 159 MG/DL 70-105 H - XR CHEST 1 [id number] 12:33:00Patient Name: ANDREA GO Unit No: [id number] EXAMS: CPT CODE: [id number] XR CHEST 1 V 79327 EXAM: - XR CHEST 1 V Location code: W1 HISTORY: Shortness of breath COMPARISON: None available time ofinterpretation. FINDINGS: Frontal view of the chest is submitted. Enlarged cardiomediastinal silhouette with post median sternotomy changes noted and left atrial appendage occlusion device demonstrated. Mild pulmonary vascular congestive changes are seen. There are bilateral interstitial opacities noted throughout both lung sanders. No large effusion or appreciable pneumothorax. No acute osseous pathology. IMPRESSION Nonspecific bilateral interstitial opacities are noted throughout both lung sanders. The differential diagnosis includes mild interstitial pulmonary edema or atypical viral pneumonia. Noeffusion. Cardiomegaly and post median sternotomy changes are present. at 1233 Reported and signed by: KHADIJAH BARTON M.D. CC: Sergio Cook MD Technologist: Weston Mejia Time: DAP (Gy m2): Air Kerma (mGy):Trscr Dt/Tm: 04/25/2020 (1233) by:[email or web address] Printed Date/Time: 04/25/2020 (1236) Name: ANDREA GO [facility] Phys: Sergio Zarate MD [address] : 1950 Age: 69 Sex: [place] [address] Loc: P.SRG Exam Date: 04/25/2020 Status: REG [facility] PH: FAX: PAGE 1 Signed ReportCOVID 19 INHOUSE [id number] 07:44:00 Test Item Value Reference Range Interpretation Comments COVID 19 INHOUSE AG (test code = NEGATIVE NEGATIVE [id number]) SURGICAL [id number] 13:29:00 RUN DATE: 04/17/20 [facility] - LAB PAGE 1 RUN TIME: 1330 Specimen Inquiry RUN USER: INTERFACE -------- ----PATIENT: ANDREA GO LOC: AnatolyKRIS U #: [id number] AGE/SX: 69/M ROOM: RE04/13/20REG DR: Sergio Cook MD : 50 BED: DIS: STATUS: FARIHA [facility] TLOC: SPEC #: [id number] RECD: 04/13/20 STATUS: SHAKILA REQ #: [id number] TIM: 04/13/[address] [facility] [address]: Sergio Cook MD ENTERED: 04/13/20 SP TYPE: SURG OTHR DR: ORDERED: PATHGM4/3, PATH SPEC, H E STAIN/3 HISTOLOGY: TISSUE ID BLK PCS DAYNA LEV / PROCEDURE DISPOSITION ____ ___ ___ ___ ___ CECUM POLYP A 1 3 1 DESCEND COLON P B 1 3 1 RECTAL BX C 1 3 1 TISSUES: A. CECUM POLYP - Cecal Polyps B.DESCENDING COLON POLYP - Descending Colon Polyp C. RECTAL BX - Rectal Polyps CLINICAL HISTORY Colon S creen FINAL DIAGNOSIS CECAL POLYPS: - TUBULAR ADENOMA, [...] discussed with Dr. Cook on 04/17/20. CPT 91688 X 3, 60649 X 2 GROSS DESCRIPTION The specimen is received in three containers each labeled with patient's name and medical record number. Specimen A "cecal polyps". Three sandoval-white tissue fragments, 0.2 cm each, submitted entirely in cassetteA. CONTINUED ON NEXT PAGE RUN DATE: 04/17/20 [facility] - LAB PAGE 2 RUN TIME: 1330 Specimen Inquiry RUN USER: INTERFACE SPEC #: [id number] PATIENT: ANDREA GO #[id number] (Continued) -- GROSS DESCRIPTION(Continued) Specimen B "descending colon polyp". Four sandoval- white tissue fragments, 0.2 cm each, submitted entirely in B. Specimen C "rectal polyps". Five sandoval-white tissue fragments, 0.2 to 0.3 cm, submitted entirely in cassette C. CM/ Signed SIGNATURE ON FILE Merced Aparicio MD 04/17/20 1329 END OF REPORT Novel Coronavirus 2018 [id number] 20:03:00 Test Item Value Reference Range Interpretation Comments Novel Coronavirus 2018 Inhouse (test Negative Negative code = COVNONPUI) Testing Criteria: Preprocedure ScreeningNovel Coronavirus 2019 [id number] 20:02:00 Test Item Value Reference Range Interpretation Comments Novel Coronavirus 2018 Inhouse (test Negative Negative code = COVNONPUI) Testing Criteria: Preprocedure ScreeningPROTHROMBIN [id number] 18:50:00 Test Item Value Reference Range Interpretation [...] 2.5-3.5recurren t systemic emboli sm. THROMBOPLASTIN TIME [id number] 18:50:00 Test Item Value Reference Range Interpretation Comments THROMBOPLASTIN TIME 28.3 SECONDS 23.8-34.8 N INTERPRE TATIVE PARTIAL (test code = DATA: erapeutic PTT) range: Unfractionated heparin:55 - 80 seconds Argatroban:1.5 to 3 times the basel ine PTT COMPREHENSIVE METABOLIC [id number] 18:46:00 Test Item Value Reference Range Interpretation [...] PHOSPHATASE (test code = ALKP) CBC W/AUTO [id number] 18:18:00 Test Item Value Reference Range Interpretation [...] BA#) 0.04 x10 3/uL 0.0-0.20 N ELECTROCARDIOGRAM [id number] 20:14:41Result approved by Tree Fenton MD on 05/13/19[facility] METABOLIC [id number] 06:50:00 Test Item Value Reference Range Interpretation [...] (test code = 413) PLATELET AGGREGATION: FUNCTION [id number] 15:28:00 Test Item Value Reference Range Interpretation Comments WEAK ADP < % 60-91 L RESULT(BEAKER) (test code = 2135) PLATELET FUNCTION 0-39% indicates marked SCREEN INTERP platelet dysfunction (BEAKER) (test code = 2173) [id number] Rosy Styles MD (BEAKER) (test code = (electronic signature) 3434) PLATELET COUNT AGG 180 K/CU MM 150-450 (BEAKER) (test code = 2656) Platelet Function Screen results may be falsely low with platelet counts<100,000/cu mm.HEMOGLOBIN AND [id number] 14:07:00 Test Item Value Reference Range Interpretation Comments HEMOGLOBIN (BEAKER) (test code = 14.9 GM/DL 13.7-17.5 410) HEMATOCRIT (BEAKER) (test code = 46.4 % 40.1-51.0 411) [id number] 11:05:00 Test Item Value Reference Range Interpretation Comments ACTIVATED CLOTTING TIME 263 sec TEST ED AT [place] [address] [facility] (test code = [place] [address]) [address] [id number] 10:11:00 Test Item Value Reference Range Interpretation Comments ACTIVATED CLOTTING TIME 373 sec TEST ED AT [place] [address] (BEAKER) (test code = [place] [address]) [address] CBC W/PLT COUNT & AUTO [id number] 07:26:00 Test Item Value Reference Range Interpretation [...] 0-1 PERCENT (BEAKER) (test code = 2801) [id number] 06:55:00 Test Item Value Reference Range Interpretation Comments PHOSPHORUS (BEAKER) (test code = 2.6 mg/dL 2.3-4.7 604) [id number] 06:55:00 Test Item Value Reference Range Interpretation Comments MAGNESIUM (BEAKER) (test code = 1.9 mg/dL 1.6-2.6 627) BASIC METABOLIC [id number] 06:55:00 Test Item Value Reference Range Interpretation [...] NOT APPLICABLE FOR DIALYSIS PATIEN TS. LIPID [id number] 13:02:00 Test Item Value Reference Range Interpretation [...] High 160-189 Very High >=190VITAMIN B12 AND [id number] 09:57:00 Test Item Value Reference Range Interpretation Comments VITAMIN B12 (BEAKER) (test code = 1522 pg/mL 213-816 H 774) FOLATE (BEAKER) (test code = 362) 17.6 ng/mL >=7.0 [id number] 07:32:00 Test Item Value Reference Range Interpretation Comments PHOSPHORUS (BEAKER) (test code = 2.9 mg/dL 2.3-4.7 604) [id number] 07:32:00 Test Item Value Reference Range Interpretation Comments MAGNESIUM (BEAKER) (test code = 1.7 mg/dL 1.6-2.6 627) BASIC METABOLIC [id number] 07:32:00 Test Item Value Reference Range Interpretation [...] PATIEN TS. CBC W/PLT COUNT & AUTO [id number] 06:48:00 Test Item Value Reference Range Interpretation [...] code = 2801) MR, MRA, BRAIN, WITHOUT [id number] 04:47:00Reason for exam:->Ischemic Stroke EvaluationFINAL REPORT MR, [...] arteries: Normal flow-related enhancement within the bilateral POCKET CUTTER P1-P2 segments without flow-limiting stenosis. Functional - [...] Prasad MDReportVerified Date/Time: 01/15/2019 04:47:07 Reading Location: [facility] C013V Neuro Reading Room MR, MRA, NECK, WITHOUT IV [id number] 04:47:00Reason for exam:->Ischemic Stroke EvaluationFINAL REPORT MR, [...] arteries: Normal flow-related enhancement within the bilateral POCKET CUTTER P1-P2 segments without flow-limiting stenosis. Functional - [...] Prasad MDReportVerified Date/Time: 01/15/2019 04:47:07 Reading Location: [address] Neuro Reading Room MR, BRAIN, WITHOUT [id number] 04:47:00Reason for exam:->Ischemic Stroke EvaluationFINAL REPORT MR, [...] arteries: Normal flow-related enhancement within the bilateral POCKET CUTTER P1-P2 segments without flow-limiting stenosis. Functional - [...] Prasad MDReportVerified Date/Time: 01/15/2019 04:47:07 Reading Location: [address] Neuro Reading Room CT, BRAIN, WITHOUT [id number] 12:46:00Reason for exam:->dysmetria, RUE weaknessWhat is the [...] Robert MDReport Verified Date/Time: 01/14/2019 12:46:11 Reading Location: [address] Neuro Reading Room MAGNESIUM 2019-01-14 06:40:00 Test Item Value Reference Range Interpretation Comments MAGNESIUM (BEAKER) (test code = 2.0 mg/dL 1.6-2.6 627) [id number] 06:40:00 Test Item Value Reference Range Interpretation Comments PHOSPHORUS (BEAKER) (test code = 3.1 mg/dL 2.3-4.7 604) BASIC METABOLIC [id number] 06:39:00 Test Item Value Reference Range Interpretation [...] PATIEN TS. CBC W/PLT COUNT & AUTO [id number] 05:17:00 Test Item Value Reference Range Interpretation [...] 0-1 PERCENT (BEAKER) (test code = 2801) [id number] 06:13:00 Test Item Value Reference Range Interpretation Comments MAGNESIUM (BEAKER) 2.0 mg/dL 1.6-2.6 Specimen slightly (test code = 627) hemolyzed [id number] 06:13:00 Test Item Value Reference Range Interpretation Comments PHOSPHORUS (BEAKER) 2.9 mg/dL 2.3-4.7 Specimen slightly (test code = 604) hemolyzed BASIC METABOLIC [id number] 06:13:00 Test Item Value Reference Range Interpretation [...] PATIEN TS. CBC W/PLT COUNT & AUTO [id number] 06:05:00 Test Item Value Reference Range Interpretation [...] PERCENT (BEAKER) (test code = 2801) TISSUE [id number] 14:46:00Surgical Pathology Report Case: [id number] Authorizing Provider: Bryan Cook, Collected: 01/08/20192026 Ordering Location: [facility] Received: 01/11/2019 1010 SERVICES Pathologist: Idalmis David MD Specimen: Large Intestine, Colon - Rectosigmoid, LEFT RECTOSIGMOID COLON, PERFORATED DIVERTICULITIS COLON, RECTOSIGMOID, RESECTION - DIVERTICULOSIS WITH ACUTE AND CHRONIC DIVERTICULITIS - WITH AN AREA OF ACUTE INFLAMMATION, ABSCESS, FOREIGN BODY GIANT CELLS - CONSISTE NT WITH PERFORATION - ACUTE AND CHRONIC SEROSITIS - UNREMARKABLE COLONIC DONUTS - THREE BENIGN LYMPHNODES (0/3) Signing Pathologist Direct Phone Line: [phone] signed by Idalmis David MD on 01/12/2019 at 2:46 [id number] 1Mass of colon Left rectosigmoid colon perforated diverticulitis The specimen is received in a formalin-filled container labeled with the patient's information and labeled "left rectosigmoid colon perforated diverticulitis" consists of a colon in several fragments consisting of a distinct segment of colon that measures 15 cm in length x 1 cm in diameter. Th ere are multiple fragments of colon ranging in [...] 2 cm in greatest dimension. The adipose tissueyields three sandoval- pink lymph nodes measuring up to 0.5 cm.Section code: A1, A2, resection margins of longer distinct segment of colon en face resection; A3-A7, diverticula of colon; A9-A10, diverticula of fragmented pieces of colon and abscess; A11, A12, colon donuts small to large; A13, three lymph nodes. CG/ew Performed.[facility], Department of Pathology, [address] [place] [address], [place] [address], TAR/FREE T4 IF [id number] 06:20:00 Test Item Value Reference Range Interpretation Comments THYROID STIMULATING HORMONE 1.23 uIU/mL 0.35-4.94 (BEAKER) (test code = 772) [id number] 06:09:00 Test Item Value Reference Range Interpretation Comments PHOSPHORUS (BEAKER) (test code = 2.7 mg/dL 2.3-4.7 604) [id number] 06:09:00 Test Item Value Reference Range Interpretation Comments MAGNESIUM (BEAKER) (test code = 1.7 mg/dL 1.6-2.6 627) BASIC METABOLIC [id number] 06:09:00 Test Item Value Reference Range Interpretation [...] PATIEN TS. CBC W/PLT COUNT & AUTO [id number] 05:36:00 Test Item Value Reference Range Interpretation [...] 0-1 PERCENT (BEAKER) (test code = 2801) [id number] 05:51:00 Test Item Value Reference Range Interpretation Comments PHOSPHORUS (BEAKER) (test code = 2.3 mg/dL 2.3-4.7 604) [id number] 05:51:00 Test Item Value Reference Range Interpretation Comments MAGNESIUM (BEAKER) (test code = 1.8 mg/dL 1.6-2.6 627) BASIC METABOLIC [id number] 05:51:00 Test Item Value Reference Range Interpretation [...] PATIEN TS. CBC W/PLT COUNT & AUTO [id number] 05:32:00 Test Item Value Reference Range Interpretation [...] 0-1 PERCENT (BEAKER) (test code = 2801) [id number] 07:44:00 Test Item Value Reference Range Interpretation Comments PHOSPHORUS (BEAKER) (test code = 2.6 mg/dL 2.3-4.7 604) [id number] 07:44:00 Test Item Value Reference Range Interpretation Comments MAGNESIUM (BEAKER) (test code = 1.8 mg/dL 1.6-2.6 627) BASIC METABOLIC [id number] 07:44:00 Test Item Value Reference Range Interpretation [...] PATIEN TS. CBC W/PLT COUNT & AUTO [id number] 04:32:00 Test Item Value Reference Range Interpretation [...] 0-1 PERCENT (BEAKER) (test code = 2801) [id number] 09:38:00 Test Item Value Reference Range Interpretation Comments MAGNESIUM (BEAKER) (test code = 2.0 mg/dL 1.6-2.6 627) BASIC METABOLIC [id number] 09:38:00 Test Item Value Reference Range Interpretation [...] S NOT APPLICABLE FOR DIALYSIS PATIEN TS. [id number] 09:37:00 Test Item Value Reference Range Interpretation Comments PHOSPHORUS (BEAKER) (test code = 4.1 mg/dL 2.3-4.7 604) CBC W/PLT COUNT & AUTO [id number] 07:10:00 Test Item Value Reference Range Interpretation [...] (BEAKER) (test code = 700) BLOOD GAS, [id number] 20:17:00 Test Item Value Reference Range Interpretation [...] = 1819) 90.0 % T- 35.5BLOOD GAS, [id number] 17:24:00 Test Item Value Reference Range Interpretation [...] 37.0 C (test code = 1818) GLUCOSE-STAT [id number] 17:24:00 Test Item Value Reference Range Interpretation Comments GLUCOSE RANDOM (BEAKER) (test code 142 mg/dL 70-110 H = 652) CALCIUM, [id number] 17:24:00 Test Item Value Reference Range Interpretation Comments CALCIUM IONIZED (BEAKER) (test 1.06 mmol/L 1.12-1.27 L code = 698) PH, BLOOD (BEAKER) (test code = 7.33 1810) SODIUM NA-STAT [id number] 17:23:00 Test Item Value Reference Range Interpretation Comments SODIUM (BEAKER) (test code = 381) 139 meq/L 135-148 POTASSIUM-STAT [id number] 17:23:00 Test Item Value Reference Range Interpretation Comments POTASSIUM (BEAKER) (test code = 3.8 meq/L 3.6-5.5 379) HGB/HCT (H&H) - STAT [id number] 17:23:00 Test Item Value Reference Range Interpretation Comments HEMOGLOBIN (BEAKER) (test code = 14.1 g/dL 13.0-16.8 410) HEMATOCRIT (BEAKER) (test code = 41.0 % 40.0-50.0 411) BASIC METABOLIC [id number] 11:48:00 Test Item Value Reference Range Interpretation [...] APPLICABLE FOR DIALYSIS PATIEN TS. Specimen slightly [facility]icMARY [facility]2019-01-08 11:32:00 Test Item Value Reference [...] 0-0 (BEAKER) (test code = 413) POCT-GLUCOSE [id number] 11:22:00 Test Item Value Reference Range Interpretation Comments POC-GLUCOSE METER 164 mg/dL 70-[address] [facility] 6720 (BEAKER) (test code = [facility] 1538) [address]
[2022-10-20] MEDS ORDERED: NITROGLYCERIN 1 GM PKT TD ONE (21:09)
[2022-10-20 21:11] LABS: Absolute Lymphocytes (CBC) 0.8 K/uL (0.7-4.9); Hematocrit 44.3 % (39.6-49.0); Lymphocytes % 9.2 % (15.3-44.8); MCV 88.7 fL (80-100); MPV 9.4 fL (7.6-11.3); RBC Red Blood Cell Count 4.99 M/uL (4.33-5.43)
[2022-10-20 21:28] LABS: Potassium 4.3 mmol/L (3.5-5.1); Troponin High Sensitivity 55.6 pg/mL (<58.9)
--- NOTE | 2022-10-20 22:30 | RAD REPORT ---
EXAM DESCRIPTION: CT - Chest For Pe Angio - 10/20/2022 10:07 pm CLINICAL HISTORY: sob COMPARISON: 2016 TECHNIQUE: Dynamically enhanced axial 3 mm thick images of the chest were obtained during administra tion of <100> mL Isovue 370 IV contrast. Coronal and oblique reconstruction images were generated and reviewed. Exam utilizes a protocol for optimal evaluation of pulmonary arterial tree. Maximum intensity projections 3D imaging was utilized All CT scans are performed using dose optimization technique as appropriate and may include automated exposure control or mA/KV adjustment according to patient size. FINDINGS: A pulmonary embolus is not seen. A thoracic aortic aneurysm is not noted. Small bilateral pleural effusions. Heart is moderately enlarged. No pericardial effusion Mild bilateral pulmonary opacities probably mild pulmonary edema IMPRESSION: Negative for a pulmonary embolism. Mild CHF
--- NOTE | 2022-10-20 22:31 | RAD REPORT ---
EXAM DESCRIPTION: Naren Single View10/20/2022 9:20 pm CLINICAL HISTORY: Chest pain COMPARISON: August 2022 FINDINGS: Mild bilateral pulmonary opacities. The heart is moderately enlarged. Postsurgical changes involve the chest IMPRESSION: Mild CHF
--- NOTE | 2022-10-20 22:43 | RAD REPORT ---
EXAM DESCRIPTION: CT - Abdomen Pelvis W Contrast - 10/20/2022 10:07 pm CLINICAL HISTORY: Abdominal pain COMPARISON: 2019 TECHNIQUE: Computed axial tomography of the abdomen pelvis was obtained. 100 cc Isovue-300 was admin istered intravenously. Oral contrast was not requested which limits evaluation of bowel and appendix All CT scans are performed using dose optimization technique as appropriate and may include automated exposure control or mA/KV adjustment according to patient size. FINDINGS: Gallstones without gallbladder wall thickening. Liver and spleen are unremarkable. 1.5 centimeter cystic mass pancreatic head mildly enlarged from prior exam. Small adrenal nodules probably benign Bilateral renal cysts. 5.2 centimeter enhancing solid mass anterior midpole left kidney. Left hemicolectomy without obstruction. 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 N onemergent MRI could be obtained for further evaluation
--- NOTE | 2022-10-20 23:06 | ER ---
Nurse's Notes [facility] Name: Zeferino Nunez Age: 72 yrs Sex: Male : 1950 Arrival Date: 10/20/2022 Time: 20:44 Bed 3 Private MD: Diagnosis: CHF, Right renal mass Presentation: 10/20 20:55 Chief complaint: Patient states: SOB since yesterday. Denies fever, cough, congestion. kb3 Denies CP. Coronavirus screen: Vaccine status: Patient reports receiving the 1st dose of the Covid vaccine. Client denies travel out of the [place] in the last 14 days. Ebola Screen: Patient negative for fever greater than or equal to 101.5 degrees Fahrenheit, and additional compatible Ebola Virus Disease symptoms Patient denies exposure to infectious person. Patient denies travel to an Ebola-affected area in the 21 days before illness onset. Initial Sepsis Screen: Does the patient meet any 2 criteria? No. Patient's initial sepsis screen is negative. Does the patient have a suspected source of infection? No. Patient's initial sepsis screen is negative. Risk Assessment: Do you want to hurt yourself or someone else? Patient reports no desire to harm self or others. Onset of symptoms was October 19, 2022. 20:55 Method Of Arrival: Wheelchair kb3 20:55 Acuity: VIBHA 2 kb3 Triage Assessment: 20:56 General: Appears distressed, uncomfortable, Behavior is calm, cooperative. Pain: Denies kb3 pain. Respiratory: Reports shortness of breath Airway is patent Respiratory effort is labored, Onset: The symptoms/episode began/occurred yesterday, the patient has moderate shortness of breath. 10/21 00:06 Cardiovascular: Rhythm is sinus rhythm with multifocal PVCs. kl Historical: - Allergies: 10/20 20:56 NKA; kb3 - Home Meds: 20:59 aspirin 81 mg Oral chew 1 tab once daily [Active]; Coreg 25 mg Oral tab 1 tab 2 times kb3 per day [Active]; Lasix 40 mg Oral tab 1 tab 2 times per day [Active]; potassium chloride 20 mEq Oral TbER 1 tab 2 times per day [Active]; Entresto 49-51 mg oral tab 1 tab 2 times per day [Active]; hydralazine 50 mg Oral tab 1 tab 2 times per day [Active]; - PMHx: 20:56 CHF; Hypertension; kb3 - Immunization history:: Adult Immunizations up to date, Client reports receiving the 1st dose of the Covid vaccine, Last tetanus immunization: up to date. - Social history:: Smoking status: Patient denies any tobacco usage or history of. Screenin:02 [facility] ED Fall Risk Assessment (Adult) History of falling in the last 3 months, kl including since admission No falls in past 3 months (0 pts) Confusion or Disorientation No (0 pts) Intoxicated or Sedated No (0 pts) Impaired Gait No (0 pts) Mobility Assist Device Used No (0 pt) Altered Elimination No (0 pt) Score/Fall Risk Level 0 - 2 = Low Risk Oriented to surroundings, Maintained a safe environment, Assessed \T\ reinforced patient's understanding of fall precautions, Hourly rounding (assess needs \T\ fall precautionary measures) done. Abuse screen: Denies threats or abuse. Nutritional screening: No deficits noted. Tuberculosis screening: No symptoms or risk factors identified. Assessment: 21:01 General: Appears distressed, uncomfortable, well groomed, well developed, Behavior is kl calm, cooperative. Cardiovascular: Capillary refill < 3 seconds Pulses are all present. Rhythm is sinus tachycardia. Respiratory: Airway is patent Trachea midline Respiratory effort is labored, with nasal flaring, with retractions, Respiratory pattern is tachypnea Breath sounds are diminished bilaterally. GI: No deficits noted. No signs and/or symptoms were reported involving the gastrointestinal system. : No deficits noted. No signs and/or symptoms were reported regarding the genitourinary system. EENT: No deficits noted. No signs and/or symptoms were reported regarding the EENT system. 22:43 Reassessment: Patient appears in no apparent distress at this time. Patient is alert, kl oriented x 3, equal unlabored respirations, skin warm/dry/pink. Patient states feeling better. Patient states symptoms have improved. 23:16 Reassessment: Patient appears in no apparent distress at this time. Patient is alert, kl oriented x 3, equal unlabored respirations, skin warm/dry/pink. Patient states symptoms have improved. Vital Signs: 20:55 BP 181 / 120; Pulse 99; Resp 26; Temp 98.7; Pulse Ox 94% ; Weight 115.21 kg; Height 6 kb3 ft. 0 in. (182.88 cm); Pain 0/10; 21:04 BP 160 / 124; Pulse 92; Resp 22; Pulse Ox 99% on 3 lpm NC; kl 22:27 BP 163 / 99; Pulse 87; Resp 26 S; Pulse Ox 99% on 3 lpm NC; kl 23:16 BP 163 / 105; Pulse 85; Resp 26; Pulse Ox 98% on 3 lpm NC; kl 10/21 00:02 BP 154 / 100; Pulse 88; Resp 26; Pulse Ox 97% on 3 lpm NC; kl 10/20 20:55 Body Mass Index 34.45 (115.21 kg, 182.88 cm) kb3 ED Course: 10/20 20:44 Patient arrived in ED. ja2 20:44 Jay Mckinney MD is Attending Physician. kdr 20:56 Triage completed. kb3 20:56 Arm band placed on right wrist. kb3 21:01 No provider procedures requiring assistance completed. Inserted saline lock: 20 gauge kl in right antecubital area, using aseptic technique. 21:03 Basic Metabolic Panel Sent. kl 21:03 CBC with Diff Sent. kl 21:03 D-Dimer Sent. kl 21:03 NT PRO-BNP Sent. kl 21:03 Troponin HS Sent. kl 21:22 XRAY Chest (1 view) In Process Unspecified. EDMS 22:09 Chest For Pe Angio In Process Unspecified. EDMS 22:09 Abdomen In Process Unspecified. EDMS 23:06 Oksana Hardwick MD is Hospitalizing Provider. kdr 23:09 SARS RAPID Sent. kl 10/21 00:01 Patient has correct armband on for positive identification. kl 00:01 Patient admitted, IV remains in place. kl Administered Medications: 10/20 21:10 Drug: Nitro-Bid (nitroglycerin) Ointment 2 % 1 inches Route: Transdermal; Site: kl anterior chest wall; 23:16 Drug: Lasix (furosemide) 40 mg Route: IVP; Site: right antecubital; Medication: 10/21 00:01 VIS not applicable for this client. kl Outcome: 10/20 23:06 Discharge ordered by . kdr 23:11 Decision to Hospitalize by Provider. kdr 10/21 00:00 Admitted to Tele accompanied by tech, via stretcher, room 412, with oxygen, with chart. kl Condition: improved Discharge instructions given to patient, family, Instructed on discharge instructions, the need for admit, Demonstrated understanding of instructions. 00:12 Patient left the ED. faustino Signatures: Dispatcher [employer] Sandra Gonzalez RN RN kl Rittger, Kevin, MD MD kdr Alexander, Jessica ja2 Bradberry, Kelly, RN RN kb3 Corrections: (The following items were deleted from the chart) 10/20 21:01 20:59 Home Meds: Pacerone 200 mg Oral tab 1 tab once daily; kb3 kb3
--- NOTE | 2022-10-20 23:06 | EDPHYS ---
Physician Documentation [facility] Name: Zeferino Nunez Age: 72 yrs Sex: Male : 1950 Arrival Date: 10/20/2022 Time: 20:44 Bed 3 Private MD: ED Physician Jay Mckinney HPI: 10/20 21:27 This 72 yrs old Male presents to ER via Wheelchair with complaints of High Blood kdr Pressure, Breathing Difficulty. Historical: - Allergies: 20:56 NKA; kb3 - Home Meds: 20:59 aspirin 81 mg Oral chew 1 tab once daily [Active]; Coreg 25 mg Oral tab 1 tab 2 times kb3 per day [Active]; Lasix 40 mg Oral tab 1 tab 2 times per day [Active]; potassium chloride 20 mEq Oral TbER 1 tab 2 times per day [Active]; Entresto 49-51 mg oral tab 1 tab 2 times per day [Active]; hydralazine 50 mg Oral tab 1 tab 2 times per day [Active]; - PMHx: 20:56 CHF; Hypertension; kb3 - Immunization history:: Adult Immunizations up to date, Client reports receiving the 1st dose of the Covid vaccine, Last tetanus immunization: up to date. - Social history:: Smoking status: Patient denies any tobacco usage or history of. ROS: 21:46 Constitutional: Negative for fever, chills, and weight loss, Eyes: Negative for injury, kdr pain, redness, and discharge, Neck: Negative for injury, pain, and swelling, Cardiovascular: Negative for chest pain, palpitations, and edema, Abdomen/GI: Negative for abdominal pain, nausea, vomiting, diarrhea, and constipation, Back: Negative for injury and pain, MS/Extremity: Negative for injury and deformity, Skin: Negative for injury, rash, and discoloration, Neuro: Negative for headache, weakness, numbness, tingling, and seizure activity. Psych: Negative for depression, anxiety, suicide ideation, homicidal ideation, and hallucinations, Allergy/Immunology: Negative for hives, rash, and allergies, Endocrine: Negative for neck swelling, polydipsia, polyuria, polyphagia, and marked weight changes, Hematologic/Lymphatic: Negative for swollen nodes, abnormal bleeding, and unusual bruising. 21:46 Respiratory: Positive for dyspnea on exertion, shortness of breath, at rest. Negative for hemoptysis, orthopnea, pleurisy, sputum production. Exam: 21:46 Constitutional: This is a well developed, well nourished patient who is awake, alert, kdr and in mild distress. Head/Face: Normocephalic, atraumatic. Eyes: Pupils equal round and reactive to light, extra-ocular motions intact. Lids and lashes normal. Conjunctiva and sclera are non-icteric and not injected. Cornea within normal limits. Periorbital areas with no swelling, redness, or edema. Neck: Trachea midline, no thyromegaly or masses palpated, and no cervical lymphadenopathy. Supple, full range of motion without nuchal rigidity, or vertebral point tenderness. No Meningismus. Chest/axilla: Normal chest wall appearance and motion. Nontender with no deformity. No lesions are appreciated. Cardiovascular: Regular rate and rhythm with a normal S1 and S2. No gallops, murmurs, or rubs. Normal PMI, no JVD. No pulse deficits. Abdomen/GI: Soft, non-tender, with normal bowel sounds. No distension or tympany. No guarding or rebound. No evidence of tenderness throughout. Back: No spinal tenderness. No costovertebral tenderness. Full range of motion. Skin: Warm, dry with normal turgor. Normal color with no rashes, no lesions, and no evidence of cellulitis. Neuro: Awake and alert, GCS 15, oriented to person, place, time, and situation. Cranial nerves II-XII grossly intact. Motor strength 5/5 in all extremities. Sensory grossly intact. Cerebellar exam normal. Normal gait. 21:46 Cardiovascular: Edema: 2+ edema to level of left midcalf, left ankle, right midcalf and right ankle. Vital Signs: 20:55 BP 181 / 120; Pulse 99; Resp 26; Temp 98.7; Pulse Ox 94% ; Weight 115.21 kg; Height 6 kb3 ft. 0 in. (182.88 cm); Pain 0/10; 21:04 BP 160 / 124; Pulse 92; Resp 22; Pulse Ox 99% on 3 lpm NC; kl 22:27 BP 163 / 99; Pulse 87; Resp 26 S; Pulse Ox 99% on 3 lpm NC; kl 23:16 BP 163 / 105; Pulse 85; Resp 26; Pulse Ox 98% on 3 lpm NC; 10/21 00:02 BP 154 / 100; Pulse 88; Resp 26; Pulse Ox 97% on 3 lpm NC; 10/20 20:55 Body Mass Index 34.45 (115.21 kg, 182.88 cm) kb3 MDM: 10/20 23:06 Patient medically screened. [facility] 10/21 00:59 Data reviewed: vital signs, nurses notes, lab test result(s), EKG, radiologic studies. [facility] Consideration of Admission/Observation Patient was admitted/placed on observation. Escalation of care including admission/observation considered. Management of patient was discussed with the following: Primary Care Provider: I considered the following discharge prescriptions or medication management in the emergency department Medications were administered in the Emergency Department. See MAR. ED course: Patient was stable in the ED and removed with the interventions given. Patient was admitted to the floor in good condition. 10/20 20:46 Order name: Basic Metabolic Panel; Complete Time: 22:07 [facility] 10/20 20:46 Order name: CBC with Diff; Complete Time: 22:07 [facility] 10/20 20:46 Order name: D-Dimer; Complete Time: 22:07 [facility] 10/20 20:46 Order name: NT PRO-BNP; Complete Time: 22:07 [facility] 10/20 20:46 Order name: Troponin HS; Complete Time: 22:07 [facility] 10/20 22:34 Order name: SARS RAPID; Complete Time: 23:45 10/20 20:46 Order name: XRAY Chest (1 view); Complete Time: 22:51 [facility] 10/20 23:40 Order name: Basic Metabolic Panel EDAR 10/20 23:40 Order name: Basic Metabolic Panel EDMS 10/20 23:40 Order name: CBC with Automated Diff EDMS 10/20 23:40 Order name: CBC with Automated Diff EDMS 10/20 23:40 Order name: NT PRO-BNP EDMS 10/20 23:40 Order name: NT PRO-BNP EDAR 10/20 23:40 Order name: Troponin High Sensitivity EDAR 10/20 20:46 Order name: EKG; Complete Time: 20:48 [facility] 10/20 20:46 Order name: Cardiac monitoring; Complete Time: 20:53 [facility] 10/20 20:46 Order name: EKG - Nurse/Tech; Complete Time: 20:53 [facility] 10/20 20:46 Order name: IV Saline Lock; Complete Time: 21:03 kdr 10/20 20:46 Order name: Labs collected and sent; Complete Time: 21:03 kdr 10/20 20:46 Order name: O2 Per Protocol; Complete Time: 20:53 kdr 10/20 20:46 Order name: O2 Sat Monitoring; Complete Time: 20:53 kdr 10/20 21:57 Order name: Chest For Pe Angio; Complete Time: 22:51 EDMS 10/20 21:58 Order name: Abdomen ; Complete Time: 22:51 EDMS Administered Medications: 10/20 21:10 Drug: Nitro-Bid (nitroglycerin) Ointment 2 % 1 inches Route: Transdermal; Site: kl anterior chest wall; 23:16 Drug: Lasix (furosemide) 40 mg Route: IVP; Site: right antecubital; kl Disposition Summary: 10/20/22 23:11 Hospitalization Ordered Hospitalization Status: Inpatient Admission kdr Provider: Oksana Hardwick Location: Telemetry/MedSurg (Inpatient)(10/20/22 23:11) kdr Condition: Fair(10/20/22 23:11) kdr Problem: an acute exacerbation(10/20/22 23:11) kdr Symptoms: have improved(10/20/22 23:11) kdr Bed/Room Type: Standard kdr Room Assignment: 412(10/20/22 23:57) Diagnosis - CHF, Right renal mass kdr Forms: - Medication Reconciliation Form kdr - SBAR form kdr Signatures: Dispatcher [employer] EDAR Sandra Claire RN RN kl Webb, Martha, RN RN mw Rittger, Kevin, MD MD kdr Aggie Kelly RN RN kb3 Corrections: (The following items were deleted from the chart) 21:01 20:59 Home Meds: Pacerone 200 mg Oral tab 1 tab once daily; kb3 kb3 21:57 21:07 Chest Abdomen Pelvis W Con+CT.RAD.BRZ ordered. EDAR EDMS 23:06 23:06 Home kdr kdr 23:06 23:06 an acute exacerbation kdr kdr 23:06 23:06 have improved kdr kdr 23:06 23:06 Stable kdr kdr 23:06 23:06 Congestive heart failure, renal mass shortness of breath kdr kdr 23:57 23:11 kdr mw
[2022-10-20] MEDS ORDERED: FUROSEMIDE 40 MG/4 ML VIAL ONE (23:16)
[2022-10-20 23:27] LABS: SARS-CoV-2 Antigen Rapid Res Negative (Negative)
[2022-10-20] MEDS ORDERED: ACETAMINOPHEN 500 MG TAB PO PRN (23:35)
[2022-10-20] MEDS ORDERED: ALBUTEROL 2.5 MG/3 ML NEB SOL NEB PRN (23:35)
[2022-10-20] MEDS ORDERED: IPRATROPIUM BROM 0.5MG/2.5ML NEB PRN (23:35)
[2022-10-21 01:14] VITALS: BMI 34.4
[2022-10-21 05:36] LABS: Absolute Lymphocytes (CBC) 1.1 K/uL (0.7-4.9); Hematocrit 37.2 % (39.6-49.0); Lymphocytes % 11.7 % (15.3-44.8); MCV 87.6 fL (80-100); MPV 9.2 fL (7.6-11.3); RBC Red Blood Cell Count 4.25 M/uL (4.33-5.43)
[2022-10-21 06:01] LABS: Potassium 3.9 mmol/L (3.5-5.1)
[2022-10-21] MEDS ORDERED: INFLUENZA VACCINE (for 6+ mo) 0.5 ML DOSE IMVAC ONE (08:00)
[2022-10-21] MEDS ORDERED: PNEUMOCOCCAL VACCINE 0.5 ML IMVAC ONE (08:00)
[2022-10-21] MEDS ORDERED: FUROSEMIDE 40 MG/4 ML VIAL IV SCH (09:00)
[2022-10-21] MEDS: POTASSIUM CL SA 10 MEQ TAB PO SCH ×2 (09:03→20:41)
[2022-10-21] MEDS: SACUBITRIL/VALSARTAN 24/26 MG TAB PO SCH ×2 (09:43→20:41)
--- NOTE | 2022-10-21 11:59 | HP ---
Date of Admission: 10/21/2022 Chief Complaint: Shortness of breath, weight gain, and leg swelling. History Of Present Illness: This is a 72-year-old very pleasant male patient, who came into emergenc y room with increasing problem with shortness of breath, some leg swelling, and weight gain problem o kj last few days. The patient reports that he takes his medications regularly as prescribed and den ies any fever. No chest pain. After he came into emergency room, he was evaluated and admitted to [facility]. This morning, he feels better than yesterday. Review of Systems: Cardiovascular: As mentioned above. Respiratory: As mentioned above. All other systems reviewed and negative. Allergies: NO KNOWN ALLERGIES. Medications: List reviewed. Past Medical History: Significant for chronic systolic heart failure, hypertension, mixed hyperlipid emia, type 2 diabetes mellitus, obstructive sleep apnea, coronary artery disease, carotid artery sten osis, gastroesophageal reflux disease, diverticulosis, benign prostatic hypertrophy, and chronic kidn ey disease. Past Surgical History: Coronary artery bypass surgery in 2017, left carotid artery stent in 2019, he rnia repair, partial colectomy due to diverticulosis in 2019 with colostomy and then reversal of colo stomy in 2019. Family History: Parents had heart disease. Brother has diabetes, cirrhosis of liver, Parkinson dise ase, and sister has bladder cancer. Social History: Negative for smoking. Alcohol use is only occasional. Physical Examination: Vital Signs: Temperature 97.5, pulse 80, respiratory rate 20, blood pressure 148/88, oxygen saturati on 93% on 3 L nasal cannula oxygen. General: Awake, alert, oriented, not in distress. HEENT: Head atraumatic, normocephalic. Conjunctivae nonerythematous. Sclerae white. Mouth, no thr ush or edema noted. Ears/Nose, no mass, lesion, discharge noted. Neck: Supple. No JVD, lymph nodes, bruit, thyromegaly noted. Lungs: Bilateral basal rales present. Not using any Heart: Normal heart sounds, no murmur or gallop. Abdomen: Soft, bowel sounds normal. No guarding, rigidity, tenderness, mass, hepatosplenomegaly, dis tention, or bruit noted. Extremities: Trace to grade 1 pedal edema present. Skin: No rash, ulcer, cellulitis. Lymphatics: No lymph node enlargement in neck, supraclavicular, infraclavicular region. Neuro: No focal neurological deficit. Chest: Unremarkable. External Genitalia: Deferred. Rectal: Deferred. Laboratory Data: Yesterday; white count 9.2, hemoglobin 14.8, platelets 173. Today; white count 9.2 , hemoglobin 12.7, platelets 164. Yesterday; sodium 138, potassium 4.3, chloride 105, bicarb 26, BUN 27, creatinine 1.58, glucose 160. Troponin 55. ProBNP of 884. Today, ProBNP 20,471. Sodium 143, potassium 3.9, chloride 107, bicarb 28, BUN 26, creatinine 1.45, glucose . Chest x-ray aiden ws mild CHF pattern. CT scan of the chest per PE protocol was negative for pulmonary embolism and it did show changes of mild CHF. CAT scan of the abdomen and pelvis done in emergency room shows 5.2 c m left renal mass likely renal cell carcinoma and 1.5 cm cystic mass in the pancreatic head. I have reviewed his prior CAT scan results from January 04, 2019 and this was CAT scan of the abdomen and pelvi s and that was reported as multiple bilateral cortical cysts involving both kidneys. No hydronephros is or aggressive renal mass and pancreas was reported as normal on that report. Another CAT scan he had December 31, 2019 and on that CAT scan also pancreas were reported as unremarkable and no renal mass was reported on that CAT scan. Both of these CAT scans were done when he presented to emergency [facility] . His last echocardiogram from September 02, 2022 shows ejection fraction 42%. Impression: 1.Congestive heart failure, chronic, systolic, with acute exacerbation. 2.Hypertension. 3.Mixed hyperlipidemia. 4.Coronary artery disease. 5.Obstructive sleep apnea. 6.Type 2 diabetes mellitus. 7.Carotid artery stenosis. 8.Gastroesophageal reflux disease. 9.Diverticulosis. 10.Benign prostatic hypertrophy. 11.Left renal mass, rule out renal cell carcinoma. 12.Bilateral renal cysts. 13.Mass of the pancreatic head. 14.Chronic kidney disease, stage 3A. Plan: We will go ahead and admit the patient to hospital for further evaluation and management of th is problem. The patient is appropriate for inpatient and is expected to spend 2 midnights in [facility]. We will give IV Lasix for treatment of his congestive heart failure at this time, continue oral r eplacement with potassium. For hypertension, we will continue his antihypertensive medications per o rder. For hyperlipidemia, the patient has refused any treatment so far and that is why he is not kareem ing any statin therapy. We will monitor intake, output, daily weight, renal function and electrolyte s. Consult Cardiology. I did discuss with the patient regarding his abnormalities noted on the CAT scan of abdomen and pelvis involving pancreas and left kidney and further evaluation to rule out any underlying malignancy in both of these regions and after discharge, we will initiate the referral pro cess to specialist in [place] and recommended for him to go to [facility], which he understands and agrees and I will have office initiate the referral process. The patient was informed that [facility] will contact him with appointment once we start the referral process. The patient's home phone nu rigo is [phone] and cell number is [phone] and he will receive phone call on either ose numbers from [facility]. Details and plan of treatment discussed with the patient. DVT prophyl axis will be given using Lovenox. MIKE/MODL Voice ID: [id number]
[2022-10-21] MEDS ORDERED: ALBUTEROL 2.5 MG/3 ML NEB SOL NEB PRN (15:00)
[2022-10-21] MEDS ORDERED: IPRATROPIUM BROM 0.5MG/2.5ML NEB PRN (15:00)
[2022-10-21] MEDS: FUROSEMIDE 40 MG/4 ML VIAL IV SCH (16:42)
--- NOTE | 2022-10-21 17:32 | EKG ---
Test Date: 2022-10-20 Test Time: 20:51:09 Formula Clerk: LAURYN MEASUREMENT RESULTS: Intervals: Rate: 98 KS: 188 QRSD: 122 QT: 364 QTc: 464 [place]: P: 64 KS: 188 QRS: -12 T: 121 INTERPRETIVE STATEMENTS: Normal sinus rhythm Inferior infarct, age undetermined Anterolateral infarct, age undetermined Abnormal ECG Compared to ECG 08/31/2022 00:36:29 Myocardial infarct finding now present Sinus tachycardia no longer present Left bundle-branch block no longer present Electronically Signed On 10-21-22 17:30:56 [employer] by Eliezer Corado
[2022-10-22 04:06] VITALS: O2SAT 98
[2022-10-22 04:28] LABS: Albumin 2.6 g/dL (3.4-5.0); Bilirubin Total 0.8 mg/dL (0.2-1.0); Magnesium 2.2 mg/dL (1.6-2.4); Potassium 3.5 mmol/L (3.5-5.1); Protein, Total 6.3 g/dL (6.4-8.2)
[2022-10-22 09:11] VITALS: BP 183/98; TEMP 97.7
[2022-10-22] MEDS: FUROSEMIDE 40 MG/4 ML VIAL IV SCH (09:11)
[2022-10-22] MEDS: POTASSIUM CL SA 10 MEQ TAB PO SCH (09:11)
[2022-10-22] MEDS: SACUBITRIL/VALSARTAN 24/26 MG TAB PO SCH (09:11)
--- NOTE | 2022-10-23 07:06 | DS ---
Date of Discharge: 10/22/2022 Disposition: Discharged to go home. Physical Examination: HEENT: Unremarkable. Lungs: Clear to auscultation. Heart: Sounds normal. Abdomen: Soft. Bowel sounds normal. No guarding, rigidity, tenderness, distention. Extremities: No leg edema. Laboratory Data: Upon admission; white count 9.2, hemoglobin 14.8, platelets 173 and last CBC from y white count 9.2, hemoglobin 12.7, platelets 164. Upon admission; sodium 138, potassium 4.3, chloride 105, bicarb 26, BUN 27, creatinine 1.58, glucose 160. ProBNP 23,884, troponin 55.6 on the first set, second set was 50.9. After admission, repeat BNP 20,471. Last chemistry today; sodium 14 1, potassium 3.5, chloride 106, bicarb 29, BUN 30, creatinine 1.47, estimated GFR 50, glucose 109. L iver function tests unremarkable. Final Diagnoses: 1.Congestive heart failure, chronic, systolic, with acute exacerbation. 2.Hypertension. 3.Mixed hyperlipidemia. 4.Coronary artery disease. 5.Obstructive sleep apnea. 6.Type 2 diabetes mellitus. 7.Carotid artery stenosis. 8.Gastroesophageal reflux disease. 9.Diverticulosis. 10.Benign prostatic hypertrophy. 11.Anemia, unspecified. 12.Left renal mass, rule out renal cell carcinoma. 13.Pancreatic mass, involving head of pancreas. 14.Bilateral renal cyst. 15.Chronic kidney disease, stage 3A. Hospital Course: This is a 72-year-old pleasant male patient admitted to the hospital with shortness of breath problem. Please see dictated H and P for more information. After patient was evaluated i n the emergency room, he was admitted to the hospital. IV diuretic therapy was started and overall h is condition has improved with IV diuretic therapy. His other home medications were continued. His CAT scan of the abdomen and pelvis done in the emergency room has shown a mass in the pancreatic head , as well as mass in the left kidney and this is suspicious for carcinoma. I have discussed this abn ormal findings with the patient and recommended further evaluation by going to [facility] and he is agreeable for that, so we will go ahead and initiate the referral process on outpatient basis through the office. Today, he was feeling better and was discharged to go home in stable condition with fol [facility] discharge medications and instructions: 1.Continue all prior home medication except following changes: a.Furosemide take 2 tablets by mouth 2 times a day. b.Potassium chloride take 2 tablets by mouth 2 times a day. c.Follow up at my office next week. MIKE/MODL Voice ID: [id number] Report ID: [id number]
== END 2022-10-22 10:45 | disposition home or self-care (01) | DRG 291 ==
LOC: ER 20:41 → 4TH 10-21 00:33
PROVIDERS: ADMIT Internal Medicine; ATTEND Internal Medicine
DX: I13.0 Hypertensive heart and chronic kidney disease with heart failure and stage 1 through stage 4 chronic kidney disease, or unspecified chronic kidney disease (principal); I50.23 Acute on chronic systolic (congestive) heart failure; C64.2 Malignant neoplasm of left kidney, except renal pelvis; N18.31 Chronic kidney disease, stage 3a; E11.22 Type 2 diabetes mellitus with diabetic chronic kidney disease; E78.2 Mixed hyperlipidemia; I25.10 Atherosclerotic heart disease of native coronary artery without angina pectoris; G47.33 Obstructive sleep apnea (adult) (pediatric); I65.29 Occlusion and stenosis of unspecified carotid artery; K21.9 Gastro-esophageal reflux disease without esophagitis; K57.90 Diverticulosis of intestine, part unspecified, without perforation or abscess without bleeding; N40.0 Benign prostatic hyperplasia without lower urinary tract symptoms; D64.9 Anemia, unspecified; N28.1 Cyst of kidney, acquired; K86.89 Other specified diseases of pancreas; Z91.14 Patient's other noncompliance with medication regimen; Z95.1 Presence of aortocoronary bypass graft; Z95.828 Presence of other vascular implants and grafts; Z90.49 Acquired absence of other specified parts of digestive tract; Z20.822 Contact with and (suspected) exposure to COVID-19; Z82.49 Family history of ischemic heart disease and other diseases of the circulatory system; Z83.3 Family history of diabetes mellitus; Z80.52 Family history of malignant neoplasm of bladder; Z82.0 Family history of epilepsy and other diseases of the nervous system
CPT/HCPCS: 36415; 71045; 71275; 74177; 80048; 80053; 83735; 83880; 84484; 85025; 85379; 87811; 93005; 96374; 99285; J1940; Q9967

== ENCOUNTER 2024-04-30 10:53 | Inpatient (IN) | payer OTHER ==
[2024-04-30] MEDS ORDERED: FUROSEMIDE 40 MG/4 ML VIAL ONE (11:12)
[2024-04-30 12:56] LABS: Absolute Lymphocytes (CBC) 0.3 K/uL (0.7-4.9); Absolute Monocytes 0.5 K/uL (0.1-1.3); Absolute Neutrophil 3.5 K/uL (1.8-8.0); Basophils % 0.3 % (0-1.3); Eosinophils % 0.2 % (0-4.4); Hematocrit 49.5 % (39.6-49.0); Hemoglobin 12.3 g/dL (13.6-17.9); Lymphocytes % 6.5 % (15.3-44.8); MCH 19.9 pg (27.0-35.0); MCHC 24.8 g/dL (32.0-36.0); MCV 80.4 fL (80-100); MPV 8.2 fL (7.6-11.3); Monocytes % 11.3 % (3.3-12.3); Neutrophils % 81.7 % (41.7-73.7); Nucleated Red Blood Cells % 0.1 % (0-0); Platelets 143 thou/uL (152-406); RBC Red Blood Cell Count 6.16 M/uL (4.33-5.43); Red Cell Distribution Width 23.5 % (12.1-15.2)
[2024-04-30 13:03] LABS: Blood Morphology Comment NOTED (NOT SEEN); Platelet Estimate ADEQ; White Blood Cell Scan OK (OK)
[2024-04-30 13:04] LABS: Anisocytosis 2+; Hypochromasia 1+
--- NOTE | 2024-04-30 13:06 | RAD REPORT ---
EXAM DESCRIPTION: RAD - Chest Single View - 04/30/2024 12:43 pm CLINICAL HISTORY: chf Chest pain. COMPARISON: Chest Single View dated 01/01/2023; Chest Single View dated 10/20/2022; Chest Single View dated 08/31/2022; Chest Single View dated 01/04/2019 FINDINGS: Portable technique limits examination quality. Moderate bilateral pulmonary opacities are seen which may represent pulmonary edema or pneumonia. The heart is significantly enlarged in size. No displaced fractures.Sternotomy wires present. IMPRESSION: Moderate CHF versus volume overload pattern.
--- NOTE | 2024-04-30 13:07 | RAD REPORT ---
EXAM DESCRIPTION: RAD - Ankle Left 3 View - 04/30/2024 12:43 pm CLINICAL HISTORY: PAIN COMPARISON: Ankle Left 3 View dated 10/20/2019 FINDINGS: There is significant soft tissue swelling about the ankle. No acute fracture or dislocatio n seen. Calcaneal spurs are present, moderate in size along the plantar aspect.
[2024-04-30 13:17] LABS: Albumin 2.2 g/dL (3.4-5.0); Albumin/Globulin Ratio 0.4 (1.1-1.8); Anion Gap 10.8 mEq/L (5.0-15.0); Bilirubin Direct 1.6 mg/dL (0-0.2); Bilirubin Indirect, Calculated 0.7 mg/dL (0.2-0.8); Bilirubin Total 2.3 mg/dL (0.2-1.0); Globulin 5.1 g/dL (2.3-3.5); Magnesium 2.6 mg/dL (1.6-2.4); Potassium 3.8 mEq/L (3.5-5.1); Protein, Total 7.3 g/dL (6.4-8.2); Troponin High Sensitivity 37.6 pg/mL (<58.9)
--- NOTE | 2024-04-30 13:44 | EDPHYS ---
Physician Documentation [facility] Name: Zeferino Nnuez Age: 73 yrs Sex: Male : 1950 Arrival Date: 04/30/2024 Time: 10:53 Bed 9 Private MD: ED Physician Alfred Claire HPI: 04/30 11:04 This 73 yrs old Male presents to ER via EMS with complaints of Fall. rt 11:04 Patient with history of congestive heart failure presents to the ED with a fall. rt Patient states his legs "stopped working" causing him to fall. Patient was eased to the ground, apparently sustaining an abrasion to the knee. Denies deeper injury to the knee. The patient reports difficulty breathing, worsening swelling. Denies other acute complaints at this time, symptoms are moderate in severity, no other aggravating or alleviating factors.. Historical: - Allergies: 12:32 NKA; kj2 - Home Meds: 11:00 aspirin 81 mg Oral chew 1 tab once daily [Active]; Coreg 25 mg Oral tab 1 tab 2 times kj2 per day [Active]; Entresto 49-51 mg Oral tab 1 tab 2 times per day [Active]; hydralazine 50 mg Oral tab 1 tab 2 times per day [Active]; Lasix 40 mg Oral tab 1 tab 2 times per day [Active]; Pacerone 200 mg Oral tab 1 tab once daily [Active]; potassium chloride 20 mEq Oral TbER 1 tab 2 times per day [Active]; - PMHx: 11:00 CHF; Congestive heart failure; Hypertension; kj2 - PSHx: 11:00 bowel resection; Colostomy and reversal; Coronary artery bypass graft; hernia; kj2 - Immunization history:: Client reports receiving the 1st dose of the Covid vaccine. - Infectious Disease History:: Denies. - Family history:: not pertinent. - Social history:: Patient/guardian denies using Smoking status: unknown. ROS: 11:04 Constitutional: Negative for fever, chills, and weight loss, Abdomen/GI: Negative for rt abdominal pain, nausea, vomiting, diarrhea, and constipation, Skin: Negative for injury, rash, and discoloration, Neuro: Negative for headache, weakness, numbness, tingling, and seizure, 11:04 Cardiovascular: Positive for edema, Negative for chest pain, 11:04 Respiratory: Positive for shortness of breath, Negative for cough, 11:04 MS/extremity: Positive for abrasion, swelling, Exam: 11:04 Constitutional: This is a well developed, well nourished patient who is awake, alert, rt and in no acute distress. Head/Face: Normocephalic, atraumatic. Chest/axilla: Normal chest wall appearance and motion. Nontender with no deformity. No lesions are appreciated. Cardiovascular: Regular rate and rhythm with a normal S1 and S2. No gallops, murmurs, or rubs. Normal PMI, no JVD. No pulse deficits. Abdomen/GI: Soft, non-tender, with normal bowel sounds. No distension or tympany. No guarding or rebound. No evidence of tenderness throughout. Skin: Warm, dry with normal turgor. Normal color with no rashes, no lesions, and no evidence of cellulitis. Neuro: Awake and alert, GCS 15, oriented to person, place, time, and situation. Cranial nerves II-XII grossly intact. Motor strength 5/5 in all extremities. Sensory grossly intact. Cerebellar exam normal. Normal gait. 11:04 Respiratory: Bibasilar crackles, no respiratory distress, 11:04 Musculoskeletal/extremity: Abrasion to the left knee, no lacerations, 3+ pitting lower extremity edema equally. 12:36 ECG was reviewed by the Attending Physician. rt Vital Signs: 10:55 BP 133 / 94; Pulse 74; Resp 20; Pulse Ox 89% on R/A; Pain 6/10; kj2 11:05 BP 139 / 94; Pulse 74; Resp 20; Pulse Ox 89% on R/A; Pain 6/10; kj2 12:20 Pulse Ox 87% on R/A; nj1 13:11 BP 127 / 83; Pulse 69; Resp 20; Pulse Ox 93% on 3 lpm NC; nj1 15:20 BP 123 / 88; Pulse 73; Resp 18; Temp 98.1; Pulse Ox 97% on 3 lpm NC; kj2 10:55 Pain Scale: Adult kj2 11:05 Pain Scale: Adult kj2 MDM: 10:55 Patient medically screened. rt 13:44 Differential Diagnosis Fall, fracture, pneumonia, CHF. Data reviewed: vital signs, rt nurses notes, lab test result(s), EKG, radiologic studies. Consideration of Admission/Observation Patient was admitted/placed on observation. Management of patient was discussed with the following: Hospitalist: Agrees to admit. I considered the following discharge prescriptions or medication management in the emergency department Medications were administered in the Emergency Department. See MAR. Independent interpretation of the following test(s) in the Emergency Department X-Ray: My interpretation is Pulmonary edema seen on interpretation of x-ray images. Test considered but Not performed: CT: Low suspicion for pulmonary embolism, CT angiogram not indicated. Care significantly affected by the following chronic conditions: Congestive Heart Failure. Counseling: I had a detailed discussion with the patient and/or guardian regarding the historical points, exam findings, and any diagnostic results supporting the discharge/admit diagnosis, lab results, radiology results, the need for further work-up and treatment in the hospital. Response to treatment: the patient's symptoms have mildly improved after treatment. 04/30 11:03 Order name: Basic Metabolic Panel; Complete Time: 13: rt 04/30 11:03 Order name: CBC with Diff; Complete Time: 13: rt 04/30 11:03 Order name: LFT's; Complete Time: 13: rt 04/30 11:03 Order name: Magnesium; Complete Time: 13:04/30 11:03 Order name: NT PRO-BNP; Complete Time: 13: rt 04/30 11:03 Order name: Troponin HS; Complete Time: 13:04/30 13:01 Order name: CBC Smear Scan; Complete Time: 13:11 EDOR 04/30 11:03 Order name: XRAY Chest (1 view); Complete Time: 13:11 04/30 11:04 Order name: Ankle Left 3 View XRAY; Complete Time: 13:11 rt 04/30 11:03 Order name: Cardiac monitoring; Complete Time: 15:47 rt 04/30 11:03 Order name: EKG - Nurse/Tech; Complete Time: 12:29 rt 04/30 11:03 Order name: IV Saline Lock; Complete Time: 11: rt 04/30 11:03 Order name: Labs collected and sent; Complete Time: 11:04/30 11:03 Order name: O2 Per Protocol; Complete Time: 11:04/30 11:03 Order name: O2 Sat Monitoring; Complete Time: 11:04/30 12:42 Order name: Labs - recollect needed: recollect the labs hemolyzed; Complete Time: 12:46 jr12 EC:36 Rate is 74 beats/min. Rhythm is regular, Normal Sinus Rhythm with Occasional PVCs, Left rt bundle branch block. QRS Gilman is Normal. CO interval is normal. QT interval is normal. No ST changes noted. Interpreted by me. Administered Medications: 11:30 Drug: Furosemide IVP 40 mg IVP once; give over 2 minutes Route: IVP; Site: left kj2 antecubital; 13:58 Follow up: Response: No adverse reaction kj2 Disposition Summary: 04/30/24 13:44 Hospitalization Ordered Notes: Hospitalization Status: Observation rt Location: Telemetry/MedSurg (observation) rt Condition: Fair rt Problem: new rt Symptoms: have improved rt Bed/Room Type: Standard rt Provider: Sandra Seymour(04/30/24 13:48) rt Room Assignment: [facility](04/30/24 15:04) eb Diagnosis - Unspecified systolic (congestive) heart failure rt - Respiratory failure, unspecified with hypoxia rt Forms: - Medication Reconciliation Form rt - SBAR form rt - Leadership Thank You Letter rt Critical care time excluding procedures: 13:59 Critical care time: Bedside Care: 30 minutes, Consultation: 5 minutes. Total time: 35 rt minutes Signatures: Dispatcher [employer] EDMS Stephanie Juan Ryan, MD MD rt Ivonne Davis jr12 Linette Pardo RN RN kj2 Corrections: (The following items were deleted from the chart) 13:48 13:44 Zachary Bullard rt rt 15:04 13:44 rt eb
--- NOTE | 2024-04-30 13:44 | ER ---
Nurse's Notes [facility] Name: Zeferino Nunez Age: 73 yrs Sex: Male : 1950 Arrival Date: 04/30/2024 Time: 10:53 Bed 9 Private MD: Diagnosis: Unspecified systolic (congestive) heart failure;Respiratory failure, unspecified with hypoxia Presentation: 04/30 10:55 Chief complaint: EMS states: pt had an assisted fall. daughter was getting him out of kj2 bed and his legs got weak, so she assisted him to the floor landing on his left side/leg. he has pain to his left ankle when touched. Coronavirus screen: Vaccine status: Patient reports receiving the 1st dose of the Covid vaccine. Ebola Screen: No symptoms or risks identified at this time. Initial Sepsis Screen: Does the patient meet any 2 criteria? No. Patient's initial sepsis screen is negative. Does the patient have a suspected source of infection? No. Patient's initial sepsis screen is negative. Risk Assessment: Do you want to hurt yourself or someone else? Patient reports no desire to harm self or others. Onset of symptoms was April 30, 2024 at 10:57. 10:55 Method Of Arrival: EMS: [facility] kj2 10:55 Acuity: VIBHA 3 kj2 Triage Assessment: 11:03 General: Appears in no apparent distress. Behavior is calm, cooperative. Pain: Pain kj2 currently is 6 out of 10 on a pain scale. Neuro: Level of Consciousness is awake, alert, Oriented to person, place, situation. Cardiovascular: Patient's skin is warm and dry. Respiratory: Airway is patent Respiratory effort is unlabored. GI: No deficits noted. : incontinent, diaper. Derm: Bruising that is skin abrasion on left knee. Historical: - Allergies: 12:32 NKA; kj2 - Home Meds: 11:00 aspirin 81 mg Oral chew 1 tab once daily [Active]; Coreg 25 mg Oral tab 1 tab 2 times kj2 per day [Active]; Entresto 49-51 mg Oral tab 1 tab 2 times per day [Active]; hydralazine 50 mg Oral tab 1 tab 2 times per day [Active]; Lasix 40 mg Oral tab 1 tab 2 times per day [Active]; Pacerone 200 mg Oral tab 1 tab once daily [Active]; potassium chloride 20 mEq Oral TbER 1 tab 2 times per day [Active]; - PMHx: 11:00 CHF; Congestive heart failure; Hypertension; kj2 - PSHx: 11:00 bowel resection; Colostomy and reversal; Coronary artery bypass graft; hernia; kj2 - Immunization history:: Client reports receiving the 1st dose of the Covid vaccine. - Infectious Disease History:: Denies. - Family history:: not pertinent. - Social history:: Patient/guardian denies using Smoking status: unknown. Screenin:53 [facility] ED Fall Risk Assessment (Adult) History of falling in the last 3 months, kj2 including since admission Yes- fall prone (multiple falls) (3 pts) Confusion or Disorientation No (0 pts) Intoxicated or Sedated No (0 pts) Impaired Gait Yes (1 pt) Mobility Assist Device Used Yes (1 pt) Altered Elimination Yes (1 pt) Score/Fall Risk Level 3 or more points = High Risk Maintained a safe environment, Educated pt \T\ family on fall prevention, incl call for assistance when getting out of bed, Hourly rounding (assess needs \T\ fall precautionary measures) done, Utilized family, sitter, or virtual radio television technical director as indicated. Abuse screen: Denies threats or abuse. Denies injuries from another. Nutritional screening: No deficits noted. Tuberculosis screening: No symptoms or risk factors identified. Assessment: 11:00 General: Appears in no apparent distress. Behavior is calm. Pain: Complains of pain in kj2 left ankle Pain currently is 5 out of 10 on a pain scale. Neuro: Level of Consciousness is awake, alert, Oriented to person, place, situation. Cardiovascular: Patient's skin is warm and dry. skin abrasion to left knee. Respiratory: Airway is patent. GI: No deficits noted. : diaper/incontinence. 13:01 Reassessment: Patient and/or family updated on plan of care and expected duration. Pain kj2 level reassessed. Patient is alert, oriented x 3, equal unlabored respirations, skin warm/dry/pink. Patient denies pain at this time. Vital Signs: 10:55 BP 133 / 94; Pulse 74; Resp 20; Pulse Ox 89% on R/A; Pain 6/10; kj2 11:05 BP 139 / 94; Pulse 74; Resp 20; Pulse Ox 89% on R/A; Pain 6/10; kj2 12:20 Pulse Ox 87% on R/A; nj1 13:11 BP 127 / 83; Pulse 69; Resp 20; Pulse Ox 93% on 3 lpm NC; nj1 15:20 BP 123 / 88; Pulse 73; Resp 18; Temp 98.1; Pulse Ox 97% on 3 lpm NC; kj2 10:55 Pain Scale: Adult kj2 11:05 Pain Scale: Adult kj2 ED Course: 10:54 Patient arrived in ED. kj2 10:55 Linette Pardo, RN is Primary Nurse. kj2 10:55 Alfred Claire MD is Attending Physician. rt 11:00 Triage completed. kj2 12:29 Lab(s) recollected, by me, sent to lab. nj1 12:30 Oxygen administration via nasal cannula \T\ 3L/min Response to oxygen therapy: symptoms nj1 improved. 12:45 XRAY Chest (1 view) In Process Unspecified. EDMS 12:45 Ankle Left 3 View XRAY In Process Unspecified. EDMS 13:10 Notified ED physician of other family wanting to give home meds to patient. Ok by nj1 physician for him to have his home medications. 13:43 Zachray Bullard is Hospitalizing Provider. rt 13:48 Sandra Seymour MD is Hospitalizing Provider. rt 13:55 Patient has correct armband on for positive identification. Bed in low position. Call kj2 light in reach. Side rails up X2. Adult w/ patient. Provided Education on: call light, fall precautions. 13:56 Arm band placed on. kj2 13:57 No provider procedures requiring assistance completed. Inserted saline lock: 20 gauge kj2 in left antecubital area, using aseptic technique. 16:48 Patient admitted, IV remains in place. kj2 Administered Medications: 11:30 Drug: Furosemide IVP 40 mg IVP once; give over 2 minutes Route: IVP; Site: left kj2 antecubital; 13:58 Follow up: Response: No adverse reaction kj2 Medication: 13:55 VIS not applicable for this client. kj2 Outcome: 13:44 Decision to Hospitalize by Provider. rt 16:47 Admitted to Tele accompanied by tech, via stretcher, room 412, with oxygen, kj2 16:47 Condition: stable 16:47 Instructed on the need for admit, 16:48 Patient left the ED. kj2 Signatures: Dispatcher [employer] EDMS Alfred Claire MD MD rt Jaco, Norma RN RN nj1 Linette Pardo RN RN kj2
--- NOTE | 2024-04-30 13:51 | P.HP ---
Certification for Inpatient Patient admitted to: Inpatient With expected LOS: <2 Midnights <Casandra Esteban - Last Filed: 04/30/24 18:07> Patient History Date of Service: 04/30/24 Reason for admission: Acute on chronic heart failure History of Present Illness: 73-year-old male with a past medical history of CAD CABG four-vessel coronary artery bypass graft, congestive heart failure with an ejection fraction of 29%, oxygen dependance, hypertension, CAD, obstructive sleep apnea presents to the emergency room with fall. Reports moderate to severe generalized weakness, anorexia, weight loss, deconditiong worse over the last month, family reports he is unable to ambulate independently over the last month. Moderate abdoominal distention, bilatateral lower extremity swelling. , Daughters are at bedside are primary historian (s) report he has had 3 falls today, an abrasion to the knee, denies pain with range of motion, reports shortness of breath that has gotten progressively worse over the last 2 days, shortness of breath worse while laying flat. No reported chest pain, abdominal pain, fever, nausea vomiting diarrhea. He is a [employer]. 10/20/22 CTA 1.5 centimeter cystic mass pancreatic head mildly enlarged from prior exam.Small adrenal nodules probably benign Bilateral renal cysts. 5.2 centimeter enhancing solid mass anteriormidpole left kidney. 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 Nonemergent MRI could be obtained for further evaluation. Patient and family refused to follow up with MD Saab because he was declining in health and did not want aggressive treatment. The patient and family denies a diagnosis of metastatic disease diagnosis. The recently had eye surgery and is unable to lift her and request SNF at discharge. The have not used prior SNF in the past. He resides at home. If the patient goes home, will need a hospital bed. Prognosis is poor, would benefit from hospice at discharge consideration. Plan to admit for acute on chronic heart failure, acute hypoxic respiratory failure with cardiology to consult. SS to consult for DC planning. ER evaluation blood pressure 133/94, heart rate 74 respiration 89% room air pain 6 out of 10. Laboratory evaluation BNP 56,917, troponin normal 37.6, chest x-ray moderate pulmonary edema vs pnemonia presentation. - Past Medical/Surgical History Diabetic: No -: Hypertension -: Morbid obesity -: GERD -: DM Type 2 -: CHF, systolic dysfunction 25% -: CAD with recent CABG -: Obstructive sleep apnea -: Pulmonary edema -: Hernia repairs -: CABG Psychosocial/ Personal History: Patient is to 47 years. He has 4 children. 1 is adopted. 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 - Family History Mother -: Heart disease, Hypertension, Stroke - Social History Alcohol use: No CD- Drugs: No Caffeine use: No <Casandra Esteban - Last Filed: 04/30/24 18:07> Date of Service: 04/30/24 <Sandra Seymour - Last Filed: 05/02/24 20:30> Allergies No Known Allergies Allergy (Verified 01/01/23 22:10) Home Medications: carvediloL [Coreg*] 25 mg PO BID 6AM 6PM #60 tab 08/08/17 Sacubitril/Valsartan [Entresto 49 mg-51 mg Tablet] 1 tab PO BID #60 tab 09/19/17 Furosemide [Lasix*] 80 mg PO BID 10/21/22 Potassium Chloride [K-Tab ER] 1 tab PO DAILY 10/21/22 Review of Systems HPI <Casandra Esteban - Last Filed: 04/30/24 18:07> Physical Examination - Physical Exam General: Alert, Oriented x3, Mild distress, Other (Cachectic) HEENT: Normocephalic, Other (Dry mucous) Neck: Supple, 2+ carotid pulse no bruit Respiratory: Normal air movement, Crackles/rales Cardiovascular: Normal pulses, Regular rate/rhythm, Edema (2+ bilateral lower extremity edema) Gastrointestinal: Normal bowel sounds, Distended Musculoskeletal: No swelling, No contractures, Other (Generalized) Integumentary: No breakdown, Other (Left knee abrasion) Neurological: Normal speech, Normal strength at 5/5 x4 extr, Cranial nerves 3-12 intact - Studies Laboratory Data (last 24 hrs) 04/30/24 04/30/24 12:25 12:25 WBC 4.30 Hgb 12.3 L Hct 49.5 H Plt Count 143 L Sodium 139 Potassium 3.8 BUN 34 H Creatinine 1.58 H Glucose 112 H Magnesium 2.6 H Total Bilirubin 2.3 H AST 21 ALT 24 Alkaline Phosphatase 197 H <Casandra Esteban - Last Filed: 04/30/24 18:07> Assessment and Plan - Plan Assessment/Plan Acute on chronic heart failure Acute hypoxic respiratory failure due to decompensated heart failure Acute pulmonary edema Acute elevated BNP Cardiology consult, telemetry, Diuresis, Lasix Q8, hold Entresto per cardiology, continue Coreg Coyne to bedside drainage for strict I&O Resume appropriate home meds Daily weight, I&O's chest x-ray moderate bilateral pulmonary opacities may represent pulmonary edema or pneumonia, cardiac enlargement, 01/01/23 Echo . MILDLY DEPRESSED LEFT VENTRICULAR EJECTION FRACTION 40%. 2. MILD GLOBAL HYPOKINESIS. 3. MODERATE MITRAL REGURGITATION. 4. MILD TO MODERATE PULMONARY REGURGITATION. 5. MILD AORTIC REGURGITATION. 6. SEVERE DIASTOLIC DYSFUNCTION. Fall Unsteady gait Fall precaution Ankle x-ray no acute fracture or dislocation, calcaneal spurs present Pancreatic mass Adrenal nodule Bilateral renal cyst Left renal mass likely renal cell carcinoma likely undiagnosed extensive metastatic disease unknown primary site Anorexia Protein calorie malnutrition 10/20/22 CTA 1.5 centimeter cystic mass pancreatic head mildly enlarged from prior exam.Small adrenal nodules probably benign Bilateral renal cysts. 5.2 centimeter enhancing solid mass anteriormidpole left kidney. 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 Nonemergent MRI could be obtained for further evaluation. Patient and family refused to follow up with MD Saab because he was declining in health and did not want aggressive treatment. The patient and family denies a diagnosis of metastatic disease diagnosis. The recently had eye surgery and is unable to lift her and request SNF at discharge. The have not used prior SNF in the past. He resides at home. If the patient goes home, will need a hospital bed. Prognosis is poor, would benefit from hospice at discharge consideration. Plan to admit for acute on chronic heart failure, acute hypoxic respiratory failure with cardiology to consult. SS to consult for DC planning. ER evaluation blood pressure 133/94, heart rate 74 respiration 89% room air pain 6 out of 10. Laboratory evaluation BNP 56,917, troponin normal 37.6, chest x-ray moderate pulmonary edema vs pnemonia presentation. 04/30/24 CT of the chest abdomen pelvis with and without contrast to eval for extension metastatic disease, abdominal ascites, History of a left hemicolectomy CAD with prior CABG Carotid artery stenosis Hypertension. Mixed hyperlipidemia Obstructive sleep apnea Gastroesophageal reflux disease Diverticulosis. Benign prostatic hypertrophy Resume appropriate home medication Chronic kidney disease, stage 3A. Trend kidney Type 2 diabetes mellitus unknown can Accu-Cheks, sliding scale diet, Diabetic diet Full code DVT heparin Diet diabetic Disposition [facility]ci facility versus possible hospice at discharge Discharge Plan: Home - Advance Directives Does patient have a Living Will: Yes Does patient have a Durable POA for Healthcare: Yes - Code Status/Comfort Care Code Status: Full Code Critical Care: No Time Spent Managing Pts Care (In Minutes): 55 <Casandra Esteban - Last Filed: 04/30/24 18:07> Date of Service: 04/30/24 Patient chart was reviewed and patient was seen and examined. CHUCKY history and physical reviewed as well. Agree with the assessment and plan. Patient presented with metastatic renal cell carcinoma. Most of the MDM was done by m yself and plan of care was discussed with CHUCKY as well as the patient. Plan to discharge with hospice once pt gets thoracentesis and PT. Anticipated length of stay is 3 to 4 days. <Sandra Seymour - Last Filed: 05/02/24 20:30>
--- NOTE | 2024-04-30 16:23 | P.CNS ---
Date of Consult: 04/30/24 Chief Complaint: Acute on chronic heart failure History of Present Illness: Patient with PMH of heart failure reduced EF, HTN, HLD, CAD s/p CABG presented with worsening SOB, fatigue, generalized weakness, also he is having bilateral lower extremities edema that has been going on for weeks, denies chest pain, no palpitations, no syncope but report dizzy spells. Allergies No Known Allergies Allergy (Verified 01/01/23 22:10) Home medications list reviewed: Yes Home Medications: Aspirin Chewable [Aspirin Chewable*] 81 mg PO DAILY 08/01/17 carvediloL [Coreg*] 25 mg PO BID 6AM 6PM #60 tab 08/08/17 Sacubitril/Valsartan [Entresto 49 mg-51 mg Tablet] 1 tab PO BID #60 tab 09/19/17 Furosemide [Lasix*] 80 mg PO BID 10/21/22 Potassium Chloride [K-Tab ER] 2 tab PO BID 10/21/22 Ezetimibe 10 mg PO DAILY 01/01/23 Glipizide [Glipizide ER] 5 mg PO DAILY 01/01/23 Hydralazine HCl [Apresoline] 50 mg PO TID #90 tab 01/03/23 - Past Medical/Surgical History Diabetic: No -: Hypertension -: Morbid obesity -: GERD -: DM Type 2 -: CHF, systolic dysfunction 25% -: CAD with recent CABG -: Obstructive sleep apnea -: Pulmonary edema -: Hernia repairs -: CABG Psychosocial/ Personal History: Patient is to 47 years. He has 4 children. 1 is adopted. 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 - Family History Mother Medical History: Heart disease, Hypertension, Stroke - Social History Smoking Status: Unknown if ever smoked Alcohol use: No CD- Drugs: No Caffeine use: No Review of Systems 10-point ROS is otherwise unremarkable Physical Examination General: Alert, In no apparent distress HEENT: Atraumatic, PERRLA, Mucous membr. moist/pink, EOMI, Sclerae nonicteric Neck: Supple, 2+ carotid pulse no bruit, No LAD, Without JVD or thyroid abnormality Respiratory: Crackles/rales Cardiovascular: Regular rate/rhythm, Normal S1 S2, Edema Gastrointestinal: Normal bowel sounds, No tenderness Musculoskeletal: No tenderness Integumentary: No rashes Neurological: Normal gait, Normal speech, Normal tone, Normal affect Lymphatics: No axilla or inguinal lymphadenopathy Laboratory Data (last 24 hrs) 04/30/24 04/30/24 12:25 12:25 WBC 4.30 Hgb 12.3 L Hct 49.5 H Plt Count 143 L Sodium 139 Potassium 3.8 BUN 34 H Creatinine 1.58 H Glucose 112 H Magnesium 2.6 H Total Bilirubin 2.3 H AST 21 ALT 24 Alkaline Phosphatase 197 H - Problems (1) Acute on chronic combined systolic (congestive) and diastolic (congestive) heart failure Current Visit: Yes Status: Acute Plan: Lasix 60 mg IV Q8 hours. monitor input and output monitor and correct electrolytes. Coreg 12.5 mg po BID Hold Entresto for now until patient diures well to monitor kidney function. (2) Hyperlipidemia Onset Date: 08/01/17 Current Visit: No Status: Chronic Plan: continue statins Qualifiers: (3) Hypertension Onset Date: 07/04/17 Current Visit: No Status: Chronic Plan: medications as above. Qualifiers: Hypertension type: essential hypertension (4) Moderate mitral insufficiency Current Visit: Yes Status: Acute Plan: patient mention that he got echo recently in clinic, will try to get report. (5) CAD (coronary artery disease) of bypass graft Current Visit: Yes Status: Acute Plan: continue ASA 81 mg daily continue statin
[2024-04-30] MEDS ORDERED: ALPRAZOLAM 0.25 MG TABLET PO PRN (16:36)
[2024-04-30] MEDS ORDERED: ONDANSETRON 4 MG/2 ML VIAL IV PRN (16:36)
[2024-04-30] MEDS ORDERED: ACETAMINOPHEN 500 MG TAB PO PRN (16:36)
[2024-04-30] MEDS: FUROSEMIDE 40 MG/4 ML VIAL IV SCH (18:12)
[2024-04-30 18:13] VITALS: BMI 26.2
[2024-04-30] MEDS: carvediloL 25 MG TAB PO SCH (18:13)
[2024-04-30] MEDS: HYDRALAZINE HCL 25 MG TABLET PO SCH (20:37)
[2024-04-30] MEDS: POTASSIUM CL SA 10 MEQ TAB PO SCH (20:38)
[2024-04-30 21:24] LABS: Sqamous Epithelial <5 /HPF (None Seen); Urine Bacteria <20 /HPF (<20); Urine Crystals Unidentified Few /HPF (None Seen); Urine Culture Reflex Order REFLEXED; Urine Microscopic Reflex YN ORDER UMIC; Urine Mucus 1+ /HPF (None Seen); Urine RBC 21-50 /HPF (None Seen); Urine WBC 20-50 /HPF (<5); Urine WBC Clump Occasional /HPF (None Seen)
[2024-04-30 21:34] LABS: Urine Bilirubin NEGATIVE (Negative); Urine Blood 2+ (Negative); Urine Clarity Extremely Turbid (Clear); Urine Color Yellow (Yellow); Urine Glucose NEGATIVE (Negative); Urine Ketones NEGATIVE (Negative); Urine Nitrite NEGATIVE (Negative); Urine Protein TRACE (Negative); Urine Urobilinogen Normal (Normal)
[2024-05-01 06:07] LABS: Absolute Lymphocytes (CBC) 0.6 K/uL (0.7-4.9); Absolute Monocytes 0.9 K/uL (0.1-1.3); Basophils % 0.2 % (0-1.3); Eosinophils % 0.5 % (0-4.4); Hemoglobin 15.5 g/dL (13.6-17.9); Lymphocytes % 7.9 % (15.3-44.8); MCH 24.8 pg (27.0-35.0); MCHC 31.7 g/dL (32.0-36.0); MCV 78.3 fL (80-100); MPV 8.2 fL (7.6-11.3); Monocytes % 12.1 % (3.3-12.3); Neutrophils % 79.3 % (41.7-73.7); Nucleated Red Blood Cells % 0.3 % (0-0); Platelets 180 thou/uL (152-406); RBC Red Blood Cell Count 6.25 M/uL (4.33-5.43)
[2024-05-01 06:42] LABS: Anion Gap 8.4 mEq/L (5.0-15.0); Magnesium 2.4 mg/dL (1.6-2.4); Potassium 3.4 mEq/L (3.5-5.1)
--- NOTE | 2024-05-01 08:41 | P.PN ---
Date of Service: 05/01/24 Subjective shortness of breath w exertion, fluid overload, neph, card following good family support Review of Systems HPI Physical Examination - Physical Exam vital signs reviewed General: Alert, Oriented x3, Mild distress, Other (Cachectic) afebrile HEENT: Normocephalic, Other (Dry mucous) Neck: Supple, 2+ carotid pulse no bruit Respiratory: Normal air movement, Crackles/rales, orthopnea Cardiovascular: Normal pulses, Regular rate/rhythm, Edema (2+ bilateral lower extremity edema) Gastrointestinal: Normal bowel sounds, abdominal distension Musculoskeletal: No swelling, No contractures, Other (Generalized) Integumentary: No breakdown, Other (Left knee abrasion) Neurological: Normal speech, Normal strength at 5/5 x4 extr, Cranial nerves 3-12 intact - Assessment and Plan - Plan Assessment/Plan Acute on chronic heart failure Acute hypoxic respiratory failure due to decompensated heart failure Acute pulmonary edema Acute elevated BNP Cardiology consult, telemetry, Diuresis, Lasix Q8, hold Entresto per cardiology, continue Coreg Coyne to bedside drainage for strict I&O Resume appropriate home meds Daily weight, I&O's chest x-ray moderate bilateral pulmonary opacities may represent pulmonary edema or pneumonia, cardiac enlargement, 01/01/23 Echo . MILDLY DEPRESSED LEFT VENTRICULAR EJECTION FRACTION 40%. 2. MILD GLOBAL HYPOKINESIS. 3. MODERATE MITRAL REGURGITATION. 4. MILD TO MODERATE PULMONARY REGURGITATION. 5. MILD AORTIC REGURGITATION. 6. SEVERE DIASTOLIC DYSFUNCTION. Fall Unsteady gait Fall precaution Ankle x-ray no acute fracture or dislocation, calcaneal spurs present Pancreatic mass Adrenal nodule Bilateral renal cyst Left renal mass likely renal cell carcinoma likely undiagnosed extensive metastatic disease unknown primary site Anorexia Protein calorie malnutrition 10/20/22 CTA 1.5 centimeter cystic mass pancreatic head mildly enlarged from prior exam.Small adrenal nodules probably benign Bilateral renal cysts. 5.2 centimeter enhancing solid mass anteriormidpole left kidney. 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 Nonemergent MRI could be obtained for further evaluation. Patient and family refused to follow up with MD Saab because he was declining in health and did not want aggressive treatment. The patient and family denies a diagnosis of metastatic disease diagnosis. The recently had eye surgery and is unable to lift her and request SNF at discharge. The have not used prior SNF in the past. He resides at home. If the patient goes home, will need a hospital bed. Prognosis is poor, would benefit from hospice at discharge consideration. Plan to admit for acute on chronic heart failure, acute hypoxic respiratory failure with cardiology to consult. SS to consult for DC planning. ER evaluation blood pressure 133/94, heart rate 74 respiration 89% room air pain 6 out of 10. Laboratory evaluation BNP 56,917, troponin normal 37.6, chest x-ray moderate pulmonary edema vs pnemonia presentation. 04/30/24 CT of the chest abdomen pelvis with and without contrast to eval for extension metastatic disease, abdominal ascites, History of a left hemicolectomy CAD with prior CABG Carotid artery stenosis Hypertension. Mixed hyperlipidemia Obstructive sleep apnea Gastroesophageal reflux disease Diverticulosis. Benign prostatic hypertrophy Resume appropriate home medication Chronic kidney disease, stage 3A. Trend kidney Type 2 diabetes mellitus unknown control Accu-Cheks, sliding scale diet, Diabetic diet Full code DVT heparin Diet diabetic Disposition shelter facility versus possible hospice at discharge Discharge Plan: Home - Advance Directives Does patient have a Living Will: Yes Does patient have a Durable POA for Healthcare: Yes - Code Status/Comfort Care Code Status: Full Code Critical Care: No Time Spent Managing Pts Care (In Minutes): 30 <Casandra Esteban - Last Filed: 05/02/24 19:07> Patient chart was reviewed and patient was seen and examined. CHUCKY history and physical reviewed as well. Agree with the assessment and plan. Patient presented with metastatic renal cell carcinoma. Most of the MDM was done by myself and plan of care was discussed with CHUCKY as well as the patient. Plan to discharge with hospice once pt gets thoracentesis and PT. Anticipated length of stay is 3 days. <Sandra Seymour - Last Filed: 05/02/24 20:31>
[2024-05-01] MEDS: EZETIMIBE 10 MG TAB PO SCH (08:56)
--- NOTE | 2024-05-01 12:28 | RAD REPORT ---
EXAM DESCRIPTION: CT - Chest Abdomen Pelvis W Cont - 05/01/2024 11:12 am CLINICAL HISTORY: eval renal mass, metastatic disease COMPARISON: Abdomen Pelvis W Contrast dated 10/20/2022; Chest For Pe Angio dated 10/20/2022 TECHNIQUE: Thin axial CT images of the chest, abdomen, and pelvis, performed following intravenous a dministration of mL iodinated contrast. Multiplanar reformats were generated and reviewed. All CT scans are performed using dose optimization technique as appropriate and may include automated exposure control or mA/KV adjustment according to patient size. FINDINGS: The large exophytic anterior left renal interpolar region mass with central necrotic tucker es is present measuring 11.2 x 8.1 x 11.2 cm in greatest dimensions. This has markedly increased in s ize since the October 2022 CT where it measured up to 5.2 cm. There is early tumoral thrombus in the distal left renal vein, see axial image 125. Heterogeneous areas of parenchymal hypoattenuation in th e left lower renal pole, see axial image 143, may relate to other smaller masses versus changes of py elonephritis. Right lower pole 3 cm cyst is stable. Nodular thickening of both adrenal glands again seen. Spleen is unremarkable. Small cystic lesion jono ng the uncinate process measuring 1.8 cm appears stable. Cholelithiasis is noted. A central hyperenhancing 1.5 cm hepatic lesion is newly noted. Mild free ascites. The lungs demonstrate numerous new nodules bilaterally, many are hyperenhancing, and some show centra l necrosis. The largest on the left it subpleural along the left upper lobe anteriorly measuring 2 cm . The largest on the right is present within the upper segment right lower lobe, measuring 1.7 cm. Moderate to large left pleural effusion with underlying atelectasis. Numerous small hyperenhancing le sions along the left parietal pleura suggesting pleural deposits. Trace right pleural effusion. Enlarging subcarinal hyperenhancing lymph nodes, measuring up to 2.2 cm in greatest dimension. Small prevascular lymph nodes are also noted. The visualized bowel is unremarkable. The urinary bladder is decompressed with Coyne catheter in plac e. There is moderate diffuse body wall edema. No worrisome osseous finding. Left iliac wing sclerotic lesion is stable. No new suspicious osseous abnormality. IMPRESSION: Marked enlargement of known left renal mass as above, now measuring up to 11.2 cm in gre atest dimension, and demonstrating early tumoral thrombus. Patchy hypoattenuation in the left lower renal pole, may relate to other smaller masses versus change s of pyelonephritis. Metastatic lesions within both lungs, and numerous deposits in the left pleural space, with metastati c subcarinal adenopathy and a single metastatic liver lesion at the liver hilum. Mild free ascites. Moderate left pleural effusion. Moderate anasarca. Other findings as above.
--- NOTE | 2024-05-01 14:17 | P.PN ---
Subjective Date of Service: 05/01/24 Chief Complaint: Acute on chronic heart failure Subjective: No new changes, No C/O voiced, Tolerating diet, Ambulating, Improving Review of Systems 10-point ROS is otherwise unremarkable Physical Examination - Vital Signs Temperature: 96.7 F Blood Pressure: 119/71 Pulse: 74 Respirations: 16 Pulse Ox (%): 91 - Physical Exam General: Alert, In no apparent distress HEENT: Atraumatic, PERRLA, EOMI Neck: Supple, JVD not distended Respiratory: Crackles/rales Cardiovascular: Regular rate/rhythm, Normal S1 S2, Edema Gastrointestinal: Normal bowel sounds, No tenderness Musculoskeletal: No tenderness Integumentary: No rashes Neurological: Normal speech, Normal tone, Normal affect Lymphatics: No axilla or inguinal lymphadenopathy - Studies Medications List Reviewed: Yes Assessment And Plan - Current Problems (Diagnosis) (1) Acute on chronic combined systolic (congestive) and diastolic (congestive) heart failure Current Visit: Yes Status: Acute Plan: Lasix 60 mg IV Q8 hours. monitor input and output monitor and correct electrolytes. Coreg 12.5 mg po BID Hold Entresto for now until patient diures well to monitor kidney function. (2) Hyperlipidemia Onset Date: 08/01/17 Current Visit: No Status: Chronic Plan: continue statins Qualifiers: (3) Hypertension Onset Date: 07/04/17 Current Visit: No Status: Chronic Plan: medications as above. Qualifiers: Hypertension type: essential hypertension (4) Moderate mitral insufficiency Current Visit: Yes Status: Acute Plan: patient mention that he got echo recently in clinic, will try to get report. (5) CAD (coronary artery disease) of bypass graft Current Visit: Yes Status: Acute Plan: continue ASA 81 mg daily continue statin
--- NOTE | 2024-05-01 14:29 | EKG ---
Test Date: 2024-04-30 Test Time: 12:14:48 Director Of Undergraduate Admissions: SIMONE MEASUREMENT RESULTS: Intervals: Rate: 74 OK: 206 QRSD: 138 QT: 420 QTc: 466 [place]: P: 6 OK: 206 QRS: -9 T: 153 INTERPRETIVE STATEMENTS: Sinus rhythm with occasional premature ventricular complexes Nonspecific intraventricular block Inferior infarct, age undetermined T wave abnormality, consider lateral ischemia Abnormal ECG Compared to ECG 01/01/2023 13:32:41 Ventricular premature complex(es) now present T-wave abnormality now present Possible ischemia now present Myocardial infarct finding still present Electronically Signed On 05-01-24 14:27:54 CDT by Leoncio Hester
--- NOTE | 2024-05-01 18:45 | CON ---
Date of Consultation: 05/01/2024 Chief Complaint: Weakness, shortness of breath. Reason For Consultation: Renal mass, chronic kidney disease, and fluid management. History Of Present Illness: This is a 73-year-old man with past medical history of chronic kidney di sease, stage 3. Baseline creatinine about 1.4. History of coronary artery disease, status post CABG ; congestive heart failure, ejection fraction about 30%, on a diuretic and metolazone. Then, history of metastatic renal mass diagnosed in 2020. The patient is not following with the oncologist. The patient presented for weakness, shortness of breath. And increased lower extremity swelling. The pa liliya was diagnosed with left renal mass back in October 2020. He was advised to follow up with MD Oksana medina, but patient and family declined. Upon presentation to the hospital, patient was found to [place] ve moderate pulmonary edema with increased swelling and was started on Lasix. Past Medical History: Diabetes, chronic kidney disease, congestive heart failure, heart failure with reduced ejection fraction. Past Surgical History: CABG. Medications: See MAR. Family History: Noncontributory. Social History: Lives with and daughter at home. Allergies: NO KNOWN DRUG ALLERGIES. Review of Systems: Constitutional: Generalized weakness, weight loss. HEENT: Denied headache or blurred vision. Respiratory: Has shortness of breath. Denied cough. Cardiovascular: Has no increased lower extremity edema. Genitourinary: Denied dysuria, hematuria, increase in frequency or urgency. : Has increased abdominal girth. Denied nausea, vomiting, or diarrhea. Laboratory Data: White count 7.5, hemoglobin 15.2, platelet 180. Sodium 138, potassium 3.4, BUN 33, creatinine 1.4. BNP 60,000. Assessment And Plan: 1.Chronic kidney disease, stage 3. Creatinine is stable at baseline, possibly due to cardiorenal sy ndrome, type 1. Continue Lasix, renally dose medication. Avoid NSAID and contrast. 2.Left metastatic renal mass of 11 cm. The patient was diagnosed in 2020 and advised to follow up w sherwin Saab, but patient and family declined. Followup with Oncology and Neurology as an outpati ent. 3.Heart failure, reduced ejection fraction. Continue diuretic. Monitor INR. Low-salt diet. 4.Mild hypokalemia. Monitor and replace as needed. We will consider to add Aldactone. 5.Debility. Continue physical and occupational therapy. ANURADHA/BRISEYDA Voice ID: [id number] Report ID: [id number]
[2024-05-01] MEDS: MORPHINE 2 MG/ML SYR IV PRN (20:13)
[2024-05-02 05:48] LABS: Absolute Lymphocytes (CBC) 0.6 K/uL (0.7-4.9); Absolute Neutrophil 6.2 K/uL (1.8-8.0); Basophils % 0.1 % (0-1.3); Eosinophils % 0.5 % (0-4.4); Hematocrit 46.5 % (39.6-49.0); Hemoglobin 14.7 g/dL (13.6-17.9); Lymphocytes % 7.6 % (15.3-44.8); MCH 24.8 pg (27.0-35.0); MCHC 31.6 g/dL (32.0-36.0); MCV 78.6 fL (80-100); MPV 8.3 fL (7.6-11.3); Monocytes % 12.3 % (3.3-12.3); Neutrophils % 79.5 % (41.7-73.7); Nucleated Red Blood Cells % 0.3 % (0-0); Platelets 190 thou/uL (152-406); RBC Red Blood Cell Count 5.91 M/uL (4.33-5.43); Red Cell Distribution Width 22.6 % (12.1-15.2)
[2024-05-02 05:59] LABS: Anion Gap 7.4 mEq/L (5.0-15.0); Magnesium 2.6 mg/dL (1.6-2.4); Potassium 3.4 mEq/L (3.5-5.1)
[2024-05-02] MEDS: POTASSIUM CL SA 10 MEQ TAB PO ONE (08:00)
--- NOTE | 2024-05-02 08:21 | P.PN ---
Date of Service: 05/02/24 Subjective on bedrest, moderate generalized weakness Review of Systems HPI Physical Examination - Physical Exam General: Alert, Oriented x3, Mild distress, Other (Cachectic) HEENT: Normocephalic, Other (Dry mucous) Neck: Supple, 2+ carotid pulse no bruit Respiratory: Normal air movement, Crackles/rales, orthopnea Cardiovascular: Normal pulses, Regular rate/rhythm, Edema (2+ bilateral lower extremity edema) Gastrointestinal: Normal bowel sounds, abdominal distension Musculoskeletal: No swelling, No contractures, Other (Generalized) Integumentary: No breakdown, Other (Left knee abrasion) Neurological: Normal speech, Normal strength at 5/5 x4 extr, Cranial nerves 3-12 intact - Assessment and Plan - Plan Assessment/Plan Acute on chronic heart failure Acute hypoxic respiratory failure due to decompensated heart failure Acute pulmonary edema Acute elevated BNP Cardiology consult, telemetry, Diuresis, Lasix Q8, hold Entresto per cardiology, continue Coreg Coyne to bedside drainage for strict I&O Resume appropriate home meds Daily weight, I&O's chest x-ray moderate bilateral pulmonary opacities may represent pulmonary edema or pneumonia, cardiac enlargement, 01/01/23 Echo . MILDLY DEPRESSED LEFT VENTRICULAR EJECTION FRACTION 40%. 2. MILD GLOBAL HYPOKINESIS. 3. MODERATE MITRAL REGURGITATION. 4. MILD TO MODERATE PULMONARY REGURGITATION. 5. MILD AORTIC REGURGITATION. 6. SEVERE DIASTOLIC DYSFUNCTION. Fall Unsteady gait Fall precaution Ankle x-ray no acute fracture or dislocation, calcaneal spurs present Pancreatic mass Adrenal nodule Bilateral renal cyst Left renal mass likely renal cell carcinoma likely undiagnosed extensive metastatic disease unknown primary site Anorexia Protein calorie malnutrition 10/20/22 CTA 1.5 centimeter cystic mass pancreatic head mildly enlarged from prior exam.Small adrenal nodules probably benign Bilateral renal cysts. 5.2 centimeter enhancing solid mass anteriormidpole left kidney. 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 Nonemergent MRI could be obtained for further evaluation. Patient and family refused to follow up with MD Saab because he was declining in health and did not want aggressive treatment. The patient and family denies a diagnosis of metastatic disease diagnosis. The recently had eye surgery and is unable to lift her and request SNF at discharge. The have not used prior SNF in the past. He resides at home. If the patient goes home, will need a hospital bed. Prognosis is poor, would benefit from hospice at discharge consideration. Plan to admit for acute on chronic heart failure, acute hypoxic respiratory failure with cardiology to consult. SS to consult for DC planning. ER evaluation blood pressure 133/94, heart rate 74 respiration 89% room air pain 6 out of 10. Laboratory evaluation BNP 56,917, troponin normal 37.6, chest x-ray moderate pulmonary edema vs pnemonia presentation. 04/30/24 CT of the chest abdomen pelvis with and without contrast to eval for extension metastatic disease, abdominal ascites, History of a left hemicolectomy CAD with prior CABG Carotid artery stenosis Hypertension. Mixed hyperlipidemia Obstructive sleep apnea Gastroesophageal reflux disease Diverticulosis. Benign prostatic hypertrophy Resume appropriate home medication Chronic kidney disease, stage 3A. Trend kidney Type 2 diabetes mellitus unknown can Accu-Cheks, sliding scale diet, Diabetic diet Full code DVT heparin Diet diabetic Disposition detention facility versus possible hospice at discharge Discharge Plan: Home - Advance Directives Does patient have a Living Will: Yes Does patient have a Durable POA for Healthcare: Yes - Code Status/Comfort Care Code Status: Full Code Critical Care: No Time Spent Managing Pts Care (In Minutes): 55 <Casandra Esteban - Last Filed: 05/02/24 19:05> Patient chart was reviewed and patient was seen and examined. CHUCKY history and physical reviewed as well. Agree with the assessment and plan. Patient presented with metastatic renal cell carcinoma. Most of the MDM was done by myself and plan of care was discussed with CHUCKY as well as the patient. Plan to discharge with hospice once pt gets thoracentesis and PT. <Sandra Seymour - Last Filed: 05/02/24 20:32>
[2024-05-02] MEDS: ENOXAPARIN 40 MG/0.4 ML SQ ONE (21:00)
[2024-05-02] MEDS: ENOXAPARIN 30 MG/0.3 ML SQ ONE (21:25)
[2024-05-03 06:19] LABS: Anion Gap 7.4 mEq/L (5.0-15.0); Magnesium 2.4 mg/dL (1.6-2.4); Potassium 3.4 mEq/L (3.5-5.1)
[2024-05-03 06:35] LABS: PT Prothrombin Time 16.8 SECONDS (9.4-12.5); Protime INR 1.52
[2024-05-03 07:05] LABS: Absolute Eosinophils 0.1 K/uL (0-0.5); Absolute Lymphocytes (CBC) 0.6 K/uL (0.7-4.9); Absolute Monocytes 1.1 K/uL (0.1-1.3); Absolute Neutrophil 6.4 K/uL (1.8-8.0); Basophils % 0.2 % (0-1.3); Eosinophils % 0.8 % (0-4.4); Hematocrit 47.5 % (39.6-49.0); Hemoglobin 14.7 g/dL (13.6-17.9); Lymphocytes % 7.4 % (15.3-44.8); MCH 24.5 pg (27.0-35.0); MCHC 30.9 g/dL (32.0-36.0); MCV 79.3 fL (80-100); MPV 8.3 fL (7.6-11.3); Monocytes % 13.3 % (3.3-12.3); Neutrophils % 78.3 % (41.7-73.7); Nucleated Red Blood Cells % 0.2 % (0-0); Platelets 198 thou/uL (152-406); RBC Red Blood Cell Count 5.99 M/uL (4.33-5.43); Red Cell Distribution Width 23.5 % (12.1-15.2)
--- NOTE | 2024-05-03 11:46 | P.PN ---
Subjective Date of Service: 05/03/24 Chief Complaint: Acute on chronic heart failure Subjective: No new changes, No C/O voiced, Tolerating diet, Ambulating, Improving Review of Systems 10-point ROS is otherwise unremarkable Physical Examination - Vital Signs Temperature: 97.3 F Blood Pressure: 112/60 Pulse: 68 Respirations: 19 Pulse Ox (%): 94 - Physical Exam General: Alert, In no apparent distress HEENT: Atraumatic, PERRLA, EOMI Neck: Supple, JVD not distended Respiratory: Clear to auscultation bilaterally, Normal air movement Cardiovascular: Regular rate/rhythm, Normal S1 S2 Gastrointestinal: Normal bowel sounds, No tenderness Musculoskeletal: No tenderness Integumentary: No rashes Neurological: Normal speech, Normal tone, Normal affect Lymphatics: No axilla or inguinal lymphadenopathy - Studies Medications List Reviewed: Yes Assessment And Plan - Current Problems (Diagnosis) (1) Acute on chronic combined systolic (congestive) and diastolic (congestive) heart failure Current Visit: Yes Status: Acute Plan: Lasix 60 mg IV Q8 hours. monitor input and output monitor and correct electrolytes. Coreg 12.5 mg po BID Hold Entresto for now until patient diures well to monitor kidney function. (2) Hyperlipidemia Onset Date: 08/01/17 Current Visit: No Status: Chronic Plan: continue statins Qualifiers: (3) Hypertension Onset Date: 07/04/17 Current Visit: No Status: Chronic Plan: medications as above. Qualifiers: Hypertension type: essential hypertension (4) Moderate mitral insufficiency Current Visit: Yes Status: Acute Plan: patient mention that he got echo recently in clinic, will try to get report. (5) CAD (coronary artery disease) of bypass graft Current Visit: Yes Status: Acute Plan: continue ASA 81 mg daily continue statin
--- NOTE | 2024-05-03 13:30 | RAD REPORT ---
EXAM DESCRIPTION: US - Thoracentesis w/ US Guide - 05/03/2024 11:25 am CLINICAL HISTORY: malignant pleural effusion COMPARISON: No comparisons FINDINGS: Preoperative diagnosis: Left pleural effusion Post operative diagnosis: Same Conscious Sedation: None. Estimated blood loss: Minimal Specimens:A small volume of fluid was sent for requested lab studies. Informed consent was obtained following discussion of the risks and benefits with the patient. Time-o ut procedure was performed. The patient was placed in the upright recumbent position and the left tanner k was prepped and draped in the usual sterile fashion. 1% Lidocaine was infiltrated into the soft ti ssues for local anesthesia. Under sonographic guidance, a thoracentesis needle and 6 [place] catheter was advanced into the left pleural space. Approximately 800 mL yellow fluid was aspirated. Samples w ere sent to pathology for requested analysis. The patient tolerated the procedure without immediate c omplication and transferred to the floor in stable condition. IMPRESSION: Successful ultrasound-guided thoracentesis as detailed.
[2024-05-03] MEDS: POTASSIUM CL SA 10 MEQ TAB PO ONE (17:31)
--- NOTE | 2024-05-04 02:50 | P.PN ---
Date of Service: 05/03/24 Subjective Patient status postthoracentesis with 800 cc of fluid removed.Cytology sent off as well as additional labs. Patient did work a little bit with physical therapy but was max to mod assist. Patient was able to stand. Reviewed CT scan findings once again with the family with the extent of the malignancy and with patient being so cachectic and emaciated his prognosis is poor. At this time they do want to try to proceed with longterm facility placement if patient does not do well then they would want to do hospice care at that time. Physical Examination - Vitals Reviewed - Physical Exam General: Alert, Oriented x3, Patient is weak along with cachexia and pt is emaciated HEENT: temporal wasting Respiratory: Basilar crackles/rales Cardiovascular: Regular rate/rhythm, Edema (2+ bilateral lower extremity edema) Gastrointestinal: Normal bowel sounds, Distended; ascites Musculoskeletal: anasarca with generalized swelling, Patient with low back pain Integumentary: Left knee abrasion Neurological: Generalized weakness; Patient with cachexia emaciated Assessment and Plan - Assessment/Plan Assessment/Plan (1) Patient with metastatic renal cell carcinoma; lung, liver, lumbar spine, and subcarinal metastasis; malignant pleural effusion and malignant ascites; severe protein calorie malnutrition Current Visit: Yes Status: Acute Plan: Patient is cachectic and emaciated. Patient's performance status is very poor. Patient not able to ambulate any further. Patient required max assist to stand today. Patient's family contemplating longterm facility at this time. If he is worsening then they will proceed with hospice care at home.Patient with advanced metastasis and prognosis is very poor. However, patient participated with physical therapy and family is wanting to proceed with longterm at this time. (2) Acute on chronic combined systolic (congestive) and diastolic (congestive) heart failure Current Visit: Yes Status: Acute Plan: Continue with diuresing. Continue with intravenous albumin for correction of hypoalbuminemia. Continue with IV Lasix. Echocardiogram pending. (3) CAD (coronary artery disease) of bypass graft Current Visit: Yes Status: Acute Plan: Continue with cardiac meds (4) Moderate mitral insufficiency Current Visit: Yes Status: Acute Plan: patient mention that he got echo recently in clinic, will try to get report. (5) Hypertension/dyslipidemia/DM2 Current Visit: Yes Status: Chronic Plan: Continue with antihypertensives and statin therapy (6) Pancreatic mass Current Visit: Yes Status: Acute Plan: Patient with possible malignancy. Prognosis is poor. (5) Status post fall Current Visit: Yes Status: Acute Plan: Continue with physical therapy and longterm facility placement Disposition longterm facility - Advance Directives Does patient have a Living Will: Yes Does patient have a Durable POA for Healthcare: Yes - Code Status/Comfort Care Code Status: Full Code Critical Care: No Time Spent Managing Pts Care (In Minutes): 55
--- NOTE | 2024-05-04 03:04 | PN ---
Date of Progress Note: 05/03/2024 Chief Complaint: Chronic kidney disease, acute kidney injury. History: The patient presented to the hospital because of shortness of breath and weakness. The pat daren has renal mass, chronic kidney disease, and Nephrology consultation was requested for abnormal r enal function test, BUN and creatinine were elevated. The patient is a 73-year-old man with chronic kidney stage 3, baseline creatinine level 1.4; history of coronary artery disease, status post CABG; congestive heart failure, ejection fraction 30%. The patient is on furosemide and metolazone. He carrillo s history of metastatic renal mass. Renal cancer diagnosed back in 2020. He has been followed by On cology. The patient presented for weakness, shortness of breath. He had increased lower extremity s welling. He sustained fall at home. Previously, he was found to have renal mass back in October. He was advised to follow up with MD Saab, but patient and family declined. Upon presentation to the hospital, patient was found to have moderate pulmonary edema with increased swelling and was started on Lasix. Past Medical History: Diabetes mellitus, chronic kidney disease, congestive heart failure with reduc ed ejection fraction. Past Surgical History: CABG. Social History: Denies tobacco or alcohol. Physical Examination: General: The patient is awake, alert, follows commands. Eyes: Anicteric sclerae. EOMI. Ears, Nose, Mouth, and Throat: Oral mucosa moist. No pallor. Neck: Supple. No bruits. Lungs: Diminished breath sounds at bases. Heart: S1, S2. Abdomen: Soft. Benign. Extremities: Slight edema. Review of Systems: Denies fever, chills. Denies palpitation, chest pain, nausea, vomiting. Assessment And Plan: 1.Chronic kidney disease stage 3. Creatinine level is stable range. There is high BUN/creatinine r atio corresponding with cardiorenal syndrome. Plan is to continue Lasix. Avoid nonsteroidal anti-in flammatory medication. Avoid contrast exposure. 2.Left metastatic renal mass of 11 cm. The patient was diagnosed back in 2020 and was advised to fo llow up with MD Saab. Patient will follow up with Oncology and Neurology outpatient. 3.Heart failure, reduced ejection fraction. Continue diuretic. Continue low-sodium diet. 4.Mild hypokalemia. Replacement according to lab results. The patient may benefit from Aldactone w hen renal function stable. EB/MODL Voice ID: [id number] Report ID: [id number]
[2024-05-04] MEDS: METHYLPREDNISOLONE 125 MG INJ IV SCH (06:00)
[2024-05-04 06:50] LABS: Albumin 1.7 g/dL (3.4-5.0); Albumin/Globulin Ratio 0.4 (1.1-1.8); Anion Gap 8.5 mEq/L (5.0-15.0); Bilirubin Direct 1.4 mg/dL (0-0.2); Bilirubin Indirect, Calculated 0.7 mg/dL (0.2-0.8); Bilirubin Total 2.1 mg/dL (0.2-1.0); Globulin 4.4 g/dL (2.3-3.5); Potassium 3.5 mEq/L (3.5-5.1); Protein, Total 6.1 g/dL (6.4-8.2); Uric Acid 11.6 mg/dL (3.5-7.2)
[2024-05-04] MEDS: HYDRALAZINE HCL 10 MG TABLET PO SCH (09:00)
[2024-05-04] MEDS ORDERED: PAMIDRONATE DISOD 30 MG VIAL IV ONE (10:36)
[2024-05-04] MEDS: ALBUMIN HUMAN 25% 100 ML IV SCH (10:38)
[2024-05-04] MEDS: FUROSEMIDE 40 MG TABLET PO SCH (10:38)
[2024-05-04] MEDS: PAMIDRONATE IV SCH (11:34)
[2024-05-04] MEDS: NA CHLORIDE 0.9% IV SCH (11:34)
--- NOTE | 2024-05-04 12:18 | P.PN ---
Subjective Date of Service: 05/04/24 Chief Complaint: Acute on chronic heart failure Subjective: No new changes, No C/O voiced, Tolerating diet, Ambulating, Improving Review of Systems 10-point ROS is otherwise unremarkable Physical Examination - Vital Signs Temperature: 97 F Blood Pressure: 127/80 Pulse: 69 Respirations: 18 Pulse Ox (%): 96 - Physical Exam General: Alert, In no apparent distress HEENT: Atraumatic, PERRLA, EOMI Neck: Supple, JVD not distended Respiratory: Clear to auscultation bilaterally, Normal air movement Cardiovascular: Regular rate/rhythm, Normal S1 S2 Gastrointestinal: Normal bowel sounds, No tenderness Musculoskeletal: No tenderness Integumentary: No rashes Neurological: Normal speech, Normal tone, Normal affect Lymphatics: No axilla or inguinal lymphadenopathy - Studies Medications List Reviewed: Yes Assessment And Plan - Current Problems (Diagnosis) (1) Acute on chronic combined systolic (congestive) and diastolic (congestive) heart failure Current Visit: Yes Status: Acute Plan: increase po lasix to 80 mg po BID (patient home dose). Coreg 6.25.5 mg po BID may resume entresto on mg po BID on dsicharge. (2) Hyperlipidemia Onset Date: 08/01/17 Current Visit: No Status: Chronic Plan: continue statins Qualifiers: (3) Hypertension Onset Date: 07/04/17 Current Visit: No Status: Chronic Plan: medications as above. Qualifiers: Hypertension type: essential hypertension (4) Moderate mitral insufficiency Current Visit: Yes Status: Acute Plan: patient mention that he got echo recently in clinic, will try to get report. (5) CAD (coronary artery disease) of bypass graft Current Visit: Yes Status: Acute Plan: continue ASA 81 mg daily continue statin
--- NOTE | 2024-05-04 14:25 | P.PN ---
Subjective Date of Service: 05/04/24 Chief Complaint: Acute on chronic heart failure Pt is resting comfortably in bed. He is getting lasix. His declined SNF placement. The wants to continue hospice at home. His will choose the hospice care team and call the the nurse case management. No other complaints Review of Systems General: Weakness Eyes: Unremarkable ENT: Unremarkable Respiratory: SOB with Excertion Cardiovascular: Edema Gastrointestinal: Unremarkable Genitourinary: Unremarkable Musculoskeletal: Unremarkable Integumentary: Unremarkable Neurological: Unremarkable Lymphatics: Unremarkable Physical Examination - Vital Signs Temperature: 97 F Blood Pressure: 127/80 Pulse: 69 Respirations: 18 Pulse Ox (%): 96 - Physical Exam General: Alert, In no apparent distress, Oriented x3 HEENT: Atraumatic, Normocephalic, PERRLA Neck: Supple, 2+ carotid pulse no bruit, JVD not distended Respiratory: Clear to auscultation bilaterally, Normal air movement Cardiovascular: No edema, Normal pulses, Regular rate/rhythm Capillary refill: <2 Seconds Gastrointestinal: Normal bowel sounds, Soft and benign, Distended Musculoskeletal: No clubbing, No swelling Integumentary: No rashes, No breakdown Neurological: Normal gait, Normal speech, Normal strength at 5/5 x4 extr Lymphatics: No axilla or inguinal lymphadenopathy - Studies Medications List Reviewed: Yes Assessment And Plan - Plan Renal cell cancer with mets to multiple organ ( lung, liver, lumbar spine, and subcarinal region): Pt appears cachectic and very weak. He needs help to get up. Pt will benefit from comfort care. His wants home hospice. Acute on chronic combined sys and diastolic heart failure: Will continue diuretic, strict I/o and daily weight. Will f/u Echo. Hx of CAD. s/p CABG. Will continue home med Htn: Continue home med DM II: Continue acccuhek, SSI and ADA diet HLD: statin Moderate mitral insufficiency: per Echo. Pancreatic mass: poor prognosis. Likely due to mets. Fall: Will continue fall precaution and PT. DVT ppx: SCD Dispo: Pending hospital course. Will dc with home hospice.
--- NOTE | 2024-05-04 15:19 | PN ---
Date of Progress Note: 05/04/2024 Subjective: Patient was admitted with acute kidney injury on chronic kidney disease secondary to cardiorenal, superimposed with renal mass as well as secondary to renal cell CA. Patient started on diuresis. Physical Examination: Vital Signs: Blood pressure 127/80, pulse of 68, afebrile. Chest: Faint rales bilateral. Heart: S1, S2. Systolic murmur. Abdomen: Soft, nontender. Extremities: +2 edema. Neuro: Alert, nonfocal. Laboratory Data: WBC 8.2, hemoglobin 14.7. Sodium 137, potassium 3.5, bicarb 30, BUN 28, creatinine down to 1.3, GFR 57, uric acid 11.6, calcium 11.4, albumin of 1.7, corrected calcium is 13. Medications: Current medications the patient is on include: 1. Albumin. 2. Carvedilol. 3. Hydralazine. 4. Tylenol. 5. Lasix 40 every 6 hours. 6. KCl. Assessment And Plan: 1. Acute kidney injury on chronic kidney disease, mostly secondary to renal mass as well as cardiorenal. Patient still on over volume side. I am going to continue diuresis. 2. Hypercalcemia, mostly secondary to metastasis. I am going to go ahead and send for workup. We will send for vitamin D and PTH. We will consider starting the patient on pamidronate and we will follow up the patient. 3. Renal cell carcinoma with metastasis. Patient declined further workup. We will follow up. Time spent examining the patient [id number] reviewing data lab and the radiology placing orders discussing the case with the patient discussing the case with the steamer blocker including hospitalist and nursing staff more than 55 minutes OLINDA Voice ID: [id number] Report ID: [id number] AIMEE
[2024-05-04] MEDS: carvediloL 6.25 MG TAB PO SCH (17:56)
[2024-05-05 06:36] LABS: Absolute Basophils 0.1 K/uL (0-0.5); Absolute Lymphocytes (CBC) 0.3 K/uL (0.7-4.9); Absolute Monocytes 0.6 K/uL (0.1-1.3); Absolute Neutrophil 7.5 K/uL (1.8-8.0); Basophils % 0.8 % (0-1.3); Eosinophils % 0.5 % (0-4.4); Hematocrit 53.7 % (39.6-49.0); Hemoglobin 16.7 g/dL (13.6-17.9); Lymphocytes % 3.6 % (15.3-44.8); MCH 24.6 pg (27.0-35.0); MCV 79.1 fL (80-100); MPV 7.6 fL (7.6-11.3); Monocytes % 7.3 % (3.3-12.3); Neutrophils % 87.8 % (41.7-73.7); Nucleated Red Blood Cells % 0.4 % (0-0); Platelets 221 thou/uL (152-406); RBC Red Blood Cell Count 6.79 M/uL (4.33-5.43); Red Cell Distribution Width 22.3 % (12.1-15.2)
[2024-05-05 06:58] LABS: Anion Gap 8.1 mEq/L (5.0-15.0); Potassium 4.1 mEq/L (3.5-5.1)
--- NOTE | 2024-05-05 08:25 | P.CNS ---
Date of Consult: 05/04/24 Reason for Consult: Sleep apnea CPAP management Chief Complaint: Acute on chronic heart failure History of Present Illness: Kidney 73 years of age admitted with acute on chronic heart failure generalized edema admitted diuresed aggressively underwent thoracentesis on the left side generally patient has metastatic cancer doing problems with his CPAP seems to dry him out however is not putting any water in his machine echocardiogram did show diastolic dysfunction Allergies No Known Allergies Allergy (Verified 01/01/23 22:10) Home Medications: carvediloL [Coreg*] 25 mg PO BID 6AM 6PM #60 tab 08/08/17 Sacubitril/Valsartan [Entresto 49 mg-51 mg Tablet] 1 tab PO BID #60 tab 09/19/17 Furosemide [Lasix*] 80 mg PO BID 10/21/22 Potassium Chloride [K-Tab ER] 1 tab PO DAILY 10/21/22 - Past Medical/Surgical History Diabetic: No -: Hypertension -: Morbid obesity -: GERD -: DM Type 2 -: CHF, systolic dysfunction 25% -: CAD with recent CABG -: Obstructive sleep apnea -: Pulmonary edema -: Hernia repairs -: CABG Psychosocial/ Personal History: Patient is to 47 years. He has 4 children. 1 is adopted. 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 - Family History Mother Medical History: Heart disease, Hypertension, Stroke - Social History Smoking Status: Unknown if ever smoked Alcohol use: No CD- Drugs: No Caffeine use: No Place of Residence: Home Review of Systems General: Weakness Respiratory: Shortness of Breath Cardiovascular: Edema Physical Examination Temp Pulse Resp BP Pulse Ox 99.2 F 84 18 135/88 96 05/05/24 08:00 05/05/24 08:00 05/05/24 08:00 05/05/24 08:00 05/05/24 08:00 General: Alert, In no apparent distress, Oriented x3 HEENT: Atraumatic Neck: Supple Respiratory: Clear to auscultation bilaterally Cardiovascular: Edema (3+ edema) Gastrointestinal: Normal bowel sounds, Soft and benign Musculoskeletal: No clubbing, No swelling - Problems (1) Obstructive sleep apnea Current Visit: Yes Status: Acute Plan: Patient has a history of obstructive sleep apnea I have advised him to put water in the CPAP machine to prevent dryness his pressure is adequate for his congestive heart failure is concerned patient has been diuresed aggressively members opting out for hospice care labs all reviewed she has abnormal renal function mild hypercalcemia CT scan did show a pleural effusion on the left side s/p thoracentesis currently oxygenation satisfactory vital signs stable's probably malignant effusion on the left side IMPRESSION: Marked enlargement of known left renal mass as above, now measuring up to 11.2 cm in greatest dimension, and demonstrating early tumoral thrombus. Patchy hypoattenuation in the left lower renal pole, may relate to other smaller masses versus changes of pyelonephritis. Metastatic lesions within both lungs, and numerous deposits in the left pleural space, with metastatic subcarinal adenopathy and a single metastatic liver lesion at the liver hilum. Mild free ascites. Moderate left pleural effusion. Moderate anasarca. Other findings as above. (2) Pleural effusion Current Visit: Yes Status: Acute Plan: I suspect that she has metastatic pleural effusion the scan does show diffuse bilateral lung metastases s/p thoracentesis
[2024-05-05 08:54] LABS: Anisocytosis 2+; Blood Morphology Comment NOTED (NOT SEEN); Platelet Estimate ADEQ; Polychromasia 1+; White Blood Cell Scan OK (OK)
[2024-05-05 09:44] VITALS: O2SAT 94
--- NOTE | 2024-05-05 11:52 | PN ---
Date of Progress Note: 05/05/2024 Subjective: The patient was admitted with acute kidney injury secondary to prerenal, dehydration with renal mass loss secondary to renal mass, renal cell CA. The patient had hypercalcemia, started on pamidronate. Physical Examination: Vital Signs: Blood pressure 135/88, pulse of 84. Chest: Clear to auscultation. Heart: S1, S2. Systolic murmur. Abdomen: Soft, nontender. Extremities: Plus edema. Neurologic: Alert. No focality. Laboratory Data: Hemoglobin 16.7. Sodium 135, potassium 4.1, bicarb 33, BUN 29, creatinine 1.6, calcium 12.3. Current Medications: The patient is on include Zofran, Lasix 40 b.i.d., Tylenol, hydralazine, carvedilol. Assessment And Plan: 1. Acute kidney injury secondary to cardiorenal, superimposed with renal mass loss, still overvolume. The patient is going to be hospice care. Continue diuresis. The patient is cleared for hospice from our side. 2. Hypercalcemia secondary to renal cell with metastasis, status post pamidronate. We will sign off as the patient is going to be hospice. 3. Renal cell with metastasis as above. Time spent examining the patient [id number] reviewing data lab and the radiology placing orders discussing the case with the patient discussing the case with the rn team leader including hospitalist and nursing staff more than 55 minutes OLINDA Voice ID: [id number] Report ID: [id number] MTDD
[2024-05-05 11:53] VITALS: BP 112/71; TEMP 98.5
--- NOTE | 2024-05-05 12:49 | P.DS ---
Admission Date: 04/30/24 Discharge Date: 05/05/24 Disposition: HOSPICE-HOME Discharge Condition: FAIR Reason for Admission: Acute on chronic heart failure Brief History of Present Illness: 73-year-old male with a past medical history of CAD CABG four-vessel coronary artery bypass graft, congestive heart failure with an ejection fraction of 29%, oxygen dependance, hypertension, CAD, obstructive sleep apnea presents to the emergency room with fall. Reports moderate to severe generalized weakness, anorexia, weight loss, deconditiong worse over the last month, family reports he is unable to ambulate independently over the last month. Moderate abdoominal distention, bilatateral lower extremity swelling. , Daughters are at bedside are primary historian (s) report he has had 3 falls today, an abrasion to the knee, denies pain with range of motion, reports shortness of breath that has gotten progressively worse over the last 2 days, shortness of breath worse while laying flat. No reported chest pain, abdominal pain, fever, nausea vomiting diarrhea. He is a [employer]. 10/20/22 CTA 1.5 centimeter cystic mass pancreatic head mildly enlarged from prior exam.Small adrenal nodules probably benign Bilateral renal cysts. 5.2 centimeter enhancing solid mass anteriormidpole left kidney. 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 Nonemergent MRI could be obtained for further evaluation. Patient and family refused to follow up with MD Saab because he was declining in health and did not want aggressive treatment. The patient and family denies a diagnosis of metastatic disease diagnosis. The recently had eye surgery and is unable to lift her and request SNF at discharge. The have not used prior SNF in the past. He resides at home. If the patient goes home, will need a hospital bed. Prognosis is poor, would benefit from hospice at discharge consideration. Plan to admit for acute on chronic heart failure, acute hypoxic respiratory failure with cardiology to consult. SS to consult for DC planning. ER evaluation blood pressure 133/94, heart rate 74 respiration 89% room air pain 6 out of 10. Laboratory evaluation BNP 56,917, troponin normal 37.6, chest x-ray moderate pulmonary edema vs pnemonia presentation. Hospital Course: Pt is a 73 yo male with past medical history of CAD, s/p CABG four-vessel coronary artery bypass graft, congestive heart failure with an ejection fraction of 29%, oxygen dependance, hypertension, CAD, and obstructive sleep apnea who presented to the emergency room with fall, severe generalized weakness, anorexia, weight loss, deconditiong that worsened over the past 1 month. Chart review showed that prior CT abd showed renal and pancreatic mass. His family members declined further evaluation of the mass at [facility] because they felt that pt was too weak for aggressive treatment. We admitted pt for acute on chronic heart failure, acute hypoxic respiratory failure with cardiology to consult. Due to poor prognosis. We discussed comfort care with his family me liborio and they agreed to continue hospice are at home. Pt was in fair condition upon discharge. Vital Signs/Physical Exam: Temp Pulse Resp BP Pulse Ox 98.5 F 82 18 112/71 92 05/05/24 11:52 05/05/24 11:52 05/05/24 11:52 05/05/24 11:52 05/05/24 11:52 Laboratory Data at Discharge: WBC 8.50 thou/uL (4.3-10.9) 05/05/24 06:08 Hgb 16.7 g/dL (13.6-17.9) 05/05/24 06:08 Hct 53.7 % (39.6-49.0) H 05/05/24 06:08 Plt Count 221 thou/uL (152-406) 05/05/24 06:08 PT 16.8 SECONDS (9.4-12.5) H 05/03/24 05:38 INR 1.52 05/03/24 05:38 APTT 32.0 SECONDS (24.3-36.9) 05/03/24 05:38 Sodium 135 mEq/L (136-145) L 05/05/24 06:08 Potassium 4.1 mEq/L (3.5-5.1) D 05/05/24 06:08 BUN 29 mg/dL (7-18) H 05/05/24 06:08 Creatinine 1.62 mg/dL (0.70-1.30) H 05/05/24 06:08 Glucose 129 mg/dL (74-106) H 05/05/24 06:08 Uric Acid Cancelled 05/04/24 06:00 Magnesium 2.4 mg/dL (1.6-2.4) 05/03/24 05:38 Total Bilirubin Cancelled 05/04/24 06:00 AST Cancelled 05/04/24 06:00 ALT Cancelled 05/04/24 06:00 Alkaline Phosphatase Cancelled 05/04/24 06:00 Home Medications: carvediloL [Coreg*] 25 mg PO BID 6AM 6PM #60 tab 08/08/17 Sacubitril/Valsartan [Entresto 49 mg-51 mg Tablet] 1 tab PO BID #60 tab 09/19/17 Furosemide [Lasix*] 80 mg PO BID 10/21/22 Potassium Chloride [K-Tab ER] 1 tab PO DAILY 10/21/22 Physician Discharge Instructions: Home Hospice: [facility] Hospice - Rep Preeti P:[phone] F:[phone] Marine Cargo Inspector: Dr. Carlos A Maddox Diet: AHA Activity: Ad sixto Followup: KRISTOPHER BEARD [Primary Care Provider] - 1-2 Weeks
[2024-05-07 07:37] LABS: ALBUMIN, PLEURAL FLUID 0.9 g/dL
[2024-05-08 12:34] LABS: 1,25 Dihydroxy Vitamin D3 <8 pg/mL; Vitamin D 1,25-Dihydroxy Total <8 pg/mL (18-72); Vitamin D,1,25-OH2, D2 <8 pg/mL
== END 2024-05-05 14:57 | disposition hospice, home (50) | DRG 291 ==
LOC: ER 10:53 → ERHOLD 14:24 → 4TH 15:23
PROVIDERS: ADMIT Hospitalist; ATTEND Hospitalist
PROC: 5A09557 Assistance with Respiratory Ventilation, Greater than 96 Consecutive Hours, Continuous Positive Airway Pressure (ICD-10-PCS; principal; 2024-04-30)
PROC: 0T9B70Z Drainage of Bladder with Drainage Device, Via Natural or Artificial Opening (ICD-10-PCS; 2024-04-30)
PROC: 0W9B3ZZ Drainage of Left Pleural Cavity, Percutaneous Approach (ICD-10-PCS; 2024-05-03)
DX: I13.0 Hypertensive heart and chronic kidney disease with heart failure and stage 1 through stage 4 chronic kidney disease, or unspecified chronic kidney disease (principal); E43 Unspecified severe protein-calorie malnutrition; I50.23 Acute on chronic systolic (congestive) heart failure; J96.01 Acute respiratory failure with hypoxia; R64 Cachexia; J91.0 Malignant pleural effusion; R18.0 Malignant ascites; C78.00 Secondary malignant neoplasm of unspecified lung; C78.7 Secondary malignant neoplasm of liver and intrahepatic bile duct; C79.51 Secondary malignant neoplasm of bone; C64.9 Malignant neoplasm of unspecified kidney, except renal pelvis; N18.31 Chronic kidney disease, stage 3a; E11.22 Type 2 diabetes mellitus with diabetic chronic kidney disease; G47.33 Obstructive sleep apnea (adult) (pediatric); K86.9 Disease of pancreas, unspecified; E78.2 Mixed hyperlipidemia; E83.52 Hypercalcemia; I34.0 Nonrheumatic mitral (valve) insufficiency; K21.9 Gastro-esophageal reflux disease without esophagitis; N40.0 Benign prostatic hyperplasia without lower urinary tract symptoms; E87.6 Hypokalemia; S80.212A Abrasion, left knee, initial encounter; I65.29 Occlusion and stenosis of unspecified carotid artery; E88.09 Other disorders of plasma-protein metabolism, not elsewhere classified; K57.90 Diverticulosis of intestine, part unspecified, without perforation or abscess without bleeding; I25.10 Atherosclerotic heart disease of native coronary artery without angina pectoris; R63.0 Anorexia; R29.6 Repeated falls; Z93.3 Colostomy status; Z95.1 Presence of aortocoronary bypass graft; Z91.81 History of falling; Z99.81 Dependence on supplemental oxygen; Z79.82 Long term (current) use of aspirin; Z68.26 Body mass index [BMI] 26.0-26.9, adult; Z79.02 Long term (current) use of antithrombotics/antiplatelets; Z79.899 Other long term (current) drug therapy; W18.30XA Fall on same level, unspecified, initial encounter; Y99.9 Unspecified external cause status; Y92.9 Unspecified place or not applicable; Y93.9 Activity, unspecified
CPT/HCPCS: 32555; 36415; 71045; 71260; 74177; 80048; 80076; 81001; 82042; 82652; 82945; 83615; 83735; 83880; 83970; 84484; 84550; 85025; 85610; 85730; 87070; 87086; 87088; 93005; 94760; 96374; 97110; 97161; 97530; 99285; J1650; J1940; J2270; J2430; J7040; P9047; Q9967